=== PATIENT | female | born 1965 | race Caucasian/White ===

== ENCOUNTER 2018-10-25 16:51 | Observation (INO) | payer SELFPAY ==
[2018-10-25] VITALS (8 sets, daily range): BP systolic 150–208; BP diastolic 82–101; PULSE 58–85; RESP 16–18; TEMP 36.9–37.2; O2SAT 95–98; BMI 31.8; BMI 30.7
--- NOTE | 2018-10-25 17:09 | CT_ITS ---
STUDY: CTA CHEST REASON FOR EXAM: Female, 53 years old. Short of breath and chest pain RADIATION DOSAGE (If Supplied By Facility): CTDIvol = ( 12.47 ) mGy, DLP = ( 447.08 ) mGycm TECHNIQUE: The examination was performed with the intravenous administration of 100 IV Isovue 370. Post-processing of the angiographic images was performed, with multiplanar reformation and 3D reconstruction. Individualized dose optimization techniques were used for this CT. COMPARISON: October 18, 2015 FINDINGS: Normal enhancement of the main pulmonary artery and right and left pulmonary arteries. Normal enhancement of the bilateral peripheral pulmonary arteries. There is no demonstrated pulmonary embolism. Normal thoracic aorta and visualized great vessels. There is no demonstrated aortic dissection. Normal heart and pericardium. Normal mediastinum. Normal hilar regions. Normal visualized trachea and bronchi. The lungs are well expanded. There is mild atelectasis within the dependent portion of the lungs. No focal infiltration or pulmonary nodule Normal pleura. Normal chest wall structures. Normal osseous structures. Normal visualized upper abdomen. CT/CTA Chest W/WO Contrast IMPRESSION: Mild atelectasis within the dependent portion of the lungs.. No acute abnormalities. Specifically no evidence for focal infiltration, pulmonary embolus, aortic, aneurysm, periaortic leak or dissection Electronically Signed: Duran Booker MD at 18:54 EDT , Service support ,
--- NOTE | 2018-10-25 17:09 | EKG12_ITS ---
Test Reason : CP Blood Pressure : / mmHG Vent. Rate : 066 BPM Atrial Rate : 066 BPM P-R Int : 152 ms QRS Dur : 072 ms QT Int : 426 ms P-R-T Axes : 055 046 055 degrees QTc Int : 446 ms Normal sinus rhythm Normal ECG Confirmed by MEE CASTILLO, LANNY ([id number]), editor publications MARISELA PABON ([id number]) on 10/30/2018 12:27:10 PM Referred By: DC Confirmed By:LANNY CABAN MD
--- NOTE | 2018-10-25 17:15 | ED.DCSUM_ITS ---
- ER Visit Summary Date of Service: 10/25/18 Chief Complaint: Chest pain History of Present Illness: The patient is a 53 F with left-sided chest pain. The pain started in her left upper back yesterday and then radiated to her left chest. It feels like a sharp pain at times, worse with breathing. She has a cough. No sputum or hemoptysis. No fevers. No shortness of breath. No other associated symptoms. History of hypertension, SVT, heart ablation. Denies any history of DVT or PE. She takes aspirin but no other blood thinners. She takes clonidine as needed for high blood pressures. Physical Examination: Afebrile. Blood pressure 208/101. Otherwise vitals normal. Patient alert and oriented. No acute distress. Heart regular. Lungs clear. Abdomen soft and nontender. Extremities nontender with no edema. Good pulses. Normal skin color. Test Results: EKG showed sinus rhythm at a rate of 66. No sign of acute ischemia or infarction pattern. Laboratory studies and CTA pending. Emergency Department Course and Treatment: Patient placed on a monitor. Treated with morphine and clonidine while awaiting results. EKG, labs unremarkable. Patient complained of urinary symptoms. Urinalysis was negative. CTA showed mild atelectasis but no evidence of PE, pneumonia, or dissection. Patient has a heart score of 4. Her last stress test was years ago. She required a medical stress test. I contacted the hospitalist to admit for observation in the PCU. Treatment Plan: As above Disposition: As above Impression: 1. Chest pain This note was generated with [employer] dictation software. It may contain incorrect words, spelling, and punctuation that were not noted in review of the chart prior to signing ED Disposition - Plan for ED Patient: Referrals: [facility] ,Out of [Primary Care Provider] -
[2018-10-25 17:29] LABS: Absolute Neutrophil Count 2.9 X10^3/uL (2.0-7.7); Basophil# 0.03 X10^3/uL; Basophil% 0.4 % (0-1); Eosinophil# 0.14 X10^3/uL; Eosinophils% 2.1 % (0-5); Hematocrit 43.8 % (37-47); Hemoglobin 14.9 g/dL (12.0-15.0); Lymphocyte % 43.2 % (19-41); Mean Corpuscular Hgb 31.8 pg (27.0-32.0); Mean Corpuscular Volume 93.4 fL (81-99); Mean Platelet Vol. 10.9 fl (6.2-12.0); Monocyte# 0.76 X10^3/uL; Monocyte% 11.3 % (0-10); NRBC Flagged by Analyzer 0 % (0-5); Neutrophil # 2.86 X10^3/uL (2.7-7.7); Neutrophil % 42.7 % (47-70); Platelet Count 197 K/mm3 (150-450); RBC Distribution Width CV 12.2 % (11.6-14.6); RBC Distribution Width SD 41.9 fl (35.1-43.9); Red Blood Count 4.69 M/mm3 (4.2-5.4); White Blood Count 6.7 K/mm3 (4.4-11.0)
[2018-10-25] MEDS: cloNIDine HCl 0.1 MG Tablet PO (17:31)
[2018-10-25] MEDS: Morphine 4 MG/ML Syringe IV (17:31)
[2018-10-25 17:57] LABS: Anion Gap 4 (5-15); BUN 19 mg/dL (7-18); BUN/Creat Ratio 14.7 RATIO (10-20); Calcium,Total 9.1 mg/dL (8.5-10.1); Chloride 104 mmol/L (98-107); Creatinine, Serum 1.29 mg/dL (0.55-1.02); EST Glomerular Filtration Rate 46 mL/min (>60); Est Glom Filt Rate - Afr Amer 56 mL/min (>60); Estimated Creatinine Clearance 47.76 ml/min; Glucose 110 mg/dL (74-106); Potassium 3.9 mmol/L (3.5-5.1); Sodium Level 137 mmol/L (136-145)
[2018-10-25 19:26] LABS: Bacteria 0 SEEN /hpf (None Seen); Mucous, Urine 0 SEEN /hpf (<or=2+); Red Blood Cells-Urine 0 SEEN /hpf (0-5); White Blood Cells 0 SEEN /hpf (0-5)
[2018-10-25 19:41] LABS: Color, Urine Straw (Yellow); Glucose, Dipstick Normal (Normal); Ketone-Dipstick Negative (Negative); Leukocyte Esterase-Dipstick Negative /ul (Negative); Nitrite-Dipstick Negative (Negative); Occult Blood-Urine Negative /ul (Negative); Protein-Dipstick Negative (Negative); Urine Bilirubin Dipstick Negative (Negative); Urine Clarity Clear (Clear); Urine Urobilinogen Normal (Normal); Urine pH 6.5 (5.0 - 8.0)
[2018-10-25] MEDS: oxyCODONE 5 MG Tablet 10 MG PO (19:46)
[2018-10-25 19:52] LABS: Squamous Epithelial Cells - UA 0-5 SEEN /hpf (5-10)
--- NOTE | 2018-10-25 20:12 | HP.PCM_ITS ---
Problem List (1) Chest pain Status: Acute (2) Seasonal allergies Status: Chronic (3) Sinus congestion Status: Chronic History of Present Illness Date of Admission: 10/25/18 Chief Complaint: chest pain The patient is a 53 year old F with a significant history of congestive heart failure; hypertension; restless leg syndrome; anxiety disorder who presented to the emergency department with a 2-day history of chest pain. His symptoms actually started with pain in his left scapula close to the middle of his upper back. His pain is sharp like a knife and it increases with deep breathing. He denies any majority of factor. At home he did not have any nausea or vomiting. However was admitted to the sung the patient began to be nauseous and vomited profusely. She reports malaise. Patient had a stress test in 2015 that was unremarkable. 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 Patient lives at [place] and is currently visiting family in the [facility]. Past Medical History Past Medical History (Chronic Problems): Chronic Problems Sinus congestion (Chronic) Seasonal allergies (Chronic) SVT (supraventricular tachycardia) (Chronic) Allergies acyclovir Allergy (Verified 10/25/18 16:51) Unknown ibuprofen [From Motrin] Allergy (Verified 10/25/18 16:51) Swelling metoprolol Allergy (Verified 10/25/18 16:51) Unknown propranolol Allergy (Verified 10/25/18 16:51) Unknown Home Medications: Ambulatory Orders Medication Instructions Recorded Aspirin E.C. [Ecotrin] 81 mg PO DAILY@0800 10/11/15 DiphenhydrAMINE [Benadryl] 50 mg PO QHS 10/11/15 Ergocalciferol [Vitamin D] 50,000 unit PO MOWE 10/11/15 Furosemide [Lasix] 40 mg PO DAILY #14 tablet 10/11/15 Potassium Chloride [K-Dur] 20 meq PO DAILY 10/11/15 Triamcinolone Acetonide [Nasacort] 1 spray NASAL DAILY PRN 10/11/15 Albuterol Inhaler [Ventolin Hfa] 2 puff INHALATION Q4H PRN PRN #1 10/20/15 inhaler ALPRAZolam [Xanax] 0.5 mg PO TID PRN PRN 10/25/18 Atenolol [Tenormin (beta zulma)] 100 mg PO BID 10/25/18 Clonidine HCl [Catapres] 0.1 mg PO PRN PRN 10/25/18 Lisinopril 40 mg PO QHS 10/25/18 Montelukast [Singulair] 10 mg PO DAILY 10/25/18 Ropinirole HCl [Requip] 10 mg PO QHS 10/25/18 Surgical History: - - 2 c/s , ablatation, lumpectemy, cervical spinal surgery.ovarin cysts remove, abd laparoscopy. Lives: Roommate Smoking Status: Never smoker - *Family History Paternal History Items: Cancer - Colon cancer, - - father at early age. Maternal History Items: Cancer - Glioblastoma, Heart Disease, - - Thyroid disease Review of Systems Constitutional: Reports: Malaise. Denies: Chills, Fever, Weight Change HEENT: Denies: Head Aches, Sinus Congestion, Sinus Drainage Cardiovascular: Reports: Chest Pain. Denies: Palpitations Respiratory: Denies: Cough, Shortness of breath at rest, Sputum production Gastrointestinal: Reports: Nausea, Vomiting. Denies: Abdominal Pain Genitourinary: Denies: Dysuria Musculoskeletal: Reports: Shoulder Pain. Denies: Joint Pain, Joint Tenderness Skin: Denies: Rash, Wounds Neurological: Denies: Numbness, Tingling, Focal weakness Psychiatric: Denies: Anxiety, Depression, Homicidal Ideations, Suicidal Ideations Hematologic/ Lymphatic: Denies: Easy Bruising, Easy Bleeding VTE Information - Inpt Only VTE Present on Admission: No VTE Mechan Device Prophylaxis: None VTE Pharm Prophylaxis ordered?: Yes - Physical Exam General: Alert, Oriented x3, Cooperative HEENT: Atraumatic, PERRLA, EOMI, Normocephalic Neck: Supple, No JVD, Negative Carotid Bruits Lungs: Clear to auscultation, Normal air movement Cardiovascular: Regular rate, No murmurs Abdomen: Bowel Sounds Present, Soft, Non Tender Extremities: No edema, Capillary Refill Less than 3 Seconds Skin: No rashes, No breakdown Musculoskeletal: No Tenderness to Palpation of Joints or Extremities Neurological: Cranial nerves II-XII grossly intact Psych/Mental Status: Normal Affect, Appropriate Vital Signs Temp Pulse Resp BP Pulse Ox 98.9 F 60 16 151/82 H 98 10/25/18 16:51 10/25/18 19:23 10/25/18 19:23 10/25/18 19:23 10/25/18 19:23 Oxygen Delivery Method Room Air Weight: 89.4 kg Body Mass Index (BMI) 31.8 Laboratory Tests Past 24 Hrs 10/25/18 10/25/18 10/25/18 17:00 17:00 19:18 WBC 6.7 RBC 4.69 Hgb 14.9 Hct 43.8 MCV 93.4 MCH 31.8 MCHC 34.0 RDW Std Deviation 41.9 RDW Coeff of Shaina 12.2 Plt Count 197 MPV 10.9 Immature Gran % (Auto) 0.300 Neut % (Auto) 42.7 L Lymph % (Auto) 43.2 H [place] % (Auto) 11.3 H Eos % (Auto) 2.1 Baso % (Auto) 0.4 Absolute Neuts (auto) 2.9 Absolute Lymphs (auto) 2.90 Absolute Nucleated RBC 0.00 Nucleated RBC % 0 Sodium 137 Potassium 3.9 Chloride 104 Carbon Dioxide 29.0 Anion Gap 4 L BUN 19 H Creatinine 1.29 H Estim Creat Clear Calc 47.76 Est GFR (MDRD) Af Amer 56 L Est GFR (MDRD) Non-Af 46 L BUN/Creatinine Ratio 14.7 Glucose 110 H Calcium 9.1 Troponin I < 0.015 Urine Color Straw Urine Clarity Clear Urine pH 6.5 Ur Specific [place] 1.010 Urine Protein Negative Urine Glucose (UA) Normal Urine Ketones Negative Urine Occult Blood Negative Urine Nitrite Negative Urine Bilirubin Negative Urine Urobilinogen Normal Ur Leukocyte Esterase Negative Urine RBC 0 SEEN Urine WBC 0 SEEN Ur Squamous Epith Cells 0-5 SEEN Urine Bacteria 0 SEEN Urine Mucus 0 SEEN Assessment/Plan All Active Problems Chest pain (Acute) The patient is a 53 year old F with a significant history of congestive heart failure; hypertension; restless leg syndrome; anxiety disorder who presented to the emergency department with chest pain; left scapula pain and with nausea and profuse vomiting. Chest Pain Admit to a monitored bed on PCU CTPA was unremarkable except for mild atelectasis within the dependent portion of the lungs. CTPA was independently reviewed. I agree with images interpretation. EKG independently reviewed confirms sinus rhythm ASA 81 mg p.o. daily SL NTG 0.4 mg prn as needed for chest pain Morphine as needed for pain We will check lipid panel. Statin: Patient was given atorvastatin 80 mg x 1. Patient was noted to vomit. Unclear whether her vomiting is related to statin. Will discontinue statin at this time. Serial cardiac enzymes Stat EKG as needed for chest pain Initially a chemical stress test was ordered but with her nausea and copious vomiting would hold off stress test at this time. We will get an echocardiogram. If chest pain continues and nausea and vomiting is relieved with Zofran consider reordering stress test. Patient was noted to have pauses on the monitor while vomiting. This may be due to vagal stimulation. Probable acute gastroenteritis Zofran as needed. Zofran frequently changed from every 8 hours to every 6 hours. We will get comprehensive respiratory pathogen panel. Hypertension urgency Presentation blood pressure was 208/101. Patient takes clonidine as needed at home. At the Emergency department she was given clonidine as needed which helped control her blood pressure. Even with blood pressure controlled she continued to have chest pain. Atenolol continued Clonidine as needed continued Lisinopril continued Lasix continued. Trend blood pressure but his blood pressure medication. Congestive heart failure Lasix with potassium continued. If vomiting continues consider discontinuing Lasix to prevent dehydration. DVT prophylaxis Lovenox subcutaneous ordered Code Visit OBSV E&M: 10701 Initial observation care L3
[2018-10-25] MEDS: Atenolol 100 MG Tablet PO (20:40)
--- NOTE | 2018-10-25 20:53 | EKG12_ITS ---
Test Reason : RYTHM CHANGE Blood Pressure : / mmHG Vent. Rate : 069 BPM Atrial Rate : 069 BPM P-R Int : 186 ms QRS Dur : 076 ms QT Int : 448 ms P-R-T Axes : 042 033 038 degrees QTc Int : 480 ms Normal sinus rhythm Prolonged QT Abnormal ECG When compared with ECG of 26-OCT-2018 05:44, MANUAL COMPARISON REQUIRED, DATA IS UNCONFIRMED Confirmed by ABAD CASTILLO, VERONICA ([id number]), photograph editor MARISELA PABON ([id number]) on 10/27/2018 2:12:52 PM Referred By: KEN Confirmed By:LISA MELGOZA MD
[2018-10-25] MEDS: Ondansetron 4 MG/2 ML Vial IV (22:17)
[2018-10-25] MEDS: Atorvastatin Calcium 80 MG Tablet PO (22:17)
[2018-10-25] MEDS: ALPRAZolam 0.5 MG Tablet PO (22:17)
[2018-10-25] MEDS: Montelukast 10 MG Tablet PO (22:17)
[2018-10-25] MEDS: DiphenhydrAMINE 25 MG Capsule 50 MG PO (22:17)
[2018-10-25] MEDS: Lisinopril 40 MG Tablet PO (22:17)
[2018-10-25] MEDS: Pramipexole Di-HCl 1 MG Tablet 5 MG PO (23:22)
[2018-10-25] MEDS: Morphine 2 MG/ML Syringe IV (23:54)
[2018-10-25] MEDS: Acetaminophen 325 MG Tablet 650 MG PO (23:55)
[2018-10-26] VITALS (15 sets, daily range): BP systolic 101–147; BP diastolic 58–86; PULSE 37–94; RESP 16–20; TEMP 36.4–36.9; O2SAT 91–97
[2018-10-26] MEDS: Ondansetron 4 MG/2 ML Vial IV (04:55)
[2018-10-26 04:56] LABS: Cholesterol 262 mg/dL (200); High Density Lipoprotein 39 mg/dL; Triglycerides 346 mg/dL; Very Low Density Lipoprotein 69 mg/dL (5-40)
[2018-10-26] MEDS: 0.9% NaCl Peripheral Flush Adult/Peds IV ×4 (05:08→22:41)
--- NOTE | 2018-10-26 05:15 | ECHOD_ITS ---
Reason For Study: CHEST PAIN Procedure This was a 2D Doppler, Color Flow transthoracic echocardiogram. Exam performed portable in patient room. Left Ventricle Normal LV size. Concentric left ventricular hypertrophy. The estimated ejection fraction is 65 %. Diastolic function is indeterminate. No regional wall motion abnormalities noted. Right Ventricle Normal RV size. Normal systolic function. Atria Normal left atrium. Normal right atrium. No doppler evidence for ASD. Mitral Valve There is no mitral valve stenosis. No mitral valve insufficiency. Tricuspid Valve There is no tricuspid stenosis. Unable to estimate RV systolic pressure due to insufficient tricuspid regurgitant envelope. Trivial tricuspid valve insufficiency. Aortic Valve Trisinus/trileaflet aortic valve. There is no aortic stenosis. No aortic valve insufficiency. Pulmonic Valve There is no pulmonic valvular stenosis. No pulmonic valve insufficiency. Great Vessels Normal aortic root. Pericardium/Pleural No pericardial effusion. MMode/2D Measurements & Calculations LVIDd: 4.3 cm IVSd: 1.3 cm Ao root diam: 2.9 cm LVIDs: 2.8 cm LVPWd: 1.3 cm LA dimension: 3.6 cm RVDd: 2.8 cm FS: 33.6 % LAV(MOD-bp): 38.5 ml LA A4 area: 15.3 cm2 RA A4 area: 18.0 cm2 LAV(MOD-bp) Indexed: 19.7 ml/m2 LAV(MOD-sp2): 35.9 ml LAV(MOD-sp4): 35.0 ml Time Measurements MV dec time: 0.20 sec Doppler Measurements & Calculations MV E max ernesto: 86.3 cm/sec Lat Peak E' Ernesto: 5.6 cm/sec Med Peak E' Ernesto: 5.5 cm/sec MV A max ernesto: 66.3 cm/sec E/E' lat: 15.5 E/E' med: 15.7 MV E/A: 1.3 Ao V2 max: 123.6 cm/sec LV V1 max: 109.1 cm/sec Ao max P.1 mmHg LV V1 max P.8 mmHg Interpretation Summary Concentric left ventricular hypertrophy. The estimated ejection fraction is 65 %. Diastolic function is indeterminate. Ordering Physician: Junaid Palm Referring Physician: OTD Performed By: Fabiola Duenas RDCS, RVT
--- NOTE | 2018-10-26 05:55 | EKG12_ITS ---
Test Reason : CP ADMIT Blood Pressure : / mmHG Vent. Rate : 057 BPM Atrial Rate : 057 BPM P-R Int : 180 ms QRS Dur : 074 ms QT Int : 438 ms P-R-T Axes : 049 028 043 degrees QTc Int : 426 ms Sinus bradycardia Otherwise normal ECG When compared with ECG of 25-OCT-2018 16:55, MANUAL COMPARISON REQUIRED, DATA IS UNCONFIRMED Confirmed by ABAD CASTILLO, VERONICA ([id number]), supervising editor trailer MARISELA PABON ([id number]) on 10/27/2018 2:15:24 PM Referred By: DR HARRELL Confirmed By:LISA MELGOZA MD
[2018-10-26 06:59] LABS: Thyroid Stim Hormone (TSH) 2.99 uIU/mL (0.358-3.74)
--- NOTE | 2018-10-26 07:37 | EKG12_ITS ---
Test Reason : CP Blood Pressure : / mmHG Vent. Rate : 060 BPM Atrial Rate : 277 BPM P-R Int : 000 ms QRS Dur : 080 ms QT Int : 444 ms P-R-T Axes : 000 037 035 degrees QTc Int : 444 ms Atrial fibrillation Abnormal ECG When compared with ECG of 25-OCT-2018 21:24, MANUAL COMPARISON REQUIRED, DATA IS UNCONFIRMED Confirmed by ABAD CASTILLO, VERONICA ([id number]), film and video editor MARISELA PABON ([id number]) on 10/27/2018 2:13:18 PM Referred By: DR HARRELL Confirmed By:LISA MELGOZA MD
--- NOTE | 2018-10-26 07:54 | CON.PCM_ITS ---
Reason for Consult Date of Consultation: 10/26/18 Reason for Consultation: Bradycardia arrhythmia. History of Present Illness: The patient is a 53 year old F with a history of hypertension and previous supraventricular tachyarrhythmia. It appears from the history that she was ablated in the past and has had paroxysms of atrial fibrillation. She has been maintained on high-dose beta-zulma. She follows with a director building in [place] where she lives. She also says that it has been difficult to control her blood pressure. She came up with his way to visit her mother. She presented to the emergency room last night because she was having sharp left- sided scapular chest discomfort. It appeared to be worse when she took a deep breath. She is also had some nausea and vomiting. In the emergency room her blood pressure was over 200 she was given clonidine with improvement in her blood pressure. This morning she was noted to be retching and during her retching she became bradycardic and passed out briefly. This was unwitnessed. Telemetry monitoring however demonstrated high-grade AV block. She has had no previous dizziness diaphoresis near syncope or syncope. [] Past Medical History Allergies/Adverse Reactions: Allergies acyclovir Allergy (Verified 10/25/18 16:51) Unknown ibuprofen [From Motrin] Allergy (Verified 10/25/18 16:51) Swelling metoprolol Allergy (Verified 10/25/18 16:51) Unknown propranolol Allergy (Verified 10/25/18 16:51) Unknown Home Medications: Ambulatory Orders Medication Instructions Recorded Aspirin E.C. [Ecotrin] 81 mg PO DAILY@0800 10/11/15 DiphenhydrAMINE [Benadryl] 50 mg PO QHS 10/11/15 Ergocalciferol [Vitamin D] 50,000 unit PO MOWE 10/11/15 Furosemide [Lasix] 40 mg PO DAILY #14 tablet 10/11/15 Potassium Chloride [K-Dur] 20 meq PO DAILY 10/11/15 Triamcinolone Acetonide [Nasacort] 1 spray NASAL DAILY PRN 10/11/15 Albuterol Inhaler [Ventolin Hfa] 2 puff INHALATION Q4H PRN PRN #1 10/20/15 inhaler ALPRAZolam [Xanax] 0.5 mg PO TID PRN PRN 10/25/18 Atenolol [Tenormin (beta zulma)] 100 mg PO BID 10/25/18 Clonidine HCl [Catapres] 0.1 mg PO PRN PRN 10/25/18 Lisinopril 40 mg PO QHS 10/25/18 Montelukast [Singulair] 10 mg PO DAILY 10/25/18 Ropinirole HCl [Requip] 10 mg PO QHS 10/25/18 Past Medical History (Chronic Problems): Chronic Problems Sinus congestion (Chronic) Seasonal allergies (Chronic) SVT (supraventricular tachycardia) (Chronic) Surgical History: - - 2 c/s , ablatation, lumpectemy, cervical spinal surgery.ovarin cysts remove, abd laparoscopy. - *Family History Paternal History Items: Cancer - Colon cancer, - - father at early age. Maternal History Items: Cancer - Glioblastoma, Heart Disease, - - Thyroid disease Lives: Roommate Smoking Status: Never smoker Alcohol: None Drugs: None Review of Systems - Review of Systems General: Denies: Fever, Night Sweats, Fatigue HEENT: Denies: Vision Change Cardiovascular: Reports: Chest Discomfort, Chest Discomfort at Rest, Dizziness. Denies: Shortness of Breath, Orthopnea, PND, Peripheral Edema, Palpitations, Lightheadedness, Near Syncope, Syncope Respiratory: Reports: Pleurtic Chest Pain. Denies: Cough, Sputum Production, Hemoptysis Gastrointestinal: Reports: Dyspepsia, Nausea, Emesis. Denies: Hematemesis, Hematochezia, Melena Genitourinary: Denies: Dysuria, Hematuria Muscoloskeletal: Denies: Myalgias Skin: Denies: Rash Neurological: Denies: Dizziness Psychiatric: Denies: Anxiety Endocrine: Denies: Unexplained Weight Loss Hematologic/ Lymphatic: Denies: Anemia Subjectve: Young lady rather uncomfortable retching in bed Objective: Vital Signs Temp Pulse Resp BP Pulse Ox 98.4 F 62 20 H 118/86 H 97 10/26/18 05:15 10/26/18 07:02 10/26/18 05:15 10/26/18 05:15 10/26/18 05:15 Oxygen Delivery Method Room Air Weight: 190 lb 0.615 oz Body Mass Index (BMI) 30.7 Intake and Output for Last 24 Hours 07/16/19 07/17/19 07/18/19 23:59 23:59 23:59 Intake Total 496 / 496 Balance 496 / 496 General: Awake, Alert, Oriented x 3 HEENT: PERRL, EOMI, Sclera Non Icteric Neck: Supple, Good ROM, No Lymph Node Enlargement Lungs: Clear to auscultation Cardiovascular: Regular Rhythm, Normal S1, Normal S2, No Murmurs, No Rubs, No Gallops Vascular: No Carotid Bruits, Normal Femoral Pulses, Normal Radial Pulses, Normal Dorsalis Pedal Pulse, Normal Posterior Tibial Pulses Abdomen: Bowel Sounds Present, Soft, Non Tender, No HSM, No Organomegaly Extremities: No Cyanosis, No Clubbing, No edema Musculoskeletal: No Erythema Skin: No Rashes Lymphatic: No Lymph Node Enlargement Neurological: No Focal Motor or Sensory Deficit Psych/Mental Status: Appropriate 10/25/18 17:00: WBC 6.7, RBC 4.69, Hgb 14.9, Hct 43.8, MCV 93.4, MCH 31.8, MCHC 34.0, Plt Count 197, MPV 10.9, Immature Gran % (Auto) 0.300, Neut % (Auto) 42.7 L, Lymph % (Auto) 43.2 H, [place] % (Auto) 11.3 H, Eos % (Auto) 2.1, Baso % (Auto) 0.4, Absolute Neuts (auto) 2.9, Nucleated RBC % 0 10/25/18 17:00: Sodium 137, Potassium 3.9, Chloride 104, Carbon Dioxide 29.0, Anion Gap 4 L, BUN 19 H, Creatinine 1.29 H, Est GFR (MDRD) Af Amer 56 L, Est GFR (MDRD) Non-Af 46 L, BUN/Creatinine Ratio 14.7, Glucose 110 H, Calcium 9.1, Troponin I < 0.015 10/25/18 19:18: Urine Color Straw, Urine Clarity Clear, Urine pH 6.5, Ur Specific [place] 1.010, Urine Protein Negative, Urine Glucose (UA) Normal, Urine Ketones Negative, Urine Occult Blood Negative, Urine Nitrite Negative, Urine Bilirubin Negative, Urine Urobilinogen Normal, Ur Leukocyte Esterase Negative, Urine RBC 0 SEEN, Urine WBC 0 SEEN 10/25/18 21:25: Troponin I < 0.015 10/25/18 23:26: Troponin I < 0.015 10/26/18 03:20: Triglycerides 346 H, Cholesterol 262 H, LDL Cholesterol 154 H, VLDL Cholesterol 69 H, HDL Cholesterol 39 L 10/26/18 03:20: Troponin I < 0.015 10/26/18 03:20: Magnesium 2.0 Rhythm: Normal sinus rhythm. Other telemetry monitoring demonstrates high-grade AV block. EKG: Normal sinus rhythm with no acute changes. Follow-up EKG demonstrates atrial for ablation with a controlled ventricular response rate. Assessment/Plan 1. Paroxysmal high-grade AV block * The above is likely secondary to the increased vagal tone from her vomiting and retching as well as the high blood pressure. * Would like to treat the underlying cause of her nausea and vomiting. * This is exacerbated by her beta-zulma at a high dose. * I would recommend discontinuing the clonidine and adding a calcium channel zulma. * 2. Hypertension * Blood pressure appears to be under better control at this time. If her blood pressure starts going up I would recommend the addition of amlodipine 5 or 10 mg a day. * Continue atenolol * DisContinue Lasix * Suggest hydrochlorothiazide 25 mg a day * Echocardiogram to assess left ventricular function. 3. Left-sided chest pain * The above is most likely noncoronary and noncardiac in origin. * Would investigate and evaluate other etiologies. * Suggest obtain liver function tests and abdominal ultrasound as well as amylase and lipase. * * Thank you for allowing me to participate in the care of your patient. Please don't hesitate to call if any issues arise
[2018-10-26] MEDS: proMETHazine 25 MG/ML Syringe 6.25 MG IV ×3 (08:14→22:41)
[2018-10-26 08:26] LABS: AST(SGOT) 23 U/L (15-37); Alanine Aminotransfer ALT/SGPT 37 U/L (13-56); Alkaline Phosphatase 61 U/L (45-117); Amylase 35 U/L (25-115); Bilirubin, Direct 0.05 mg/dL (0.00-0.30); Globulin 3.2 g/dL (2.2-4.2); Lipase 102 U/L (73-393); Protein, Total 7.2 g/dL (6.4-8.2)
[2018-10-26] MEDS: Aspirin E.C. 81 MG Tablet PO (09:58)
[2018-10-26] MEDS: Acetaminophen 325 MG Tablet 650 MG PO ×2 (09:58→22:37)
[2018-10-26] MEDS: Atenolol 100 MG Tablet PO ×2 (09:58→21:55)
[2018-10-26] MEDS: Enoxaparin 40 MG/0.4 ML Syringe SC (09:59)
[2018-10-26] MEDS: Morphine 2 MG/ML Syringe IV ×2 (14:04→22:42)
--- NOTE | 2018-10-26 15:31 | PCM.PROGNOTE ---
Subjective: Patient seen and examined. Complains of continued sharp left-sided chest pain which radiates to her back. She reports this is worse with movement, deep breathing. Complains of intermittent heart fluttering. Denies other associated complaints. - Physical Exam General: Alert, Oriented x3, Cooperative HEENT: Atraumatic, PERRLA, EOMI, Normocephalic Neck: Supple, No JVD, Negative Carotid Bruits Lungs: Clear to auscultation, Normal air movement Cardiovascular: Regular rate, Regular Rhythm, Normal S1, Normal S2, No murmurs Abdomen: Bowel Sounds Present, Soft, Non Tender, Non-Distended Extremities: No clubbing, No cyanosis, No edema, Capillary Refill Less than 3 Seconds Skin: No rashes, No breakdown Musculoskeletal: No Tenderness to Palpation of Joints or Extremities Neurological: Cranial nerves II-XII grossly intact, Neuro grossly intact Psych/Mental Status: Flat Affect Vital Signs Temp Pulse Resp BP Pulse Ox 98.1 F 63 16 129/76 H 97 10/26/18 09:51 10/26/18 15:02 10/26/18 09:51 10/26/18 09:51 10/26/18 09:51 Oxygen Delivery Method Room Air Weight: 190 lb 0.615 oz Body Mass Index (BMI) 30.7 Intake and Output for Last 24 Hours 10/24/18 10/25/18 10/26/18 23:59 23:59 23:59 Intake Total 496 / 496 60 / 60 Output Total 350 / 350 Balance 496 / 496 -290 / -290 Microbiology Past 72 Hours 10/26/18 07:27 Respiratory Panel (PCR) - Final Mucosa - Nasopharyngeal Laboratory Tests Past 24 Hrs 10/25/18 10/25/18 10/25/18 17:00 17:00 19:18 WBC 6.7 RBC 4.69 Hgb 14.9 Hct 43.8 MCV 93.4 MCH 31.8 MCHC 34.0 RDW Std Deviation 41.9 RDW Coeff of Shaina 12.2 Plt Count 197 MPV 10.9 Immature Gran % (Auto) 0.300 Neut % (Auto) 42.7 L Lymph % (Auto) 43.2 H [place] % (Auto) 11.3 H Eos % (Auto) 2.1 Baso % (Auto) 0.4 Absolute Neuts (auto) 2.9 Absolute Lymphs (auto) 2.90 Absolute Nucleated RBC 0.00 Nucleated RBC % 0 Sodium 137 Potassium 3.9 Chloride 104 Carbon Dioxide 29.0 Anion Gap 4 L BUN 19 H Creatinine 1.29 H Estim Creat Clear Calc 47.76 Est GFR (MDRD) Af Amer 56 L Est GFR (MDRD) Non-Af 46 L BUN/Creatinine Ratio 14.7 Glucose 110 H Calcium 9.1 Magnesium Total Bilirubin Direct Bilirubin AST ALT Alkaline Phosphatase Troponin I < 0.015 Total Protein Albumin Globulin Triglycerides Cholesterol LDL Cholesterol VLDL Cholesterol HDL Cholesterol Amylase Lipase TSH Urine Color Straw Urine Clarity Clear Urine pH 6.5 Ur Specific [place] 1.010 Urine Protein Negative Urine Glucose (UA) Normal Urine Ketones Negative Urine Occult Blood Negative Urine Nitrite Negative Urine Bilirubin Negative Urine Urobilinogen Normal Ur Leukocyte Esterase Negative Urine RBC 0 SEEN Urine WBC 0 SEEN Ur Squamous Epith Cells 0-5 SEEN Urine Bacteria 0 SEEN Urine Mucus 0 SEEN 10/25/18 10/25/18 10/26/18 21:25 23:26 03:20 WBC RBC Hgb Hct MCV MCH MCHC RDW Std Deviation RDW Coeff of Shaina Plt Count MPV Immature Gran % (Auto) Neut % (Auto) Lymph % (Auto) [place] % (Auto) Eos % (Auto) Baso % (Auto) Absolute Neuts (auto) Absolute Lymphs (auto) Absolute Nucleated RBC Nucleated RBC % Sodium Potassium Chloride Carbon Dioxide Anion Gap BUN Creatinine Estim Creat Clear Calc Est GFR (MDRD) Af Amer Est GFR (MDRD) Non-Af BUN/Creatinine Ratio Glucose Calcium Magnesium Total Bilirubin Direct Bilirubin AST ALT Alkaline Phosphatase Troponin I < 0.015 < 0.015 Total Protein Albumin Globulin Triglycerides 346 H Cholesterol 262 H LDL Cholesterol 154 H VLDL Cholesterol 69 H HDL Cholesterol 39 L Amylase Lipase TSH Urine Color Urine Clarity Urine pH Ur Specific [place] Urine Protein Urine Glucose (UA) Urine Ketones Urine Occult Blood Urine Nitrite Urine Bilirubin Urine Urobilinogen Ur Leukocyte Esterase Urine RBC Urine WBC Ur Squamous Epith Cells Urine Bacteria Urine Mucus 10/26/18 10/26/18 10/26/18 03:20 03:20 03:20 WBC RBC Hgb Hct MCV MCH MCHC RDW Std Deviation RDW Coeff of Shaina Plt Count MPV Immature Gran % (Auto) Neut % (Auto) Lymph % (Auto) [place] % (Auto) Eos % (Auto) Baso % (Auto) Absolute Neuts (auto) Absolute Lymphs (auto) Absolute Nucleated RBC Nucleated RBC % Sodium Potassium Chloride Carbon Dioxide Anion Gap BUN Creatinine Estim Creat Clear Calc Est GFR (MDRD) Af Amer Est GFR (MDRD) Non-Af BUN/Creatinine Ratio Glucose Calcium Magnesium 2.0 Total Bilirubin 0.30 Direct Bilirubin 0.05 AST 23 ALT 37 Alkaline Phosphatase 61 Troponin I < 0.015 Total Protein 7.2 Albumin 4.0 Globulin 3.2 Triglycerides Cholesterol LDL Cholesterol VLDL Cholesterol HDL Cholesterol Amylase 35 Lipase 102 TSH 2.99 Urine Color Urine Clarity Urine pH Ur Specific [place] Urine Protein Urine Glucose (UA) Urine Ketones Urine Occult Blood Urine Nitrite Urine Bilirubin Urine Urobilinogen Ur Leukocyte Esterase Urine RBC Urine WBC Ur Squamous Epith Cells Urine Bacteria Urine Mucus Medical Necessity - Tobacco Use Smoking Status: Never smoker Assessment/Plan All Active Problems Chest pain (Acute) 1. Chest pain-EKG on admission without evidence of ischemia. Troponin negative. Echocardiogram with EF 65%, no regional wall motion abnormalities. 2. Paroxysmal high-grade AV block/new onset paroxysmal atrial fibrillation-cardiology following. Recommend discontinuing PRN clonidine. Continue atenolol regimen. Atrial fibrillation appears to have lasted a brief amount of time and was self-limiting. Monitor telemetry. Therapeutic Lovenox. 3. Hypertension-continue home lisinopril regimen. Discontinue home Lasix regimen. Add hydrochlorothiazide 25 mg daily if blood pressure remains above goal. Continue home atenolol regimen. 4. Nausea, vomiting with associated mild dehydration- IV fluids. Repeat BMP in a.m. PRN antiemetic regimen. Possible viral gastroenteritis. LFTs, lipase within normal limits. 5. Elevated lipid panel-initiate on atorvastatin 40 mg p.o. nightly. 6. Elevated glucose-checking globin A1c. 7. Anxiety-continue home PRN Xanax DVT prophylaxis-Lovenox subcu. This patient was seen by MARIA ALEJANDRA George under the supervision of Dr. Goldman.
[2018-10-26 16:22] LABS: Hemoglobin A1c 5.7 % (4.2-6.3)
[2018-10-26] MEDS: 0.9% Normal Saline 1,000 ML 100 ML IV (16:30)
[2018-10-26] MEDS: Pantoprazole Sodium 40 MG Tablet PO (16:52)
[2018-10-26] MEDS: Enoxaparin 80 MG/0.8 ML Syringe SC (16:59)
--- NOTE | 2018-10-26 18:47 | US_ITS ---
STUDY: ABDOMINAL ULTRASOUND - RIGHT UPPER QUADRANT REASON FOR VISIT: Female, 53 years old. Nausea and vomiting TECHNIQUE: Ultrasound evaluation of the right upper quadrant was performed with real-time and static mendoza-scale imaging. TECHNICAL QUALITY: Adequate. COMPARISON: None. FINDINGS: Liver: The liver measures 14.9 cm. There is normal echogenicity of the liver. The bile ducts are within normal limits. There is hepatic color flow. The direction of portal flow is hepatopetal. There is no demonstrated mass lesion. Gallbladder: Normal distended gallbladder. The gallbladder wall measures 2 mm. There is a negative sonographic Fuentes's sign. There is no pericholecystic fluid. There are no gallstones. Common Bile Duct (C.B.D.): The common bile duct measures 3 mm. Pancreas: Normal size of the head, body and tail of the pancreas. There is normal echogenicity of the pancreas. There is no demonstrated pancreatic mass or cyst. Right Kidney: Normal size of the right kidney. The right kidney measures 10.1 x 3.9 x 3.6 cm. Normal renal cortex. The right cortex measures 1 cm. There is no demonstrated renal mass or cyst. There is no right hydronephrosis. US/Liver IMPRESSION: Normal right upper quadrant ultrasound examination. Electronically Signed: Duran Booker MD at 19:42 EDT , Service support ,
[2018-10-26] MEDS: DiphenhydrAMINE 25 MG Capsule 50 MG PO (21:53)
[2018-10-26] MEDS: Atorvastatin Calcium 40 MG Tablet PO (21:54)
[2018-10-26] MEDS: Montelukast 10 MG Tablet PO (21:54)
[2018-10-26] MEDS: Lisinopril 40 MG Tablet PO (21:54)
[2018-10-26] MEDS: Pramipexole Di-HCl 1 MG Tablet 5 MG PO (21:54)
[2018-10-26] MEDS: ALPRAZolam 0.5 MG Tablet PO (22:42)
[2018-10-27] VITALS (17 sets, daily range): BP systolic 145–188; BP diastolic 77–95; PULSE 65–77; RESP 14–18; TEMP 36.6–37.6; O2SAT 95–99
[2018-10-27] MEDS: 0.9% Normal Saline 1,000 ML 100 ML IV (02:32)
[2018-10-27] MEDS: proMETHazine 25 MG/ML Syringe 6.25 MG IV ×2 (04:12→08:48)
[2018-10-27] MEDS: 0.9% NaCl Peripheral Flush Adult/Peds IV (04:12)
[2018-10-27] MEDS: Acetaminophen 325 MG Tablet 650 MG PO (06:24)
[2018-10-27] MEDS: Enoxaparin 80 MG/0.8 ML Syringe SC (06:24)
[2018-10-27 06:48] LABS: Anion Gap 1 (5-15); BUN 18 mg/dL (7-18); BUN/Creat Ratio 16.2 RATIO (10-20); Chloride 107 mmol/L (98-107); Creatinine, Serum 1.11 mg/dL (0.55-1.02); EST Glomerular Filtration Rate 55 mL/min (>60); Est Glom Filt Rate - Afr Amer 66 mL/min (>60); Glucose 112 mg/dL (74-106); Potassium 3.7 mmol/L (3.5-5.1); Sodium Level 139 mmol/L (136-145)
[2018-10-27] MEDS: Atenolol 100 MG Tablet PO (08:55)
[2018-10-27] MEDS: Aspirin E.C. 81 MG Tablet PO (08:55)
[2018-10-27 09:02] LABS: Internal QC Validated? YES +Cl - CLEAR BKGD; Pregnancy, Serum, hCG Quali. NEGATIVE Negative
[2018-10-27] MEDS: 0.9% Normal Saline 1,000 ML 15 ML IV (10:30)
--- NOTE | 2018-10-27 11:13 | PN.CARD_ITS ---
Subjectve: Patient seen and evaluated. Objective: Vital Signs Temp Pulse Resp BP Pulse Ox 97.9 F 70 16 187/86 H 99 10/27/18 09:02 10/27/18 09:02 10/27/18 09:02 10/27/18 09:02 10/27/18 09:02 Oxygen Delivery Method Room Air Weight: 190 lb 0.615 oz Body Mass Index (BMI) 30.7 Intake and Output for Last 24 Hours 10/25/18 10/26/18 10/27/18 23:59 23:59 23:59 Intake Total 496 / 496 1505 / 1505 626 / 626 Output Total 350 / 350 Balance 496 / 496 1155 / 1155 626 / 626 General: Awake, Alert, Oriented x 3 HEENT: PERRL, EOMI, Sclera Non Icteric Neck: Supple, Good ROM, No Lymph Node Enlargement Lungs: Clear to auscultation Cardiovascular: Regular Rhythm, Normal S1, Normal S2, No Murmurs, No Rubs, No Gallops Vascular: No Carotid Bruits, Normal Femoral Pulses, Normal Radial Pulses, Normal Dorsalis Pedal Pulse, Normal Posterior Tibial Pulses Abdomen: Bowel Sounds Present, Soft, Non Tender, No HSM, No Organomegaly Extremities: No Cyanosis, No Clubbing, No edema Neurological: No Focal Motor or Sensory Deficit 10/26/18 15:50: Hemoglobin A1c 5.7 10/27/18 06:10: Sodium 139, Potassium 3.7, Chloride 107, Carbon Dioxide 31.0, Anion Gap 1 L, BUN 18, Creatinine 1.11 H, Est GFR (MDRD) Af Amer 66, Est GFR (MDRD) Non-Af 55 L, BUN/Creatinine Ratio 16.2, Glucose 112 H, Calcium 9.0 Rhythm: EKG: ECHO: Stress Test: Cardiac Cath: PCI: CT Surgery: Holter monitor: EPS: PPM: CXR: Chest CT Scan: Medical Necessity - Tobacco Use Smoking Status: Never smoker Assessment/Plan 1. Paroxysmal high-grade AV block * The above is likely secondary to the increased vagal tone from her vomiting and retching as well as the high blood pressure. * Would like to treat the underlying cause of her nausea and vomiting. * This is exacerbated by her beta-zulma at a high dose. * I would recommend discontinuing the clonidine and adding a calcium channel zulma. * 2. Hypertension * Blood pressure appears to be under better control at this time. If her blood pressure starts going up I would recommend the addition of amlodipine 5 or 10 mg a day. * Continue atenolol * DisContinue Lasix * Suggest hydrochlorothiazide 25 mg a day * Echocardiogram to assess left ventricular function. This demonstrated preserved ejection fraction 3. Left-sided chest pain * The above is most likely noncoronary and noncardiac in origin. * She underwent cardiac catheterization today which demonstrates no obstructive coronary disease. This was actually at her insistence because she did not believe that she did not have any obstructive coronary disease. * She can be discharged for outpatient medical therapy. With her primary die cut operator. * Thank you for allowing me to participate in the care of your patient. Please don't hesitate to call if any issues arise
[2018-10-27] MEDS: 0.9% Normal Saline 1,000 ML 60 ML IV (11:31)
--- NOTE | 2018-10-27 11:56 | DCINST_ITS ---
You will use the following diet at home:: Calorie/Carbohydrate Controlled (specify 1200, 1400, etc), Cardiac Discharge Activity: Return to Normal Activity Call your doctor if you observe: Shortness of breath, Dizziness, Fainting spells, Chest pain Allergies/Adverse Reactions: Allergies acyclovir Allergy (Verified 10/25/18 16:51) Unknown ibuprofen [From Motrin] Allergy (Verified 10/25/18 16:51) Swelling metoprolol Allergy (Verified 10/25/18 16:51) Unknown propranolol Allergy (Verified 10/25/18 16:51) Unknown Medications to take at Discharge Aspirin E.C. [Ecotrin] 81 mg PO DAILY@0800 10/11/15 DiphenhydrAMINE [Benadryl] 50 mg PO QHS 10/11/15 Ergocalciferol [Vitamin D] 50,000 unit PO MOWE 10/11/15 Furosemide [Lasix] 40 mg PO DAILY #14 tablet 10/11/15 Potassium Chloride [K-Dur] 20 meq PO DAILY 10/11/15 Triamcinolone Acetonide [Nasacort] 1 spray NASAL DAILY PRN 10/11/15 Albuterol Inhaler [Ventolin Hfa] 2 puff INHALATION Q4H PRN PRN #1 inhaler 10/20/15 ALPRAZolam [Xanax] 0.5 mg PO TID PRN PRN 10/25/18 Atenolol [Tenormin (beta zulma)] 100 mg PO BID 10/25/18 Lisinopril 40 mg PO QHS 10/25/18 Montelukast [Singulair] 10 mg PO DAILY 10/25/18 Ropinirole HCl [Requip] 10 mg PO QHS 10/25/18 Amlodipine [Norvasc] 10 mg PO DAILY #30 tab 10/27/18 Atorvastatin Calcium [Lipitor] 40 mg PO QHS #40 tab 10/27/18 proMETHazine tablet [Phenergan tablet] 12.5 mg PO Q8H PRN PRN #20 tab 10/27/18 The following prescriptions were given: Atorvastatin Calcium [Lipitor] 40 mg PO QHS #40 tab Transmission Status: Pending to [facility] Amlodipine [Norvasc] 10 mg PO DAILY #30 tab Transmission Status: Pending to [facility] proMETHazine tablet [Phenergan tablet] 12.5 mg PO Q8H PRN PRN #20 tab PRN Reason: Nausea Transmission Status: Pending to [facility] Primary Care Physician: Sandhya Doctor,Out of [Primary Care Provider] - Please follow up with your Primary Care Physician in: 1 Week Test Results: Test results from this visit will be discussed in further detail at your follow- up appointment, if applicable. Please Follow Up With: Primary Regenerator Operator, [place] When: 1 Week
--- NOTE | 2018-10-27 12:02 | DS.PCM_ITS ---
Discharge Date and Diagnosis Date of Admission: 10/25/18 Date of Discharge: 10/27/18 - Primary Discharge Diagnosis 1. Noncardiac, musculoskeletal chest pain 2. Paroxysmal high-grade AV block 3. Hypertension, poorly controlled 4. Nausea, vomiting with associated mild dehydration 5. Hyperlipidemia 6. Anxiety - Secondary Discharge Diagnosis Chronic Problems Sinus congestion (Chronic) Seasonal allergies (Chronic) SVT (supraventricular tachycardia) (Chronic) Hospital Course and Treatment Imaging Results: Diagnostic Data Chest CTA 10/25/18 17:09 IMPRESSION: Mild atelectasis within the dependent portion of the lungs.. No acute abnormalities. Specifically no evidence for focal infiltration, pulmonary embolus, aortic, aneurysm, periaortic leak or dissection Electronically Signed: Duran Booker MD at 18:54 EDT , Service support , Liver Ultrasound 10/26/18 18:47 IMPRESSION: Normal right upper quadrant ultrasound examination. Electronically Signed: Duran Booker MD at 19:42 EDT , Service support , Dr. Plummer- Cardiology Operations: None Procedures: 2-D Echocardiogram, Cardiac catheterization Summary of Care Provided: The patient is a 53 year old F admitted 10/25/2017 due to chest pain. 1. Noncardiac, musculoskeletal chest pain-EKG without evidence of ischemia. Troponin negative. Echocardiogram with EF 65%, no regional wall motion abnormalities. Patient further underwent cardiac catheterization which demonstrated normal coronary arteries. Follow-up with primary java lead architect in 1 to 2 weeks. 2. Paroxysmal high-grade AV block-patient also had very brief episode of atrial fibrillation during admission which she has had in the past as well. As needed clonidine recommended to be discontinued at discharge. Continue home atenolol regimen. High-grade AV block suspected to be secondary to increased vagal tone from nausea, vomiting as well as high blood pressure. No further episodes during admission. Initiated on amlodipine 10 mg daily. Follow-up with primary java lead architect/superintendent system operation upon returning to primary residence in [place]. 3. Hypertension, poorly controlled-blood pressure initially greater than 200 on admission. Now improved. Continue home lisinopril, atenolol, Lasix regimen. Additionally started on amlodipine 10 mg daily. 4. Nausea, vomiting with associated mild dehydration-improved. No further emesis. Right upper quadrant ultrasound normal. 5. Hyperlipidemia-initiated on atorvastatin 40 mg p.o. nightly. 6. Anxiety-continue home PRN Xanax. General: Alert, Oriented x3, Cooperative HEENT: Atraumatic, PERRLA, EOMI, Normocephalic Neck: Supple, No JVD, Negative Carotid Bruits Lungs: Clear to auscultation, Normal air movement Cardiovascular: Regular rate, Regular Rhythm, Normal S1, Normal S2, No murmurs Abdomen: Bowel Sounds Present, Soft, Non Tender, Non-Distended Extremities: No clubbing, No cyanosis, No edema, Capillary Refill Less than 3 Seconds Skin: No rashes, No breakdown Musculoskeletal: No Tenderness to Palpation of Joints or Extremities Neurological: Cranial nerves II-XII grossly intact, Neuro grossly intact Psych/Mental Status: Flat Affect, anxious Patient seen and examined prior to discharge. Physical assessment as noted above. Patient is stable for discharge with follow up recommendations as noted above. This patient was seen by MARIA ALEJANDRA George under the supervision of Dr. Goldman. - Physical Exam Vital Signs Temp Pulse Resp BP Pulse Ox 97.9 F 65 14 145/85 H 97 10/27/18 09:02 10/27/18 12:00 10/27/18 12:00 10/27/18 12:00 10/27/18 12:00 Oxygen Delivery Method Room Air Weight: 190 lb 0.615 oz Body Mass Index (BMI) 30.7 Intake and Output for Last 24 Hours 10/25/18 10/26/18 10/27/18 23:59 23:59 23:59 Intake Total 496 / 496 1505 / 1505 626 / 626 Output Total 350 / 350 Balance 496 / 496 1155 / 1155 626 / 626 Microbiology Past 72 Hours 10/26/18 07:27 Respiratory Panel (PCR) - Final Mucosa - Nasopharyngeal Laboratory Tests Past 24 Hrs 10/25/18 10/26/18 10/27/18 17:00 15:50 06:10 Sodium 139 Potassium 3.7 Chloride 107 Carbon Dioxide 31.0 Anion Gap 1 L BUN 18 Creatinine 1.11 H Estim Creat Clear Calc 55.50 Est GFR (MDRD) Af Amer 66 Est GFR (MDRD) Non-Af 55 L BUN/Creatinine Ratio 16.2 Glucose 112 H Hemoglobin A1c 5.7 Calcium 9.0 Serum , Qual NEGATIVE Discharge Diet: Low fat/ Low Cholesterol Discharge Activity: Return to Normal Activity Call your doctor if you observe: Shortness of breath, Dizziness, Fainting spells, Chest pain Home Medications: Medications to take at Discharge Aspirin E.C. [Ecotrin] 81 mg PO DAILY@0800 10/11/15 DiphenhydrAMINE [Benadryl] 50 mg PO QHS 10/11/15 Ergocalciferol [Vitamin D] 50,000 unit PO MOWE 10/11/15 Furosemide [Lasix] 40 mg PO DAILY #14 tablet 10/11/15 Potassium Chloride [K-Dur] 20 meq PO DAILY 10/11/15 Triamcinolone Acetonide [Nasacort] 1 spray NASAL DAILY PRN 10/11/15 Albuterol Inhaler [Ventolin Hfa] 2 puff INHALATION Q4H PRN PRN #1 inhaler 10/20/15 ALPRAZolam [Xanax] 0.5 mg PO TID PRN PRN 10/25/18 Atenolol [Tenormin (beta zulma)] 100 mg PO BID 10/25/18 Lisinopril 40 mg PO QHS 10/25/18 Montelukast [Singulair] 10 mg PO DAILY 10/25/18 Ropinirole HCl [Requip] 10 mg PO QHS 10/25/18 Amlodipine [Norvasc] 10 mg PO DAILY #30 tab 10/27/18 Atorvastatin Calcium [Lipitor] 40 mg PO QHS #40 tab 10/27/18 proMETHazine tablet [Phenergan tablet] 12.5 mg PO Q8H PRN PRN #20 tab 10/27/18 Following Prescrptions Were Given to Patient: Atorvastatin Calcium [Lipitor] 40 mg PO QHS #40 tab Transmission Status: Pending to [facility] Amlodipine [Norvasc] 10 mg PO DAILY #30 tab Transmission Status: [facility] proMETHazine tablet [Phenergan tablet] 12.5 mg PO Q8H PRN PRN #20 tab PRN Reason: Nausea Transmission Status: Pending to [facility] Primary Care Physician: Sandhya Doctor,Out of [Primary Care Provider] - Please follow up with your Primary Care Physician in: 1 Week Please Follow Up With: Primary Life Specialist, [place] When: 1 Week Disposition: Home Minutes spent on discharge:: 35 Patient Condition:: Stable Medical Necessity - Tobacco Use Smoking Status: Never smoker Meaningful Use Info Meaningful Use Diagnoses (Choose all that apply): None applicable
--- NOTE | 2018-10-27 12:41 | CL.D_ITS ---
Patient Name: INO RODRIGUEZ Study Date: 10/27/2018 Performing: Case Plummer MD Ht: 66 inches 168 cm : 1965 Wt: 189.8 lbs 86 kg Age: 53 Gender: female BSA: 1.96 PROCEDURE(S) PERFORMED [id number]/COR/LV CLINICAL PROFILE AND INDICATIONS Indications: Suspected CAD Heart Failure: None Stress/Imaging Stress/Image Study Performed: No CAD Presentations: Symptom unlikely to be ischemic. CONCLUSIONS Normal coronary arteries Normal LV size, wall motion,and systolic function RECOMMENDATIONS Medical therapy DESCRIPTION OF PROCEDURE The patient arrived to the procedure lab. The risks and benefits of the procedure as well as a full d escription of our services here and current unavailability of surgical backup were fully explained to the patient and/or their significant other prior to the catheterization. The Timeout was completed, verifying the correct patient and procedure. The patient's procedural site was prepped and draped in the usual fashion. Local anesthetic was given subcutaneously to right radial region with Lidocaine 2% . Using a modified Seldinger technique, arterial access was obtained via the right radial artery, a 6 Fr sheath was inserted. Left Coronary Artery selective angiography was performed in multiple views u sing a 5 Fr. 4.0 [place] catheter. Right Coronary Artery selective angiography was then performed in mu ltiple views using a 5 Fr. 4.0 [place] catheter. Left Ventriculography was performed in DUMONT projection using a 5 Fr. Pigtail catheter. LV to AO pullback pressures were then recorded.The arterial sheath was pulled and a TR Band was applied for hemostasis. 14cc of air CORONARY ANGIOGRAPHY DOMINANCE: Left Dominant LEFT HEART ASSESSMENT Normal LV wall motion Normal Left Ventricular systolic function Normal Left Ventricular systolic function LEFT MAIN: Angiographically normal LEFT ANTERIOR DESCENDING ARTERY: Angiographically normal CIRCUMFLEX ARTERY: Angiographically normal RIGHT CORONARY ARTERY: Angiographically normal COMPLICATIONS No Complications PROCEDURE MEDICATIONS Versed 2 mg IV Fentanyl 50 mcg IV Oxygen: 2 L/min via nasal cannula Heparin diluted in 23cc Heparinized saline. Patient given 10cc IA of this solution. 10/27/2018 10:59: 21 SUMMARY OF HEMODYNAMIC DATA Time AIR REST ECG 10:45:58 AO 132/86 (108) SA 11:02:25 LV 148/11, 19 11:07:33 LV 148/11, 19 11:07:55 LV 147/4, 22 11:08:47 LVp 150/3, 20 11:08:50 AOp 147/78 (107) 11:08:55 Signed By Case Plummer MD On 10/27/2018 12:40:47 Case Plummer MD
[2018-10-27] MEDS: Pantoprazole Sodium 40 MG Tablet PO (13:57)
--- NOTE | 2018-10-27 14:32 | CASEMGMT ---
Dr. Goldman would like pt set up for OP therapy and she gave script to pt at this time. Carmen RODRIGUEZ CM
[2018-10-27] MEDS: Ondansetron 4 MG/2 ML Vial IV (15:14)
[2018-10-27] MEDS: hydrALAZINE 20 MG/ML Vial 10 MG IV (15:40)
--- NOTE | 2018-10-27 17:17 | NURSING ---
Patient came back from heart cath at 1130 today that was negative for any ischemia or issues per Dr. Plummer. Hospitalist was made aware. Right aware discussion with patient began about being discharged once post cath orders were completed. She right away began to express concerns about leaving and felt she was not medically safe to be discharged. Later Dr. Goldman went into patients room, sat down and had a long discussion about the plan of care and the plan to start new BP medication and be discharged later today with prescription for nausea medication to treat her intermittent nausea. As the day continued on the patient became more and more resistive to discharge with this RN. She then started c/o of nausea again and was given nausea medication by this RN. She fell asleep. within an hour later she was caught by staff sticking her finger in catrina mouth to attempt to make herself sick. When patient confronted by this RN she became very defensive and requested to be transferred to another hospital, to talk to the doctor and to have another nurse resume care of her. Dr. Goldman along with other hospitalist staff, nursing staff and nursing department chairperson came in to discuss plan of care with patient and with patient sister and to again explain to her that she is discharged from and hospital and is medically cleared and has no reason to stay. She became very manipulative and resistive to everything. She refused to accept any suggestions and plans offered by Dr. Goldman. Eventually she agree to leave on her own. Security and hospital resource officer were present and walked out with the patient.
--- NOTE | 2018-10-27 17:45 | NURSING ---
After Dr. Goldman spoke with patient at great length about the plan of care and events of the day, patient left the unit escorted by clinical manager multimedia, charge histotechnologist, and HRO.
== END 2018-10-27 11:12 | disposition home or self-care (01) ==
LOC: ED 19:05 → PCU 20:52
PROVIDERS: Internal Medicine Cardiovascular Disease; Nurse Practitioner Family; Admitting Provider Hospitalist; Emergency Provider Emergency Medicine; Visit Provider Family Medicine
DX: R07.89 Other chest pain (principal); R00.2 Palpitations; I48.91 Unspecified atrial fibrillation; R11.2 Nausea with vomiting, unspecified; I11.0 Hypertensive heart disease with heart failure; I50.9 Heart failure, unspecified; F41.9 Anxiety disorder, unspecified; G25.81 Restless legs syndrome; I16.0 Hypertensive urgency; R73.9 Hyperglycemia, unspecified; E86.0 Dehydration; E66.9 Obesity, unspecified; Z68.30 Body mass index [BMI] 30.0-30.9, adult; Z71.3 Dietary counseling and surveillance; E78.5 Hyperlipidemia, unspecified; Z79.899 Other long term (current) drug therapy; Z79.82 Long term (current) use of aspirin
CPT/HCPCS: 36415; 71275; 76705; 80048; 80061; 80076; 81001; 82150; 83036; 83690; 83735; 84443; 84484; 84703; 85025; 87633; 93005; 93306; 93458; 96361; 96372; 96374; 96375; 96376; 99152; 99153; 99218; 99285; J7030; J7040; Q9957; Q9967; A4216; C1769; C1894; G0378; J2405

== ENCOUNTER 2018-10-27 18:14 | Emergency (ER) | payer SELFPAY ==
[2018-10-25 21:03] VITALS: BMI 30.7
[2018-10-27 18:15] VITALS: BP 187/110; PULSE 87; RESP 18; TEMP 36.6; O2SAT 99; BMI 29.5
[2018-10-27 19:15] VITALS: BP 159/86; PULSE 75; RESP 23; O2SAT 93
--- NOTE | 2018-10-27 19:18 | ED.VIS.GEN ---
History of Present Illness Chief Complaint: Chest Pain Informant: Patient Onset: Today Context: - - These read narrative Timing: Continuous - Nausea and chest pain Quality: Pain and nausea Location: Chest Current Severity: - - Unable to determine Maximum Severity: - - Unable to determine Worsened by: Nothing per patient. Please read narrative Relieved by: Nothing per patient Associated Symptoms: Heart block Narrative: Patient is a middle-age woman who was admitted to the hospital on October 25. Her ER documentation and initial H&P and progress notes were read. Patient underwent cardiac catheterization. Patient informs me she did not believe she should be discharged because she had heart block and persistent chest pain. Review of discharge notes indicate patient was seen on camera inducing emesis and reason she was having persistent nausea and vomiting. And had a high AV block during emesis. It was recommended that she follow-up with her EP flight line service attendant. Patient is insisting that she receive IV medication for her blood pressure. She is having no symptoms. She denies headache, visual, ocular auditory symptoms. She does report left-sided chest pain that is worse with breathing and turning. Prior similar symptoms: Yes Recent Illness/Hospitalization: Yes - Past Medical History (1) Chest pain Status: Acute (2) SVT (supraventricular tachycardia) Status: Chronic Past Medical History - Allergies and Home Meds Allergies/Adverse Reactions: Allergies acyclovir Allergy (Verified 10/27/18 19:13) Unknown amlodipine Allergy (Verified 10/27/18 19:13) Other ibuprofen [From Motrin] Allergy (Verified 10/27/18 19:13) Swelling metoprolol Allergy (Verified 10/27/18 19:13) Unknown propranolol Allergy (Verified 10/27/18 19:13) Unknown Primary Care Physician: Sandhya Lara,Out of [Primary Care Provider] - Prior records reviewed: Yes Surgical History: - - 2 c/s , ablatation, lumpectemy, cervical spinal surgery.ovarin cysts remove, abd laparoscopy. Lives: Alone Smoking Status: Never smoker Drugs: None - Family History Paternal Family History: Reports: Cancer - Colon cancer, - - father at early age. Maternal Family History: Reports: Cancer - Glioblastoma, Heart Disease, - - Thyroid disease Review of Systems General: Denies: Chills, Fever, Sweats Eyes: Denies: Visual changes - bilaterally, Diplopia ENT: Denies: Rhinorrhea, Sore throat Cardiovascular: Reports: Chest pain, Palpitations, Heart racing Respiratory: Reports: Dyspnea Gastrointestinal: Reports: Nausea, Vomiting Genitourinary: Denies: Dysuria, Hematuria, Frequency Musculoskeletal: Denies: Back pain, Extremity Pain Skin: Denies: Rash, Wounds Neurological: Denies: Headache, Weakness, Parasthesia, Numbness Hematologic: Denies: Easy bruising, Easy bleeding Physical Exam Vital Signs/Narrative: Vital Signs Temp Pulse Resp BP Pulse Ox 10/27/18 19:07 75 23 H 138/94 H 93 10/27/18 18:15 98 F 87 18 187/110 H 99 Inital Vital Signs reviewed: Yes General: Well nourished, Well developed, No Acute Distress Head: Normocephalic, Atraumatic Eyes: Perrl, EOMI ENT: Moist mucous membranes, No rhinorrhea Neck: Supple, Nontender Cardiovascular: Regular rate, Regular rhythm, No murmurs Respiratory: No distress, CTA bilaterally, Chest nontender Abdomen: Soft, Nontender, Nondistended, Normal bowel sounds Back: Nontender, Normal Inspection Extremities: Nontender, No edema Skin: Normal color, No rash Neurological: Alert, Oriented x3, Cranial nerves II-XII grossly intact, Normal Strength, Normal Sensation Psychological: Normal affect, Normal Mood Diagnostic/Tx/Re-eval - Medical Decision Making Initial blood pressure is elevated. Patient was anxious and tearful and room and may contribute to her elevated blood pressure. Will reassess blood pressure every 15 minutes x 3. Patient informed me that she is taking Claritin as needed. She was informed that clonidine should be taken continuously and not as needed. Nurse informed me with patient not cooperating systolic was 159. Since she has no symptoms a blood pressure 159 does not require emergent intervention. Father and uncle are aware of circumstances led to her discharge prior to visiting the ER. Father states kick your ass out. And asked if he understands what was going on and his response was that he pointed to his head and stated it is all in her head . ED Disposition - Plan for ED Patient: Disposition: Home or Assisted Living Diagnosis: Hypertension, Self-induced emesis Instructions: HYPERTENSION, Established Referrals: Town Doctor,Out of [Primary Care Provider] - As Needed Additional Instructions: Agree with physician to discharge her from the hospital follow-up with your doctor. Your blood pressure does not mandate emergent intervention. Your creatinine today was lower than it was on date of admission.
[2018-10-27 19:30] VITALS: BP 175/96; PULSE 77; RESP 21; O2SAT 94
--- NOTE | 2018-10-27 20:01 | ED.RN ---
PT CALLED NURSE INTO THE ROOM. PT C/O NAUSEA AND HEADACHE. PT STATES THE NURSES ARE SUPPOSED TO BE MONITORING MY BLOOD PRESSURE. PT INFORMED WE ARE MONITORING HER BLOOD PRESSURE AND WE ARE TAKING IT EVERY 15 MINUTES. PT STATES WELL NORMALLY WHEN IT IS THIS HIGH I AM GIVEN MEDICATION. THIS NURSE ALONG WITH JORDAN RODRIGUEZ AND NICHOLAS ARANDA HAVE ATTEMPTED TO GET THE PT TO SIT BACK IN THE BED AND ATTEMPT TO RELAX SO THE BP IS REFLECTED THE SAME. PT BEGINS TO MOVE HER ARM AROUND EVERYTIME THE BP STARTS
[2018-10-27 20:45] VITALS: BP 148/76; PULSE 73; RESP 18; O2SAT 97
--- NOTE | 2018-10-27 20:59 | EKG12_ITS ---
Test Reason : CP Blood Pressure : / mmHG Vent. Rate : 078 BPM Atrial Rate : 078 BPM P-R Int : 170 ms QRS Dur : 076 ms QT Int : 376 ms P-R-T Axes : 050 035 031 degrees QTc Int : 428 ms Normal sinus rhythm Normal ECG Confirmed by MEE CASTILLO, LANNY ([id number]), editor managing director MARISELA PABON ([id number]) on 10/30/2018 1:02:44 PM Referred By: CRYSTAL Confirmed By:LANNY CABAN MD
== END 2018-10-27 20:45 | disposition home or self-care (01) ==
PROVIDERS: Emergency Provider Emergency Medicine
DX: I10 Essential (primary) hypertension (principal); I45.9 Conduction disorder, unspecified; I47.1 Supraventricular tachycardia; R11.2 Nausea with vomiting, unspecified; Z79.82 Long term (current) use of aspirin; Z79.899 Other long term (current) drug therapy; Z88.8 Allergy status to other drugs, medicaments and biological substances; Z88.6 Allergy status to analgesic agent
CPT/HCPCS: 93005; 99282

== ENCOUNTER 2020-08-28 03:47 | Emergency (ER) | payer MEDICAID, SELFPAY ==
[2020-08-28] VITALS (8 sets, daily range): BP systolic 115–158; BP diastolic 51–77; PULSE 81–102; RESP 16–20; TEMP 36.8–38.8; O2SAT 94–99; BMI 36.1
--- NOTE | 2020-08-28 04:22 | CT_ITS ---
STUDY: CT RIGHT LOWER EXTREMITY WITHOUT CONTRAST REASON FOR EXAM: Female, 55 years old patient with fever, pain and surgical drain removal from the right grin. Patient has known metastatic melanoma. RADIATION DOSAGE (If Supplied By Facility): CTDIvol = ( 29.86 ) mGy, DLP = ( 1718.16 ) mGycm TECHNIQUE: Transaxial CT imaging of the thigh was performed. Sagittal and coronal images were reconstructed. Individualized dose optimization techniques were used for this CT. COMPARISON: None. FINDINGS: Normal visualized femur. There is soft tissue edema involving the subcutaneous fat. There appears to be more severe edema laterally. There is right-sided inguinal lymphadenopathy within olga lidia mass measuring 7 x 2.6 x 10.9 cm. A drain is visible within the right inguinal area. Surgical clips are visible in the right inguinal area. Normal femoral head, neck, intertrochanteric region and visualized proximal femur. Normal acetabulum. Normal hip joint. Normal visualized superior and inferior pubic rami and ischial tuberosities. Normal urinary bladder. Normal visualized small intestine. Normal visualized colon. There is no pelvic fluid. There is no pelvic mass lesion or lymphadenopathy. Normal visualized pelvic arteries. Normal abdominal wall. CT/Extremity Lower WITH Contrast IMPRESSION: 1. Operative drain is noted within the right inguinal area next to apparently pathologic inguinal lymphadenopathy. There is no appreciable abscess. 2. Diffuse soft tissue edema involving the right thigh greatest laterally without definite drainable process. There is some fluidlike density lateral to the knee. Electronically Signed: Socorro Kenney MD at 6:23 EDT , Service support ,
--- NOTE | 2020-08-28 04:22 | RAD_ITS ---
STUDY: X-RAY CHEST REASON FOR EXAM: Female, 55 years old patient with fever. TECHNIQUE: Single AP portable view of the chest. COMPARISON: 10/18/2015. FINDINGS: The lungs are clear and expanded. There is no demonstrated pleural abnormality. There is borderline cardiomegaly. Normal mediastinum and moisés. Normal visualized pulmonary arteries. There is atherosclerotic tortuosity of the aortic arch and descending thoracic aorta. Normal visualized thoracic spine. Normal visualized ribs, clavicles, and shoulders. Patient has had previous cervical spine surgery. There is no demonstrated abnormality of the visualized soft tissue structures of the upper abdomen. RAD/Chest 1 View (Portable) IMPRESSION: No radiographic evidence of acute cardiopulmonary disease. Electronically Signed: Socorro Kenney MD at 4:57 EDT , Service support ,
--- NOTE | 2020-08-28 04:25 | EDS_ITS ---
HPI History of Present Illness Chief Complaint: Fever Informant: patient and EMS Onset/Context/Timing Onset: Today (JPTA) Context: - (awoke in middle of night w/ fever) Timing: Continuous Quality: 101.7 Current Severity: Moderate Maximum Severity: Moderate Associated Symptoms Associated Symptoms: HEBERT drain inadvertently partially removed Narrative Narrative: Patient was diagnosed with malignant melanoma, about 1 month ago she had surgery at [facility] after this diagnosis to remove nevus from her right calf as well as tumor that spread to her right groin lymph nodes. Since then, she has been on cephalexin, she had a urinary infection that was treated with Bactrim on top of that, and less than 1 week ago, wound care put her on doxycycline which she is currently taking along with the cephalexin. She states they were concerned about the appearance of the wounds in her right groin, which is why they put her on doxycycline. She awoke in the middle of the night tonight with a fever, and noticed that her HEBERT drain sutures are about 5 inches away from the skin where the used to be, suggesting they have been inadvertently removed. She has been having up to 70 cc of drainage per day in the HEBERT, she last saw with normal before she went to bed. Now will not hold a vacuum seal. [facility] Medical History Asthma Hypertension Metastatic melanoma SVT (supraventricular tachycardia) Home Medications furosemide 40 mg PO DAILY #14 tablet 10/11/15 [Rx Last Taken 10/25/18] potassium chloride [Klor-Con M20] 10 meq PO DAILY 10/11/15 [History Last Taken 10/25/18] albuterol sulfate [Ventolin HFA] 2 puff INHALATION Q4H PRN PRN #1 inhaler 10/20/15 [Rx Last Taken 10/24/18] alprazolam 0.5 mg PO TID PRN PRN 10/25/18 [History Last Taken 10/25/18] atenolol 100 mg PO BID 10/25/18 [History Last Taken 10/27/18] montelukast 10 mg PO DAILY 10/25/18 [History Last Taken 10/25/18] ropinirole 1 mg PO QHS 10/25/18 [History Last Taken 10/24/18 22:00] promethazine 12.5 mg PO Q8H PRN PRN #20 tab 10/27/18 [Rx Last Taken Unknown] [id number]-qvxewmgttcwih-nodrqyyt [Excedrin Migraine] 1 tab PO Q8H PRN PRN 08/28/20 [History Last Taken Unknown] cephalexin 500 mg PO 4X/DAY 08/28/20 [History Last Taken Unknown] cyclobenzaprine 10 mg PO BID PRN PRN 08/28/20 [History Last Taken Unknown] docusate sodium 100 mg PO BID PRN PRN 08/28/20 [History Last Taken Unknown] doxycycline monohydrate 100 mg PO BID 08/28/20 [History Last Taken Unknown] oxycodone 15 mg PO Q6H PRN 08/28/20 [History Last Taken Unknown] pantoprazole 40 mg PO DAILY 08/28/20 [History Last Taken Unknown] polyethylene glycol 3350 17 g PO DAILY 08/28/20 [History Last Taken Unknown] Allergy/AdvReac Type Severity Reaction Status Date / Time acyclovir Allergy Unknown Verified 10/27/18 19:13 amlodipine Allergy Other Verified 10/27/18 19:13 ibuprofen [From Motrin] Allergy Swelling Verified 10/27/18 19:13 metoprolol Allergy Unknown Verified 10/27/18 19:13 propranolol Allergy Unknown Verified 10/27/18 19:13 fluconazole AdvReac Rash Verified 08/28/20 03:54 meloxicam AdvReac Swelling Verified 08/28/20 03:54 nabumetone AdvReac Upset Verified 08/28/20 03:54 Stomach Surgical History (Updated 08/28/20 @ 04:06 by Gera Abrams) H/O cervical spine surgery History of left heart catheterization (10/27/18) Social History Smoking Status: Never smoker ROS ROS ED Constitutional Constitutional ED: Reports chills and fever(s) Eyes Eyes: Denies change in vision or diplopia ENT ENT ED: Denies rhinorrhea or sore throat Cardiovascular Cardiovascular: Denies chest pain or palpitations Respiratory/Chest Respiratory/Chest: Denies cough or dyspnea Gastrointestinal Gastrointestinal: Denies abdominal pain, diarrhea, nausea or vomiting Genitourinary Genitourinary ED: Denies dysuria or hematuria Musculoskeletal Musculoskeletal: Denies back pain or neck pain Integumentary Reports as per HPI and wounds; Denies abscess Neurologic Neurologic: Denies headache(s), paresthesias or weakness Psychiatric Psychiatric: Denies anxiety or suicidal thoughts EXAM Physical Exam Const Vital Signs: 08/28/20 03:50 08/28/20 04:07 08/28/20 04:48 Temperature 102 F H 100.7 F H Temperature Source Oral Oral Pulse Rate 102 H Respiratory Rate 20 H Respiratory Effort Normal Respiratory Pattern Normal Blood Pressure 158/51 H Blood Pressure Mean 86 Pulse Ox 94 Oxygen Delivery Method Room Air 08/28/20 04:51 08/28/20 04:54 08/28/20 05:58 Temperature 100.7 F H 100.7 F H 98.3 F Temperature Source Oral Oral Oral Pulse Rate 89 88 85 Respiratory Rate 17 16 16 Respiratory Effort Respiratory Pattern Blood Pressure 128/77 H 128/77 H 135/76 H Blood Pressure Mean 94 94 95 Pulse Ox 95 98 99 Oxygen Delivery Method Room Air Room Air Room Air 08/28/20 06:06 Temperature 98.3 F Temperature Source Oral Pulse Rate 85 Respiratory Rate 16 Respiratory Effort Respiratory Pattern Blood Pressure 123/71 H Blood Pressure Mean 88 Pulse Ox 98 Oxygen Delivery Method Room Air Positive well nourished and well developed General Appearance ED: well developed and NAD HEENT Reports moist mucous membranes normocephalic and atraumatic Eyes PERRL and EOMs intact bilaterally Neck full ROM and supple Resp normal respiratory effort and clear to auscultation bilaterally Cardio regular rate, regular rhythm and no murmurs Cardio Narrative: Mild tachycardia GI non-tender and non-distended Auscultation: normoactive bowel sounds Palpation: soft Back/Spine no CVA tenderness General Back: other FROM Extremity Extremity Narrative: Right calf wound with mild erythema surrounding the surg ical site, no dehiscence, no discharge or abscess. Mildly tender. Right groin has 2 superficially open areas, all of this is tender, there is no discharge, there is a large amount of blanching erythema throughout the proximal right thigh and groin, including around the HEBERT drain where there is no discharge, and there is a suctioning sound when trying to apply vacuum to the HEBERT bulb. Holes from the drain or not visible. Indeed the sutures are broken and around 5 inches away from the skin around the drain tubing. General Extremety ED: Negative for edema or pulses abnormal General Extremity: Negative for edema or pulses abnormal Neuro oriented x3, CN's II-XII intact bilaterally and no sensory deficits noted Sensorium / Orientation: awake and alert Motor Exam: strength 5/5 throughout MDM MDM MDM Narrative Medical decision making narrative: Patient took Tylenol just prior to coming here, with observation her temperature came down to 98.3 and her vital signs are normal with blood pressure 123/71. Septic work-up was ordered. Her lactic acid is well within normal limits at 1.7, she has no leukocytosis or leftward shift with a white blood count of 6.3, she has a slightly elevated creatinine at 1.24 compared with her last reading but it is not higher than she has been in the past month or 2. Chest x-ray shows no sign of infection, same with the urine. I sent cultures of her blood and the discharge from the HEBERT drain, as well as her urine as part of the septic work-up. Given the HEBERT drain it was partially removed, I performed a CT scan with IV contrast, the results are below, showing that the drain is in place in the postoperative wound and there is no abscess or other drainable collection. While I was awaiting an on-call physician to call back, and discussing options with the patient she was amenable to me sterilizing the tube with chlorhexidine and inserting it back into her thigh wound, anchoring it with sutures, and covering it which we did successfully, reapplying the vacuum for the HEBERT bulb successfully. She was given a dose of Zosyn 3.375 g IV. Given the blanching erythema and tenderness around the surgical sites, as well as the CT findings and the antibiotics the patient has been placed on, I suspect they were treating cellulitis of this area, and this is the only infection I see evidence of. I discussed with the plastics resident on-call, covering for Dr. Sterling, who is the patient's surgeon, and he agrees with discharging the patient home with close outpatient follow-up, preferably tomorrow. Patient was notified and advised to continue her antibiotics as prescribed. Lab Data Attestation: I reviewed the patient's lab results. Labs: Laboratory Results - last 24 hr 08/28/20 08/28/20 08/28/20 04:08 04:08 04:08 WBC 6.3 RBC 3.70 L Hgb 10.9 L Hct 33.5 L MCV 90.5 MCH 29.5 MCHC 32.5 RDW Std Deviation 40.3 RDW Coeff of Shaina 12.1 Plt Count 229 MPV 9.8 Immature Gran % (Auto) 0.500 Neut % (Auto) 60.0 Lymph % (Auto) 27.9 [place] % (Auto) 8.9 Eos % (Auto) 2.4 Baso % (Auto) 0.3 Absolute Neuts (auto) 3.8 Absolute Lymphs (auto) 1.76 Nucleated RBC % 0 PT 13.4 INR 1.1 APTT 31.6 Fibrinogen Sodium 139 Potassium 3.4 L Chloride 102 Carbon Dioxide 28.0 Anion Gap 9 BUN 21 H Creatinine 1.24 H Estim Creat Clear Calc 48.55 Est GFR (MDRD) Af Amer 58 L Est GFR (MDRD) Non-Af 48 L BUN/Creatinine Ratio 16.9 Glucose 162 H Lactic Acid Calcium 9.0 Total Bilirubin 0.40 AST 14 L ALT 24 Alkaline Phosphatase 87 Total Protein 7.2 Albumin 3.3 Globulin 3.9 Albumin/Globulin Ratio 0.8 L Urine Color Urine Clarity Urine pH Ur Specific Glady Urine Protein Urine Glucose (UA) Urine Ketones Urine Occult Blood Urine Nitrite Urine Bilirubin Urine Urobilinogen Ur Leukocyte Esterase Urine RBC Urine WBC Ur Squamous Epith Cells Urine Bacteria Urine Mucus 08/28/20 08/28/20 08/28/20 04:08 05:00 05:50 WBC RBC Hgb Hct MCV MCH MCHC RDW Std Deviation RDW Coeff of Shaina Plt Count MPV Immature Gran % (Auto) Neut % (Auto) Lymph % (Auto) [place] % (Auto) Eos % (Auto) Baso % (Auto) Absolute Neuts (auto) Absolute Lymphs (auto) Nucleated RBC % PT > 120.0 H INR > 19.5 H* APTT Fibrinogen 551 H Sodium Potassium Chloride Carbon Dioxide Anion Gap BUN Creatinine Estim Creat Clear Calc Est GFR (MDRD) Af Amer Est GFR (MDRD) Non-Af BUN/Creatinine Ratio Glucose Lactic Acid 1.7 Calcium Total Bilirubin AST ALT Alkaline Phosphatase Total Protein Albumin Globulin Albumin/Globulin Ratio Urine Color Yellow Urine Clarity Clear Urine pH 5.0 Ur Specific Glady 1.020 Urine Protein 15 H Urine Glucose (UA) Normal Urine Ketones Negative Urine Occult Blood 150 H Urine Nitrite Negative Urine Bilirubin Negative Urine Urobilinogen Normal Ur Leukocyte Esterase Negative Urine RBC 10-25 SEEN Urine WBC 0-5 SEEN Ur Squamous Epith Cells 0-5 SEEN Urine Bacteria 0 SEEN Urine Mucus 0 SEEN Radiography Diagnostic Testing: Radiology Impression Chest X-Ray 08/28/20 04:22 IMPRESSION: No radiographic evidence of acute cardiopulmonary disease. Electronically Signed: Socorro Kenney MD at 4:57 EDT , Service support , Lower Extremity CT 08/28/20 04:22 IMPRESSION: 1. Operative drain is noted within the right inguinal area next to apparently pathologic inguinal lymphadenopathy. There is no appreciable abscess. 2. Diffuse soft tissue edema involving the right thigh greatest laterally without definite drainable process. There is some fluidlike density lateral to the knee. Electronically Signed: Socorro Kenney MD at 6:23 EDT , Service support , Procedures Other Procedures Procedure(s): Reinsertion of portion of Kevin-Haynes drain that came out of patient's right thigh surgical wound --sterilized with chlorhexidine and reinserted gently with a twisting motion, approximately 5 cm of sterilized tubing was reinserted into the wound. 1 cc of plain 1% lidocaine was injected locally in the skin at the drain insertion site after prepping with chlorhexidine and draping in a sterile fashion. 2 anchoring 4-0 nylon sutures were placed, wrapping around the drain to secured at the skin. A strip of Vaseline gauze was then placed around the wound at the skin, and 3 pieces of drain gauze, followed by tape on top of it. A good vacuum was able to be obtained with the HEBERT bulb, with scant amount of drainage. Discharge Plan Triage Chief Complaint: Fever ED Provider: Drew Acuna Dx/Rx/DC Orders Clinical Impression: Fever, Metastatic melanoma, Cellulitis of drainage site, post-operative Instructions: ED Cellulitis Prescriptions: No Action potassium chloride [Klor-Con M20] 20 MEQ tablet 10 meq PO DAILY RF: 0 furosemide 40 MG tablet 40 mg PO DAILY Qty: 14 RF: 0 albuterol sulfate [Ventolin HFA] 1 INHALER inhaler 2 puff inhalation Q4H PRN PRN (Reason: Shortness Of Breath) Qty: 1 RF: 0 montelukast 10 MG tablet 10 mg PO DAILY RF: 0 alprazolam 0.5 MG tablet 0.5 mg PO TID PRN PRN (Reason: Anxiety) RF: 0 atenolol 50 MG tablet 100 mg PO BID RF: 0 ropinirole 5 MG tablet 1 mg PO QHS RF: 0 promethazine 25 MG tablet 12.5 mg PO Q8H PRN PRN (Reason: Nausea) Qty: 20 RF: 0 cyclobenzaprine 10 mg Tablet 10 mg PO BID PRN PRN (Reason: Muscle Spasm) RF: 0 polyethylene glycol 3350 17 gram Powder In Packet 17 g PO DAILY RF: 0 oxycodone 15 mg Tablet 15 mg PO Q6H PRN (Reason: Pain) RF: 0 doxycycline monohydrate 100 mg Capsule 100 mg PO BID RF: 0 pantoprazole 40 mg Tablet,Delayed Release (Dr/Ec) 40 mg PO DAILY RF: 0 docusate sodium 100 mg Capsule 100 mg PO BID PRN PRN (Reason: Constipation) RF: 0 cephalexin 500 mg Tablet 500 mg PO 4X/DAY RF: 0 Excedrin Migraine 250-250-65 mg Tablet 1 tab PO Q8H PRN PRN (Reason: Headache) RF: 0 Primary Care Provider: Care Physician,No Primary Referrals: Doctor,Surgeon, MD [STAFF PHYSICIAN] - (Call for a follow-up appointment with Dr. Sterling as soon as you are able, preferably tomorrow if they have it avail able) Activity Restrictions/Additional Instructions: Continue taking your antibiotics as prescribed. You received a dose of IV Zosyn while in the emergency department in addition to those. Disposition Disposition: Home, self care
[2020-08-28 04:31] LABS: Absolute Lymphocyte Count 1.76 X10^3/uL (0.83-4.51); Absolute Neutrophil Count 3.8 X10^3/uL (2.0-7.7); Basophil# 0.02 X10^3/uL; Basophil% 0.3 % (0-1); Eosinophil# 0.15 X10^3/uL; Eosinophils% 2.4 % (0-5); Hematocrit 33.5 % (37-47); Hemoglobin 10.9 g/dL (12.0-15.0); Lymphocyte # 1.76 X10^3/ul (0.83-4.51); Lymphocyte % 27.9 % (19-41); Mean Corp Hgb Conc 32.5 g/dL (32-36); Mean Corpuscular Hgb 29.5 pg (27.0-32.0); Mean Corpuscular Volume 90.5 fL (81-99); Mean Platelet Vol. 9.8 fl (6.2-12.0); Monocyte# 0.56 X10^3/uL; Monocyte% 8.9 % (0-10); NRBC Flagged by Analyzer 0 % (0-5); Neutrophil # 3.78 X10^3/uL (2.7-7.7); Platelet Count 229 K/mm3 (150-450); RBC Distribution Width CV 12.1 % (11.6-14.6); RBC Distribution Width SD 40.3 fl (35.1-43.9); White Blood Count 6.3 K/mm3 (4.4-11.0)
[2020-08-28 04:38] LABS: Partial Thromboplast Time 31.6 Seconds (24.1-36.2)
[2020-08-28 04:45] LABS: ALB/GLOB Ratio 0.8 RATIO (0.9-2.4); AST(SGOT) 14 U/L (15-37); Alanine Aminotransfer ALT/SGPT 24 U/L (13-56); Albumin, Serum 3.3 g/dL (3.2-5.0); Alkaline Phosphatase 87 U/L (45-117); Anion Gap 9 (5-15); BUN 21 mg/dL (7-18); BUN/Creat Ratio 16.9 RATIO (10-20); Chloride 102 mmol/L (98-107); Creatinine, Serum 1.24 mg/dL (0.55-1.02); EST Glomerular Filtration Rate 48 mL/min (>60); Est Glom Filt Rate - Afr Amer 58 mL/min (>60); Estimated Creatinine Clearance 48.55 ml/min; Globulin 3.9 g/dL (2.2-4.2); Glucose 162 mg/dL (74-106); Potassium 3.4 mmol/L (3.5-5.1); Protein, Total 7.2 g/dL (6.4-8.2); Sodium Level 139 mmol/L (136-145)
[2020-08-28 04:46] LABS: Lactic Acid 1.7 mmol/L (0.4-1.9)
[2020-08-28 05:14] LABS: Fibrinogen 551 mg/dl (203-444)
[2020-08-28] MEDS: 0.9% Normal Saline 1,000 ML 999 ML IV (05:15)
[2020-08-28 05:21] LABS: International Normalized Ratio > 19.5; Prothrombin Time (Protime)PT. > 120.0 SECONDS (11.7-14.9)
[2020-08-28 06:08] LABS: Bacteria 0 SEEN /hpf (None Seen); Color, Urine Yellow (Yellow); Glucose, Dipstick Normal (Normal); Ketone-Dipstick Negative (Negative); Leukocyte Esterase-Dipstick Negative /ul (Negative); Mucous, Urine 0 SEEN /hpf (<or=2+); Nitrite-Dipstick Negative (Negative); Occult Blood-Urine 150 /ul (Negative); Protein-Dipstick 15 mg/dl (Negative); Urine Bilirubin Dipstick Negative (Negative); Urine Clarity Clear (Clear); Urine Urobilinogen Normal (Normal)
[2020-08-28] MEDS: LORazepam 1 MG Tablet PO (06:14)
[2020-08-28] MEDS: oxyCODONE 5 MG Tablet PO (06:14)
[2020-08-28 06:24] LABS: Red Blood Cells-Urine 10-25 SEEN /hpf (0-5); Squamous Epithelial Cells - UA 0-5 SEEN /hpf (5-10); White Blood Cells 0-5 SEEN /hpf (0-5)
[2020-08-28 06:41] LABS: Prothrombin Time (Protime)PT. 13.4 SECONDS (11.7-14.9)
--- NOTE | 2020-08-28 06:41 | ED.RN ---
Per call from lab, the elevated PT/INR is erroneous as their analyzer is broken and they will set up new ones.
[2020-08-28 06:43] LABS: International Normalized Ratio 1.1
--- NOTE | 2020-08-28 07:02 | NURSING ---
[id number] faye perez, [facility], paged
--- NOTE | 2020-08-28 08:05 | NURSING ---
[id number] ZARCO
--- NOTE | 2020-08-28 08:05 | NURSING ---
[facility] FROM [facility] CALLED BACK
== END 2020-08-28 09:01 | disposition home or self-care (01) ==
PROVIDERS: Emergency Provider Emergency Medicine
DX: T81.49XA Infection following a procedure, other surgical site, initial encounter (principal); L03.115 Cellulitis of right lower limb; C43.71 Malignant melanoma of right lower limb, including hip; C77.4 Secondary and unspecified malignant neoplasm of inguinal and lower limb lymph nodes; R50.9 Fever, unspecified; I10 Essential (primary) hypertension; I47.1 Supraventricular tachycardia; J45.909 Unspecified asthma, uncomplicated; Z79.82 Long term (current) use of aspirin; Z79.1 Long term (current) use of non-steroidal anti-inflammatories (NSAID)
CPT/HCPCS: 71045; 73701; 80053; 81001; 83605; 85025; 85384; 85610; 85730; 87040; 87070; 87077; 87086; 87186; 87205; 87426; 96361; 96365; 99285; J7030; J7050; Q9967; A4216

== ENCOUNTER 2020-10-17 18:42 | Emergency (ER) | payer MEDICAID, SELFPAY ==
[2020-08-28 03:50] VITALS: BMI 36.1
[2020-10-17 18:43] VITALS: BP 142/79; PULSE 75; RESP 18; TEMP 36.6; O2SAT 95; BMI 32.3
[2020-10-17 19:34] VITALS: O2SAT 98
--- NOTE | 2020-10-17 19:55 | EKG12_ITS ---
Test Reason : DYSRHYTHMIA Blood Pressure : / mmHG Vent. Rate : 072 BPM Atrial Rate : 072 BPM P-R Int : 162 ms QRS Dur : 080 ms QT Int : 420 ms P-R-T Axes : 047 021 044 degrees QTc Int : 459 ms Normal sinus rhythm Normal ECG Confirmed by MEE CASTILLO, LANNY ([id number]), scientific publications editor RAMIREZ BECKMAN ([id number]) on 10/20/2020 1:17:40 PM Referred By: TIANA Confirmed By:LANNY CABAN MD
--- NOTE | 2020-10-17 20:09 | ED.VIS.DYS ---
HPI History of Present Illness Chief Complaint: Shortness of Breath Informant: patient Narrative Narrative: Patient is a 55-year-old female with a past medical history of metastatic melanoma. This was just diagnosed this past year. She has undergone 1 treatment of Codivo. She has had multiple surgeries to her right hip for mass resection. She states that over the past week she has developed shortness of breath, chest tightness and has felt wheezy. She does have breathing treatments at home but has not been using them as she does not feel this is allergy related. She denies any cough, cold, congestion. No fevers or chills. She has had pain in her bilateral lower extremities. This is achy to her. The right leg is swollen which is the leg she had the previous surgery on. She denies any her story of CAD, COPD or DVT/PE. She is on any blood thinning medications [facility] Medical History Asthma Hypertension Metastatic melanoma SVT (supraventricular tachycardia) Home Medications furosemide 40 mg PO DAILY #14 tablet 10/11/15 [Rx Last Taken 10/25/18] potassium chloride [Klor-Con M20] 10 meq PO DAILY 10/11/15 [History Last Taken 10/25/18] albuterol sulfate [Ventolin HFA] 2 puff INHALATION Q4H PRN PRN #1 inhaler 10/20/15 [Rx Last Taken 10/24/18] alprazolam 0.5 mg PO TID PRN PRN 10/25/18 [History Last Taken 10/25/18] atenolol 100 mg PO BID 10/25/18 [History Last Taken 10/27/18] montelukast 10 mg PO DAILY 10/25/18 [History Last Taken 10/25/18] ropinirole 1 mg PO QHS 10/25/18 [History Last Taken 10/24/18 22:00] promethazine 12.5 mg PO Q8H PRN PRN #20 tab 10/27/18 [Rx Last Taken Unknown] tqgvriz-aebpltzrwuurs-sobiehnz [Excedrin Migraine] 1 tab PO Q8H PRN PRN 08/28/20 [History Last Taken Unknown] cephalexin 500 mg PO 4X/DAY 08/28/20 [History Last Taken Unknown] cyclobenzaprine 10 mg PO BID PRN PRN 08/28/20 [History Last Taken Unknown] docusate sodium 100 mg PO BID PRN PRN 08/28/20 [History Last Taken Unknown] doxycycline monohydrate 100 mg PO BID 08/28/20 [History Last Taken Unknown] oxycodone 15 mg PO Q6H PRN 08/28/20 [History Last Taken Unknown] pantoprazole 40 mg PO DAILY 08/28/20 [History Last Taken Unknown] polyethylene glycol 3350 17 g PO DAILY 08/28/20 [History Last Taken Unknown] albuterol sulfate [Ventolin HFA] 1 - 2 puff INHALATION Q4H PRN PRN #8.5 g 10/17/20 [Rx Last Taken Unknown] Allergy/AdvReac Type Severity Reaction Status Date / Time acyclovir Allergy Unknown Verified 10/17/20 18:48 amlodipine Allergy Other Verified 10/17/20 18:48 ibuprofen [From Motrin] Allergy Swelling Verified 10/17/20 18:48 metoprolol Allergy Unknown Verified 10/17/20 18:48 propranolol Allergy Unknown Verified 10/17/20 18:48 fluconazole AdvReac Rash Verified 10/17/20 18:48 meloxicam AdvReac Swelling Verified 10/17/20 18:48 nabumetone AdvReac Upset Verified 10/17/20 18:48 Stomach Surgical History H/O cervical spine surgery History of left heart catheterization (10/27/18) Social History Smoking Status: Never smoker ROS ROS ED Constitutional Constitutional ED: Denies chills or fever(s) Eyes Eyes: Denies change in vision ENT ENT ED: Denies epistaxis or rhinorrhea Cardiovascular Cardiovascular: Reports chest pain; Denies palpitations Respiratory/Chest Respiratory/Chest: Reports dyspnea; Denies cough or dyspnea on exertion Gastrointestinal Gastrointestinal: Denies abdominal pain, diarrhea, nausea or vomiting Musculoskeletal Musculoskeletal: Denies back pain or neck pain Integumentary Denies rash Neurologic Neurologic: Denies dizziness, headache(s) or weakness EXAM Physical Exam Const Vital Signs: 10/17/20 18:43 10/17/20 19:34 10/17/20 20:23 Temperature 98 F 97.7 F L Temperature Source Temporal Temporal Pulse Rate 75 72 Respiratory Rate 18 16 Respiratory Effort Short of Breath Respiratory Pattern Tachypnea Blood Pressure 142/79 H 136/94 H Blood Pressure Mean 100 108 Pulse Ox 95 96 Oxygen Delivery Method Room Air Room Air Room Air Oxygen Flow Rate (L/min) 10/17/20 22:25 Temperature 97.1 F L Temperature Source Temporal Pulse Rate 73 Respiratory Rate 18 Respiratory Effort Respiratory Pattern Blood Pressure 130/84 H Blood Pressure Mean 99 Pulse Ox 99 Oxygen Delivery Method Nasal Cannula Oxygen Flow Rate (L/min) 2 Positive well nourished and well developed General Appearance ED: well developed and NAD HEENT Reports normocephalic, head/scalp atraumatic and moist mucous membranes Eyes PERRL and EOMs intact bilaterally Neck supple Chest Wall inspection of chest normal Resp normal respiratory effort and clear to auscultation bilaterally Auscultation: Negative for rales, rhonchi or wheezes Cardio regular rate, regular rhythm and no murmurs GI normal to inspection, nondistended, normoactive bowel sounds and non-tender Palpation: soft; Negative for guarding or rebound tenderness present Extremity normal to inspection Extremity Narrative: Right leg has trace edema. There is tenderness of the calf around the previous incision site. Neuro CN's II-XII intact bilaterally and no sensory deficits noted Sensorium / Orientation: alert Motor Exam: strength 5/5 throughout Psych mental status grossly normal Skin no rashes or lesions noted MDM MDM MDM Narrative Medical decision making narrative: Patient presents to the emergency department for chest pressure and shortness of breath. Upon arrival to the emerge department she is satting 95% on room air. She does have a history of metastatic melanoma. She has been very immobile. Will check basic lab work, EKG and CT scan of the chest. Only significant acute abnormality. She does not have a high white blood cell count. She is not significantly anemic. No significant acute electrolyte abnormality. Troponin within normal limits. BNP is normal. CT scan of the chest did not show any obvious evidence of pulmonary embolism or pulmonary abnormality. No aortic dissection. DVT study is negative. Recommend that she continue her breathing treatments whenever she has these wheezing episodes. She otherwise has been stable throughout ED stay. No desaturations. Low concern for ACS. Discharged home in stable condition. She is to follow-up with her PCP. She understands and is agreeable this plan. All questions were answered. Lab Data Labs: Laboratory Results - last 24 hr 10/17/20 10/17/20 10/17/20 20:10 20:10 20:10 WBC 5.0 RBC 4.60 Hgb 11.9 L Hct 37.5 MCV 81.5 MCH 25.9 L MCHC 31.7 L RDW Std Deviation 40.6 RDW Coeff of Shaina 13.7 Plt Count 214 MPV 10.1 Immature Gran % (Auto) 0.400 Neut % (Auto) 37.3 L Lymph % (Auto) 45.0 H [place] % (Auto) 13.1 H Eos % (Auto) 3.6 Baso % (Auto) 0.6 Absolute Neuts (auto) 1.9 L Absolute Lymphs (auto) 2.23 Nucleated RBC % 0 Sodium 136 Potassium 3.5 Chloride 100 Carbon Dioxide 28.0 Anion Gap 8 BUN 14 Creatinine 1.09 H Estim Creat Clear Calc 55.23 Est GFR (MDRD) Af Amer 67 Est GFR (MDRD) Non-Af 56 L BUN/Creatinine Ratio 12.8 Glucose 128 H Calcium 9.0 Troponin I High Sens 4.8 B-Natriuretic Peptide 28.8 Urine Color Urine Clarity Urine pH Ur Specific [place] Urine Protein Urine Glucose (UA) Urine Ketones Urine Occult Blood Urine Nitrite Urine Bilirubin Urine Urobilinogen Ur Leukocyte Esterase Urine RBC Urine WBC Ur Squamous Epith Cells Urine Bacteria Hyaline Casts Urine Mucus 10/17/20 22:08 WBC RBC Hgb Hct MCV MCH MCHC RDW Std Deviation RDW Coeff of Shaina Plt Count MPV Immature Gran % (Auto) Neut % (Auto) Lymph % (Auto) [place] % (Auto) Eos % (Auto) Baso % (Auto) Absolute Neuts (auto) Absolute Lymphs (auto) Nucleated RBC % Sodium Potassium Chloride Carbon Dioxide Anion Gap BUN Creatinine Estim Creat Clear Calc Est GFR (MDRD) Af Amer Est GFR (MDRD) Non-Af BUN/Creatinine Ratio Glucose Calcium Troponin I High Sens B-Natriuretic Peptide Urine Color Yellow Urine Clarity Sl. Cloudy Urine pH 6.0 Ur Specific [place] 1.015 Urine Protein Negative Urine Glucose (UA) Normal Urine Ketones Negative Urine Occult Blood Negative Urine Nitrite Negative Urine Bilirubin Negative Urine Urobilinogen Normal Ur Leukocyte Esterase Negative Urine RBC 0 SEEN Urine WBC 0 SEEN Ur Squamous Epith Cells 0-5 SEEN Urine Bacteria 0 SEEN Hyaline Casts 0-5 SEEN Urine Mucus 0 SEEN Radiography Diagnostic Testing: Radiology Impression Venous Duplex 10/17/20 20:10 IMPRESSION: No deep venous thrombosis of the visualized veins of the bilateral lower extremities. Limited study due to patient''s inability to tolerate for full compression of the right lower extremity. Electronically Signed: Elías Muniz DO at 22:35 EDT Tel [phone], Service support , Chest CTA 10/17/20 20:48 IMPRESSION: Normal CTA chest examination, without a demonstrated pulmonary embolism or arterial dissection. Electronically Signed: Elías Muniz at 22:08 EDT Tel [phone], Service support , EKG Initial EKG: Attestation: I personally reviewed and interpreted this EKG as follows: (Rate of 72 bpm normal sinus rhythm. Normal intervals. Normal axis. No significant ST elevations or depressions. No T wave abnormalities.) Discharge Plan Triage Chief Complaint: Shortness of Breath ED Provider: Junaid Navarro Dx/Rx/DC Orders Clinical Impression: Chest pain Instructions: ED Chest Pain, Noncardiac Prescriptions: New albuterol sulfate [Ventolin HFA] 90 mcg/actuation HFA aerosol inhaler 1 - 2 puff inhalation Q4H PRN PRN (Reason: Wheezing) Qty: 8.5 RF: 0 No Action potassium chloride [Klor-Con M20] 20 MEQ tablet 10 meq PO DAILY RF: 0 furosemide 40 MG tablet 40 mg PO DAILY Qty: 14 RF: 0 albuterol sulfate [Ventolin HFA] 1 INHALER inhaler 2 puff inhalation Q4H PRN PRN (Reason: Shortness Of Breath) Qty: 1 RF: 0 montelukast 10 MG tablet 10 mg PO DAILY RF: 0 alprazolam 0.5 MG tablet 0.5 mg PO TID PRN PRN (Reason: Anxiety) RF: 0 atenolol 50 MG tablet 100 mg PO BID RF: 0 ropinirole 5 MG tablet 1 mg PO QHS RF: 0 promethazine 25 MG tablet 12.5 mg PO Q8H PRN PRN (Reason: Nausea) Qty: 20 RF: 0 cyclobenzaprine 10 mg Tablet 10 mg PO BID PRN PRN (Reason: Muscle Spasm) RF: 0 polyethylene glycol 3350 17 gram Powder In Packet 17 g PO DAILY RF: 0 oxycodone 15 mg Tablet 15 mg PO Q6H PRN (Reason: Pain) RF: 0 doxycycline monohydrate 100 mg Capsule 100 mg PO BID RF: 0 pantoprazole 40 mg Tablet,Delayed Release (Dr/Ec) 40 mg PO DAILY RF: 0 docusate sodium 100 mg Capsule 100 mg PO BID PRN PRN (Reason: Constipation) RF: 0 cephalexin 500 mg Tablet 500 mg PO 4X/DAY RF: 0 Excedrin Migraine 250-250-65 mg Tablet 1 tab PO Q8H PRN PRN (Reason: Headache) RF: 0 Primary Care Provider: Care Physician,No Primary Referrals: Care Physician,No Primary [Primary Care Provider] - 2 Days Disposition Disposition: Home, Self Care Discharge Date/Time: 10/17/20 23:11
--- NOTE | 2020-10-17 20:10 | US_ITS ---
STUDY: VENOUS DOPPLER ULTRASOUND - BILATERAL LOWER EXTREMITIES REASON FOR EXAM: Female, 55 years old. BILATERAL SWELLING TECHNIQUE: Ultrasound evaluation of the deep vein system to include briones-scale imaging and compression was performed. Briones-scale imaging and Doppler sonographic evaluation, including duplex spectral analysis and qualitative color flow sonography, was performed. COMPARISON: None. FINDINGS: RIGHT LEG Common Femoral Vein: Normal compression, spontaneity and augmentation. Normal color Doppler. Common Femoral Vein/Greater Saphenous Junction: Normal compression. Femoral Proximal: Normal compression. Femoral Middle: Normal compression, spontaneity and augmentation. Normal color Doppler. Femoral Distal: Normal compression. Popliteal Vein: Normal compression, spontaneity and augmentation. Normal color Doppler. Posterior Tibial Vein: Normal compression. Peroneal Vein: Normal compression. LEFT LEG Common Femoral Vein: Normal compression, spontaneity and augmentation. Normal color Doppler. Common Femoral Vein/Greater Saphenous Junction: Normal compression. Femoral Proximal: Normal compression. Femoral Middle: Normal compression, spontaneity and augmentation. Normal color Doppler. Femoral Distal: Normal compression. Popliteal Vein: Normal compression, spontaneity and augmentation. Normal color Doppler. Posterior Tibial Vein: Normal compression. Peroneal Vein: Normal compression. US/Venous Duplex Imag/Chuckie Extrem IMPRESSION: No deep venous thrombosis of the visualized veins of the bilateral lower extremities. Limited study due to patient''s inability to tolerate for full compression of the right lower extremity. Electronically Signed: Elías Muniz DO at 22:35 EDT Tel [phone], Service support ,
[2020-10-17 20:22] LABS: Absolute Lymphocyte Count 2.23 X10^3/uL (0.83-4.51); Absolute Neutrophil Count 1.9 X10^3/uL (2.0-7.7); Basophil# 0.03 X10^3/uL; Basophil% 0.6 % (0-1); Eosinophil# 0.18 X10^3/uL; Eosinophils% 3.6 % (0-5); Hematocrit 37.5 % (37-47); Hemoglobin 11.9 g/dL (12.0-15.0); Lymphocyte # 2.23 X10^3/ul (0.83-4.51); Mean Corp Hgb Conc 31.7 g/dL (32-36); Mean Corpuscular Hgb 25.9 pg (27.0-32.0); Mean Corpuscular Volume 81.5 fL (81-99); Mean Platelet Vol. 10.1 fl (6.2-12.0); Monocyte# 0.65 X10^3/uL; Monocyte% 13.1 % (0-10); NRBC Flagged by Analyzer 0 % (0-5); Neutrophil # 1.85 X10^3/uL (2.7-7.7); Neutrophil % 37.3 % (47-70); Platelet Count 214 K/mm3 (150-450); RBC Distribution Width CV 13.7 % (11.6-14.6); RBC Distribution Width SD 40.6 fl (35.1-43.9)
[2020-10-17 20:23] VITALS: BP 136/94; PULSE 72; RESP 16; TEMP 36.5; O2SAT 96
[2020-10-17] MEDS: proMETHazine 25 MG Tablet 12.5 MG PO ×2 (20:35→22:21)
[2020-10-17] MEDS: Morphine 4 MG/ML Syringe IV (20:37)
[2020-10-17 20:39] LABS: Anion Gap 8 (5-15); BUN 14 mg/dL (7-18); BUN/Creat Ratio 12.8 RATIO (10-20); Chloride 100 mmol/L (98-107); Creatinine, Serum 1.09 mg/dL (0.55-1.02); EST Glomerular Filtration Rate 56 mL/min (>60); Est Glom Filt Rate - Afr Amer 67 mL/min (>60); Estimated Creatinine Clearance 55.23 ml/min; Glucose 128 mg/dL (74-106); Potassium 3.5 mmol/L (3.5-5.1); Sodium Level 136 mmol/L (136-145); Troponin-I HS 4.8 pg/mL (3.0-53.7)
[2020-10-17 20:41] LABS: BNP,B-Type NATRIURETIC PEPTIDE 28.8 pg/mL (0-100)
--- NOTE | 2020-10-17 20:48 | CT_ITS ---
STUDY: CTA CHEST REASON FOR EXAM: Female, 55 years old. Eval for PE, dyspnea, CP, hx CA RADIATION DOSAGE (If Supplied By Facility): CTDIvol = ( 13.28 ) mGy, DLP = ( 497.90 ) mGycm TECHNIQUE: The examination was performed with the intravenous administration of IV 100mL Isovue-370. Post-processing of the angiographic images was performed, with multiplanar reformation and 3D reconstruction. Individualized dose optimization techniques were used for this CT. COMPARISON: None. FINDINGS: Normal enhancement of the main pulmonary artery and right and left pulmonary arteries. Normal enhancement of the bilateral peripheral pulmonary arteries. There is no demonstrated pulmonary embolism. Normal thoracic aorta and visualized great vessels. There is no demonstrated aortic dissection. Normal heart and pericardium. Normal mediastinum. Normal hilar regions. Normal visualized trachea and bronchi. The lungs are well expanded. Normal pulmonary parenchyma. Normal pleura. Normal chest wall structures. Normal osseous structures. Normal visualized upper abdomen. CT/CTA Chest W/WO Contrast IMPRESSION: Normal CTA chest examination, without a demonstrated pulmonary embolism or arterial dissection. Electronically Signed: Elías Muniz DO at 22:08 EDT Tel [phone], Service support ,
[2020-10-17 22:25] VITALS: BP 130/84; PULSE 73; RESP 18; TEMP 36.2; O2SAT 99
[2020-10-17 22:42] LABS: Bacteria 0 SEEN /hpf (None Seen); Mucous, Urine 0 SEEN /hpf (<or=2+); Red Blood Cells-Urine 0 SEEN /hpf (0-5); White Blood Cells 0 SEEN /hpf (0-5)
[2020-10-17 22:43] LABS: Color, Urine Yellow (Yellow); Glucose, Dipstick Normal (Normal); Ketone-Dipstick Negative (Negative); Leukocyte Esterase-Dipstick Negative /ul (Negative); Nitrite-Dipstick Negative (Negative); Occult Blood-Urine Negative /ul (Negative); Protein-Dipstick Negative (Negative); Specific Gravity, Urine 1.015 (1.002-1.030); Urine Bilirubin Dipstick Negative (Negative); Urine Clarity Sl. Cloudy (Clear); Urine Urobilinogen Normal (Normal)
[2020-10-17 23:13] LABS: Hyaline Cast 0-5 SEEN /lpf (0-5); Squamous Epithelial Cells - UA 0-5 SEEN /hpf (5-10)
== END 2020-10-17 23:11 | disposition home or self-care (01) ==
PROVIDERS: Emergency Provider Emergency Medicine
DX: R07.9 Chest pain, unspecified (principal); M79.89 Other specified soft tissue disorders; R06.02 Shortness of breath; I47.1 Supraventricular tachycardia; I10 Essential (primary) hypertension; J45.909 Unspecified asthma, uncomplicated; Z79.82 Long term (current) use of aspirin; Z79.1 Long term (current) use of non-steroidal anti-inflammatories (NSAID); Z79.899 Other long term (current) drug therapy; Z85.820 Personal history of malignant melanoma of skin
CPT/HCPCS: 71275; 80048; 81001; 83880; 84484; 85025; 93005; 93970; 96374; 99285; Q9967; A4216

== ENCOUNTER 2021-07-08 21:29 | Inpatient (IN) | payer MEDICAID, SELFPAY ==
[2021-07-08] VITALS (7 sets, daily range): BP systolic 95–149; BP diastolic 57–81; PULSE 89–104; RESP 13–16; TEMP 37.1–39.2; O2SAT 86–98; BMI 33.0
--- NOTE | 2021-07-08 21:51 | EKG12_ITS ---
Test Reason : DYSRHYTHMIA Blood Pressure : / mmHG Vent. Rate : 103 BPM Atrial Rate : 103 BPM P-R Int : 150 ms QRS Dur : 070 ms QT Int : 346 ms P-R-T Axes : 035 011 049 degrees QTc Int : 453 ms Sinus tachycardia Otherwise normal ECG Confirmed by ABAD CASTILLO, VERONICA ([id number]), editorial specialist RAMIREZ BECKMAN ([id number]) on 07/10/2021 2:16:10 PM Referred By: ANA Confirmed By:LISA MELGOZA MD
--- NOTE | 2021-07-08 22:01 | CT_ITS ---
EXAM: CT ANGIOGRAPHY CHEST WITHOUT AND WITH INTRAVENOUS CONTRAST CLINICAL INDICATION: Toxic respiratory failure TECHNIQUE: Helically acquired angiography images were obtained of the chest without and with intravenous contrast. This CT exam was performed using one or more of the following dose reduction techniques: automated exposure control, adjustment of the mA and/or kV according to patient size, and/or use of iterative reconstruction technique. This report was created using [employer] report generation technology. MIP reconstructed images were created and reviewed. CONTRAST: IV 100mL Isovue-370 COMPARISON: 10/17/2020. FINDINGS: PULMONARY ARTERIES: Main pulmonary artery is dilated measuring 4.0 cm similar to the prior exam. No evidence of pulmonary embolism. AORTA: Unremarkable. Normal in caliber. No evidence of dissection. GREAT VESSELS OF AORTIC ARCH: Unremarkable. Normal in caliber. No evidence of dissection. LUNGS AND PLEURAL SPACES: Mild patchy groundglass opacities bilateral mid and lower lung zones right greater than left. No mass. No pleural effusion or thickening. No pneumothorax. HEART: Unremarkable. Heart size is normal. No pericardial effusion. No signs of right heart strain, ratio of right ventricle to left ventricle measures less than 1. MEDIASTINUM: Unremarkable. No mediastinal or hilar adenopathy. Esophagus is unremarkable. No hiatal hernia. THYROID: Unremarkable. No thyroid lesions. BONES/JOINTS: Unremarkable. No suspicious lytic or blastic abnormality. CT/CTA Chest W/WO Contrast IMPRESSION: 1. Mild patchy groundglass opacities bilateral mid and lower lung zones right greater than left. This may be due to edema, infection, or hemorrhage. 2. No PE identified. 3. Main pulmonary artery is dilated measuring 4.0 cm similar to the prior exam. This is similar to the prior exam and suggest the possibility of pulmonary hypertension. Electronically Signed: David Miller MD at 23:47 EDT ,
--- NOTE | 2021-07-08 22:01 | EDS_ITS ---
HPI History of Present Illness Chief Complaint: Confusion Narrative Narrative: 55-year-old female presenting with hypoxia, fever, tachycardia. She is from home. She appears confused and is a very poor informant. She keeps repeating herself. She was able to tell me that she has a history of metastatic melanoma and she sees Dr. Soares. She states recently treated for bronchitis/pneumonia with a Z-Kev. She states that he was aware he has been having fevers. She was checking her oxygen at home and it has been low. She does not have any chest pain. She denies abdominal pain. Patient reports that she had COVID 3 weeks ago. She never had to be hospitalized. She does not usually wear home oxygen. [facility] Medical History (Updated 07/08/21 @ 22:42 by Anamika Solano) Asthma Hypertension Metastatic melanoma Pneumonia SVT (supraventricular tachycardia) Home Medications potassium chloride [Klor-Con M20] 10 meq PO BID 10/11/15 [History Last Taken 0 10/25/18] albuterol sulfate [Ventolin HFA] 2 puff INHALATION Q4H PRN PRN #1 inhaler 10/20/15 [Rx Last Taken 10/24/18] alprazolam 0.5 mg PO TID PRN PRN 10/25/18 [History Last Taken 10/25/18] atenolol 50 mg PO BID 10/25/18 [History Last Taken 10/27/18] montelukast 10 mg PO DAILY 10/25/18 [History Last Taken 10/25/18] ropinirole 1 mg PO QHS 10/25/18 [History Last Taken 10/24/18 22:00] promethazine 12.5 mg PO Q8H PRN PRN #20 tab 10/27/18 [Rx Last Taken Unknown] ziuccvx-ilqkaeyxyvisb-gqnitrof [Excedrin Migraine] 1 tab PO Q8H PRN PRN 08/28/20 [History Last Taken Unknown] cyclobenzaprine 10 mg PO BID PRN PRN 08/28/20 [History Last Taken Unknown] docusate sodium 100 mg PO BID PRN PRN 08/28/20 [History Last Taken Unknown] pantoprazole 40 mg PO DAILY 08/28/20 [History Last Taken Unknown] ergocalciferol (vitamin D2) [Vitamin D2] 1,250 mcg PO BID 07/08/21 [History Last Taken Unknown] fluticasone propionate 1 spray INTRANASAL DAILY 07/08/21 [History Last Taken Unknown] furosemide 40 mg PO BID 07/08/21 [History Last Taken Unknown] oxycodone 20 mg PO Q6H PRN 07/08/21 [History Last Taken 07/08/21 18:30 20] polysaccharide iron complex [iFerex 150] 150 mg PO BID 07/08/21 [History Last Taken Unknown] pregabalin 75 mg PO TID 07/08/21 [History Last Taken Unknown] sennosides [Senna Lax] 8.6 mg PO DAILY 07/08/21 [History Last Taken Unknown] Allergy/AdvReac Type Severity Reaction Status Date / Time acyclovir Allergy Unknown Verified 07/08/21 21:45 amlodipine Allergy Other Verified 07/08/21 21:45 ibuprofen [From Motrin] Allergy Swelling Verified 07/08/21 21:45 metoprolol Allergy Unknown Verified 07/08/21 21:45 propranolol Allergy Unknown Verified 07/08/21 21:45 fluconazole AdvReac Rash Verified 07/08/21 21:45 meloxicam AdvReac Swelling Verified 07/08/21 21:45 nabumetone AdvReac Upset Verified 07/08/21 21:45 Stomach Surgical History H/O cervical spine surgery History of left heart catheterization (10/27/18) Social History Smoking Status: Never smoker ROS ROS ED Review of Systems ROS Unobtainable: due to mental status EXAM Physical Exam Const Vital Signs: 07/08/21 21:32 07/08/21 21:44 07/08/21 21:51 Temperature 102.6 F H Temperature Source Oral Pulse Rate 104 H 99 Respiratory Rate 16 16 Blood Pressure 138/81 H 149/80 H Blood Pressure Mean 100 103 Pulse Ox 86 95 95 Oxygen Delivery Method Room Air Nasal Cannula Nasal Cannula Oxygen Flow Rate (L/min) 4 4 07/08/21 23:14 07/08/21 23:15 07/08/21 23:16 Temperature 98.7 F 98.7 F 98.9 F Temperature Source Oral Oral Oral Pulse Rate 96 97 Respiratory Rate 14 13 Blood Pressure 107/57 L 120/60 Blood Pressure Mean 73 80 Pulse Ox 92 90 Oxygen Delivery Method Nasal Cannula Nasal Cannula Oxygen Flow Rate (L/min) 4 4 Positive obese General Appearance ED: NAD Nutritional Appearance: obese HEENT Reports moist mucous membranes atraumatic Eyes PERRL and EOMs intact bilaterally Resp normal respiratory effort Auscultation: rales diffuse Cardio regular rhythm Rate: tachycardic GI non-tender and non-distended Palpation: soft Neuro oriented x3 and CN's II-XII intact bilaterally Sensorium / Orientation: alert Psych Psych Narrative: Confused. Repeats herself. She is able to answer questions occasionally. Skin General Skin Exam: Negative for jaundice Lesions: no lesions Rashes: no rashes MDM MDM MDM Narrative Medical decision making narrative: Patient blood work ultimately shows a white blood cell count of 12.2, hemoglobin hematocrit are stable. Platelets are normal. Coagulation studies within normal limits. Creatinine 1.11 and at baseline. Electrolytes normal. LFTs within normal limits except for alkaline phosphatase. Lactic acid normal at 1.4. Urinalysis negative. Patient was pancultured. Vancomycin and Zosyn were given due to recent azithromycin failure. After speaking with her more it sounds as if her Covid was in the end of April early May and later she developed bronchitis/pneumonia where she was given a Z-Kev by her primary care physician. She reports she finished this 2 days ago. She reports new onset of fevers. States she does not require O2 normally she will need to be admitted to the hospital. She is going to try to find her testing date for Covid and her phone. I will talk to the hospitalist for admission. Impression: 1. Hypoxic respiratory failure 2. Fever 3. Leukocytosis 4. Failure of outpatient antibiotics Lab Data Attestation: I reviewed the patient's lab results. Labs: Laboratory Results - last 24 hr 07/08/21 07/08/21 07/08/21 22:07 22:07 22:07 WBC 12.2 H RBC 4.86 Hgb 13.1 Hct 40.2 MCV 82.7 MCH 27.0 MCHC 32.6 RDW Std Deviation 44.7 H RDW Coeff of Shaina 14.7 H Plt Count 206 MPV 10.1 Immature Gran % (Auto) 0.600 Neut % (Auto) 71.7 H Lymph % (Auto) 18.4 L [place] % (Auto) 7.4 Eos % (Auto) 1.6 Baso % (Auto) 0.3 Absolute Neuts (auto) 8.7 H Absolute Lymphs (auto) 2.24 Nucleated RBC % 0 PT 12.8 INR 1.0 APTT 31.5 Sodium 135 L Potassium 3.8 Chloride 95 L Carbon Dioxide 32.0 Anion Gap 8 BUN 15 Creatinine 1.11 H Estim Creat Clear Calc 54.24 Est GFR (MDRD) Af Amer 66 Est GFR (MDRD) Non-Af 54 L BUN/Creatinine Ratio 13.5 Glucose 188 H Lactic Acid Calcium 9.1 Total Bilirubin 0.60 AST 30 ALT 53 Alkaline Phosphatase 119 H Troponin I High Sens 8 Total Protein 8.1 Albumin 3.9 Globulin 4.2 Albumin/Globulin Ratio 0.9 Urine Color Urine Clarity Urine pH Ur Specific [place] Urine Protein Urine Glucose (UA) Urine Ketones Urine Occult Blood Urine Nitrite Urine Bilirubin Urine Urobilinogen Ur Leukocyte Esterase Urine RBC Urine WBC Ur Squamous Epith Cells Amorphous Sediment Urine Bacteria Urine Mucus 07/08/21 07/08/21 22:07 22:15 WBC RBC Hgb Hct MCV MCH MCHC RDW Std Deviation RDW Coeff of [place]aina Plt Count MPV Immature Gran % (Auto) Neut % (Auto) Lymph % (Auto) [place] % (Auto) Eos % (Auto) Baso % (Auto) Absolute Neuts (auto) Absolute Lymphs (auto) Nucleated RBC % PT INR APTT Sodium Potassium Chloride Carbon Dioxide Anion Gap BUN Creatinine Estim Creat Clear Calc Est GFR (MDRD) Af Amer Est GFR (MDRD) Non-Af BUN/Creatinine Ratio Glucose Lactic Acid 1.4 Calcium Total Bilirubin AST ALT Alkaline Phosphatase Troponin I High Sens Total Protein Albumin Globulin Albumin/Globulin Ratio Urine Color Yellow Urine Clarity Clear Urine pH 5.0 Ur Specific [place] 1.010 Urine Protein 100 H Urine Glucose (UA) Normal Urine Ketones Negative Urine Occult Blood Negative Urine Nitrite Negative Urine Bilirubin Negative Urine Urobilinogen Normal Ur Leukocyte Esterase Negative Urine RBC 0 SEEN Urine WBC 0-5 SEEN Ur Squamous Epith Cells 0-5 SEEN Amorphous Sediment 1+ Urine Bacteria 0 SEEN Urine Mucus 0 SEEN Radiography Diagnostic Testing: Clinical Impression(s) from Imaging Studies Chest CTA 07/08/21 22:01 IMPRESSION: 1. Mild patchy groundglass opacities bilateral mid and lower lung zones right greater than left. This may be due to edema, infection, or hemorrhage. 2. No PE identified. 3. Main pulmonary artery is dilated measuring 4.0 cm similar to the prior exam. This is similar to the prior exam and suggest the possibility of pulmonary hypertension. Electronically Signed: David Miller MD at 23:47 EDT , Discharge Plan Triage Chief Complaint: Confusion ED Provider: Ayush Leonardo Dx/Rx/DC Orders Prescriptions: No Action potassium chloride [Klor-Con M20] 20 MEQ tablet 10 meq PO BID RF: 0 albuterol sulfate [Ventolin HFA] 1 INHALER inhaler 2 puff inhalation Q4H PRN PRN (Reason: Shortness Of Breath) Qty: 1 RF: 0 montelukast 10 MG tablet 10 mg PO DAILY RF: 0 alprazolam 0.5 MG tablet 0.5 mg PO TID PRN PRN (Reason: Anxiety) RF: 0 atenolol 50 MG tablet 50 mg PO BID RF: 0 ropinirole 5 MG tablet 1 mg PO QHS RF: 0 promethazine 25 MG tablet 12.5 mg PO Q8H PRN PRN (Reason: Nausea) Qty: 20 RF: 0 cyclobenzaprine 10 mg Tablet 10 mg PO BID PRN PRN (Reason: Muscle Spasm) RF: 0 pantoprazole 40 mg Tablet,Delayed Release (Dr/Ec) 40 mg PO DAILY RF: 0 docusate sodium 100 mg Capsule 100 mg PO BID PRN PRN (Reason: Constipation) RF: 0 Excedrin Migraine 250-250-65 mg Tablet 1 tab PO Q8H PRN PRN (Reason: Headache) RF: 0 sennosides [Senna Lax] 8.6 mg Tablet 8.6 mg PO DAILY RF: 0 polysaccharide iron complex [iFerex 150] 150 mg iron Capsule 150 mg PO BID RF: 0 ergocalciferol (vitamin D2) [Vitamin D2] 1,250 mcg (50,000 unit) Capsule 1,250 mcg PO BID RF: 0 fluticasone propionate 50 mcg/actuation [place],Suspension 1 spray INTRANASAL DAILY RF: 0 pregabalin 75 mg Capsule 75 mg PO TID RF: 0 furosemide 40 MG tablet 40 mg PO BID RF: 0 oxycodone 20 mg Tablet 20 mg PO Q6H PRN (Reason: Pain) RF: 0 Primary Care Provider: Care Physician,No Primary
[2021-07-08 22:16] LABS: Absolute Lymphocyte Count 2.24 X10^3/uL (0.83-4.51); Absolute Neutrophil Count 8.7 X10^3/uL (2.0-7.7); Basophil# 0.04 X10^3/uL; Basophil% 0.3 % (0-1); Eosinophil# 0.19 X10^3/uL; Eosinophils% 1.6 % (0-5); Hematocrit 40.2 % (37-47); Hemoglobin 13.1 g/dL (12.0-15.0); Lymphocyte # 2.24 X10^3/ul (0.83-4.51); Lymphocyte % 18.4 % (19-41); Mean Corp Hgb Conc 32.6 g/dL (32-36); Mean Corpuscular Volume 82.7 fL (81-99); Mean Platelet Vol. 10.1 fl (6.2-12.0); Monocyte% 7.4 % (0-10); NRBC Flagged by Analyzer 0 % (0-5); Neutrophil # 8.71 X10^3/uL (2.7-7.7); Neutrophil % 71.7 % (47-70); Platelet Count 206 K/mm3 (150-450); RBC Distribution Width CV 14.7 % (11.6-14.6); RBC Distribution Width SD 44.7 fl (35.1-43.9); Red Blood Count 4.86 M/mm3 (4.2-5.4); White Blood Count 12.2 K/mm3 (4.4-11.0)
[2021-07-08] MEDS: 0.9% Normal Saline 1,000 ML 999 ML IV (22:23)
[2021-07-08 22:27] LABS: Prothrombin Time (Protime)PT. 12.8 SECONDS (11.7-14.9)
[2021-07-08 22:28] LABS: Partial Thromboplast Time 31.5 Seconds (24.1-36.2)
[2021-07-08] MEDS: Acetaminophen 500 MG Tablet 1000 MG PO (22:29)
[2021-07-08 22:31] LABS: Bacteria 0 SEEN /hpf (None Seen); Mucous, Urine 0 SEEN /hpf (<or=2+)
[2021-07-08 22:35] LABS: ALB/GLOB Ratio 0.9 RATIO (0.9-2.4); AST(SGOT) 30 U/L (15-37); Alanine Aminotransfer ALT/SGPT 53 U/L (13-56); Albumin, Serum 3.9 g/dL (3.2-5.0); Alkaline Phosphatase 119 U/L (45-117); Anion Gap 8 (5-15); BUN 15 mg/dL (7-18); BUN/Creat Ratio 13.5 RATIO (10-20); Calcium,Total 9.1 mg/dL (8.5-10.1); Chloride 95 mmol/L (98-107); Creatinine, Serum 1.11 mg/dL (0.55-1.02); EST Glomerular Filtration Rate 54 mL/min (>60); Est Glom Filt Rate - Afr Amer 66 mL/min (>60); Estimated Creatinine Clearance 54.24 ml/min; Globulin 4.2 g/dL (2.2-4.2); Glucose 188 mg/dL (74-106); Potassium 3.8 mmol/L (3.5-5.1); Protein, Total 8.1 g/dL (6.4-8.2); Sodium Level 135 mmol/L (136-145); Troponin-I HS 8 pg/mL (3.0-54.0)
[2021-07-08 22:35] LABS: Glucose, Dipstick Normal (Normal); Ketone-Dipstick Negative (Negative); Leukocyte Esterase-Dipstick Negative /ul (Negative); Nitrite-Dipstick Negative (Negative); Occult Blood-Urine Negative /ul (Negative); Protein-Dipstick 100 mg/dl (Negative); Urine Bilirubin Dipstick Negative (Negative); Urine Urobilinogen Normal (Normal)
[2021-07-08 22:37] LABS: Color, Urine Yellow (Yellow); Urine Clarity Clear (Clear)
[2021-07-08 22:39] LABS: Lactic Acid 1.4 mmol/L (0.4-1.9)
[2021-07-08 22:42] LABS: Squamous Epithelial Cells - UA 0-5 SEEN /hpf (5-10); White Blood Cells 0-5 SEEN /hpf (0-5)
[2021-07-08 22:43] LABS: Red Blood Cells-Urine 0 SEEN /hpf (0-5)
[2021-07-08 22:46] LABS: Amorphous Sediment 1+
[2021-07-09] VITALS (9 sets, daily range): BP systolic 100–131; BP diastolic 47–63; PULSE 72–89; RESP 14–22; TEMP 36.3–36.7; O2SAT 92–95; BMI 33.8
--- NOTE | 2021-07-09 00:22 | PCM.HP.STD ---
HPI - General General Date of Admission: 07/09/21 HPI Narrative INO RODRIGUEZ, is a 55 F with a significant history of metastatic melanoma who presents to the emergency department with a persistent fever on the same day of presentation. Associated with her symptoms is confusion at home. Reportedly she had a COVID-19 infection about 2 months ago. She has been on azithromycin, Augmentin/amoxicillin recently. She finished her last antibiotic 1 to 2 days ago prior to presentation. She reports joint pain. [facility] Medical History Asthma Hypertension Metastatic melanoma Pneumonia SVT (supraventricular tachycardia) Home Medications potassium chloride [Klor-Con M20] 10 meq PO BID 10/11/15 [History Last Taken 10/25/18] albuterol sulfate [Ventolin HFA] 2 puff INHALATION Q4H PRN PRN #1 inhaler 10/20/15 [Rx Last Taken 10/24/18] alprazolam 0.5 mg PO TID PRN PRN 10/25/18 [History Last Taken 10/25/18] atenolol 100 mg PO BID 10/25/18 [History Last Taken 10/27/18] montelukast 10 mg PO QHS 10/25/18 [History Last Taken 10/25/18] ropinirole 1 mg PO QHS 10/25/18 [History Last Taken 10/24/18 22:00] promethazine 12.5 mg PO Q8H PRN PRN #20 tab 10/27/18 [Rx Last Taken Unknown] azpzgxp-hhkggxzqqhyeh-nadndsvv [Excedrin Migraine] 1 tab PO Q8H PRN PRN 08/28/20 [History Last Taken Unknown] cyclobenzaprine 10 mg PO BID PRN PRN 08/28/20 [History Last Taken Unknown] ergocalciferol (vitamin D2) [Vitamin D2] 1,250 mcg PO QWEEK 07/08/21 [History Last Taken Unknown] fluticasone propionate 1 spray INTRANASAL BID 07/08/21 [History Last Taken Unknown] furosemide 40 mg PO BID 07/08/21 [History Last Taken Unknown] oxycodone 20 mg PO Q6H 07/08/21 [History Last Taken 07/08/21 18:30 20] polysaccharide iron complex [iFerex 150] 150 mg PO BID 07/08/21 [History Last Taken Unknown] pregabalin 75 mg PO TID 07/08/21 [History Last Taken Unknown] diphenhydramine HCl [Benadryl] 50 mg Q6H PRN PRN 07/09/21 [History Last Taken Unknown] omeprazole 20 mg PO BID PRN 07/09/21 [History Last Taken Unknown] polyethylene glycol 3350 [Miralax] 17 g DAILY PRN PRN 07/09/21 [History Last Taken Unknown] Allergy/AdvReac Type Severity Reaction Status Date / Time acyclovir Allergy Unknown Verified 07/08/21 21:45 amlodipine Allergy Other Verified 07/08/21 21:45 ibuprofen [From Motrin] Allergy Swelling Verified 07/08/21 21:45 metoprolol Allergy Unknown Verified 07/08/21 21:45 propranolol Allergy Unknown Verified 07/08/21 21:45 fluconazole AdvReac Rash Verified 07/08/21 21:45 meloxicam AdvReac Swelling Verified 07/08/21 21:45 nabumetone AdvReac Upset Verified 07/08/21 21:45 Stomach Family History Other Glioblastoma multiforme Surgical History H/O cervical spine surgery History of left heart catheterization (10/27/18) Social History Smoking Status: Never smoker ROS ROS Narrative Pertinent positives and pertinent negatives as noted in HPI. All other systems were reviewed and are negative. Vital Signs Vital Signs Vital Signs: 07/08/21 21:32 07/08/21 21:44 07/08/21 21:51 Temperature 102.6 F H Temperature Source Oral Pulse Rate 104 H 99 Respiratory Rate 16 16 Blood Pressure 138/81 H 149/80 H Blood Pressure Mean 100 103 Pulse Ox 86 95 95 Oxygen Delivery Method Room Air Nasal Cannula Nasal Cannula Oxygen Flow Rate (L/min) 4 4 07/08/21 23:14 07/08/21 23:15 07/08/21 23:16 Temperature 98.7 F 98.7 F 98.9 F Temperature Source Oral Oral Oral Pulse Rate 96 97 Respiratory Rate 14 13 Blood Pressure 107/57 L 120/60 Blood Pressure Mean 73 80 Pulse Ox 92 90 Oxygen Delivery Method Nasal Cannula Nasal Cannula Oxygen Flow Rate (L/min) 4 4 07/08/21 23:52 Temperature Temperature Source Pulse Rate 89 Respiratory Rate 13 Blood Pressure 95/81 H Blood Pressure Mean 85 Pulse Ox 98 Oxygen Delivery Method Nasal Cannula Oxygen Flow Rate (L/min) 4 Weight Weight: 92.986 kg Body Mass Index (BMI) 33.0 Physical Exam Narrative Physical exam: General: Well-nourished, well-developed. Head: Normocephalic, atraumatic, no tenderness Eyes: Vision is grossly intact. EOMI ENT, no trauma, moist mucous membranes, no rhinorrhea Neck: Nontender, full range of motion, no spinal tenderness, deformities, step-off CVS: Regular rate and rhythm. S1-S2 present. No murmur, gallop or rub. Respiratory : Scattered rales, chest wall nontender, no wheezing Abdomen: Soft, nontender, nondistended, normal bowel sounds, no masses : Deferred Back: Nontender, no CVA tenderness, no midline spinal tenderness, deformities, step-offs Extremities: Nontender full range of motion, no trauma Skin: Normal color, no trauma, abrasions Neuro: Alert, oriented X3. With some incoherent speech. Cranial nerves II through XII grossly intact. Psychiatry: Normal mood. Normal affect. Not depressed. Not anxious. Results Lab / Micro Data Result Diagrams: 07/08/21 22:07 07/08/21 22:07 Labs: Laboratory Results - last 24 hr 07/08/21 22:07: WBC 12.2 H, RBC 4.86, Hgb 13.1, Hct 40.2, MCV 82.7, MCH 27.0, MCHC 32.6, RDW Std Deviation 44.7 H, RDW Coeff of Shaina 14.7 H, Plt Count 206, MPV 10.1, Immature Gran % (Auto) 0.600, Neut % (Auto) 71.7 H, Lymph % (Auto) 18.4 L, [place] % (Auto) 7.4, Eos % (Auto) 1.6, Baso % (Auto) 0.3, Absolute Neuts (auto) 8.7 H, Absolute Lymphs (auto) 2.24, Nucleated RBC % 0 07/08/21 22:07: PT 12.8, INR 1.0, APTT 31.5 07/08/21 22:07: Sodium 135 L, Potassium 3.8, Chloride 95 L, Carbon Dioxide 32.0, Anion Gap 8, BUN 15, Creatinine 1.11 H, Estim Creat Clear Calc 54.24, Est GFR (MDRD) Af Amer 66, Est GFR (MDRD) Non-Af 54 L, BUN/Creatinine Ratio 13.5, Glucose 188 H, Calcium 9.1, Total Bilirubin 0.60, AST 30, ALT 53, Alkaline Phosphatase 119 H, Troponin I High Sens 8, Total Protein 8.1, Albumin 3.9, Globulin 4.2, Albumin/Globulin Ratio 0.9 07/08/21 22:07: Lactic Acid 1.4 07/08/21 22:15: Urine Color Yellow, Urine Clarity Clear, Urine pH 5.0, Ur Specific [place] 1.010, Urine Protein 100 H, Urine Glucose (UA) Normal, Urine Ketones Negative, Urine Occult Blood Negative, Urine Nitrite Negative, Urine Bilirubin Negative, Urine Urobilinogen Normal, Ur Leukocyte Esterase Negative, Urine RBC 0 SEEN, Urine WBC 0-5 SEEN, Ur Squamous Epith Cells 0-5 SEEN, Amorphous Sediment 1+, Urine Bacteria 0 SEEN, Urine Mucus 0 SEEN Radiology Impression Chest CTA 07/08/21 22:01 IMPRESSION: 1. Mild patchy groundglass opacities bilateral mid and lower lung zones right greater than left. This may be due to edema, infection, or hemorrhage. 2. No PE identified. 3. Main pulmonary artery is dilated measuring 4.0 cm similar to the prior exam. This is similar to the prior exam and suggest the possibility of pulmonary hypertension. Electronically Signed: David Miller MD at 23:47 EDT , Assessment & Plan Assessment/Plan (1) Pneumonia: QUALIFIERS: Laterality: bilateral Lung location: unspecified part of lung Pneumonia type: due to unspecified organism Qualified Code(s): J18.9 - Pneumonia, unspecified organism PLAN: Pneumonia Likely atypical. Chest CTA was visualized and interpreted. Chest CTA with mild bilateral scattered opacities. Chemistry showed Alkaline phosphatase of 119 CBC reviewed showed white count of 12.2 with neutrophilia and lymphopenia. Trend CBC Recently completed azithromycin and Augmentin/amoxicillin. Given vancomycin and Zosyn emergency department. Will check strep pneumonia antigen and Legionella urine antigen. Check mycoplasma antibody and rapid influenza screen. Will check procalcitonin. Will check MRSA nasal screen. Levaquin ordered. Acute encephalopathy Etiology likely from pneumonia on sedatives. Hold all sedating medications. Check TSH and ammonia level. Dry mucous membranes On home Lasix; Hold. Trend CMP Elevated Alkaline Phosphatase Alkaline phosphatase is mildly elevated at 117. Likely secondary to metastatic melanoma. Trend CMP. DVT prophylaxis: Subcutaneous Lovenox. Charges/Coding Visit Charges Inpatient E&M: 57605 Init Hosp L3
[2021-07-09] MEDS: 0.9% Normal Saline 1,000 ML 999 ML IV (00:23)
[2021-07-09 01:21] LABS: Allen Test Positive; Base Excess 3 mmol/L (-2 to +2); Blood Gas Specimen Type ART; O2 Delivery Device Cannula; PO2 104 mmHG (75-100); SITE L Radial; SO2 98 % (95-99); Total Carbon Dioxide 29 mmol/L; pCO2 47.1 mmHg (35-45); pH 7.38 (7.35-7.45)
[2021-07-09] MEDS: 0.9% Saline Lock 10 ML Syringe IV ×3 (02:48→11:21)
[2021-07-09 05:19] LABS: M R Staph aureus DNA By PCR Negative (Negative); Probe Check PASS; Specimen Processing Control PASS
[2021-07-09 07:14] LABS: Absolute Lymphocyte Count 2.32 X10^3/uL (0.83-4.51); Absolute Neutrophil Count 5.1 X10^3/uL (2.0-7.7); Basophil# 0.01 X10^3/uL; Basophil% 0.1 % (0-1); Eosinophil# 0.18 X10^3/uL; Eosinophils% 2.1 % (0-5); Hematocrit 34.1 % (37-47); Hemoglobin 10.7 g/dL (12.0-15.0); Lymphocyte # 2.32 X10^3/ul (0.83-4.51); Lymphocyte % 27.5 % (19-41); Mean Corp Hgb Conc 31.4 g/dL (32-36); Mean Corpuscular Hgb 26.9 pg (27.0-32.0); Mean Corpuscular Volume 85.7 fL (81-99); Mean Platelet Vol. 10.4 fl (6.2-12.0); Monocyte# 0.76 X10^3/uL; NRBC Flagged by Analyzer 0 % (0-5); Neutrophil # 5.13 X10^3/uL (2.7-7.7); Neutrophil % 60.8 % (47-70); Platelet Count 164 K/mm3 (150-450); RBC Distribution Width CV 15.1 % (11.6-14.6); RBC Distribution Width SD 47.5 fl (35.1-43.9); Red Blood Count 3.98 M/mm3 (4.2-5.4); White Blood Count 8.4 K/mm3 (4.4-11.0)
[2021-07-09 07:55] LABS: ALB/GLOB Ratio 0.9 RATIO (0.9-2.4); AST(SGOT) 22 U/L (15-37); Alanine Aminotransfer ALT/SGPT 42 U/L (13-56); Albumin, Serum 3.1 g/dL (3.2-5.0); Alkaline Phosphatase 99 U/L (45-117); Anion Gap 4 (5-15); BUN 13 mg/dL (7-18); BUN/Creat Ratio 15.3 RATIO (10-20); Calcium,Total 8.3 mg/dL (8.5-10.1); Chloride 101 mmol/L (98-107); Creatinine, Serum 0.85 mg/dL (0.55-1.02); EST Glomerular Filtration Rate 74 mL/min (>60); Est Glom Filt Rate - Afr Amer 89 mL/min (>60); Estimated Creatinine Clearance 70.83 ml/min; Globulin 3.6 g/dL (2.2-4.2); Glucose 165 mg/dL (74-106); Potassium 3.8 mmol/L (3.5-5.1); Protein, Total 6.7 g/dL (6.4-8.2); Sodium Level 137 mmol/L (136-145); Thyroid Stim Hormone (TSH) 1.62 uIU/mL (0.358-3.74)
[2021-07-09 08:42] LABS: Procalcitonin 0.45 ng/mL (0.00-0.09)
[2021-07-09] MEDS: Fluticasone 0.05% 1 SPRAY NASAL.SRY NASAL (09:28)
[2021-07-09] MEDS: oxyCODONE 5 MG Tablet 20 MG PO (09:29)
[2021-07-09] MEDS: Pregabalin 75 MG Capsule PO (09:30)
[2021-07-09] MEDS: Pantoprazole Sodium 40 MG Tablet PO (09:30)
[2021-07-09] MEDS: Senna Tablet 1 TABLET PO (09:31)
[2021-07-09] MEDS: Furosemide 40 MG Tablet PO (09:34)
[2021-07-09] MEDS: proMETHazine 25 MG Tablet 12.5 MG PO (09:34)
[2021-07-09] MEDS: levoFLOXacin IV 750 MG/150 ML BAG 100 MG IV (09:47)
[2021-07-09] MEDS: Albuterol 2.5 MG/3 ML VIAL.NEB. INHALATION (09:56)
[2021-07-09] MEDS: Atenolol 100 MG Tablet PO (10:11)
[2021-07-09] MEDS: Iron Polysaccharide Complex 150 MG CAPSULE PO (10:12)
[2021-07-09] MEDS: Potassium Chloride Oral Tablet 10 MEQ PO (10:13)
--- NOTE | 2021-07-09 11:44 | PCM.DC ---
Discharge Instructions Diet Discharge Diet: No restrictions Activity Discharge Activity: Return to Normal Activity Weight Bearing Status: Weight bearing as tolerated Dressing / Incision Call your doctor if you observe: Fever of 101 or Higher, Numbness or Tingling, Shortness of breath, Dizziness, Chest pain, Increased palpitations (irregular heartbeat) and Calf discomfort Follow Up Care Please Follow Up With: Primary care provider When: Within the next two weeks. Test Results: Test results from this visit will be discussed in further detail at your follow-up appointment, if applicable. Discharge Plan Admission Admit Date/Time: 07/09/21 00:07 Primary Reason for Your Visit: Fever with confusion Attending Provider: Yolis Terrell Primary Care Provider: Care Physician,No Primary Instructions Additional Instructions / Restrictions: * Use incentive spirometry once an hour, while awake. Discharge Orders/Prescriptions Prescriptions: New levofloxacin 750 mg tablet 750 mg PO DAILY Qty: 7 RF: 0 nystatin 100,000 unit/mL suspension 100,000 unit PO .QID Qty: 200 RF: 0 Continued potassium chloride [Klor-Con M20] 20 MEQ tablet 10 meq PO BID RF: 0 albuterol sulfate [Ventolin HFA] 1 INHALER inhaler 2 puff inhalation Q4H PRN PRN (Reason: Shortness Of Breath) Qty: 1 RF: 0 montelukast 10 MG tablet 10 mg PO QHS RF: 0 alprazolam 0.5 MG tablet 0.5 mg PO TID PRN PRN (Reason: Anxiety) RF: 0 atenolol 50 MG tablet 100 mg PO BID RF: 0 ropinirole 5 MG tablet 1 mg PO QHS RF: 0 promethazine 25 MG tablet 12.5 mg PO Q8H PRN PRN (Reason: Nausea) Qty: 20 RF: 0 cyclobenzaprine 10 mg Tablet 10 mg PO BID PRN PRN (Reason: Muscle Spasm) RF: 0 Excedrin Migraine 250-250-65 mg Tablet 1 tab PO Q8H PRN PRN (Reason: Headache) RF: 0 polysaccharide iron complex [iFerex 150] 150 mg iron Capsule 150 mg PO BID RF: 0 ergocalciferol (vitamin D2) [Vitamin D2] 1,250 mcg (50,000 unit) Capsule 1,250 mcg PO QWEEK RF: 0 fluticasone propionate 50 mcg/actuation [place],Suspension 1 spray INTRANASAL BID RF: 0 pregabalin 75 mg Capsule 75 mg PO TID RF: 0 furosemide 40 MG tablet 40 mg PO BID RF: 0 oxycodone 20 mg Tablet 20 mg PO Q6H RF: 0 omeprazole 20 mg Capsule,Delayed Release(Dr/Ec) 20 mg PO BID PRN (Reason: Acid Reflux) RF: 0 diphenhydramine HCl [Benadryl] 25 mg Capsule 50 mg Q6H PRN PRN (Reason: Allergic Symptoms) RF: 0 polyethylene glycol 3350 [Miralax] 17 gram Powder In Packet 17 g DAILY PRN PRN (Reason: Constipation) RF: 0 Referrals / Follow Up: Ryan Adams MD [NON-STAFF] - Within 2 Weeks Disposition Disposition (needs filled in before D/C Order can be placed): Home, Self Care
--- NOTE | 2021-07-09 11:45 | CASEMGMT ---
Per Mili RODRIGUEZ, pt does not qualify for home oxygen at this time. Carmen RODRIGUEZ CM
--- NOTE | 2021-07-09 12:04 | DS.PCM_ITS ---
Documented by User: Kristofer JOSEPH 07/09/21 12:14 Providers Date of Admission: 07/09/21 Date of Discharge: 07/09/21 Primary Care Physician: No Primary Care Phys Reason For Visit: ACUTE ENCEPHALOPATHY, PNEUMONIA Diagnosis Discharge Diagnosis (1) Pneumonia: Status: Acute Code(s): J18.9 - Pneumonia, unspecified organism Qualifiers: Laterality: bilateral Lung location: unspecified part of lung Pneumonia type: due to unspecified organism Qualified Code(s): J18.9 - Pneumonia, unspecified organism Medications at Discharge Home Medications potassium chloride [Klor-Con M20] 10 meq PO BID 10/11/15 albuterol sulfate [Ventolin HFA] 2 puff INHALATION Q4H PRN PRN #1 inhaler 10/20/15 alprazolam 0.5 mg PO TID PRN PRN 10/25/18 atenolol 100 mg PO BID 10/25/18 montelukast 10 mg PO QHS 10/25/18 ropinirole 1 mg PO QHS 10/25/18 promethazine 12.5 mg PO Q8H PRN PRN #20 tab 10/27/18 Excedrin Migraine 1 tab PO Q8H PRN PRN 08/28/20 cyclobenzaprine 10 mg PO BID PRN PRN 08/28/20 ergocalciferol (vitamin D2) [Vitamin D2] 1,250 mcg PO QWEEK 07/08/21 fluticasone propionate 1 spray INTRANASAL BID 07/08/21 furosemide 40 mg PO BID 07/08/21 oxycodone 20 mg PO Q6H 07/08/21 polysaccharide iron complex [iFerex 150] 150 mg PO BID 07/08/21 pregabalin 75 mg PO TID 07/08/21 diphenhydramine HCl [Benadryl] 50 mg Q6H PRN PRN 07/09/21 levofloxacin 750 mg PO DAILY #7 tab 07/09/21 nystatin 100,000 unit PO .QID #200 ml 07/09/21 omeprazole 20 mg PO BID PRN 07/09/21 polyethylene glycol 3350 [Miralax] 17 g DAILY PRN PRN 07/09/21 Hospital Course Summary of Care Provided Minutes Spent on Discharge: 20 Hospital Course: Patient is a 55-year-old female who was admitted to [facility] on the morning of 07/09/2021 for evaluation and management of fever, confusion and shortness of breath. CT-A of the chest revealed mild patchy groundglass opacities in both lungs, but greater on the right than left. Patient was initiated on empiric levofloxacin to treat suspected pneumonia. Patient encephalopathy as well as shortness of breath greatly improved from initiation of antibiotics, by the time of hospitalist evaluation on the morning of 07/09 patient was satting 95% on room air and was appropriately alert and oriented. Given patient's fast recovery, it was decided with patient that she can be discharged on oral antibiotics. Patient was also initiated on nystatin swish and swallow for possible thrush as patient had complaints of a sore throat and white flakes were visualized on the dorsal aspect of the tongue on evaluation. Patient is to follow-up with primary care provider within the next 2 weeks, all other home medications were continued. Physical Exam Narrative Patient is a 55-year-old female resting in bed, alert and orient x3. Patient shortness of breath has improved from admission and patient is currently satting well on room air. Patient is anxious about medical care and prognosis. Const alert, oriented x3 and no apparent distress HEENT normocephalic, head/scalp atraumatic and hearing grossly normal bilaterally HEENT Narrative: Erythema about the posterior aspect of the throat as well as white flaky material on the dorsal aspect of the tongue. Eyes PERRL, EOMs intact bilaterally and conjunctivae normal Neck no lymphadenopathy, supple and no JVD Resp normal respiratory effort, no retractions and no use of accessory muscles Resp Narrative: Currently satting 95% on room air. Cardio regular rate, regular rhythm and no JVD GI normal to inspection, nondistended, normoactive bowel sounds Extremity normal to inspection Skin no rashes or lesions noted Neuro CN's II-XII intact bilaterally Psych Mood & Affect: anxious Weight / BMI Weight Weight: 209 lb 14.081 oz Body Mass Index (BMI) 33.8 ABG / Lab / Microbiology Data Result Diagrams: 07/09/21 06:13 07/09/21 06:13 Laboratory: Laboratory Results - last 24 hr 07/08/21 22:07: WBC 12.2 H, RBC 4.86, Hgb 13.1, Hct 40.2, MCV 82.7, MCH 27.0, MCHC 32.6, RDW Std Deviation 44.7 H, RDW Coeff of Shaina 14.7 H, Plt Count 206, MPV 10.1, Immature Gran % (Auto) 0.600, Neut % (Auto) 71.7 H, Lymph % (Auto) 18.4 L , [place] % (Auto) 7.4, Eos % (Auto) 1.6, Baso % (Auto) 0.3, Absolute Neuts (auto) 8.7 H, Absolute Lymphs (auto) 2.24, Nucleated RBC % 0 07/08/21 22:07: PT 12.8, INR 1.0, APTT 31.5 07/08/21 22:07: Sodium 135 L, Potassium 3.8, Chloride 95 L, Carbon Dioxide 32.0, Anion Gap 8, BUN 15, Creatinine 1.11 H, Estim Creat Clear Calc 54.24, Est GFR (MDRD) Af Amer 66, Est GFR (MDRD) Non-Af 54 L, BUN/Creatinine Ratio 13.5, Glucose 188 H, Calcium 9.1, Total Bilirubin 0.60, AST 30, ALT 53, Alkaline Phosphatase 119 H, Troponin I High Sens 8, Total Protein 8.1, Albumin 3.9, Globulin 4.2, Albumin/Globulin Ratio 0.9 07/08/21 22:07: Lactic Acid 1.4 07/08/21 22:15: Urine Color Yellow, Urine Clarity Clear, Urine pH 5.0, Ur Specific H[place]y 1.010, Urine Protein 100 H, Urine Glucose (UA) Normal, Urine Ketones Negative, Urine Occult Blood Negative, Urine Nitrite Negative, Urine Bilirubin Negative, Urine Urobilinogen Normal, Ur Leukocyte Esterase Negative, Urine RBC 0 SEEN, Urine WBC 0-5 SEEN, Ur Squamous Epith Cells 0-5 SEEN, Amorphous Sediment 1+, Urine Bacteria 0 SEEN, Urine Mucus 0 SEEN 07/09/21 02:50: MRSA (PCR) Negative 07/09/21 06:10: Ammonia 30.0 07/09/21 06:13: WBC 8.4, RBC 3.98 L, Hgb 10.7 L, Hct 34.1 L, MCV 85.7, MCH 26.9 L, MCHC 31.4 L, RDW Std Deviation 47.5 H, RDW Coeff of Shaina 15.1 H, Plt Count 164, MPV 10.4, Immature Gran % (Auto) 0.500, Neut % (Auto) 60.8, Lymph % (Auto) 27.5, [place] % (Auto) 9.0, Eos % (Auto) 2.1, Baso % (Auto) 0.1, Absolute Neuts (auto) 5.1, Absolute Lymphs (auto) 2.32, Nucleated RBC % 0 07/09/21 06:13: Sodium 137, Potassium 3.8, Chloride 101, Carbon Dioxide 32.0, Anion Gap 4 L, BUN 13, Creatinine 0.85, Estim Creat Clear Calc 70.83, Est GFR (MDRD) Af Amer 89, Est GFR (MDRD) Non-Af 74, BUN/Creatinine Ratio 15.3, Glucose 165 H, Calcium 8.3 L, Total Bilirubin 0.50, AST 22, ALT 42, Alkaline Phosphatase 99, Total Protein 6.7, Albumin 3.1 L, Globulin 3.6, Albumin/Globulin Ratio 0.9, TSH 1.62 07/09/21 06:13: Procalcitonin 0.45 H Microbiology: Microbiology 07/09/21 02:50 Mucosa - Nasopharyngeal Influenza Types A,B Direct FA (ENOC) - Final 07/09/21 01:40 Urine, Random Legionella Antigen - Final 07/09/21 01:40 Urine, Random Streptococcus pneumoniae Antigen (M - Final ABG: ABG 07/09/21 01:13 Specimen Type ART Sample Site L Radial pH 7.38 Bicarbonate Actual 28.0 H Total CO2 29 Base Excess 3 H O2 Saturation 98 ABG pCO2 47.1 H ABG pO2 104 H Prashant Test Positive O2 Delivery Device Cannula Liter Flow 2.0 Radiography Diagnostic Testing: Radiology Impression Chest CTA 07/08/21 22:01 IMPRESSION: 1. Mild patchy groundglass opacities bilateral mid and lower lung zones right greater than left. This may be due to edema, infection, or hemorrhage. 2. No PE identified. 3. Main pulmonary artery is dilated measuring 4.0 cm similar to the prior exam. This is similar to the prior exam and suggest the possibility of pulmonary hypertension. Electronically Signed: David Miller MD at 23:47 EDT , D/C Instructions Discharge Diet: No restrictions Weight Bearing Status: Weight bearing as tolerated Call your doctor if you observe: Fever of 101 or Higher, Numbness or Tingling, Shortness of breath, Dizziness, Chest pain, Increased palpitations (irregular heartbeat) and Calf discomfort Please Follow Up With: Primary care provider When: Within the next two weeks. Meaningful Use Info Meaningful Use Diagnoses (Choose all that apply): None applicable Discharge Plan Admission Admit Date/Time: 07/09/21 00:07 Primary Reason for Your Visit: Fever with confusion Attending Provider: Yolis Terrell Primary Care Provider: Care Physician,No Primary Instructions Additional Instructions / Restrictions: * Use incentive spirometry once an hour, while awake. Patient Problems: Altered Health Status related to Hospitalization Patient Goals: *Optimal Level of Health *Keep Appointments *Medication Compliance *Remain Safe Discharge Orders/Prescriptions Prescriptions: New levofloxacin 750 mg tablet 750 mg PO DAILY Qty: 7 RF: 0 nystatin 100,000 unit/mL suspension 100,000 unit PO .QID Qty: 200 RF: 0 Continued potassium chloride [Klor-Con M20] 20 MEQ tablet 10 meq PO BID RF: 0 albuterol sulfate [Ventolin HFA] 1 INHALER inhaler 2 puff inhalation Q4H PRN PRN (Reason: Shortness Of Breath) Qty: 1 RF: 0 montelukast 10 MG tablet 10 mg PO QHS RF: 0 alprazolam 0.5 MG tablet 0.5 mg PO TID PRN PRN (Reason: Anxiety) RF: 0 atenolol 50 MG tablet 100 mg PO BID RF: 0 ropinirole 5 MG tablet 1 mg PO QHS RF: 0 promethazine 25 MG tablet 12.5 mg PO Q8H PRN PRN (Reason: Nausea) Qty: 20 RF: 0 cyclobenzaprine 10 mg Tablet 10 mg PO BID PRN PRN (Reason: Muscle Spasm) RF: 0 Excedrin Migraine 250-250-65 mg Tablet 1 tab PO Q8H PRN PRN (Reason: Headache) RF: 0 polysaccharide iron complex [iFerex 150] 150 mg iron Capsule 150 mg PO BID RF: 0 ergocalciferol (vitamin D2) [Vitamin D2] 1,250 mcg (50,000 unit) Capsule 1,250 mcg PO QWEEK RF: 0 fluticasone propionate 50 mcg/actuation [place]rum[place],Suspension 1 spray INTRANASAL BID RF: 0 pregabalin 75 mg Capsule 75 mg PO TID RF: 0 furosemide 40 MG tablet 40 mg PO BID RF: 0 oxycodone 20 mg Tablet 20 mg PO Q6H RF: 0 omeprazole 20 mg Capsule,Delayed Release(Dr/Ec) 20 mg PO BID PRN (Reason: Acid Reflux) RF: 0 diphenhydramine HCl [Benadryl] 25 mg Capsule 50 mg Q6H PRN PRN (Reason: Allergic Symptoms) RF: 0 polyethylene glycol 3350 [Miralax] 17 gram Powder In Packet 17 g DAILY PRN PRN (Reason: Constipation) RF: 0 Referrals / Follow Up: Ryan Adams MD [NON-STAFF] - Within 2 Weeks Disposition Disposition (needs filled in before D/C Order can be placed): Home, Self Care Documented by User: Dr. Yolis Terrell MD 07/10/21 12:04 Providers Date of Admission: 07/09/21 Reason For Visit: ACUTE ENCEPHALOPATHY, PNEUMONIA Medications at Discharge Home Medications potassium chloride [Klor-Con M20] 10 meq PO BID 10/11/15 albuterol sulfate [Ventolin HFA] 2 puff INHALATION Q4H PRN PRN #1 inhaler 10/20/15 alprazolam 0.5 mg PO TID PRN PRN 10/25/18 atenolol 100 mg PO BID 10/25/18 montelukast 10 mg PO QHS 10/25/18 ropinirole 1 mg PO QHS 10/25/18 promethazine 12.5 mg PO Q8H PRN PRN #20 tab 10/27/18 Excedrin Migraine 1 tab PO Q8H PRN PRN 08/28/20 cyclobenzaprine 10 mg PO BID PRN PRN 08/28/20 ergocalciferol (vitamin D2) [Vitamin D2] 1,250 mcg PO QWEEK 07/08/21 fluticasone propionate 1 spray INTRANASAL BID 07/08/21 furosemide 40 mg PO BID 07/08/21 oxycodone 20 mg PO Q6H 07/08/21 polysaccharide iron complex [iFerex 150] 150 mg PO BID 07/08/21 pregabalin 75 mg PO TID 07/08/21 diphenhydramine HCl [Benadryl] 50 mg Q6H PRN PRN 07/09/21 levofloxacin 750 mg PO DAILY #7 tab 07/09/21 nystatin 100,000 unit PO .QID #200 ml 07/09/21 omeprazole 20 mg PO BID PRN 07/09/21 polyethylene glycol 3350 [Miralax] 17 g DAILY PRN PRN 07/09/21 ABG / Lab / Microbiology Data Result Diagrams: 07/09/21 06:13 07/09/21 06:13 Discharge Plan Admission Admit Date/Time: 07/09/21 00:07 Primary Reason for Your Visit: Fever with confusion Attending Provider: Yolis Terrell Primary Care Provider: Care Physician,No Primary Instructions Additional Instructions / Restrictions: * Use incentive spirometry once an hour, while awake. Patient Problems: Altered Health Status related to Hospitalization Patient Goals: *Optimal Level of Health *Keep Appointments *Medication Compliance *Remain Safe Discharge Orders/Prescriptions Prescriptions: New levofloxacin 750 mg tablet 750 mg PO DAILY Qty: 7 RF: 0 nystatin 100,000 unit/mL suspension 100,000 unit PO .QID Qty: 200 RF: 0 Continued potassium chloride [Klor-Con M20] 20 MEQ tablet 10 meq PO BID RF: 0 albuterol sulfate [Ventolin HFA] 1 INHALER inhaler 2 puff inhalation Q4H PRN PRN (Reason: Shortness Of Breath) Qty: 1 RF: 0 montelukast 10 MG tablet 10 mg PO QHS RF: 0 alprazolam 0.5 MG tablet 0.5 mg PO TID PRN PRN (Reason: Anxiety) RF: 0 atenolol 50 MG tablet 100 mg PO BID RF: 0 ropinirole 5 MG tablet 1 mg PO QHS RF: 0 promethazine 25 MG tablet 12.5 mg PO Q8H PRN PRN (Reason: Nausea) Qty: 20 RF: 0 cyclobenzaprine 10 mg Tablet 10 mg PO BID PRN PRN (Reason: Muscle Spasm) RF: 0 Excedrin Migraine 250-250-65 mg Tablet 1 tab PO Q8H PRN PRN (Reason: Headache) RF: 0 polysaccharide iron complex [iFerex 150] 150 mg iron Capsule 150 mg PO BID RF: 0 ergocalciferol (vitamin D2) [Vitamin D2] 1,250 mcg (50,000 unit) Capsule 1,250 mcg PO QWEEK RF: 0 fluticasone propionate 50 mcg/actuation [place]rumrod,Suspension 1 spray INTRANASAL BID RF: 0 pregabalin 75 mg Capsule 75 mg PO TID RF: 0 furosemide 40 MG tablet 40 mg PO BID RF: 0 oxycodone 20 mg Tablet 20 mg PO Q6H RF: 0 omeprazole 20 mg Capsule,Delayed Release(Dr/Ec) 20 mg PO BID PRN (Reason: Acid Reflux) RF: 0 diphenhydramine HCl [Benadryl] 25 mg Capsule 50 mg Q6H PRN PRN (Reason: Allergic Symptoms) RF: 0 polyethylene glycol 3350 [Miralax] 17 gram Powder In Packet 17 g DAILY PRN PRN (Reason: Constipation) RF: 0 Referrals / Follow Up: Ryan Adams MD [NON-STAFF] - Within 2 Weeks Disposition Disposition (needs filled in before D/C Order can be placed): Home, Self Care Charges/Coding Addendum Addendum: This patient was seen in conjunction with JAKE Harper. I have independently interviewed and examined the patient and reviewed pertinent historical, laboratory, and other data. Please refer to JAKE Harper's note for his patient's presentation, findings, and recommendations. I have reviewed and his note and concur with his documentation 55-year-old female with past medical history of metastatic melanoma being followed up by palliative care, comes in with complaints of fever and confusion that happened on the day of admission. Patient had recently completed azithromycin and Augmentin for suspicion of antibiotics 2 days prior to admission. She was found to require oxygen. Patient had CT of the chest on admission that showed bilateral scattered opacities. She was started on IV vancomycin and Zosyn. This was later switched to IV Levaquin. Urine Legionella and will continue were negative. Patient was off oxygen the next morning. She was ambulated and did not require oxygen. Her home medications were resumed. Patient was discharged to follow-up with palliative care. She appeared to have improved much faster than anticipated. Physical Exam: Gen: Comfortable, off oxygen, not pale, not jaundiced CVS:HS I +II, regular, no murmurs RESP: Diminished at lung bases GI: BS present and normal, soft, nontender, no palpable organs EXT:No edema Visit Charges Inpatient E&M: 29450 Disch Hosp
--- NOTE | 2021-07-09 12:05 | CASEMGMT ---
MICHAEL GOODE Face to Face with patient for initial transition planning/care coordination assessment. RN CM introduced self and role at [facility]. Patient lying in bed, alert and oriented. Patient willing to participate in assessment and is able to answer all questions appropriately. Care providers, pharmacy, and demographics verified. Patient wishes to discharge home with resumption of HHC through [facility]. Patient states she has no further needs or concerns at this time. CM to follow for discharge planning needs that may arise. PCP: Beth Specialists: [facility] Preferred Pharmacy: [facility] Insurance: [employer] Prescription Benefit: yes Living Will/HPOA: none LNOK: daughter Living Arrangements: Patient lives alone in a 1st floor handicap accessible apartment with no steps to enter. Patient states she is independent at home. Transportation: self, daughter DME/HHC: Patient states she has shower chair, grab bars, rollator, wheelchair, and hospital bed at home. Patient states she has [facility] for senior care. Patient states she is active with [facility]. Disposition Plan: Patient to discharge home with resumption of HHC, family support, and follow-up plans in place. Florence DUONG, RN, CM
--- NOTE | 2021-07-09 12:17 | CASEMGMT ---
Per Kerrie RODRIGUEZ CM, pt is active with [facility]. KIM order placed and clinicals as well as d/c instructions and KIM order faxed to [place] at this time. Carmen RODRIGUEZ CM
--- NOTE | 2021-07-09 12:34 | NURSING ---
Reviewed charting with Katiana Ortiz RN
[2021-07-10 16:55] LABS: Mycoplasma Pneum AB IgG 392 U/mL (0-99); Mycoplasma pneum. AB IgM < 770 U/mL (0-769)
== END 2021-07-09 13:03 | disposition home or self-care (01) | DRG 139 ==
LOC: ED 22:06 → PCU 07-09 00:44
PROVIDERS: Admitting Provider Hospitalist; Emergency Provider Student in an Organized Health Care Education/Training Program; Visit Provider Internal Medicine
DX: J18.9 Pneumonia, unspecified organism (principal); J96.01 Acute respiratory failure with hypoxia; G92.8 Other toxic encephalopathy; B37.0 Candidal stomatitis; I10 Essential (primary) hypertension; J45.909 Unspecified asthma, uncomplicated; T42.75XA Adverse effect of unspecified antiepileptic and sedative-hypnotic drugs, initial encounter; Z79.899 Other long term (current) drug therapy; Z86.16 Personal history of COVID-19; Z85.820 Personal history of malignant melanoma of skin
CPT/HCPCS: 36415; 36600; 71275; 80053; 81001; 82140; 82803; 83605; 84145; 84443; 84484; 85025; 85610; 85730; 86738; 87040; 87086; 87449; 87641; 87804; 93005; 94640; 99285; J7030; J7040; Q9967; A4216

== ENCOUNTER 2021-08-03 15:30 | Emergency (ER) | payer MEDICAID, SELFPAY ==
[2021-08-03 15:31] VITALS: BP 137/75; PULSE 75; RESP 14; TEMP 36.1; O2SAT 95; BMI 33.2
--- NOTE | 2021-08-03 15:37 | ED.RN ---
pt gets chemo [id number] she is unsure when the last round was. schedule got thrown off d/t being sick.
--- NOTE | 2021-08-03 16:12 | EX.ED.DYSGE1 ---
HPI History of Present Illness Chief Complaint: General Illness Detail of Chief Complaint: Fever Informant: patient Onset/Context/Timing Onset: Days Context: Gradual Onset Timing: Intermittent Current Severity: Mild Maximum Severity: Mild Narrative Narrative: 60-year-old female history of metastatic melanoma prior SVT currently on chemotherapy which she gets every 28 days believes her last treatment was about 2 weeks ago with states sometimes she has difficulty remembering. Says on Tuesday she had a fever as high as 103.4. She denies any vomiting or diarrhea. No dysuria but trouble urinating. She also states she has had no appetite. Denies any cough or shortness of breath. Called her oncologist office who sent her into the emergency department. Prior similar symptoms: Yes Recent Illness/Hospitalization: Yes PFSH PFS Medical History Asthma Hypertension Metastatic melanoma Pneumonia SVT (supraventricular tachycardia) Home Medications potassium chloride [Klor-Con M20] 10 meq PO BID 10/11/15 [History Last Taken 10/25/18] albuterol sulfate [Ventolin HFA] 2 puff INHALATION Q4H PRN PRN #1 inhaler 10/20/15 [Rx Last Taken 10/24/18] alprazolam 0.5 mg PO TID PRN PRN 10/25/18 [History Last Taken 10/25/18] atenolol 100 mg PO BID 10/25/18 [History Last Taken 10/27/18] montelukast 10 mg PO QHS 10/25/18 [History Last Taken 10/25/18] ropinirole 1 mg PO QHS 10/25/18 [History Last Taken 10/24/18 22:00] promethazine 12.5 mg PO Q8H PRN PRN #20 tab 10/27/18 [Rx Last Taken Unknown] Excedrin Migraine 1 tab PO Q8H PRN PRN 08/28/20 [History Last Taken Unknown] ergocalciferol (vitamin D2) [Vitamin D2] 1,250 mcg PO QWEEK 07/08/21 [History Last Taken Unknown] fluticasone propionate 1 spray INTRANASAL BID 07/08/21 [History Last Taken Unknown] furosemide 40 mg PO BID 07/08/21 [History Last Taken Unknown] oxycodone 20 mg PO Q6H 07/08/21 [History Last Taken 07/08/21 18:30 20] polysaccharide iron complex [iFerex 150] 150 mg PO BID 07/08/21 [History Last Taken Unknown] pregabalin 75 mg PO TID 07/08/21 [History Last Taken Unknown] diphenhydramine HCl [Benadryl] 50 mg Q6H PRN PRN 07/09/21 [History Last Taken Unknown] omeprazole 20 mg PO BID PRN 07/09/21 [History Last Taken Unknown] polyethylene glycol 3350 [Miralax] 17 g DAILY PRN PRN 07/09/21 [History Last Taken Unknown] Allergy/AdvReac Type Severity Reaction Status Date / Time acyclovir Allergy Unknown Verified 08/03/21 15:35 amlodipine Allergy Other Verified 08/03/21 15:35 ibuprofen [From Motrin] Allergy Swelling Verified 08/03/21 15:35 metoprolol Allergy Unknown Verified 08/03/21 15:35 propranolol Allergy Unknown Verified 08/03/21 15:35 fluconazole AdvReac Rash Verified 08/03/21 15:35 meloxicam AdvReac Swelling Verified 08/03/21 15:35 nabumetone AdvReac Upset Verified 08/03/21 15:35 Stomach Family History Other Glioblastoma multiforme Surgical History H/O cervical spine surgery History of left heart catheterization (10/27/18) Social History Smoking Status: Never smoker ROS ROS ED ROS Narrative Fever. Weakness. Review of Systems ROS Unobtainable: Denies due to encephalopathy Constitutional Constitutional ED: Reports fever(s) Eyes Eyes: Denies change in vision ENT ENT ED: Reports ear pain and sore throat; Denies rhinorrhea Cardiovascular Cardiovascular: Denies chest pain Respiratory/Chest Respiratory/Chest: Denies cough, dyspnea or sputum Gastrointestinal Gastrointestinal: Reports abdominal pain; Denies diarrhea, nausea or vomiting Genitourinary Genitourinary ED: Denies dysuria, hematuria or urinary frequency Musculoskeletal Musculoskeletal: Denies myalgias Integumentary Denies rash Neurologic Neurologic: Denies headache(s) Psychiatric Psychiatric: Denies depression Endocrine Endocrinology: Denies polyuria Allergic/Immunologic Allergic/Immunologic ED: Denies urticaria EXAM Physical Exam Narrative Exam Narrative: But white female no acute distress. Vital signs stable afebrile. Pulse ox 95% on room air no hypoxia. H EENT exam unremarkable. Moist with membranes. Posterior pharynx normal. TMs normal bilaterally. Neck nontender. No lymphadenopathy. No meningismus. Lungs clear to auscultation bilaterally. Heart regular rhythm rate about 75 no murmur. Abdomen soft nondistended normal bowel sounds no peritoneal signs. Mild suprapubic and lower quadrant tenderness. Back nontender. Neurologically she is awake and alert with no focal motor deficits. Moving all 4 extremities. Nontender no edema. No rashes. Const Vital Signs: 08/03/21 15:31 08/03/21 16:35 08/03/21 19:20 Temperature 96.9 F L 98.4 F Temperature Source Temporal Oral Pulse Rate 75 70 Respiratory Rate 14 17 Respiratory Effort Normal Non-Labored Respiratory Pattern Normal Blood Pressure 137/75 H 104/58 L Blood Pressure Mean 95 73 Pulse Ox 95 Oxygen Delivery Method Room Air Room Air 08/03/21 19:46 08/03/21 21:00 Temperature 98.2 F 98.1 F Temperature Source Oral Oral Pulse Rate 71 78 Respiratory Rate 16 16 Respiratory Effort Respiratory Pattern Blood Pressure 112/67 107/57 L Blood Pressure Mean 82 73 Pulse Ox 95 97 Oxygen Delivery Method Room Air Room Air Positive well nourished, well developed and obese; Negative for cachectic, contractures or unkempt General Appearance ED: well developed and NAD; Negative for unkempt, cachectic, contractures, cyanotic or diaphoretic Nutritional Appearance: obese; Negative for cachectic HEENT Reports moist mucous membranes Negative for trauma or tenderness Eyes PERRL and EOMs intact bilaterally Neck no lymphadenopathy, supple and no JVD General: Negative for tenderness Chest Wall inspection of chest normal and palpation of chest normal Resp normal respiratory effort and clear to auscultation bilaterally Effort and Inspection: Negative for pain with movement Auscultation: Negative for rales, rhonchi or wheezes Cardio regular rate, regular rhythm, S1 normal heart sound, S2 normal heart sound and no murmurs GI normal to inspection, nondistended, normoactive bowel sounds, non-distended and no masses; Negative for non-tender Inspection: Negative for abdominal distention Auscultation: normoactive bowel sounds Palpation: soft and tender; Negative for guarding or rebound tenderness present Back/Spine no CVA tenderness General Back: Negative for CVA tenderness Cervical Spine: Negative for cervical spine tenderness Thoracic Spine / Upper Back: Negative for thoracic spinal tenderness or paraspinal muscle tenderness Extremity normal to inspection General Extremety ED: Negative for edema, tenderness or other findings General Extremity: Negative for edema or other findings Neuro oriented x3 and CN's II-XII intact bilaterally Sensorium / Orientation: alert; Negative for orientation impaired, lethargic or stuporous Motor Exam: strength 5/5 throughout Psych mental status grossly normal Appearance: Negative for unkempt Attitude: No agitated Mood & Affect: Negative for depressed, anxious or tearful Skin no rashes or lesions noted and no wounds General Skin Exam: Negative for jaundice MDM MDM MDM Narrative Medical decision making narrative: 56-year-old female with fever. Currently immunocompromised on chemotherapy for metastatic melanoma. Exam benign. Infectious work-up. Repeat exam patient is doing well at 10:30 PM. Repeat temperature is 98 degrees orally. I retook it myself. She clinically looks well. She and I went over all of her test. I spoke to Dr. Peterson Wong on-call for oncology. Currently were to let her be discharged home. She is not to be started on any antibiotics. She will follow-up with Dr. Soares. Lab Data Attestation: I reviewed the patient's lab results. Lab results narrative: CBC normal white count of 6. H&H 12 and 38. Platelet count 203. Electrolytes unremarkable. Normal gap. BUN 17 creatinine 1.29. Glucose 161. Lactic acid 2.3. Normal liver enzymes. Second lactic acid was down was 1.6. UA negative. Chest x-ray negative. Labs: Laboratory Results - last 24 hr 08/03/21 08/03/21 08/03/21 16:10 16:10 16:10 WBC 6.9 RBC 4.60 Hgb 12.1 Hct 38.7 MCV 84.1 MCH 26.3 L MCHC 31.3 L RDW Std Deviation 44.1 H RDW Coeff of Shaina 14.5 Plt Count 203 MPV 11.2 Immature Gran % (Auto) 0.300 Neut % (Auto) 51.3 Lymph % (Auto) 35.6 [place] % (Auto) 9.4 Eos % (Auto) 3.1 Baso % (Auto) 0.3 Absolute Neuts (auto) 3.5 Absolute Lymphs (auto) 2.45 Nucleated RBC % 0 Sodium 138 Potassium 3.6 Chloride 102 Carbon Dioxide 28.0 Anion Gap 8 BUN 17 Creatinine 1.29 H Estim Creat Clear Calc 46.13 Est GFR (MDRD) Af Amer 55 L Est GFR (MDRD) Non-Af 46 L BUN/Creatinine Ratio 13.2 Glucose 161 H Lactic Acid 2.3 H* Calcium 9.6 Total Bilirubin 0.30 AST 23 ALT 26 Alkaline Phosphatase 97 Total Protein 7.9 Albumin 3.7 Globulin 4.2 Albumin/Globulin Ratio 0.9 Urine Color Urine Clarity Urine pH Ur Specific [place] Urine Protein Urine Glucose (UA) Urine Ketones Urine Occult Blood Urine Nitrite Urine Bilirubin Urine Urobilinogen Ur Leukocyte Esterase Urine RBC Urine WBC Ur Squamous Epith Cells Urine Bacteria Urine Mucus 08/03/21 08/03/21 17:00 20:57 WBC RBC Hgb Hct MCV MCH MCHC RDW Std Deviation RDW Coeff of Shaina Plt Count MPV Immature Gran % (Auto) Neut % (Auto) Lymph % (Auto) [place] % (Auto) Eos % (Auto) Baso % (Auto) Absolute Neuts (auto) Absolute Lymphs (auto) Nucleated RBC % Sodium Potassium Chloride Carbon Dioxide Anion Gap BUN Creatinine Estim Creat Clear Calc Est GFR (MDRD) Af Amer Est GFR (MDRD) Non-Af BUN/Creatinine Ratio Glucose Lactic Acid 1.6 Calcium Total Bilirubin AST ALT Alkaline Phosphatase Total Protein Albumin Globulin Albumin/Globulin Ratio Urine Color Yellow Urine Clarity Clear Urine pH 5.0 Ur Specific [place] 1.020 Urine Protein Negative Urine Glucose (UA) Normal Urine Ketones Negative Urine Occult Blood Negative Urine Nitrite Negative Urine Bilirubin Negative Urine Urobilinogen Normal Ur Leukocyte Esterase Negative Urine RBC 0 SEEN Urine WBC 0 SEEN Ur Squamous Epith Cells 0 SEEN Urine Bacteria 0 SEEN Urine Mucus 0 SEEN Radiography Chest X-Ray - ED: 1 View, Read by ED Physician, Heart, Lungs, Mediastinum, Bony Structures, No Acute Disease and Chronic Changes Diagnostic Testing: Clinical Impression(s) from Imaging Studies Chest X-Ray 08/03/21 16:25 IMPRESSION: No radiographic evidence of acute cardiopulmonary disease. Electronically Signed: Eliceo Claudio MD at 16:42 EDT , Chest x-ray portable, single view, interpreted myself and radiologist shows no acute abnormality. Discharge Plan Triage Chief Complaint: General Illness ED Provider: Beto Sandoval Dx/Rx/DC Orders Clinical Impression: Fever, Metastatic melanoma Instructions: ED FUO Adult Prescriptions: No Action potassium chloride [Klor-Con M20] 20 MEQ tablet 10 meq PO BID RF: 0 albuterol sulfate [Ventolin HFA] 1 INHALER inhaler 2 puff inhalation Q4H PRN PRN (Reason: Shortness Of Breath) Qty: 1 RF: 0 montelukast 10 MG tablet 10 mg PO QHS RF: 0 alprazolam 0.5 MG tablet 0.5 mg PO TID PRN PRN (Reason: Anxiety) RF: 0 atenolol 50 MG tablet 100 mg PO BID RF: 0 ropinirole 5 MG tablet 1 mg PO QHS RF: 0 promethazine 25 MG tablet 12.5 mg PO Q8H PRN PRN (Reason: Nausea) Qty: 20 RF: 0 Excedrin Migraine 250-250-65 mg Tablet 1 tab PO Q8H PRN PRN (Reason: Headache) RF: 0 polysaccharide iron complex [iFerex 150] 150 mg iron Capsule 150 mg PO BID RF: 0 ergocalciferol (vitamin D2) [Vitamin D2] 1,250 mcg (50,000 unit) Capsule 1,250 mcg PO QWEEK RF: 0 fluticasone propionate 50 mcg/actuation [place],Suspension 1 spray INTRANASAL BID RF: 0 pregabalin 75 mg Capsule 75 mg PO TID RF: 0 furosemide 40 MG tablet 40 mg PO BID RF: 0 oxycodone 20 mg Tablet 20 mg PO Q6H RF: 0 omeprazole 20 mg Capsule,Delayed Release(Dr/Ec) 20 mg PO BID PRN (Reason: Acid Reflux) RF: 0 diphenhydramine HCl [Benadryl] 25 mg Capsule 50 mg Q6H PRN PRN (Reason: Allergic Symptoms) RF: 0 polyethylene glycol 3350 [Miralax] 17 gram Powder In Packet 17 g DAILY PRN PRN (Reason: Constipation) RF: 0 Primary Care Provider: Duran Campos Referrals: Duran Campos MD [Primary Care Provider] - Beatris Soares MD [STAFF PHYSICIAN] - As soon as possible Activity Restrictions/Additional Instructions: Your test tonight were unremarkable. There is no specific area of infection. I spoke to Dr. Crane on-call for oncology. Follow-up with their office. Return if feeling worse. Tylenol for any fever. Disposition Disposition: Home, Self Care
--- NOTE | 2021-08-03 16:25 | RAD_ITS ---
INDICATION: fever EXAMINATION/TECHNIQUE: X-RAY - portable upright AP chest x-ray COMPARISON: 08/28/2020 FINDINGS: LINES/DEVICES: None. LUNGS: No consolidation, edema or effusion. No pneumothorax. MEDIASTINUM AND CARDIOVASCULAR STRUCTURES: Cardiac silhouette not enlarged. Central airways and mediastinal contour are unremarkable. BONES AND SOFT TISSUES: No acute findings. RAD/Chest 1 View (Portable) IMPRESSION: No radiographic evidence of acute cardiopulmonary disease. Electronically Signed: Eliceo Claudio MD at 16:42 EDT ,
[2021-08-03 16:48] LABS: Absolute Lymphocyte Count 2.45 X10^3/uL (0.83-4.51); Absolute Neutrophil Count 3.5 X10^3/uL (2.0-7.7); Basophil# 0.02 X10^3/uL; Basophil% 0.3 % (0-1); Eosinophil# 0.21 X10^3/uL; Eosinophils% 3.1 % (0-5); Hematocrit 38.7 % (37-47); Hemoglobin 12.1 g/dL (12.0-15.0); Lymphocyte # 2.45 X10^3/ul (0.83-4.51); Lymphocyte % 35.6 % (19-41); Mean Corp Hgb Conc 31.3 g/dL (32-36); Mean Corpuscular Hgb 26.3 pg (27.0-32.0); Mean Corpuscular Volume 84.1 fL (81-99); Mean Platelet Vol. 11.2 fl (6.2-12.0); Monocyte# 0.65 X10^3/uL; Monocyte% 9.4 % (0-10); NRBC Flagged by Analyzer 0 % (0-5); Neutrophil # 3.53 X10^3/uL (2.7-7.7); Neutrophil % 51.3 % (47-70); Platelet Count 203 K/mm3 (150-450); RBC Distribution Width CV 14.5 % (11.6-14.6); RBC Distribution Width SD 44.1 fl (35.1-43.9); White Blood Count 6.9 K/mm3 (4.4-11.0)
[2021-08-03] MEDS: 0.9% Normal Saline 1,000 ML 1000 ML IV (16:50)
[2021-08-03 17:09] LABS: ALB/GLOB Ratio 0.9 RATIO (0.9-2.4); AST(SGOT) 23 U/L (15-37); Alanine Aminotransfer ALT/SGPT 26 U/L (13-56); Albumin, Serum 3.7 g/dL (3.2-5.0); Alkaline Phosphatase 97 U/L (45-117); Anion Gap 8 (5-15); BUN 17 mg/dL (7-18); BUN/Creat Ratio 13.2 RATIO (10-20); Calcium,Total 9.6 mg/dL (8.5-10.1); Chloride 102 mmol/L (98-107); Creatinine, Serum 1.29 mg/dL (0.55-1.02); EST Glomerular Filtration Rate 46 mL/min (>60); Est Glom Filt Rate - Afr Amer 55 mL/min (>60); Estimated Creatinine Clearance 46.13 ml/min; Globulin 4.2 g/dL (2.2-4.2); Glucose 161 mg/dL (74-106); Potassium 3.6 mmol/L (3.5-5.1); Protein, Total 7.9 g/dL (6.4-8.2); Sodium Level 138 mmol/L (136-145)
[2021-08-03 17:16] LABS: Bacteria 0 SEEN /hpf (None Seen); Mucous, Urine 0 SEEN /hpf (<or=2+); Red Blood Cells-Urine 0 SEEN /hpf (0-5); Squamous Epithelial Cells - UA 0 SEEN /hpf (5-10); White Blood Cells 0 SEEN /hpf (0-5)
[2021-08-03 17:23] LABS: Color, Urine Yellow (Yellow); Glucose, Dipstick Normal (Normal); Ketone-Dipstick Negative (Negative); Leukocyte Esterase-Dipstick Negative /ul (Negative); Nitrite-Dipstick Negative (Negative); Occult Blood-Urine Negative /ul (Negative); Protein-Dipstick Negative (Negative); Urine Bilirubin Dipstick Negative (Negative); Urine Clarity Clear (Clear); Urine Urobilinogen Normal (Normal)
[2021-08-03 17:29] LABS: Lactic Acid 2.3 mmol/L (0.4-1.9)
[2021-08-03 19:20] VITALS: BP 104/58; PULSE 70; RESP 17; TEMP 36.9
[2021-08-03 19:46] VITALS: BP 112/67; PULSE 71; RESP 16; TEMP 36.8; O2SAT 95
[2021-08-03 20:32] LABS: Reflex Lactate? Y
[2021-08-03 21:00] VITALS: BP 107/57; PULSE 78; RESP 16; TEMP 36.7; O2SAT 97
[2021-08-03 21:36] LABS: Lactic Acid 1.6 mmol/L (0.4-1.9)
[2021-08-03] MEDS: Phenazopyridine 95 MG Tablet PO (22:49)
[2021-08-03 22:50] VITALS: BP 96/67; PULSE 74; RESP 16; O2SAT 97
== END 2021-08-03 23:03 | disposition home or self-care (01) ==
PROVIDERS: Emergency Provider Emergency Medicine; PCP Family Medicine; Visit Provider Emergency Medicine
DX: R50.9 Fever, unspecified (principal); C43.9 Malignant melanoma of skin, unspecified; Z20.822 Contact with and (suspected) exposure to COVID-19; I10 Essential (primary) hypertension; J45.909 Unspecified asthma, uncomplicated; E66.9 Obesity, unspecified; Z79.899 Other long term (current) drug therapy
CPT/HCPCS: 51701; 71045; 80053; 81001; 83605; 85025; 87040; 87086; 87811; 99285; J7030; P9612; A4216

== ENCOUNTER 2021-10-16 16:40 | Observation (INO) | payer MEDICAID, SELFPAY ==
[2021-10-16] VITALS (8 sets, daily range): BP systolic 106–137; BP diastolic 67–85; PULSE 62–88; RESP 11–19; TEMP 36.4–36.8; O2SAT 86–97; BMI 32.3; BMI 34.2
--- NOTE | 2021-10-16 17:02 | CT_ITS ---
STUDY: CT BRAIN WITHOUT CONTRAST REASON FOR EXAM: Female, 56 years old. Mental status change TECHNIQUE: Transaxial CT imaging of the brain was performed without administration of intravenous contrast material. Individualized dose optimization techniques were used for this CT. COMPARISON: None FINDINGS: Normal calvarium. Normal soft tissues. Normal size ventricles and extra-axial spaces for the patient''s age. Normal white matter tracts of the cerebral hemispheres. Normal basal ganglia and thalami. Normal brainstem. Normal cerebellum. There is no intracranial hemorrhage. There are no findings of an acute ischemic infarction. Normal visualized paranasal sinuses. ASPECTS 10 CT/Brain/Head without Contrast IMPRESSION: There are no acute intracranial findings. Electronically Signed: Tom Solis MD at 17:46 EDT ,
--- NOTE | 2021-10-16 17:03 | EKG12_ITS ---
Test Reason : DIZZINES Blood Pressure : / mmHG Vent. Rate : 065 BPM Atrial Rate : 065 BPM P-R Int : 164 ms QRS Dur : 082 ms QT Int : 492 ms P-R-T Axes : 034 012 -20 degrees QTc Int : 511 ms Normal sinus rhythm T wave abnormality, consider anterior ischemia Prolonged QT Abnormal ECG Confirmed by MEE CASTILLO, LANNY ([id number]), dictionary editor RAMIREZ BECKMAN ([id number]) on 10/20/2021 8:56:13 AM Referred By: PETROS Confirmed By:LANNY CABAN MD
--- NOTE | 2021-10-16 17:05 | EX.ED.DYSGE1 ---
HPI History of Present Illness Chief Complaint: Dizziness Narrative Narrative: Patient presents with increased confusion, and reported syncopal episodes and drowsiness. Her symptoms began yesterday according to her sister. Patient relates history that she has metastatic melanoma. She is currently under palliative care. They started her on methadone yesterday. She took that in combination with Lyrica and oxycodone for her pain. She states that she was not feeling well and she was drowsy. She took the medication today and called [facility], who told her not to take anymore medication and to come to the ED for evaluation. Additionally, she relates history that she caught COVID and has bad lungs. She does not wear oxygen at home. Her sister states that she was very drowsy yesterday, to the point where patient was confused and she had to be startled to be awakened. She would close her eyes and drop her head and pass out. [facility] Medical History Asthma Hypertension Metastatic melanoma Pneumonia SVT (supraventricular tachycardia) Home Medications potassium chloride 20 mEq tablet,extended release(part/cryst) (Klor-Con M) 20 meq PO BID supplement 10/11/15 [History Last Taken 10/25/18] albuterol sulfate 90 mcg/actuation aerosol inhaler (Ventolin HFA) 2 puff inhalation Q4H PRN PRN Shortness Of Breath ##1 10/20/15 [Rx Last Taken 10/24/18] alprazolam 0.5 mg tablet 0.5 mg PO TID PRN PRN Anxiety 10/25/18 [History Last Taken 10/25/18] atenolol 50 mg tablet 100 mg PO BID bp 10/25/18 [History Last Taken 10/27/18] montelukast 10 mg tablet 10 mg PO QHS allergies 10/25/18 [History Last Taken 10/25/18] ropinirole 5 mg tablet 1 mg PO QHS restless legs 10/25/18 [History Last Taken 10/24/18 22:00] ergocalciferol (vitamin D2) 1,250 mcg (50,000 unit) capsule (Vitamin D2) 1,250 mcg PO QWEEK vitamin 07/08/21 [History Last Taken Unknown] fluticasone propionate 50 mcg/actuation nasal spray,suspension 1 spray intranasal BID allergies 07/08/21 [History Last Taken Unknown] furosemide 40 mg tablet 40 mg PO BID diuretic 07/08/21 [History Last Taken Unknown] oxycodone 20 mg tablet 20 mg PO Q6H pain 07/08/21 [History Last Taken 07/08/21 18:30 20] pregabalin 75 mg capsule 75 mg PO BID pain 07/08/21 [History Last Taken Unknown] diphenhydramine HCl 25 mg capsule (Benadryl) 50 mg Q6H PRN PRN Allergic Symptoms 07/09/21 [History Last Taken Unknown] omeprazole 20 mg capsule,delayed release 20 mg PO BID PRN Acid Reflux 07/09/21 [History Last Taken Unknown] polyethylene glycol 3350 17 gram oral powder packet (Miralax) 17 g PO DAILY PRN PRN Constipation 07/09/21 [History Last Taken Unknown] acetaminophen 500 mg tablet 1,000 mg PO TID PRN PRN Pain 10/16/21 [History Last Taken Unknown] cyclobenzaprine 10 mg tablet 10 mg PO BID PRN Muscle Spasm 10/16/21 [History Last Taken Unknown] doxycycline hyclate 100 mg tablet 100 mg PO BID 10/16/21 [History Last Taken Unknown] fluticasone 250 mcg-salmeterol 50 mcg/dose blistr powdr for inhalation (Advair Diskus) 1 inh inhalation BID 10/16/21 [History Last Taken Unknown] ipratropium 0.5 mg-albuterol 3 mg (2.5 mg base)/3 mL nebulization soln 3 ml inhalation Q6H PRN PRN Wheezing 10/16/21 [History Last Taken Unknown] methadone 5 mg tablet 1 tab PO BID 10/16/21 [History Last Taken Unknown] promethazine 25 mg tablet 25 mg PO Q6H PRN PRN Nausea 10/16/21 [History Last Taken Unknown] Allergy/AdvReac Type Severity Reaction Status Date / Time acyclovir Allergy Unknown Verified 10/16/21 17:04 amlodipine Allergy Other Verified 10/16/21 17:04 ibuprofen [From Motrin] Allergy Swelling Verified 10/16/21 17:04 metoprolol Allergy Unknown Verified 10/16/21 17:04 propranolol Allergy Unknown Verified 10/16/21 17:04 regadenoson Allergy Other Verified 10/16/21 18:27 fluconazole AdvReac Rash Verified 10/16/21 17:04 meloxicam AdvReac Swelling Verified 10/16/21 17:04 nabumetone AdvReac Upset Verified 10/16/21 17:04 Stomach Family History Other Glioblastoma multiforme Surgical History H/O cervical spine surgery History of left heart catheterization (10/27/18) Social History Smoking Status: Never smoker ROS ROS ED ROS Narrative Constitutional: No fever, no chills. HEENT: No sore throat. No neck pain. No loss of vision. No rhinorrhea. Cardiovascular: No chest pain. No palpitations. No pedal edema. Positive syncope. Respiratory: No cough, no shortness of breath. Abdominal: No abdominal pain. No nausea. No vomiting. Genitourinary: No dysuria. No hematuria. Musculoskeletal: No myalgias. No arthralgias. Neurologic: No headaches. No dizziness. No lightheadedness. Positive drowsiness. Reported confusion. Skin: No rash. No change in color. Psychiatric: No depression. No anxiety. . EXAM Physical Exam Narrative Exam Narrative: Afebrile. Vital signs noted. HEENT: Normocephalic. Atraumatic. PERRL, EOMI. Neck soft and supple. No point tenderness or step off. Cardiovascular: Regular rate and rhythm. No murmurs, rubs, or gallops appreciated. Respiratory: No tachypnea. Lungs clear to auscultation bilaterally. Gastrointestinal: Abdomen soft, nontender, with normoactive bowel sounds. No rebound or guarding. Neurological: Awake. Alert. Nonfocal, nonlateralizing. Slow speech pattern. Skin: No rash. Normal color. No pallor. Musculoskeletal: No pedal edema. Full range of motion extremities. Const Vital Signs: 10/16/21 16:41 10/16/21 16:55 10/16/21 17:18 Temperature 98.2 F Temperature Source Oral Pulse Rate 88 68 Respiratory Rate 18 Respiratory Effort Normal Non-Labored Blood Pressure 106/67 Blood Pressure Mean 80 Pulse Ox 86 96 Oxygen Delivery Method Room Air Nasal Cannula Oxygen Flow Rate (L/min) 4 10/16/21 18:36 10/16/21 20:06 10/16/21 20:35 Temperature Temperature Source Pulse Rate 62 70 66 Respiratory Rate 11 L 13 19 H Respiratory Effort Blood Pressure 135/75 H 137/72 H 118/78 Blood Pressure Mean 95 93 91 Pulse Ox 97 96 97 Oxygen Delivery Method Nasal Cannula Nasal Cannula Nasal Cannula Oxygen Flow Rate (L/min) 2 2 2 MDM MDM MDM Narrative Medical decision making narrative: Upon arrival to the ED, patient had low pulse ox in the 80s. She was placed on 4 L nasal cannula oxygen with resultant pulse ox in the 90s. Comprehensive work-up was pursued. Regarding her confusion to ensure that there is no metastasis to brain, CT of the head will be obtained. Given her hypoxia I will also obtain chest x-ray imaging. I will obtain baseline laboratories. I do feel that she might warrant consultation with palliative care medicine regarding medication adjustment. CBC shows normal white count of 6.5, hemoglobin stable at 10.8, hematocrit 35.7. Platelet count normal at 219. Electrolyte panel is grossly unremarkable except for creatinine of 1.57 with a BUN of 22. Glucose appropriately elevated at 128 with a normal anion gap of 6. Urinalysis shows no evidence of infection, with 0-5 WBCs. I do not feel antibiotics are indicated. CT of the brain shows no acute process. I interpreted her chest x-ray and do not see an infiltrate or pneumonia. Patient and her sister state that on her PET scan they thought they saw a pneumonia so she is being treated with antibiotics. She has had transient hypoxia here. She took off her oxygen and had a transient dip into the 80s, but then returned to above 92% on room air. At this point in time, I do feel that her multiple medications including methadone, oxycodone, and Lyrica may have played a part in her reported syncope, drowsiness, and confusion. She was administered fentanyl 50 mcg here for analgesia for her metastatic hip pain. Patient was discussed with the hospitalist, Dr. Palm for observation on [facility]. She is in stable condition. Lab Data Attestation: I reviewed the patient's lab results. Labs: Laboratory Results - last 24 hr 10/16/21 10/16/21 10/16/21 17:17 17:17 20:04 WBC 6.5 RBC 4.33 Hgb 10.8 L Hct 35.7 L MCV 82.4 MCH 24.9 L MCHC 30.3 L RDW Std Deviation 44.3 H RDW Coeff of Shaina 14.8 H Plt Count 219 MPV 10.1 Immature Gran % (Auto) 1.200 H Neut % (Auto) 56.5 Lymph % (Auto) 31.2 [place] % (Auto) 8.9 Eos % (Auto) 1.7 Baso % (Auto) 0.5 Absolute Neuts (auto) 3.7 Absolute Lymphs (auto) 2.04 Nucleated RBC % 0.3 Sodium 137 Potassium 3.5 Chloride 101 Carbon Dioxide 30.0 Anion Gap 6 BUN 22 H Creatinine 1.57 H Estim Creat Clear Calc 37.90 Est GFR (MDRD) Af Amer 44 L Est GFR (MDRD) Non-Af 36 L BUN/Creatinine Ratio 14.0 Glucose 128 H Calcium 9.3 Total Bilirubin 0.50 AST 45 H ALT 45 Alkaline Phosphatase 90 Total Protein 7.7 Albumin 3.9 Globulin 3.8 Albumin/Globulin Ratio 1.0 Urine Color Yellow Urine Clarity Sl. Cloudy Urine pH 5.0 Ur Specific [place] 1.020 Urine Protein 30 H Urine Glucose (UA) Normal Urine Ketones Negative Urine Occult Blood Negative Urine Nitrite Negative Urine Bilirubin Negative Urine Urobilinogen Normal Ur Leukocyte Esterase 25 H Urine RBC 0 SEEN Urine WBC 0-5 SEEN Ur Squamous Epith Cells 0-5 SEEN Urine Bacteria 0 SEEN Urine Mucus 0 SEEN ABG Data ABG results: ABG 10/16/21 17:55 Specimen Type ART Sample Site R Radial pH 7.36 Bicarbonate Actual 27.2 H Total CO2 29 Base Excess 2 O2 Saturation 99 ABG pCO2 47.9 H ABG pO2 124 H Prashant Test Positive O2 Delivery Device Cannula Liter Flow 3.0 Radiography Diagnostic Testing: Clinical Impression(s) from Imaging Studies Brain CT 10/16/21 17:02 IMPRESSION: There are no acute intracranial findings. Electronically Signed: Tom Solis MD at 17:46 EDT , Chest X-Ray 10/16/21 17:32 IMPRESSION: There are no acute findings. Electronically Signed: Tom Solis MD at 18:30 EDT , Discharge Plan Dx/Rx/DC Orders Clinical Impression: Change in mental status, Drowsiness, Confusion, Hypoxia, Metastatic melanoma Disposition Disposition: Acute Care Hospital [facility]
[2021-10-16] MEDS: 0.9% Normal Saline 1,000 ML 1000 ML IV (17:17)
[2021-10-16 17:25] LABS: Absolute Lymphocyte Count 2.04 X10^3/uL (0.83-4.51); Absolute Neutrophil Count 3.7 X10^3/uL (2.0-7.7); Basophil# 0.03 X10^3/uL; Basophil% 0.5 % (0-1); Eosinophil# 0.11 X10^3/uL; Eosinophils% 1.7 % (0-5); Hematocrit 35.7 % (37-47); Hemoglobin 10.8 g/dL (12.0-15.0); Lymphocyte # 2.04 X10^3/ul (0.83-4.51); Lymphocyte % 31.2 % (19-41); Mean Corp Hgb Conc 30.3 g/dL (32-36); Mean Corpuscular Hgb 24.9 pg (27.0-32.0); Mean Corpuscular Volume 82.4 fL (81-99); Mean Platelet Vol. 10.1 fl (6.2-12.0); Monocyte# 0.58 X10^3/uL; Monocyte% 8.9 % (0-10); NRBC Flagged by Analyzer 0.3 % (0-5); Neutrophil # 3.69 X10^3/uL (2.7-7.7); Neutrophil % 56.5 % (47-70); Platelet Count 219 K/mm3 (150-450); RBC Distribution Width CV 14.8 % (11.6-14.6); RBC Distribution Width SD 44.3 fl (35.1-43.9); Red Blood Count 4.33 M/mm3 (4.2-5.4); White Blood Count 6.5 K/mm3 (4.4-11.0)
--- NOTE | 2021-10-16 17:32 | RAD_ITS ---
STUDY: X-RAY CHEST REASON FOR EXAM: Female, 56 years old. shortness of breath TECHNIQUE: XR Chest 1 View COMPARISON: 08/03/2021 FINDINGS: There is no demonstrated pleural abnormality. Cervical spine fusion hardware noted. Normal size heart. Normal mediastinum and moisés. Normal visualized pulmonary arteries. There is atherosclerotic calcification of the aortic arch with tortuosity. There are diffuse degenerative changes of the visualized thoracic spine. There is degenerative osteoarthritis of the bilateral shoulders. There is no demonstrated abnormality of the visualized soft tissue structures of the upper abdomen. RAD/Chest 1 View (Portable) IMPRESSION: There are no acute findings. Electronically Signed: Tom Solis MD at 18:30 EDT ,
[2021-10-16 17:46] LABS: AST(SGOT) 45 U/L (15-37); Alanine Aminotransfer ALT/SGPT 45 U/L (13-56); Albumin, Serum 3.9 g/dL (3.2-5.0); Alkaline Phosphatase 90 U/L (45-117); Anion Gap 6 (5-15); BUN 22 mg/dL (7-18); Calcium,Total 9.3 mg/dL (8.5-10.1); Chloride 101 mmol/L (98-107); Creatinine, Serum 1.57 mg/dL (0.55-1.02); EST Glomerular Filtration Rate 36 mL/min (>60); Est Glom Filt Rate - Afr Amer 44 mL/min (>60); Globulin 3.8 g/dL (2.2-4.2); Glucose 128 mg/dL (74-106); Potassium 3.5 mmol/L (3.5-5.1); Protein, Total 7.7 g/dL (6.4-8.2); Sodium Level 137 mmol/L (136-145)
[2021-10-16 18:01] LABS: Allen Test Positive; Base Excess 2 mmol/L (-2 to +2); Bicarbonate 27.2 mmol/L (22-26); Blood Gas Specimen Type ART; O2 Delivery Device Cannula; PO2 124 mmHG (75-100); SITE R Radial; SO2 99 % (95-99); Total Carbon Dioxide 29 mmol/L; pCO2 47.9 mmHg (35-45); pH 7.36 (7.35-7.45)
[2021-10-16] MEDS: fentaNYL 100 MCG/2 ML Ampul 50 MCG IV ×2 (18:02→20:58)
[2021-10-16 20:12] LABS: Bacteria 0 SEEN /hpf (None Seen); Mucous, Urine 0 SEEN /hpf (<or=2+); Red Blood Cells-Urine 0 SEEN /hpf (0-5)
[2021-10-16 20:24] LABS: Color, Urine Yellow (Yellow); Glucose, Dipstick Normal (Normal); Ketone-Dipstick Negative (Negative); Leukocyte Esterase-Dipstick 25 /ul (Negative); Nitrite-Dipstick Negative (Negative); Occult Blood-Urine Negative /ul (Negative); Protein-Dipstick 30 mg/dl (Negative); Urine Bilirubin Dipstick Negative (Negative); Urine Clarity Sl. Cloudy (Clear); Urine Urobilinogen Normal (Normal)
[2021-10-16 21:08] LABS: Squamous Epithelial Cells - UA 0-5 SEEN /hpf (5-10); White Blood Cells 0-5 SEEN /hpf (0-5)
--- NOTE | 2021-10-16 21:13 | PCM.HP.STD ---
HPI - General General Date of Admission: 10/16/21 Date of Service: 10/16/21 Chief Complaint: Somnolence HPI Narrative INO RODRIGUEZ, is a 56 F with a significant history of metastatic melanoma who presents to the emergency department with progressively worsening somnolence. Her symptoms has persisted. Patient's sister who was at bedside reported that patient was too somnolent that she slumped over. Patient sees a palliative care and on the day of presentation patient had a follow-up checkup with palliative care. It was determined that patient should come to the hospital. Of note patient was started on methadone on October 02. Patient had some confusion. Also patient has been very weak in the past 2 days. Reportedly on presentation at emergency department patient was hypoxic and was placed on nasal cannula oxygen. Patient is being treated with doxycycline for pneumonia outpatient. [facility] Medical History Asthma Hypertension Metastatic melanoma Pneumonia SVT (supraventricular tachycardia) Home Medications potassium chloride 20 mEq tablet,extended release(part/cryst) (Klor-Con M) 20 meq PO BID supplement 10/11/15 [History Last Taken 10/25/18] albuterol sulfate 90 mcg/actuation aerosol inhaler (Ventolin HFA) 2 puff inhalation Q4H PRN PRN Shortness Of Breath ##1 10/20/15 [Rx Last Taken 10/24/18] alprazolam 0.5 mg tablet 0.5 mg PO TID PRN PRN Anxiety 10/25/18 [History Last Taken 10/25/18] atenolol 50 mg tablet 100 mg PO BID bp 10/25/18 [History Last Taken 10/27/18] montelukast 10 mg tablet 10 mg PO QHS allergies 10/25/18 [History Last Taken 10/25/18] ropinirole 5 mg tablet 1 mg PO QHS restless legs 10/25/18 [History Last Taken 10/24/18 22:00] ergocalciferol (vitamin D2) 1,250 mcg (50,000 unit) capsule (Vitamin D2) 1,250 mcg PO QWEEK vitamin 07/08/21 [History Last Taken Unknown] fluticasone propionate 50 mcg/actuation nasal spray,suspension 1 spray intranasal BID allergies 07/08/21 [History Last Taken Unknown] furosemide 40 mg tablet 40 mg PO BID diuretic 07/08/21 [History Last Taken Unknown] oxycodone 20 mg tablet 20 mg PO Q6H pain 07/08/21 [History Last Taken 07/08/21 18:30 20] pregabalin 75 mg capsule 75 mg PO BID pain 07/08/21 [History Last Taken Unknown] diphenhydramine HCl 25 mg capsule (Benadryl) 50 mg Q6H PRN PRN Allergic Symptoms 07/09/21 [History Last Taken Unknown] omeprazole 20 mg capsule,delayed release 20 mg PO BID PRN Acid Reflux 07/09/21 [History Last Taken Unknown] polyethylene glycol 3350 17 gram oral powder packet (Miralax) 17 g PO DAILY PRN PRN Constipation 07/09/21 [History Last Taken Unknown] acetaminophen 500 mg tablet 1,000 mg PO TID PRN PRN Pain 10/16/21 [History Last Taken Unknown] cyclobenzaprine 10 mg tablet 10 mg PO BID PRN Muscle Spasm 10/16/21 [History Last Taken Unknown] doxycycline hyclate 100 mg tablet 100 mg PO BID 10/16/21 [History Last Taken Unknown] fluticasone 250 mcg-salmeterol 50 mcg/dose blistr powdr for inhalation (Advair Diskus) 1 inh inhalation BID 10/16/21 [History Last Taken Unknown] ipratropium 0.5 mg-albuterol 3 mg (2.5 mg base)/3 mL nebulization soln 3 ml inhalation Q6H PRN PRN Wheezing 10/16/21 [History Last Taken Unknown] methadone 5 mg tablet 1 tab PO BID 10/16/21 [History Last Taken Unknown] promethazine 25 mg tablet 25 mg PO Q6H PRN PRN Nausea 10/16/21 [History Last Taken Unknown] Allergy/AdvReac Type Severity Reaction Status Date / Time acyclovir Allergy Unknown Verified 10/16/21 17:04 amlodipine Allergy Other Verified 10/16/21 17:04 ibuprofen [From Motrin] Allergy Swelling Verified 10/16/21 17:04 metoprolol Allergy Unknown Verified 10/16/21 17:04 propranolol Allergy Unknown Verified 10/16/21 17:04 regadenoson Allergy Other Verified 10/16/21 18:27 fluconazole AdvReac Rash Verified 10/16/21 17:04 meloxicam AdvReac Swelling Verified 10/16/21 17:04 nabumetone AdvReac Upset Verified 10/16/21 17:04 Stomach Family History Other Glioblastoma multiforme Surgical History H/O cervical spine surgery History of left heart catheterization (10/27/18) Social History Smoking Status: Never smoker ROS ROS Narrative Pertinent positives and pertinent negatives as noted in HPI. All other systems were reviewed and are negative. Vital Signs Vital Signs Vital Signs: 10/16/21 16:41 10/16/21 16:55 10/16/21 17:18 Temperature 98.2 F Temperature Source Oral Pulse Rate 88 68 Respiratory Rate 18 Respiratory Effort Normal Non-Labored Blood Pressure 106/67 Blood Pressure Mean 80 Pulse Ox 86 96 Oxygen Delivery Method Room Air Nasal Cannula Oxygen Flow Rate (L/min) 4 10/16/21 18:36 10/16/21 20:06 10/16/21 20:35 Temperature Temperature Source Pulse Rate 62 70 66 Respiratory Rate 11 L 13 19 H Respiratory Effort Blood Pressure 135/75 H 137/72 H 118/78 Blood Pressure Mean 95 93 91 Pulse Ox 97 96 97 Oxygen Delivery Method Nasal Cannula Nasal Cannula Nasal Cannula Oxygen Flow Rate (L/min) 2 2 2 Weight Weight: 90.718 kg Body Mass Index (BMI) 32.3 Physical Exam Narrative Physical exam: General: Well-nourished, well-developed. Head: Normocephalic, atraumatic, no tenderness Eyes: Vision is grossly intact. EOMI ENT, no trauma, moist mucous membranes, no rhinorrhea Neck: Nontender, full range of motion, no spinal tenderness, deformities, step-off CVS: Regular rate and rhythm. S1-S2 present. No murmur, gallop or rub. Respiratory : clear to auscultation bilaterally, chest wall nontender, no wheezing Abdomen: Soft, nontender, nondistended, normal bowel sounds, no masses : Deferred Back: Nontender, no CVA tenderness, no midline spinal tenderness, deformities, step-offs Extremities: Nontender full range of motion, no trauma Skin: Normal color, no trauma, abrasions Neuro: Lethargic, oriented, cranial nerves II through XII grossly intact. Psychiatry: Normal mood. Normal affect. Not depressed. Not anxious. Results Lab / Micro Data Result Diagrams: 10/16/21 17:17 10/16/21 17:17 Labs: Laboratory Results - last 24 hr 10/16/21 17:17: WBC 6.5, RBC 4.33, Hgb 10.8 L, Hct 35.7 L, MCV 82.4, MCH 24.9 L, MCHC 30.3 L, RDW Std Deviation 44.3 H, RDW Coeff of Shaina 14.8 H, Plt Count 219, MPV 10.1, Immature Gran % (Auto) 1.200 H, Neut % (Auto) 56.5, Lymph % (Auto) 31.2, [place] % (Auto) 8.9, Eos % (Auto) 1.7, Baso % (Auto) 0.5, Absolute Neuts (auto) 3.7, Absolute Lymphs (auto) 2.04, Nucleated RBC % 0.3 10/16/21 17:17: Sodium 137, Potassium 3.5, Chloride 101, Carbon Dioxide 30.0, Anion Gap 6, BUN 22 H, Creatinine 1.57 H, Estim Creat Clear Calc 37.90, Est GFR (MDRD) Af Amer 44 L, Est GFR (MDRD) Non-Af 36 L, BUN/Creatinine Ratio 14.0, Glucose 128 H, Calcium 9.3, Total Bilirubin 0.50, AST 45 H, ALT 45, Alkaline Phosphatase 90, Total Protein 7.7, Albumin 3.9, Globulin 3.8, Albumin/Globulin Ratio 1.0 10/16/21 20:04: Urine Color Yellow, Urine Clarity Sl. Cloudy, Urine pH 5.0, Ur Specific [place] 1.020, Urine Protein 30 H, Urine Glucose (UA) Normal, Urine Ketones Negative, Urine Occult Blood Negative, Urine Nitrite Negative, Urine Bilirubin Negative, Urine Urobilinogen Normal, Ur Leukocyte Esterase 25 H, Urine RBC 0 SEEN, Urine WBC 0-5 SEEN, Ur Squamous Epith Cells 0-5 SEEN, Urine Bacteria 0 SEEN, Urine Mucus 0 SEEN ABG Data ABG results: ABG 10/16/21 17:55 Specimen Type ART Sample Site R Radial pH 7.36 Bicarbonate Actual 27.2 H Total CO2 29 Base Excess 2 O2 Saturation 99 ABG pCO2 47.9 H ABG pO2 124 H Prashant Test Positive O2 Delivery Device Cannula Liter Flow 3.[address] 10/16/21 17:02 IMPRESSION: There are no acute intracranial findings. Electronically Signed: Tom Solis MD at 17:46 EDT , Chest X-Ray 10/16/21 17:32 IMPRESSION: There are no acute findings. Electronically Signed: Tom Solis MD at 18:30 EDT , Assessment & Plan Assessment/Plan (1) Toxic encephalopathy: (2) Hypoxia: (3) Weakness: (4) Pneumonia: QUALIFIERS: Laterality: bilateral Lung location: unspecified part of lung Pneumonia type: due to unspecified organism Qualified Code(s): J18.9 - Pneumonia, unspecified organism (5) AMARI (acute kidney injury): PLAN: Plan Acute toxic encephalopathy CBC reviewed showed normal white count but with bandemia of 1.2%. Trend CBC. Brain CT is unremarkable. Urinalysis is unremarkable. Hold home methadone. Decreased dose of home oxycodone. Continue home pregabalin at same dose. Observe at [facility]. Pneumonia with hypoxia Chest x-ray on presentation was visualized and independently interpreted. No acute cardiopulmonary process seen. I agree with radiologyist interpretation. Reportedly outpatient PET scan was concerning for pneumonia. Gram-positive, gram-negative or other. Continue home dicyclomine. Continue oxygen supplementation. Weakness PT and OT to evaluate and treat. Case management consult. AMARI: Mild. Creatinine presentation was 1.57. Creatinine baseline is around 1.1 to 1.2. BUN is 22. BUN over creatinine is 1.57. Hold home Lasix. Hypertension Blood pressure is stable on atenolol; continued. Trend blood pressure and adjust blood pressure medications. DVT Prophylaxis: SC Lovenox ordered. Charges/Coding Visit Charges OBSV E&M: 91443 Initial observation care L3
[2021-10-16] MEDS: Fluticasone 0.05% 1 SPRAY NASAL.SRY NASAL (23:37)
[2021-10-16] MEDS: Pramipexole Di-HCl 0.5 MG Tablet PO (23:38)
[2021-10-16] MEDS: Montelukast 10 MG Tablet PO (23:38)
[2021-10-16] MEDS: Doxycycline 100 MG CAPSULE PO (23:38)
[2021-10-16] MEDS: Potassium Chloride Oral Tablet 20 MEQ PO (23:38)
[2021-10-17] MEDS: oxyCODONE 5 MG Tablet 10 MG PO ×3 (00:01→11:20)
[2021-10-17] MEDS: Acetaminophen 500 MG Tablet 1000 MG PO (02:37)
[2021-10-17 02:42] VITALS: BP 122/78; PULSE 55; RESP 16; TEMP 36.6; O2SAT 94
[2021-10-17 06:41] LABS: Absolute Lymphocyte Count 1.77 X10^3/uL (0.83-4.51); Basophil# 0.02 X10^3/uL; Basophil% 0.4 % (0-1); Eosinophil# 0.12 X10^3/uL; Eosinophils% 2.3 % (0-5); Hematocrit 33.7 % (37-47); Hemoglobin 10.2 g/dL (12.0-15.0); Lymphocyte # 1.77 X10^3/ul (0.83-4.51); Lymphocyte % 33.5 % (19-41); Mean Corp Hgb Conc 30.3 g/dL (32-36); Mean Corpuscular Hgb 25.2 pg (27.0-32.0); Mean Corpuscular Volume 83.2 fL (81-99); Mean Platelet Vol. 10.1 fl (6.2-12.0); Monocyte# 0.37 X10^3/uL; NRBC Flagged by Analyzer 0.6 % (0-5); Neutrophil # 2.98 X10^3/uL (2.7-7.7); Neutrophil % 56.4 % (47-70); Platelet Count 167 K/mm3 (150-450); RBC Distribution Width SD 45.8 fl (35.1-43.9); Red Blood Count 4.05 M/mm3 (4.2-5.4); White Blood Count 5.3 K/mm3 (4.4-11.0)
[2021-10-17 07:07] LABS: Anion Gap 6 (5-15); BUN 15 mg/dL (7-18); BUN/Creat Ratio 14.3 RATIO (10-20); Calcium,Total 8.8 mg/dL (8.5-10.1); Chloride 105 mmol/L (98-107); Creatinine, Serum 1.05 mg/dL (0.55-1.02); EST Glomerular Filtration Rate 58 mL/min (>60); Est Glom Filt Rate - Afr Amer 70 mL/min (>60); Estimated Creatinine Clearance 56.67 ml/min; Glucose 185 mg/dL (74-106); Sodium Level 137 mmol/L (136-145)
[2021-10-17 07:12] VITALS: PULSE 58; RESP 14; O2SAT 92
[2021-10-17] MEDS: Ipratropium/Albuterol Sulfate 3 ML AMPUL.NEB INHALATION (07:12)
[2021-10-17] MEDS: Budesonide Respules 0.5 MG/2 ML AMPUL.NEB. INHALATION (07:14)
[2021-10-17 08:29] VITALS: BP 121/83; PULSE 66; RESP 16; TEMP 36.7; O2SAT 92
--- NOTE | 2021-10-17 10:00 | PCM.PN.HOSP ---
Objective Data Objective Data Vital Signs: Vital Signs Temp Pulse Resp BP Pulse Ox O2 Del Method O2 Flow Rate 98.0 F 66 16 121/83 H 92 Room Air 2 10/17/21 08:29 10/17/21 08:29 10/17/21 08:29 10/17/21 08:29 10/17/21 08:29 10/17/21 08:29 10/16/21 22:00 Oxygen Flow Rate (L/min) 2 Oxygen Delivery Method Room Air Weight: 96.8 kg Body Mass Index (BMI) 34.2 Intake & Output: Intake and Output for Last 24 Hours 10/15/21 10/16/21 10/17/21 23:59 23:59 23:59 Intake Total 1000 / 1000 Balance 1000 / 1000 Lab / Micro Data Result Diagrams: 10/17/21 06:35 10/17/21 06:35 Labs: Laboratory Results - last 24 hr 10/16/21 17:17: WBC 6.5, RBC 4.33, Hgb 10.8 L, Hct 35.7 L, MCV 82.4, MCH 24.9 L, MCHC 30.3 L, RDW Std Deviation 44.3 H, RDW Coeff of Shaina 14.8 H, Plt Count 219, MPV 10.1, Immature Gran % (Auto) 1.200 H, Neut % (Auto) 56.5, Lymph % (Auto) 31.2, [place] % (Auto) 8.9, Eos % (Auto) 1.7, Baso % (Auto) 0.5, Absolute Neuts (auto) 3.7, Absolute Lymphs (auto) 2.04, Nucleated RBC % 0.3 10/16/21 17:17: Sodium 137, Potassium 3.5, Chloride 101, Carbon Dioxide 30.0, Anion Gap 6, BUN 22 H, Creatinine 1.57 H, Estim Creat Clear Calc 37.90, Est GFR (MDRD) Af Amer 44 L, Est GFR (MDRD) Non-Af 36 L, BUN/Creatinine Ratio 14.0, Glucose 128 H, Calcium 9.3, Total Bilirubin 0.50, AST 45 H, ALT 45, Alkaline Phosphatase 90, Total Protein 7.7, Albumin 3.9, Globulin 3.8, Albumin/Globulin Ratio 1.0 10/16/21 20:04: Urine Color Yellow, Urine Clarity Sl. Cloudy, Urine pH 5.0, Ur Specific [place] 1.020, Urine Protein 30 H, Urine Glucose (UA) Normal, Urine Ketones Negative, Urine Occult Blood Negative, Urine Nitrite Negative, Urine Bilirubin Negative, Urine Urobilinogen Normal, Ur Leukocyte Esterase 25 H, Urine RBC 0 SEEN, Urine WBC 0-5 SEEN, Ur Squamous Epith Cells 0-5 SEEN, Urine Bacteria 0 SEEN, Urine Mucus 0 SEEN 10/17/21 06:35: WBC 5.3, RBC 4.05 L, Hgb 10.2 L, Hct 33.7 L, MCV 83.2, MCH 25.2 L, MCHC 30.3 L, RDW Std Deviation 45.8 H, RDW Coeff of Shaina 15.0 H, Plt Count 167, MPV 10.1, Immature Gran % (Auto) 0.400, Neut % (Auto) 56.4, Lymph % (Auto) 33.5, [place] % (Auto) 7.0, Eos % (Auto) 2.3, Baso % (Auto) 0.4, Absolute Neuts (auto) 3.0, Absolute Lymphs (auto) 1.77, Nucleated RBC % 0.6 10/17/21 06:35: Sodium 137, Potassium 4.0, Chloride 105, Carbon Dioxide 26.0, Anion Gap 6, BUN 15, Creatinine 1.05 H, Estim Creat Clear Calc 56.67, Est GFR (MDRD) Af Amer 70, Est GFR (MDRD) Non-Af 58 L, BUN/Creatinine Ratio 14.3, Glucose 185 H, Calcium 8.8 ABG Data ABG results: ABG 10/16/21 17:55 Specimen Type ART Sample Site R Radial pH 7.36 Bicarbonate Actual 27.2 H Total CO2 29 Base Excess 2 O2 Saturation 99 ABG pCO2 47.9 H ABG pO2 124 H Prashant Test Positive O2 Delivery Device Cannula Liter Flow 3.0 Radiography Diagnostic Testing: Radiology Impression Brain CT 10/16/21 17:02 IMPRESSION: There are no acute intracranial findings. Electronically Signed: Tom Solis MD at 17:46 EDT , Chest X-Ray 10/16/21 17:32 IMPRESSION: There are no acute findings. Electronically Signed: Tom Solis MD at 18:30 EDT ,
[2021-10-17] MEDS: Potassium Chloride Oral Tablet 20 MEQ PO (10:58)
[2021-10-17] MEDS: Ergocalciferol 1.25 MG (50, 000 UNIT) Capsule PO (10:59)
[2021-10-17] MEDS: Fluticasone 0.05% 1 SPRAY NASAL.SRY NASAL (10:59)
[2021-10-17] MEDS: Atenolol 100 MG Tablet PO (10:59)
[2021-10-17] MEDS: Pregabalin 75 MG Capsule PO (10:59)
[2021-10-17] MEDS: Doxycycline 100 MG CAPSULE PO (10:59)
[2021-10-17] MEDS: Enoxaparin 40 MG/0.4 ML Syringe SC (10:59)
[2021-10-17] MEDS: Pantoprazole Sodium 20 MG Tablet PO (11:33)
--- NOTE | 2021-10-17 12:10 | NURSING ---
RN into assess pt's pain level after scheduled Oxyir had been administered. Pt in bathroom with assistance of JOEY Zheng. Pt frustrated expressing several complaints, including her Lasix being held causing her ankles to swell, states, I have gone into respiratory arrest before when my Lasix was held!, pt states her pain is not controlled, and she would like to leave. RN acknowledges pt's frustrations, provides support, and tells pt that she will reach out to about resuming Lasix and further pain control. Pt becomes very anxious, states she is leaving no matter what, and she has a ride waiting for her. Encouraged pt to wait until the releases her, rather than sign out AMA. Pt agrees, but continues to get dressed and pack up belongings. RN makes call to Radha cis coordinator asking to contact Dr. Terrell as pt is wishing to be discharged. Radha makes RN aware of Dr. Terrell writing discharge order and working on discharge paperwork TERRI. Pt agrees to wait briefly for MD to finish discharge papers. RN offers to call Irasema pt's sister to provide update on pt's discharge, but pt refuses. Pt wishes that Irasema, be removed off of pt's contact list. Pt reports frustration with Irasema as she was the reason that I was admitted in the first place! Discharge instructions provided and pt transported to main entrance via wheelchair to meet friend who is waiting pt to be discharged.
--- NOTE | 2021-10-17 13:15 | DCINST_ITS ---
Discharge Instructions Diet Discharge Diet: No restrictions Activity Discharge Activity: Return to Normal Activity Follow Up Care Test Results: Test results from this visit will be discussed in further detail at your follow- up appointment, if applicable. Discharge Plan Admission Admit Date/Time: 10/16/21 21:32 Attending Provider: Yolis Terrell Primary Care Provider: Duran Campos Consulting Providers: Junaid Palm Discharge Orders/Prescriptions Prescriptions: Continued potassium chloride [Klor-Con M20] 20 MEQ tablet 20 meq PO BID albuterol sulfate [Ventolin HFA] 1 INHALER inhaler 2 puff inhalation Q4H PRN PRN (Reason: Shortness Of Breath) Qty: 1 0RF montelukast 10 MG tablet 10 mg PO QHS alprazolam 0.5 MG tablet 0.5 mg PO TID PRN PRN (Reason: Anxiety) Label Comments: TAKE 1 TABLET BY MOUTH UP TO 3 TIMES DAILY NEEDED atenolol 50 MG tablet 100 mg PO BID Label Comments: TAKE 2 TABLETS BY MOUTH TWICE A DAY ropinirole 5 MG tablet 1 mg PO QHS ergocalciferol (vitamin D2) [Vitamin D2] 1,250 mcg (50,000 unit) Capsule 1,250 mcg PO QWEEK Rx Instructions: Wed & Sat fluticasone propionate 50 mcg/actuation [place],Suspension 1 spray INTRANASAL BID pregabalin 75 mg Capsule 75 mg PO BID furosemide 40 MG tablet 40 mg PO BID oxycodone 20 mg Tablet 20 mg PO Q6H omeprazole 20 mg Capsule,Delayed Release(Dr/Ec) 20 mg PO BID PRN (Reason: Acid Reflux) diphenhydramine HCl [Benadryl] 25 mg Capsule 50 mg Q6H PRN PRN (Reason: Allergic Symptoms) polyethylene glycol 3350 [Miralax] 17 gram Powder In Packet 17 g PO DAILY PRN PRN (Reason: Constipation) cyclobenzaprine 10 mg Tablet 10 mg PO BID PRN (Reason: Muscle Spasm) fluticasone propion-salmeterol [Advair Diskus] 250-50 mcg/dose Blister With Device 1 inh INHALATION BID ipratropium-albuterol 0.5 mg-3 mg(2.5 mg base)/3 mL solution for nebulization 3 ml inhalation Q6H PRN PRN (Reason: Wheezing) acetaminophen 500 mg Tablet 1,000 mg PO TID PRN PRN (Reason: Pain) doxycycline hyclate 100 mg Tablet 100 mg PO BID promethazine 25 MG tablet 25 mg PO Q6H PRN PRN (Reason: Nausea) Discontinued methadone 5 mg tablet 1 tab PO BID Referrals / Follow Up: Duran Campos MD [Primary Care Provider] - Disposition Disposition (needs filled in before D/C Order can be placed): Home, Self Care
--- NOTE | 2021-10-17 13:18 | DS.PCM_ITS ---
Providers Date of Admission: 10/16/21 Date of Discharge: 10/17/21 Primary Care Physician: Dr. Duran Campos MD Reason For Visit: ACUTE TOXIXC ENCEPHALOPATHY Diagnosis Discharge Diagnosis (1) Toxic encephalopathy: Status: Acute Code(s): G92.9 - Unspecified toxic encephalopathy (2) Hypoxia: Status: Acute Code(s): R09.02 - Hypoxemia (3) Weakness: Status: Acute Code(s): R53.1 - Weakness (4) Pneumonia: Status: Acute Code(s): J18.9 - Pneumonia, unspecified organism Qualifiers: Laterality: bilateral Lung location: unspecified part of lung Pneumonia type: due to unspecified organism Qualified Code(s): J18.9 - Pneumonia, unspecified organism (5) AMARI (acute kidney injury): Status: Acute Code(s): N17.9 - Acute kidney failure, unspecified Medications at Discharge Home Medications potassium chloride 20 mEq tablet,extended release(part/cryst) (Klor-Con M) 20 meq PO BID supplement 10/11/15 albuterol sulfate 90 mcg/actuation aerosol inhaler (Ventolin HFA) 2 puff inhalation Q4H PRN PRN Shortness Of Breath ##1 10/20/15 alprazolam 0.5 mg tablet 0.5 mg PO TID PRN PRN Anxiety 10/25/18 atenolol 50 mg tablet 100 mg PO BID bp 10/25/18 montelukast 10 mg tablet 10 mg PO QHS allergies 10/25/18 ropinirole 5 mg tablet 1 mg PO QHS restless legs 10/25/18 ergocalciferol (vitamin D2) 1,250 mcg (50,000 unit) capsule (Vitamin D2) 1,250 mcg PO QWEEK vitamin 07/08/21 fluticasone propionate 50 mcg/actuation nasal spray,suspension 1 spray intranasal BID allergies 07/08/21 furosemide 40 mg tablet 40 mg PO BID diuretic 07/08/21 oxycodone 20 mg tablet 20 mg PO Q6H pain 07/08/21 pregabalin 75 mg capsule 75 mg PO BID pain 07/08/21 diphenhydramine HCl 25 mg capsule (Benadryl) 50 mg Q6H PRN PRN Allergic Symptoms 07/09/21 omeprazole 20 mg capsule,delayed release 20 mg PO BID PRN Acid Reflux 07/09/21 polyethylene glycol 3350 17 gram oral powder packet (Miralax) 17 g PO DAILY PRN PRN Constipation 07/09/21 acetaminophen 500 mg tablet 1,000 mg PO TID PRN PRN Pain 10/16/21 cyclobenzaprine 10 mg tablet 10 mg PO BID PRN Muscle Spasm 10/16/21 doxycycline hyclate 100 mg tablet 100 mg PO BID 10/16/21 fluticasone 250 mcg-salmeterol 50 mcg/dose blistr powdr for inhalation (Advair Diskus) 1 inh inhalation BID 10/16/21 ipratropium 0.5 mg-albuterol 3 mg (2.5 mg base)/3 mL nebulization soln 3 ml inhalation Q6H PRN PRN Wheezing 10/16/21 promethazine 25 mg tablet 25 mg PO Q6H PRN PRN Nausea 10/16/21 Hospital Course Operations None Procedures None Summary of Care Provided Minutes Spent on Discharge: 35 Hospital Course: 56-year-old female with past medical history of metastatic melanoma, who is followed by palliative care comes in with progressive lethargy. Patient reportedly was started on methadone and was continued on her oxycodone, alprazolam, gabapentin. Patient was found to be slightly hypoxic in the emerg ency room. She was recently put on doxycycline for pneumonia in the outpatient. Patient stated that she had these symptoms soon after being started on methadone. She was taken off methadone and put on a reduced dose of oxycodone. She was much awake and alert in a few hours. Patient was also off oxygen. She requested to be discharged. The patient was sent out to palliative care. At the time of being discharged, callback from palliative was pending. Patient was asked to stay off methadone and follow-up with palliative care. Physical Exam Narrative Physical exam: General: Alert, Oriented x3, Cooperative, obese HEENT: Atraumatic Oral: Moist Mucosa Neck: Supple Lungs: Clear to auscultation Cardiovascular: HS I+II, regular, no murmurs Abdomen: Bowel Sounds Present, Soft, Non Tender Extremities: Bilateral pedal edema +1 Skin: No rashes, No breakdown Neurological: Grossly intact Psych/Mental Status: Appropriate Weight / BMI Weight Weight: 96.8 kg Body Mass Index (BMI) 34.2 ABG / Lab / Microbiology Data Result Diagrams: 10/17/21 06:35 10/17/21 06:35 Laboratory: Laboratory Results - last 24 hr 10/16/21 17:17: WBC 6.5, RBC 4.33, Hgb 10.8 L, Hct 35.7 L, MCV 82.4, MCH 24.9 L, MCHC 30.3 L, RDW Std Deviation 44.3 H, RDW Coeff of Shaina 14.8 H, Plt Count 219, MPV 10.1, Immature Gran % (Auto) 1.200 H, Neut % (Auto) 56.5, Lymph % (Auto) 31.2, [place] % (Auto) 8.9, Eos % (Auto) 1.7, Baso % (Auto) 0.5, Absolute Neuts (auto) 3.7, Absolute Lymphs (auto) 2.04, Nucleated RBC % 0.3 10/16/21 17:17: Sodium 137, Potassium 3.5, Chloride 101, Carbon Dioxide 30.0, Anion Gap 6, BUN 22 H, Creatinine 1.57 H, Estim Creat Clear Calc 37.90, Est GFR (MDRD) Af Amer 44 L, Est GFR (MDRD) Non-Af 36 L, BUN/Creatinine Ratio 14.0, Glucose 128 H, Calcium 9.3, Total Bilirubin 0.50, AST 45 H, ALT 45, Alkaline Phosphatase 90, Total Protein 7.7, Albumin 3.9, Globulin 3.8, Albumin/Globulin Ratio 1.0 10/16/21 20:04: Urine Color Yellow, Urine Clarity Sl. Cloudy, Urine pH 5.0, Ur Specific [place] 1.020, Urine Protein 30 H, Urine Glucose (UA) Normal, Urine Ketones Negative, Urine Occult Blood Negative, Urine Nitrite Negative, Urine Bilirubin Negative, Urine Urobilinogen Normal, Ur Leukocyte Esterase 25 H, Urine RBC 0 SEEN, Urine WBC 0-5 SEEN, Ur Squamous Epith Cells 0-5 SEEN, Urine Bacteria 0 SEEN, Urine Mucus 0 SEEN 10/17/21 06:35: WBC 5.3, RBC 4.05 L, Hgb 10.2 L, Hct 33.7 L, MCV 83.2, MCH 25.2 L, MCHC 30.3 L, RDW Std Deviation 45.8 H, RDW Coeff of Shaina 15.0 H, Plt Count 167, MPV 10.1, Immature Gran % (Auto) 0.400, Neut % (Auto) 56.4, Lymph % (Auto) 33.5, [place] % (Auto) 7.0, Eos % (Auto) 2.3, Baso % (Auto) 0.4, Absolute Neuts (auto) 3.0, Absolute Lymphs (auto) 1.77, Nucleated RBC % 0.6 10/17/21 06:35: Sodium 137, Potassium 4.0, Chloride 105, Carbon Dioxide 26.0, Anion Gap 6, BUN 15, Creatinine 1.05 H, Estim Creat Clear Calc 56.67, Est GFR (MDRD) Af Amer 70, Est GFR (MDRD) Non-Af 58 L, BUN/Creatinine Ratio 14.3, Glucose 185 H, Calcium 8.8 ABG: ABG 10/16/21 17:55 Specimen Type ART Sample Site R Radial pH 7.36 Bicarbonate Actual 27.2 H Total CO2 29 Base Excess 2 O2 Saturation 99 ABG pCO2 47.9 H ABG pO2 124 H Prashant Test Positive O2 Delivery Device Cannula Liter Flow 3.0 Radiography Diagnostic Testing: Radiology Impression Brain CT 10/16/21 17:02 IMPRESSION: There are no acute intracranial findings. Electronically Signed: Tom Solis MD at 17:46 EDT , Chest X-Ray 10/16/21 17:32 IMPRESSION: There are no acute findings. Electronically Signed: Tom Solis MD at 18:30 EDT , D/C Instructions Discharge Diet: No restrictions Meaningful Use Info Meaningful Use Diagnoses (Choose all that apply): None applicable Discharge Plan Admission Admit Date/Time: 10/16/21 21:32 Attending Provider: Yolis Terrell Primary Care Provider: Duran Campos Consulting Providers: Junaid Palm Discharge Orders/Prescriptions Prescriptions: Continued potassium chloride [Klor-Con M20] 20 MEQ tablet 20 meq PO BID albuterol sulfate [Ventolin HFA] 1 INHALER inhaler 2 puff inhalation Q4H PRN PRN (Reason: Shortness Of Breath) Qty: 1 0RF montelukast 10 MG tablet 10 mg PO QHS alprazolam 0.5 MG tablet 0.5 mg PO TID PRN PRN (Reason: Anxiety) Label Comments: TAKE 1 TABLET BY MOUTH UP TO 3 TIMES DAILY NEEDED atenolol 50 MG tablet 100 mg PO BID Label Comments: TAKE 2 TABLETS BY MOUTH TWICE A DAY ropinirole 5 MG tablet 1 mg PO QHS ergocalciferol (vitamin D2) [Vitamin D2] 1,250 mcg (50,000 unit) Capsule 1,250 mcg PO QWEEK Rx Instructions: Wed & Sat fluticasone propionate 50 mcg/actuation [place],Suspension 1 spray INTRANASAL BID pregabalin 75 mg Capsule 75 mg PO BID furosemide 40 MG tablet 40 mg PO BID oxycodone 20 mg Tablet 20 mg PO Q6H omeprazole 20 mg Capsule,Delayed Release(Dr/Ec) 20 mg PO BID PRN (Reason: Acid Reflux) diphenhydramine HCl [Benadryl] 25 mg Capsule 50 mg Q6H PRN PRN (Reason: Allergic Symptoms) polyethylene glycol 3350 [Miralax] 17 gram Powder In Packet 17 g PO DAILY PRN PRN (Reason: Constipation) cyclobenzaprine 10 mg Tablet 10 mg PO BID PRN (Reason: Muscle Spasm) fluticasone propion-salmeterol [Advair Diskus] 250-50 mcg/dose Blister With Device 1 inh INHALATION BID ipratropium-albuterol 0.5 mg-3 mg(2.5 mg base)/3 mL solution for nebulization 3 ml inhalation Q6H PRN PRN (Reason: Wheezing) acetaminophen 500 mg Tablet 1,000 mg PO TID PRN PRN (Reason: Pain) doxycycline hyclate 100 mg Tablet 100 mg PO BID promethazine 25 MG tablet 25 mg PO Q6H PRN PRN (Reason: Nausea) Discontinued methadone 5 mg tablet 1 tab PO BID Referrals / Follow Up: Duran Campos MD [Primary Care Provider] - Disposition Disposition (needs filled in before D/C Order can be placed): Home, Self Care Charges/Coding Visit Charges OBSV E&M: 35799 Observation care discharge
[2021-10-17 13:19] VITALS: BP 190/100; PULSE 69; RESP 18; TEMP 36.6; O2SAT 93
[2021-10-17 13:28] VITALS: BP 171/85
== END 2021-10-17 13:35 | disposition home or self-care (01) ==
LOC: ED 21:40 → MS3 10-17 00:59
PROVIDERS: Admitting Provider Hospitalist; Emergency Provider Emergency Medicine; PCP Family Medicine; Visit Provider Internal Medicine
DX: G92.9 Unspecified toxic encephalopathy (principal); C79.9 Secondary malignant neoplasm of unspecified site; N17.9 Acute kidney failure, unspecified; I47.1 Supraventricular tachycardia; C43.9 Malignant melanoma of skin, unspecified; J18.9 Pneumonia, unspecified organism; R55 Syncope and collapse; R53.1 Weakness; M25.559 Pain in unspecified hip; I10 Essential (primary) hypertension; R09.02 Hypoxemia; Z86.16 Personal history of COVID-19; J45.909 Unspecified asthma, uncomplicated; Z79.899 Other long term (current) drug therapy; Z79.51 Long term (current) use of inhaled steroids
CPT/HCPCS: 36415; 36600; 70450; 71045; 80048; 80053; 81001; 82803; 85025; 93005; 94640; 96372; 96374; 96375; 99218; 99285; J7030; A4216; G0378

== ENCOUNTER → 2021-10-29 | Outpatient (CLI) | payer MEDICAID, SELFPAY | END | disposition home or self-care (01) | PROVIDERS: PCP Family Medicine; Referring Provider Family Medicine Hospice and Palliative Medicine; Visit Provider Family Medicine Hospice and Palliative Medicine | DX: R41.0 Disorientation, unspecified (principal); Z79.891 Long term (current) use of opiate analgesic ==

== ENCOUNTER 2021-11-09 14:23 | Observation (INO) | payer MEDICAID, SELFPAY ==
[2021-11-09] VITALS (8 sets, daily range): BP systolic 123–155; BP diastolic 75–106; PULSE 68–89; RESP 14–22; TEMP 36.6–36.8; O2SAT 92–99; BMI 33.2; BMI 33.3
--- NOTE | 2021-11-09 14:47 | EKG12_ITS ---
Test Reason : sob Blood Pressure : / mmHG Vent. Rate : 082 BPM Atrial Rate : 082 BPM P-R Int : 158 ms QRS Dur : 074 ms QT Int : 400 ms P-R-T Axes : 051 027 061 degrees QTc Int : 467 ms Normal sinus rhythm Normal ECG Confirmed by MEE CASTILLO, LANNY ([id number]), commissioning editor RAMIREZ BECKMAN ([id number]) on 11/10/2021 1:13:01 PM Referred By: Eddie Confirmed By:LANNY CABAN MD
--- NOTE | 2021-11-09 14:48 | ED.VIS.DYS ---
HPI History of Present Illness Chief Complaint: Shortness of Breath Narrative Narrative: 56-year-old female presenting with dyspnea. She states she has a history of metastatic melanoma and she is currently not on chemotherapy and states she is in remission. She states for the last 7 days or so she has been short of breath. She notes that when she wakes up from sleep she is gasping for air. She called her daughter over to help her as she is noting that her oxygen levels have been dipping into the 70s during sleep. She states her daughter has been watching her as she is sleeping. She noted oxygen saturations in the 70s as well. She states that they are not able to get her O2 sats into the 80s. Patient states that she has a new pulse oximeter and thinks it is working. The patient states that for an extended period of time she develops a pneumonia periodically. After she takes antibiotics she gets well and then developed pneumonia again. She states she is currently coughing and is bringing up green sputum. She has not had a fever. No known sick contacts. 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 Patient does admit to some chest tightness across her chest and states it radiates to her back. She is not described as pressure. Worse with ambulation. [facility] Medical History (Updated 11/09/21 @ 18:[address] Francois Mcelroy, ) Anxiety Asthma Hypertension Metastatic melanoma Pneumonia SVT (supraventricular tachycardia) Home Medications potassium chloride 20 mEq tablet,extended release(part/cryst) (Klor-Con M) 40 meq PO BID supplement 10/11/15 [History Last Taken 11/09/21] albuterol sulfate 90 mcg/actuation aerosol inhaler (Ventolin HFA) 2 puff inhalation Q4H PRN PRN Shortness Of Breath ##1 10/20/15 [Rx Last Taken 11/09/21] alprazolam 0.5 mg tablet 0.5 mg PO TID PRN PRN Anxiety 10/25/18 [History Last Taken 11/09/21] montelukast 10 mg tablet 10 mg PO QHS allergies 10/25/18 [History Last Taken 11/08/21] ergocalciferol (vitamin D2) 1,250 mcg (50,000 unit) capsule (Vitamin D2) 1,250 mcg PO QWEEK vitamin 07/08/21 [History Last Taken 11/07/21] fluticasone propionate 50 mcg/actuation nasal spray,suspension 1 spray intranasal BID allergies 07/08/21 [History Last Taken 11/09/21] furosemide 40 mg tablet 40 mg PO BID diuretic 07/08/21 [History Last Taken 11/09/21] oxycodone 20 mg tablet 20 mg PO Q6H pain 07/08/21 [History Last Taken 11/09/21] diphenhydramine HCl 25 mg capsule (Benadryl) 50 mg BID 07/09/21 [History Last Taken 11/09/21] omeprazole 20 mg capsule,delayed release 20 mg PO BID GERD 07/09/21 [History Last Taken 11/09/21] polyethylene glycol 3350 17 gram oral powder packet (Miralax) 17 g PO DAILY PRN PRN Constipation 07/09/21 [History Last Taken Unknown] acetaminophen 500 mg tablet 1,000 mg PO Q4H PRN Pain 10/16/21 [History Last Taken 11/09/21] fluticasone 250 mcg-salmeterol 50 mcg/dose blistr powdr for inhalation (Advair Diskus) 1 inh inhalation BID 10/16/21 [History Last Taken 11/09/21] ipratropium 0.5 mg-albuterol 3 mg (2.5 mg base)/3 mL nebulization soln 3 ml inhalation Q6H PRN PRN Wheezing 10/16/21 [History Last Taken 11/09/21] promethazine 25 mg tablet 25 mg PO Q4H PRN Nausea 10/16/21 [History Last Taken 11/09/21] menndpr-botvitdpgpcic-astwjgaj 250 mg-250 mg-65 mg tablet (Migraine Relief) 2 tab PO BID PRN Headache 11/09/21 [History Last Taken Unknown] atenolol 100 mg tablet 100 mg PO BID HEART 11/09/21 [History Last Taken 11/09/21] pregabalin 75 mg capsule 75 mg PO Q6H PAIN 11/09/21 [History Last Taken 11/09/21] ropinirole 1 mg tablet 1 mg PO QHS RLS 11/09/21 [History Last Taken 11/08/21] Allergy/AdvReac Type Severity Reaction Status Date / Time acyclovir Allergy Unknown Verified 11/09/21 14:26 amlodipine Allergy Other Verified 11/09/21 14:26 ibuprofen [From Motrin] Allergy Swelling Verified 11/09/21 14:26 metoprolol Allergy Unknown Verified 11/09/21 14:26 propranolol Allergy Unknown Verified 11/09/21 14:26 regadenoson Allergy Other Verified 11/09/21 14:26 fluconazole AdvReac Rash Verified 11/09/21 14:26 meloxicam AdvReac Swelling Verified 11/09/21 14:26 nabumetone AdvReac Upset Verified 11/09/21 14:26 Stomach Family History Other Glioblastoma multiforme Surgical History H/O cervical spine surgery History of left heart catheterization (10/27/18) Social History Smoking Status: Never smoker ROS ROS ED ROS Narrative Generalized weakness Constitutional Constitutional ED: Denies chills or weight loss Eyes Eyes: Denies change in vision or diplopia ENT ENT ED: Denies rhinorrhea or sore throat Cardiovascular Cardiovascular: Reports chest pain and orthopnea Respiratory/Chest Respiratory/Chest: Reports cough, dyspnea, dyspnea on exertion and orthopnea Gastrointestinal Gastrointestinal: Denies abdominal pain or constipation Genitourinary Genitourinary ED: Denies dysuria Musculoskeletal Musculoskeletal: Denies arthralgias or back pain Integumentary Denies Abrasions Neurologic Neurologic: Denies headache(s) or paresthesias Psychiatric Psychiatric: Reports anxiety EXAM Physical Exam Const Vital Signs: 11/09/21 14:24 11/09/21 14:59 11/09/21 15:03 Temperature 97.8 F Temperature Source Temporal Pulse Rate 79 89 Respiratory Rate 18 22 H Respiratory Effort Normal Respiratory Depth Normal Respiratory Pattern Normal Blood Pressure 155/81 H 123/106 H Blood Pressure Mean 105 111 Pulse Ox 96 93 Oxygen Delivery Method Room Air Room Air Room Air 11/09/21 15:16 Temperature Temperature Source Pulse Rate Respiratory Rate Respiratory Effort Respiratory Depth Respiratory Pattern Blood Pressure Blood Pressure Mean Pulse Ox Oxygen Delivery Method Room Air Positive well nourished General Appearance ED: NAD; Negative for pallor HEENT Reports moist mucous membranes atraumatic Eyes PERRL and EOMs intact bilaterally Resp normal respiratory effort Auscultation: rales right base Cardio regular rate and regular rhythm GI non-tender Auscultation: normoactive bowel sounds Neuro oriented x3, CN's II-XII intact bilaterally and no sensory deficits noted Sensorium / Orientation: alert Speech: speech normal Motor Exam: strength 5/5 throughout Psych mental status grossly normal Skin no wounds and skin turgor normal General Skin Exam: Negative for jaundice or pallor MDM MDM MDM Narrative Medical decision making narrative: Patient presenting with hypoxic episodes at home. She is also complaining some chest tightness. She does have a history of metastatic melanoma which she states is in remission. She is not currently on chemotherapy. She also complains of recurrent pneumonia. She is coughing up green sputum she states. Because of the chest pain I did obtain EKG and on my interpretation this is a normal sinus rhythm with a ventricular of 82 beats minute without sign of ischemic change or dysrhythmia. Chest x-ray does show a left lower lobe infiltrate versus atelectasis on my interpretation and the radiologist agree. I suspect this is likely not infectious based on the patient's normal white blood cell count. It does not look significantly changed from previous chest x-ray. She is not had a fever. I did obtain a high-sensitivity troponin which was 7. Hemoglobin medic are stable. Renal function and electrolytes unremarkable. D-dimer was elevated at 0.94. Patient had CT of the chest which does not identify any PEs. There is no dissection. It is noted to have left lower lobe pneumonia. Patient ambulated in pulse ox dropped to 86% on room air. Given this she will need to be admitted. Discussed with the hospitalist who does not want to treat with antibiotics currently. Hospitalist not believe this is pneumonia. Patient transferred in stable condition. Impression: 1. Dyspnea 2. Cough 3. Chest pain 4. Abnormal chest x-ray finding 5. Hypoxic respiratory failure Lab Data Attestation: I reviewed the patient's lab results. Labs: Laboratory Results - last 24 hr 11/09/21 11/09/21 11/09/21 15:12 15:12 15:12 WBC 9.6 RBC 4.92 Hgb 12.4 Hct 39.1 MCV 79.5 L MCH 25.2 L MCHC 31.7 L RDW Std Deviation 44.6 H RDW Coeff of Shaina 15.8 H Plt Count 211 MPV 9.9 Immature Gran % (Auto) 0.500 Neut % (Auto) 54.0 Lymph % (Auto) 35.5 [place] % (Auto) 7.5 Eos % (Auto) 2.2 Baso % (Auto) 0.3 Absolute Neuts (auto) 5.2 Absolute Lymphs (auto) 3.41 Nucleated RBC % 0 D-Dimer Quant (PE/DVT) 0.94 H* Sodium 136 Potassium 3.8 Chloride 104 Carbon Dioxide 25.0 Anion Gap 7 BUN 12 Creatinine 1.15 H Estim Creat Clear Calc 51.74 Est GFR (MDRD) Af Amer 63 Est GFR (MDRD) Non-Af 52 L BUN/Creatinine Ratio 10.4 Glucose 206 H Calcium 9.5 Troponin I High Sens 7 B-Natriuretic Peptide 11/09/21 11/09/21 15:12 17:45 WBC RBC Hgb Hct MCV MCH MCHC RDW Std Deviation RDW Coeff of Shaina Plt Count MPV Immature Gran % (Auto) Neut % (Auto) Lymph % (Auto) [place] % (Auto) Eos % (Auto) Baso % (Auto) Absolute Neuts (auto) Absolute Lymphs (auto) Nucleated RBC % D-Dimer Quant (PE/DVT) Sodium Potassium Chloride Carbon Dioxide Anion Gap BUN Creatinine Estim Creat Clear Calc Est GFR (MDRD) Af Amer Est GFR (MDRD) Non-Af BUN/Creatinine Ratio Glucose Calcium Troponin I High Sens 5 B-Natriuretic Peptide 75.7 Radiography Diagnostic Testing: Clinical Impression(s) from Imaging Studies Chest X-Ray 11/09/21 15:15 IMPRESSION: Left lower lobe pneumonia/atelectasis. Electronically Signed: Mike Soares MD at 15:47 EDT , Chest CTA 11/09/21 15:48 IMPRESSION: 1. Left lower lobe pneumonia. 2. No evidence of acute pulmonary embolism. 3. Question pulmonary arterial hypertension. Electronically Signed: Mike Soares MD at 16:40 EDT , Discharge Plan Disposition Disposition: Acute Care Hospital [facility] Discharge Date/Time: 11/09/21 18:42
--- NOTE | 2021-11-09 15:15 | RAD_ITS ---
EXAM: XR CHEST, 1 VIEW CLINICAL INDICATION: chest pain TECHNIQUE: Frontal view of the chest. This report was created using [employer] report generation technology. COMPARISON: XR Chest dated 10/16/2021 FINDINGS: LUNGS AND PLEURAL SPACES: Left retrocardiac airspace opacification which may represent pneumonia or atelectasis. No pneumothorax. No effusion. HEART: Normal heart size. MEDIASTINUM: Central airways and mediastinal contour are unremarkable. BONES/JOINTS: Normal. SOFT TISSUES: Normal. RAD/Chest 1 View (Portable) IMPRESSION: Left lower lobe pneumonia/atelectasis. Electronically Signed: Mike Soares MD at 15:47 EDT ,
[2021-11-09 15:33] LABS: Absolute Lymphocyte Count 3.41 X10^3/uL (0.83-4.51); Absolute Neutrophil Count 5.2 X10^3/uL (2.0-7.7); Basophil# 0.03 X10^3/uL; Basophil% 0.3 % (0-1); Eosinophil# 0.21 X10^3/uL; Eosinophils% 2.2 % (0-5); Hematocrit 39.1 % (37-47); Hemoglobin 12.4 g/dL (12.0-15.0); Lymphocyte # 3.41 X10^3/ul (0.83-4.51); Lymphocyte % 35.5 % (19-41); Mean Corp Hgb Conc 31.7 g/dL (32-36); Mean Corpuscular Hgb 25.2 pg (27.0-32.0); Mean Corpuscular Volume 79.5 fL (81-99); Mean Platelet Vol. 9.9 fl (6.2-12.0); Monocyte# 0.72 X10^3/uL; Monocyte% 7.5 % (0-10); NRBC Flagged by Analyzer 0 % (0-5); Neutrophil # 5.19 X10^3/uL (2.7-7.7); Platelet Count 211 K/mm3 (150-450); RBC Distribution Width CV 15.8 % (11.6-14.6); RBC Distribution Width SD 44.6 fl (35.1-43.9); Red Blood Count 4.92 M/mm3 (4.2-5.4); White Blood Count 9.6 K/mm3 (4.4-11.0)
[2021-11-09 15:42] LABS: Anion Gap 7 (5-15); BUN 12 mg/dL (7-18); BUN/Creat Ratio 10.4 RATIO (10-20); Calcium,Total 9.5 mg/dL (8.5-10.1); Chloride 104 mmol/L (98-107); Creatinine, Serum 1.15 mg/dL (0.55-1.02); EST Glomerular Filtration Rate 52 mL/min (>60); Est Glom Filt Rate - Afr Amer 63 mL/min (>60); Estimated Creatinine Clearance 51.74 ml/min; Glucose 206 mg/dL (74-106); Potassium 3.8 mmol/L (3.5-5.1); Sodium Level 136 mmol/L (136-145); Troponin-I HS (w/2H Reflex) 7 pg/mL (3.0-54.0)
[2021-11-09 15:47] LABS: D-Dimer Quantitative (DVT/PE) 0.94 FEU/ug/m (0.27-0.49)
--- NOTE | 2021-11-09 15:48 | CT_ITS ---
EXAM: CT ANGIOGRAPHY CHEST WITHOUT AND WITH INTRAVENOUS CONTRAST CLINICAL INDICATION: chest pain TECHNIQUE: Helically acquired angiography images were obtained of the chest without and with intravenous contrast. This CT exam was performed using one or more of the following dose reduction techniques: automated exposure control, adjustment of the mA and/or kV according to patient size, and/or use of iterative reconstruction technique. This report was created using [employer] report generation technology. MIP reconstructed images were created and reviewed. CONTRAST: IV 100mL [id number] COMPARISON: CTA Chest dated 06/11/2021 FINDINGS: PULMONARY ARTERIES: Main pulmonary artery again noted to be dilated measuring 4.4 cm in maximum diameter raising possibility of pulmonary arterial hypertension. No evidence of pulmonary embolism. AORTA: Normal. Normal in caliber. No evidence of dissection. GREAT VESSELS OF AORTIC ARCH: Normal. Normal in caliber. No evidence of dissection. LUNGS AND PLEURAL SPACES: Patchy airspace opacification within the left lower lobe suggestive of pneumonia. No mass. No pleural effusion or thickening. HEART: Normal. Heart size is normal. No pericardial effusion. No signs of right heart strain, ratio of right ventricle to left ventricle measures less than 1. MEDIASTINUM: Normal. No mediastinal or hilar adenopathy. Esophagus is unremarkable. No hiatal hernia. THYROID: Normal. No thyroid lesions. BONES/JOINTS: Normal. No suspicious lytic or blastic abnormality. CT/CTA Chest W/WO Contrast IMPRESSION: 1. Left lower lobe pneumonia. 2. No evidence of acute pulmonary embolism. 3. Question pulmonary arterial hypertension. Electronically Signed: Mike Soares MD at 16:40 EDT ,
[2021-11-09 15:57] LABS: BNP,B-Type NATRIURETIC PEPTIDE 75.7 pg/mL (0-100)
[2021-11-09 17:19] LABS: Reflex Troponin-HS? (from REC) Y
--- NOTE | 2021-11-09 18:07 | PCM.HP.STD ---
HPI - General General Date of Admission: 11/09/21 Date of Service: 11/09/21 Chief Complaint: shortness of breath HPI Narrative INO RODRIGUEZ, is a 56 F who presents with shortness of breath. Patient has been treated off and on for left lower lobe infiltrate. Patient has just been more dyspneic and short of breath. Patient is having low oxygen when she sleeps and at rest but her oxygen goes up when she talks. Presents to the emergency room and was told that her pulse ox was reading in the 70s but there is no actual documentation of any of that and it was reading in the 90s when I arrived. Patient underwent CT angiogram of chest that showed a left lower lobe infiltrate. Hospital service was contacted for admission for the alleged hypoxia. [facility] Medical History (Updated 11/09/21 @ 18:[address] Francois Mcelroy, ) Anxiety Asthma Hypertension Metastatic melanoma Pneumonia SVT (supraventricular tachycardia) Home Medications potassium chloride 20 mEq tablet,extended release(part/cryst) (Klor-Con M) 20 meq PO BID supplement 10/11/15 [History Last Taken 10/25/18] albuterol sulfate 90 mcg/actuation aerosol inhaler (Ventolin HFA) 2 puff inhalation Q4H PRN PRN Shortness Of Breath ##1 10/20/15 [Rx Last Taken 10/24/18] alprazolam 0.5 mg tablet 0.5 mg PO TID PRN PRN Anxiety 10/25/18 [History Last Taken 10/25/18] atenolol 50 mg tablet 100 mg PO BID bp 10/25/18 [History Last Taken 10/27/18] montelukast 10 mg tablet 10 mg PO QHS allergies 10/25/18 [History Last Taken 10/25/18] ropinirole 5 mg tablet 1 mg PO QHS restless legs 10/25/18 [History Last Taken 10/24/18 22:00] ergocalciferol (vitamin D2) 1,250 mcg (50,000 unit) capsule (Vitamin D2) 1,250 mcg PO QWEEK vitamin 07/08/21 [History Last Taken Unknown] fluticasone propionate 50 mcg/actuation nasal spray,suspension 1 spray intranasal BID allergies 07/08/21 [History Last Taken Unknown] furosemide 40 mg tablet 40 mg PO BID diuretic 07/08/21 [History Last Taken Unknown] oxycodone 20 mg tablet 20 mg PO Q6H pain 07/08/21 [History Last Taken 07/08/21 18:30 20] pregabalin 75 mg capsule 75 mg PO BID pain 07/08/21 [History Last Taken Unknown] diphenhydramine HCl 25 mg capsule (Benadryl) 50 mg Q6H PRN PRN Allergic Symptoms 07/09/21 [History Last Taken Unknown] omeprazole 20 mg capsule,delayed release 20 mg PO BID PRN Acid Reflux 07/09/21 [History Last Taken Unknown] polyethylene glycol 3350 17 gram oral powder packet (Miralax) 17 g PO DAILY PRN PRN Constipation 07/09/21 [History Last Taken Unknown] acetaminophen 500 mg tablet 1,000 mg PO TID PRN PRN Pain 10/16/21 [History Last Taken Unknown] cyclobenzaprine 10 mg tablet 10 mg PO BID PRN Muscle Spasm 10/16/21 [History Last Taken Unknown] doxycycline hyclate 100 mg tablet 100 mg PO BID 10/16/21 [History Last Taken Unknown] fluticasone 250 mcg-salmeterol 50 mcg/dose blistr powdr for inhalation (Advair Diskus) 1 inh inhalation BID 10/16/21 [History Last Taken Unknown] ipratropium 0.5 mg-albuterol 3 mg (2.5 mg base)/3 mL nebulization soln 3 ml inhalation Q6H PRN PRN Wheezing 10/16/21 [History Last Taken Unknown] promethazine 25 mg tablet 25 mg PO Q6H PRN PRN Nausea 10/16/21 [History Last Taken Unknown] Allergy/AdvReac Type Severity Reaction Status Date / Time acyclovir Allergy Unknown Verified 11/09/21 14:26 amlodipine Allergy Other Verified 11/09/21 14:26 ibuprofen [From Motrin] Allergy Swelling Verified 11/09/21 14:26 metoprolol Allergy Unknown Verified 11/09/21 14:26 propranolol Allergy Unknown Verified 11/09/21 14:26 regadenoson Allergy Other Verified 11/09/21 14:26 fluconazole AdvReac Rash Verified 11/09/21 14:26 meloxicam AdvReac Swelling Verified 11/09/21 14:26 nabumetone AdvReac Upset Verified 11/09/21 14:26 Stomach Family History Other Glioblastoma multiforme Surgical History H/O cervical spine surgery History of left heart catheterization (10/27/18) Social History Smoking Status: Never smoker ROS ROS Narrative Anxiety. Coughing up green phlegm. Gets a swollen gland under her right mandible and fullness of her right ear. Does get lower extremity edema. Denies any recent weight change. All review of systems were negative except as mentioned above in the history of present illness and the other review of systems. Vital Signs Vital Signs Vital Signs: 11/09/21 14:24 11/09/21 14:59 11/09/21 15:03 Temperature 36.6 C Temperature Source Temporal Pulse Rate 79 89 Respiratory Rate 18 22 H Respiratory Effort Normal Respiratory Depth Normal Respiratory Pattern Normal Blood Pressure 155/81 H 123/106 H Blood Pressure Mean 105 111 Pulse Ox 96 93 Oxygen Delivery Method Room Air Room Air Room Air 11/09/21 15:16 Temperature Temperature Source Pulse Rate Respiratory Rate Respiratory Effort Respiratory Depth Respiratory Pattern Blood Pressure Blood Pressure Mean Pulse Ox Oxygen Delivery Method Room Air Weight Weight: 93.44 kg Body Mass Index (BMI) 33.2 Physical Exam Const alert and no apparent distress HEENT HEENT Narrative: Right tympanic membrane clear without effusion nor erythema. Resp normal respiratory effort, no retractions and no use of accessory muscles Resp Narrative: Crackles in the left lower lobe Cardio regular rate, regular rhythm, S1 normal heart sound and S2 normal heart sound GI normal to inspection, nondistended, normoactive bowel sounds, soft to palpation, non-tender and non-distended Extremity normal to inspection Neuro oriented x3 Results Lab / Micro Data Attestation: I reviewed the patient's lab results. Result Diagrams: 11/09/21 15:12 11/09/21 15:12 Labs: Laboratory Results - last 24 hr 11/09/21 15:12: WBC 9.6, RBC 4.92, Hgb 12.4, Hct 39.1, MCV 79.5 L, MCH 25.2 L, MCHC 31.7 L, RDW Std Deviation 44.6 H, RDW Coeff of Shaina 15.8 H, Plt Count 211, MPV 9.9, Immature Gran % (Auto) 0.500, Neut % (Auto) 54.0, Lymph % (Auto) 35.5, [place] % (Auto) 7.5, Eos % (Auto) 2.2, Baso % (Auto) 0.3, Absolute Neuts (auto) 5.2, Absolute Lymphs (auto) 3.41, Nucleated RBC % 0 11/09/21 15:12: D-Dimer Quant (PE/DVT) 0.94 H* 11/09/21 15:12: Sodium 136, Potassium 3.8, Chloride 104, Carbon Dioxide 25.0, Anion Gap 7, BUN 12, Creatinine 1.15 H, Estim Creat Clear Calc 51.74, Est GFR (MDRD) Af Amer 63, Est GFR (MDRD) Non-Af 52 L, BUN/Creatinine Ratio 10.4, Glucose 206 H, Calcium 9.5, Troponin I High Sens 7 11/09/21 15:12: B-Natriuretic Peptide 75.7 Micro: Microbiology 11/09/21 15:45 Nasal Secretion SARS-CoV-2 Antigen (Rapid) - Final EKG Initial EKG: Attestation: I personally reviewed and interpreted this EKG as follows: Prior EKG tracings: available for review EKG Rhythm Intrepretation: Sinus Rhythm Radiology Impression Chest X-Ray 11/09/21 15:15 IMPRESSION: Left lower lobe pneumonia/atelectasis. Electronically Signed: Mike Soares MD at 15:47 EDT , Chest CTA 11/09/21 15:48 IMPRESSION: 1. Left lower lobe pneumonia. 2. No evidence of acute pulmonary embolism. 3. Question pulmonary arterial hypertension. Electronically Signed: Mike Soares MD at 16:40 EDT , Assessment & Plan Assessment/Plan (1) Dyspnea: PLAN: Chronic CT angiogram the chest was negative for PE but did show left lower lobe infiltrates. Has been present before. In the absence of a fever or white count might hold off on any antibiotics and I advised the emergency room physician to discontinue the antibiotics. Patient will be observed. Patient does have a virtual visit with a regional operations director for evaluation for sleep study. CAT scan did not question about pulmonary artery hypertension. Patient does drop her oxygen when she sleeps no that is concerning the patient may have underlying obstructive sleep apnea. Plan is to monitor her oxygen continuously to see if she would qualify for that overnight as well as an amatory pulse ox the following day. No antibiotics at this time. (2) Anxiety: PLAN: Complicates care. Patient kept repeating event that happened in [facility] where she had respiratory arrest but could not specify what occurred. She was attributing this to being off of her furosemide. Whether or not that is accurate I am not sure. and states that she was not cared for well last time that her oxygen was not assessed even though it appears that she was in here for issues in regards to polypharmacy. I did talk to her that we will continue with her home medications but if she has issues associate with his medications they may need to be held. She became upset with that but I told her that standard of care. Kept on revisiting respiratory failures and I told her and her friend at bedside that we are here to try to care for her that she is not being cast away. The friend wanted reassurance [facility] I told her friend that I cannot guarantee that whatsoever. I tried to reassure the patient and then became very direct that we are trying to care for her the best we can and we will monitor her and if anything changes we will certainly address it at that point time. She seemed to more comfortable although not completely anxiety free at that point time. Patient may continue with her home medications as she normally takes she has a unique schedule of medications. I told her that if she is not getting medications that she takes at home that she can let us know and that we can make changes. PLAN: Plan VTE prophylaxis: Not indicated as patient is observation status. If someone is able to bring her home medications from home then those could be continued while she is in the hospital. CODE STATUS: Addressed with the patient. Patient wished to be DNR Comfort Care arrest no intubation. Greater than 75 minutes of which greater than 50% of time was counseling the patient and her friend at bedside about hypoxia, anxiety. Charges/Coding Visit Charges OBSV E&M: 55678 Subsequent observation care L3
[2021-11-09 18:13] LABS: Troponin-I HS 5 pg/mL (3.0-54.0)
[2021-11-09] MEDS: Albuterol 2.5 MG/3 ML VIAL.NEB. INHALATION (20:00)
[2021-11-09] MEDS: Budesonide Respules 0.5 MG/2 ML AMPUL.NEB. INHALATION (20:00)
[2021-11-09] MEDS: Atenolol 100 MG Tablet PO (20:45)
[2021-11-09] MEDS: Fluticasone 0.05% 1 SPRAY NASAL.SRY NASAL (20:45)
[2021-11-09] MEDS: Pramipexole Di-HCl 0.5 MG Tablet PO (20:45)
[2021-11-09] MEDS: Pregabalin 75 MG Capsule PO (20:45)
[2021-11-09] MEDS: Potassium Chloride Oral Tablet 20 MEQ PO (20:46)
[2021-11-09] MEDS: Pantoprazole Sodium 20 MG Tablet PO (20:46)
[2021-11-09] MEDS: proMETHazine 25 MG Tablet PO (20:46)
[2021-11-09] MEDS: Montelukast 10 MG Tablet PO (20:46)
--- NOTE | 2021-11-09 20:53 | NURSING ---
Pt sitting up in bed, 97% on room air, respirations even and nonlabored, listing off all her home meds that she needs right now. Pt says she needs her 20mg oxycodone Q6H or she will need to leave. Message sent to Dr. Delvalle. Order had already been placed by admitting physician, being verified by pharmacy. Pt notified.
[2021-11-09] MEDS: oxyCODONE 5 MG Tablet 20 MG PO (21:07)
[2021-11-09] MEDS: DiphenhydrAMINE 25 MG Capsule 50 MG PO (21:07)
[2021-11-09] MEDS: ALPRAZolam 0.5 MG Tablet PO (21:08)
[2021-11-09] MEDS: Acetaminophen 500 MG Tablet 1000 MG PO (21:15)
[2021-11-10] VITALS (9 sets, daily range): BP systolic 120–155; BP diastolic 68–78; PULSE 68–90; RESP 16–21; TEMP 36.8–37; O2SAT 93–97
[2021-11-10] MEDS: oxyCODONE 5 MG Tablet 20 MG PO ×2 (06:42→12:07)
[2021-11-10] MEDS: Acetaminophen 500 MG Tablet 1000 MG PO ×2 (06:46→14:16)
[2021-11-10] MEDS: proMETHazine 25 MG Tablet PO ×2 (06:46→12:07)
[2021-11-10] MEDS: Budesonide Respules 0.5 MG/2 ML AMPUL.NEB. INHALATION (06:57)
[2021-11-10] MEDS: Albuterol 2.5 MG/3 ML VIAL.NEB. INHALATION ×2 (06:57→13:18)
--- NOTE | 2021-11-10 06:59 | EKG12_ITS ---
Test Reason : CHEST PAIN Blood Pressure : / mmHG Vent. Rate : 070 BPM Atrial Rate : 070 BPM P-R Int : 164 ms QRS Dur : 078 ms QT Int : 444 ms P-R-T Axes : 048 022 053 degrees QTc Int : 479 ms Normal sinus rhythm Normal ECG When compared with ECG of 09-NOV-2021 15:02, No significant change was found Confirmed by MEE CASTILLO, LANNY ([id number]), features editor RAMIREZ BECKMAN ([id number]) on 11/12/2021 2:08:16 PM Referred By: JUAN Confirmed By:LANNY CABAN MD
--- NOTE | 2021-11-10 06:59 | NURSING ---
Pt woke up complaining of severe chest pain and headache. Vital signs obtained, WNL. EKG obtained, showed NSR. PRN oxycodone, tylenol, and promethezine given. Respiratory at bedside giving breathing treatment.
--- NOTE | 2021-11-10 08:16 | NURSING ---
into patients room as alarming 87% spo2. noted on camera pt with eyes closed resting quietly. knocked on door pt opened eyes. spo2 noted to increase to 94-95% with extensive conversations and sentences. no distress noted. pt asking about changing when lyrica due, informed would discuss with Primary RN. Emilie RN aware of above.
[2021-11-10] MEDS: Pregabalin 75 MG Capsule PO ×2 (09:12→14:17)
[2021-11-10] MEDS: Furosemide 40 MG Tablet PO (09:13)
[2021-11-10] MEDS: Fluticasone 0.05% 1 SPRAY NASAL.SRY NASAL (09:14)
[2021-11-10] MEDS: Atenolol 100 MG Tablet PO (09:14)
[2021-11-10] MEDS: Potassium Chloride Oral Tablet 20 MEQ PO (09:14)
--- NOTE | 2021-11-10 11:55 | CASEMGMT ---
Addendum entered by Radha Glover 11/10/21 13:50: RN CM in to pt room to make aware that an overnight oximetry study was ordered for patient. Pt is agreeable to [employer]. She is aware that they will be in contact with her for the study. She states she is having chest constriction, updated nurse. Faxed order to [employer] at this time. Original Note: Noted pt did not qualify for home oxygen.
[2021-11-10] MEDS: Pantoprazole Sodium 20 MG Tablet PO (12:08)
--- NOTE | 2021-11-10 13:33 | DS.PCM_ITS ---
Providers Date of Admission: 11/09/21 Primary Care Physician: Dr. Duran Campos MD Reason For Visit: DYSPNEA Diagnosis Discharge Diagnosis (1) Dyspnea: Status: Acute Code(s): R06.00 - Dyspnea, unspecified Plan: Chronic CT angiogram the chest was negative for PE but did show left lower lobe infiltrates. Has been present before. In the absence of a fever or white count might hold off on any antibiotics and I advised the emergency room physician to discontinue the antibiotics. Patient will be observed. Patient does have a virtual visit with a mattress inspector for evaluation for sleep study. CAT scan did not question about pulmonary artery hypertension. Patient does drop her oxygen when she sleeps no that is concerning the patient may have underlying obstructive sleep apnea. Plan is to monitor her oxygen continuously to see if she would qualify for that overnight as well as an amatory pulse ox the following day. No antibiotics at this time. Oxygen was observed overnight and patient got as low as 89%. Patient amatory pulse ox that was unremarkable as well. There is no need for oxygen at this time and patient will not go home with oxygen and she is aware of this. Patient does require reassurance but does seem comforted by this. (2) Anxiety: Status: Acute Code(s): F41.9 - Anxiety disorder, unspecified Plan: Complicates care. Patient kept repeating event that happened in [facility] where she had respiratory arrest but could not specify what occurred. She was attributing this to being off of her furosemide. Whether or not that is accurate I am not sure. and states that she was not cared for well last time that her oxygen was not assessed even though it appears that she was in here for issues in regards to polypharmacy. I did talk to her that we will continue with her home medications but if she has issues associate with his medications they may need to be held. She became upset with that but I told her that standard of care. Kept on revisiting respiratory failures and I told her and her friend at bedside that we are here to try to care for her that she is not being cast away. The friend wanted reassurance that the patient is not in a car in the [place] I told her friend that I cannot guarantee that whatsoever. I tried to reassure the patient and then became very direct that we are trying to care for her the best we can and we will monitor her and if anything changes we will certainly address it at that point time. She seemed to more comfortable although not completely anxiety free at that point time. Patient may continue with her home medications as she normally takes she has a unique schedule of medications. I told her that if she is not getting medications that she takes at home that she can let us know and that we can make changes. (3) Chest pain: Status: Acute Code(s): R07.9 - Chest pain, unspecified Plan: Patient was complaining of chest pain that feels like her heart is being squeezed. That is worse when he takes in deep breaths. Reviewing patient did have a cardiac catheterization from October 2018 that showed normal vessels. Given atypical presentation and prior history of normal heart catheterization no additional work-up is necessary. Plan VTE prophylaxis: Not indicated as patient is observation status. If someone is able to bring her home medications from home then those could be continued while she is in the hospital. CODE STATUS: Addressed with the patient. Patient wished to be DNR Comfort Care arrest no intubation. Medications at Discharge Home Medications potassium chloride 20 mEq tablet,extended release(part/cryst) (Klor-Con M) 40 meq PO BID supplement 10/11/15 albuterol sulfate 90 mcg/actuation aerosol inhaler (Ventolin HFA) 2 puff inhalation Q4H PRN PRN Shortness Of Breath ##1 10/20/15 alprazolam 0.5 mg tablet 0.5 mg PO TID PRN PRN Anxiety 10/25/18 montelukast 10 mg tablet 10 mg PO QHS allergies 10/25/18 ergocalciferol (vitamin D2) 1,250 mcg (50,000 unit) capsule (Vitamin D2) 1,250 mcg PO QWEEK vitamin 07/08/21 fluticasone propionate 50 mcg/actuation nasal spray,suspension 1 spray intranasal BID allergies 07/08/21 furosemide 40 mg tablet 40 mg PO BID diuretic 07/08/21 oxycodone 20 mg tablet 20 mg PO Q6H PRN Pain 07/08/21 diphenhydramine HCl 25 mg capsule (Benadryl) 50 mg BID 07/09/21 omeprazole 20 mg capsule,delayed release 20 mg PO BID GERD 07/09/21 polyethylene glycol 3350 17 gram oral powder packet (Miralax) 17 g PO DAILY PRN PRN Constipation 07/09/21 acetaminophen 500 mg tablet 1,000 mg PO Q4H PRN Pain 10/16/21 fluticasone 250 mcg-salmeterol 50 mcg/dose blistr powdr for inhalation (Advair Diskus) 1 inh inhalation BID 10/16/21 ipratropium 0.5 mg-albuterol 3 mg (2.5 mg base)/3 mL nebulization soln 3 ml inhalation Q6H PRN PRN Wheezing 10/16/21 promethazine 25 mg tablet 25 mg PO Q4H PRN Nausea 10/16/21 gctygrj-oxiblczsovrhn-ttzwozcc 250 mg-250 mg-65 mg tablet (Migraine Relief) 2 tab PO BID PRN Headache 11/09/21 atenolol 100 mg tablet 100 mg PO BID HEART 11/09/21 pregabalin 75 mg capsule 75 mg PO Q6H PAIN 11/09/21 ropinirole 1 mg tablet 1 mg PO QHS RLS 11/09/21 Physical Exam Const alert and no apparent distress Cardio regular rate, regular rhythm, S1 normal heart sound and S2 normal heart sound GI normal to inspection, nondistended, normoactive bowel sounds, soft to palpation and non-tender Weight / BMI Weight Weight: 93.531 kg Body Mass Index (BMI) 33.3 ABG / Lab / Microbiology Data Result Diagrams: 11/09/21 15:12 11/09/21 15:12 Laboratory: Laboratory Results - last 24 hr 11/09/21 15:12: WBC 9.6, RBC 4.92, Hgb 12.4, Hct 39.1, MCV 79.5 L, MCH 25.2 L, MCHC 31.7 L, RDW Std Deviation 44.6 H, RDW Coeff of Shaina 15.8 H, Plt Count 211, MPV 9.9, Immature Gran % (Auto) 0.500, Neut % (Auto) 54.0, Lymph % (Auto) 35.5, [place] % (Auto) 7.5, Eos % (Auto) 2.2, Baso % (Auto) 0.3, Absolute Neuts (auto) 5.2, Absolute Lymphs (auto) 3.41, Nucleated RBC % 0 11/09/21 15:12: D-Dimer Quant (PE/DVT) 0.94 H* 11/09/21 15:12: Sodium 136, Potassium 3.8, Chloride 104, Carbon Dioxide 25.0, Anion Gap 7, BUN 12, Creatinine 1.15 H, Estim Creat Clear Calc 51.74, Est GFR (MDRD) Af Amer 63, Est GFR (MDRD) Non-Af 52 L, BUN/Creatinine Ratio 10.4, Glucose 206 H, Calcium 9.5, Troponin I High Sens 7 11/09/21 15:12: B-Natriuretic Peptide 75.7 11/09/21 17:45: Troponin I High Sens 5 Microbiology: Microbiology 11/09/21 15:45 Nasal Secretion SARS-CoV-2 Antigen (Rapid) - Final Radiography Diagnostic Testing: Radiology Impression Chest X-Ray 11/09/21 15:15 IMPRESSION: Left lower lobe pneumonia/atelectasis. Electronically Signed: Mike Soares MD at 15:47 EDT , Chest CTA 11/09/21 15:48 IMPRESSION: 1. Left lower lobe pneumonia. 2. No evidence of acute pulmonary embolism. 3. Question pulmonary arterial hypertension. Electronically Signed: Mike Soares MD at 16:40 EDT , D/C Instructions Discharge Diet: No restrictions Call your doctor if you observe: Fever of 101 or Higher and Shortness of breath Meaningful Use Info Meaningful Use Diagnoses (Choose all that apply): None applicable Discharge Plan Admission Admit Date/Time: 11/09/21 18:03 Primary Reason for Your Visit: shortness of breath Attending Provider: Francois Mcelroy Primary Care Provider: Duran Campos Discharge Orders/Prescriptions Prescriptions: Continued potassium chloride [Klor-Con M20] 20 MEQ tablet 40 meq PO BID albuterol sulfate [Ventolin HFA] 1 INHALER inhaler 2 puff inhalation Q4H PRN PRN (Reason: Shortness Of Breath) Qty: 1 0RF montelukast 10 MG tablet 10 mg PO QHS alprazolam 0.5 MG tablet 0.5 mg PO TID PRN PRN (Reason: Anxiety) Label Comments: TAKE 1 TABLET BY MOUTH UP TO 3 TIMES DAILY NEEDED ergocalciferol (vitamin D2) [Vitamin D2] 1,250 mcg (50,000 unit) Capsule 1,250 mcg PO QWEEK Rx Instructions: Wed & Sat fluticasone propionate 50 mcg/actuation [place],Suspension 1 spray INTRANASAL BID furosemide 40 MG tablet 40 mg PO BID oxycodone 20 mg Tablet 20 mg PO Q6H PRN (Reason: Pain) omeprazole 20 mg Capsule,Delayed Release(Dr/Ec) 20 mg PO BID diphenhydramine HCl [Benadryl] 25 mg Capsule 50 mg BID polyethylene glycol 3350 [Miralax] 17 gram Powder In Packet 17 g PO DAILY PRN PRN (Reason: Constipation) fluticasone propion-salmeterol [Advair Diskus] 250-50 mcg/dose Blister With Device 1 inh INHALATION BID ipratropium-albuterol 0.5 mg-3 mg(2.5 mg base)/3 mL solution for nebulization 3 ml inhalation Q6H PRN PRN (Reason: Wheezing) acetaminophen 500 mg Tablet 1,000 mg PO Q4H PRN (Reason: Pain) promethazine 25 MG tablet 25 mg PO Q4H PRN (Reason: Nausea) atenolol 100 mg tablet 100 mg PO BID Label Comments: TAKE 1 TABLET BY MOUTH TWICE DAILY pregabalin 75 mg capsule 75 mg PO Q6H Label Comments: TAKE 1 CAPSULE BY MOUTH IN THE MORNING, 1 IN THE AFTERNOON, AND 100 MG IN THE EVENING (PATIENT SHOULD HAVE 100 MG AT HOME) ropinirole 1 mg tablet 1 mg PO QHS Label Comments: TAKE 1 TABLET BY MOUTH ONCE DAILY AT BEDTIME Migraine Relief 250-250-65 mg tablet 2 tab PO BID PRN (Reason: Headache) Label Comments: TAKE 2 TABLETS BY MOUTH EVERY 12 HOURS NEEDED DO NOT USE MORE THAN 2 DAYS PER WEEK Referrals / Follow Up: Duran Campos MD [Primary Care Provider] - Within 2 Weeks Disposition Disposition (needs filled in before D/C Order can be placed): Home, Self Care Charges/Coding Visit Charges OBSV E&M: 44107 Observation care discharge
[2021-11-10] MEDS: ALPRAZolam 0.5 MG Tablet PO (14:17)
== END 2021-11-10 16:15 | disposition home or self-care (01) ==
LOC: ED 14:53 → MS3 18:10
PROVIDERS: Emergency Provider Student in an Organized Health Care Education/Training Program; PCP Family Medicine
DX: R06.00 Dyspnea, unspecified (principal); I47.1 Supraventricular tachycardia; R07.9 Chest pain, unspecified; F41.9 Anxiety disorder, unspecified; I10 Essential (primary) hypertension; Z79.899 Other long term (current) drug therapy; Z79.82 Long term (current) use of aspirin; Z85.820 Personal history of malignant melanoma of skin; J45.909 Unspecified asthma, uncomplicated
CPT/HCPCS: 71045; 71275; 80048; 83880; 84484; 85025; 85379; 87811; 93005; 94640; 94762; 96365; 96366; 96367; 99218; 99285; J7030; J7040; Q9967; A4216; G0378

== ENCOUNTER 2022-08-20 17:48 | Emergency (ER) | payer MEDICAID, SELFPAY ==
[2022-08-20 17:50] VITALS: BP 139/74; PULSE 67; RESP 16; TEMP 36.8; O2SAT 100
[2022-08-20 17:57] VITALS: BMI 34.8
--- NOTE | 2022-08-20 18:08 | EX.ED.DYSGE1 ---
HPI History of Present Illness Chief Complaint: Abd Pain [facility] Medical History (Updated 08/20/22 @ 20:[address] Vance Saxena, DO) Anxiety Asthma Chest pain Dyspnea Hypertension Metastatic melanoma Metastatic melanoma Pneumonia Seasonal allergies SVT (supraventricular tachycardia) Home Medications potassium chloride 20 mEq tablet,extended release(part/cryst) (Klor-Con M) 40 meq PO BID supplement 10/11/15 [History Last Taken 11/09/21] albuterol sulfate 90 mcg/actuation aerosol inhaler (Ventolin HFA) 2 puff inhalation Q4H PRN PRN Shortness Of Breath ##1 10/20/15 [Rx Last Taken 11/09/21] alprazolam 0.5 mg tablet 0.5 mg PO TID PRN PRN Anxiety 10/25/18 [History Last Taken 11/09/21] montelukast 10 mg tablet 10 mg PO QHS allergies 10/25/18 [History Last Taken 11/08/21] ergocalciferol (vitamin D2) 1,250 mcg (50,000 unit) capsule (Vitamin D2) 1,250 mcg PO QWEEK vitamin 07/08/21 [History Last Taken 11/07/21] fluticasone propionate 50 mcg/actuation nasal spray,suspension 1 spray intranasal BID allergies 07/08/21 [History Last Taken 11/09/21] furosemide 40 mg tablet 40 mg PO BID diuretic 07/08/21 [History Last Taken 11/09/21] oxycodone 20 mg tablet 10 mg PO Q6H PRN Pain 07/08/21 [History Last Taken 11/09/21] diphenhydramine HCl 25 mg capsule (Benadryl) 50 mg BID 07/09/21 [History Last Taken 11/09/21] omeprazole 20 mg capsule,delayed release 20 mg PO BID GERD 07/09/21 [History Last Taken 11/09/21] polyethylene glycol 3350 17 gram oral powder packet (Miralax) 17 g PO DAILY PRN PRN Constipation 07/09/21 [History Last Taken Unknown] acetaminophen 500 mg tablet 1,000 mg PO Q4H PRN Pain 10/16/21 [History Last Taken 11/09/21] fluticasone 250 mcg-salmeterol 50 mcg/dose blistr powdr for inhalation (Advair Diskus) 1 inh inhalation BID 10/16/21 [History Last Taken 11/09/21] ipratropium 0.5 mg-albuterol 3 mg (2.5 mg base)/3 mL nebulization soln 3 ml inhalation Q6H PRN PRN Wheezing 10/16/21 [History Last Taken 11/09/21] promethazine 25 mg tablet 25 mg PO Q4H PRN Nausea 10/16/21 [History Last Taken 11/09/21] tnjitqd-xhrlmafujjbup-zydcyojr 250 mg-250 mg-65 mg tablet (Migraine Relief) 2 tab PO BID PRN Headache 11/09/21 [History Last Taken Unknown] atenolol 100 mg tablet 100 mg PO BID HEART 11/09/21 [History Last Taken 11/09/21] pregabalin 75 mg capsule 75 mg PO Q6H PAIN 11/09/21 [History Last Taken 11/09/21] ropinirole 1 mg tablet 1 mg PO QHS RLS 11/09/21 [History Last Taken 11/08/21] sulfamethoxazole 800 mg-trimethoprim 160 mg tablet (Bactrim DS) 1 tab PO BID 7 days #14 tabs 08/20/22 [Rx Last Taken Unknown] Allergy/AdvReac Type Severity Reaction Status Date / Time acyclovir Allergy Unknown Verified 08/20/22 17:52 amlodipine Allergy Other Verified 08/20/22 17:52 ibuprofen [From Motrin] Allergy Swelling Verified 08/20/22 17:52 metoprolol Allergy Unknown Verified 08/20/22 17:52 propranolol Allergy Unknown Verified 08/20/22 17:52 regadenoson Allergy Other Verified 08/20/22 17:52 fluconazole AdvReac Rash Verified 08/20/22 17:52 meloxicam AdvReac Swelling Verified 08/20/22 17:52 nabumetone AdvReac Upset Verified 08/20/22 17:52 Stomach Family History Other Glioblastoma multiforme Surgical History H/O cervical spine surgery History of left heart catheterization (10/27/18) Social History Smoking Status: Never smoker EXAM Physical Exam Const Vital Signs: 08/20/22 17:50 Temperature 98.2 F Temperature Source Temporal Pulse Rate 67 Respiratory Rate 16 Blood Pressure 139/74 H Blood Pressure Mean 95 Pulse Ox 100 Oxygen Delivery Method Room Air [facility] Narrative Medical decision making narrative: HISTORY OF PRESENT ILLNESS: 57-year-old female here for hematuria. Notes right flank pain, right-sided abdominal pain. The patient further states she has had right flank pain for last week and a half. Rating to the groin. Think she may have passed kidney stones and has had waxing and waning hematuria. She denies any fever. She does note dysuria increased frequency and urgency. She notes lower abdominal pain as well. She denies any vomiting. Does note nausea. Denies any fever. Last bowel movement was yesterday. She denies any melena hematochezia. She is on a blood thinner. She does note diffuse weakness and shortness of breath but denies chest pain. The patient denies recent surgery in the last 4 weeks or immobilization in the last 3 days, denies previous diagnosis of DVT or PE, hemoptysis, unilateral leg swelling or malignancy with treatment the last 6 months. No estrogen use noted. REVIEW OF SYSTEMS: Pertinent positives: Flank pain, hematuria Pertinent negatives: Syncope, fever, PHYSICAL EXAM: Nursing triage notes reviewed, Vital signs reviewed Constitutional: please see [facility] HENT: MMM Eyes: Pupils equal round and reactive to light, Extraocular muscles intact Neck: No stridor, no JVD, full neck ROM Lungs: Clear to auscultation, No wheezing or rales. No increased work of breathing, no conversational dyspnea, no accessory muscle use, no nasal flaring. No respiratory distress noted Heart: Regular rate and rhythm, No murmurs, No rubs and No gallops, 2+ distal pulses (radial, femoral, posterior tibial) in all extremities Abdomen: Soft, there is no tenderness, rigidity, rebound or guarding, no obvious peritoneal signs, no palpable pulsatile abdominal masses, no auscultated abdominal bruit : Right CVA tenderness Extremities: No edema Neuro: No focal neurological deficits, cranial nerves II through XII intact, 5/5 strength in all extremities. Intact sensation to light touch in all extremities, 2+ reflexes bilateral patella tendons. Normal gait. No ataxia. Skin: No rash or lesions noted MEDICAL DECISION MAKING: Chief Complaint: Flank pain External records reviewed: Negative cardiac catheterization 2019 [facility] Narrative: Patient was hemodynamically stable, afebrile, nontoxic-appearing. She did have right CVA tenderness. Abdominal exam was benign and not consistent with acute surgical process. I considered the following differential diagnosis: Nephrolithiasis, pyelonephritis, UTI, AAA I obtained a broad lab and imaging work-up to further elucidate the etiology the patient's complaints. I treated the patient symptomatically with IV Toradol, fluids, Phenergan. Labs with evidence of UTI and hematuria with flank pain this likely represents pyelonephritis. CT scan showed no evidence of nephrolithiasis. In terms of patient's diffuse weakness and shortness of breath there is no sign of pneumonia, myocardial schema, arrhythmia, anemia. She had a low risk Wells score and as such I am not concerned about pulmonary embolism. I gave the patient Bactrim for home-going and encouraged her to continue take her home narcotic pain medicine. Encouraged her to follow with her primary care physician at the next available appointment. Strict return precautions were discussed. Patient agreed with the plan. Factors affecting care: History of SVT, anxiety, asthma, hypertension, metastatic melanoma Social determinants of health: Never smoker History obtained from others: None Shared decision making: I will have a discussion with the patient and or visitors regarding risk/benefits of further testing or admission. They will be made aware of of the risk/benefits inherent in this decision they will be given the opportunity to voice understanding. Consults: None Lab Data Attestation: I reviewed the patient's lab results. Lab results narrative: EKG with normal sinus rhythm, prolonged QT, normal axis, no STEMI CBC without leukocytosis, severe anemia, no thrombocytopenia. BMP with no significant electrolyte abnormalities, no anion gap to suggest endorgan hypoperfusion, baseline CKD, Troponin is negative, no evidence of myocardial ischemia Lipase mildly elevated suggestive of pancreatic inflammation however this does not qualify for acute pancreatitis UA with evidence of infection Labs: Laboratory Results - last 24 hr 08/20/22 08/20/22 08/20/22 18:53 18:57 18:57 WBC 7.1 RBC 5.82 H Hgb 11.1 L Hct 42.2 MCV 72.5 L MCH 19.1 L MCHC 26.3 L RDW Std Deviation 51.3 H RDW Coeff of Shaina 21.3 H Plt Count 265 MPV 10.9 Immature Gran % (Auto) 0.300 Neut % (Auto) 47.9 Lymph % (Auto) 38.0 Emery % (Auto) 11.5 H Eos % (Auto) 1.7 Baso % (Auto) 0.6 Absolute Neuts (auto) 3.4 Absolute Lymphs (auto) 2.70 Nucleated RBC % 0.3 Differential Comment SCANNED Polychromasia RARE Hypochromasia 3+ Anisocytosis 2+ Target Cells RARE Sodium 139 Potassium 3.5 Chloride 100 Carbon Dioxide 32.0 Anion Gap 7 BUN 13 Creatinine 1.34 H Estim Creat Clear Calc 43.88 Est GFR (MDRD) Af Amer 53 L Est GFR (MDRD) Non-Af 44 L BUN/Creatinine Ratio 9.7 L Glucose 133 H Calcium 9.4 Troponin I High Sens 10 Lipase 79 H Urine Color Yellow Urine Clarity Clear Urine pH 7.0 Ur Specific [place] 1.010 Urine Protein Negative Urine Glucose (UA) Normal Urine Ketones Negative Urine Occult Blood 10 H Urine Nitrite Negative Urine Bilirubin Negative Urine Urobilinogen Normal Ur Leukocyte Esterase 500 H Urine RBC 0 SEEN Urine WBC 10-25 SEEN Ur Squamous Epith Cells 0-5 SEEN Urine Bacteria RARE Urine Mucus 0 SEEN Radiography Chest X-Ray - ED: Read by ED Physician Diagnostic Testing: Clinical Impression(s) from Imaging Studies Chest X-Ray 08/20/22 19:10 IMPRESSION: Borderline cardiac shadow. Electronically Signed: Elías Muniz DO at 19:33 EDT , Abdomen/Pelvis CT 08/20/22 19:32 IMPRESSION: Nonobstructive right renal stone. Electronically Signed: Elías Muniz DO at 19:53 EDT , I have personally reviewed the patient's chest x-ray. Chest x-ray is unremarkable for pulmonary edema, pneumothorax, pneumonia or focal cardiopulmonary abnormality. Discharge Plan Triage Chief Complaint: Abd Pain ED Provider: Vance Saxena Dx/Rx/DC Orders Clinical Impression: Pyelonephritis Instructions: ED Pyelonephritis, Female (Adult) Prescriptions: New sulfamethoxazole-trimethoprim [Bactrim DS] 800-160 mg tablet 1 tab PO BID 7 Days Qty: 14 0RF No Action potassium chloride [Klor-Con M20] 20 MEQ tablet 40 meq PO BID albuterol sulfate [Ventolin HFA] 1 INHALER inhaler 2 puff inhalation Q4H PRN PRN (Reason: Shortness Of Breath) Qty: 1 0RF montelukast 10 MG tablet 10 mg PO QHS alprazolam 0.5 MG tablet 0.5 mg PO TID PRN PRN (Reason: Anxiety) Label Comments: TAKE 1 TABLET BY MOUTH UP TO 3 TIMES DAILY NEEDED ergocalciferol (vitamin D2) [Vitamin D2] 1,250 mcg (50,000 unit) Capsule 1,250 mcg PO QWEEK Rx Instructions: Wed & Sat fluticasone propionate 50 mcg/actuation [place],Suspension 1 spray INTRANASAL BID furosemide 40 MG tablet 40 mg PO BID oxycodone 20 mg Tablet 10 mg PO Q6H PRN (Reason: Pain) omeprazole 20 mg Capsule,Delayed Release(Dr/Ec) 20 mg PO BID diphenhydramine HCl [Benadryl] 25 mg Capsule 50 mg BID polyethylene glycol 3350 [Miralax] 17 gram Powder In Packet 17 g PO DAILY PRN PRN (Reason: Constipation) fluticasone propion-salmeterol [Advair Diskus] 250-50 mcg/dose Blister With Device 1 inh INHALATION BID ipratropium-albuterol 0.5 mg-3 mg(2.5 mg base)/3 mL solution for nebulization 3 ml inhalation Q6H PRN PRN (Reason: Wheezing) acetaminophen 500 mg Tablet 1,000 mg PO Q4H PRN (Reason: Pain) promethazine 25 MG tablet 25 mg PO Q4H PRN (Reason: Nausea) atenolol 100 mg tablet 100 mg PO BID Label Comments: TAKE 1 TABLET BY MOUTH TWICE DAILY pregabalin 75 mg capsule 75 mg PO Q6H Label Comments: TAKE 1 CAPSULE BY MOUTH IN THE MORNING, 1 IN THE AFTERNOON, AND 100 MG IN THE EVENING (PATIENT SHOULD HAVE 100 MG AT HOME) ropinirole 1 mg tablet 1 mg PO QHS Label Comments: TAKE 1 TABLET BY MOUTH ONCE DAILY AT BEDTIME Migraine Relief 250-250-65 mg tablet 2 tab PO BID PRN (Reason: Headache) Label Comments: TAKE 2 TABLETS BY MOUTH EVERY 12 HOURS NEEDED DO NOT USE MORE THAN 2 DAYS PER WEEK Primary Care Provider: Duran Campos Referrals: Duran Campos MD [Primary Care Provider] - Activity Restrictions/Additional Instructions: Thank you for trusting us with your care today! Please take Tylenol (2 pills, 650 mg), ibuprofen (2 pills, 400 mg) every 6 hours as needed for pain and fever control. Please take antibiotics until course complete Please return to the emergency department if your symptoms change or worsen. Specifically if develop nausea, vomiting unable to take antibiotics by mouth. If you lose consciousness. Please follow with your primary care physician for further outpatient evaluation and management. Disposition Disposition: Home, Self Care
--- NOTE | 2022-08-20 18:59 | EKG12_ITS ---
Test Reason : DYSRHYTHMIA Blood Pressure : / mmHG Vent. Rate : 063 BPM Atrial Rate : 063 BPM P-R Int : 166 ms QRS Dur : 090 ms QT Int : 472 ms P-R-T Axes : 046 085 029 degrees QTc Int : 483 ms Normal sinus rhythm Nonspecific ST and T wave abnormality Prolonged QT Abnormal ECG Confirmed by MEE CASTILLO, LANNY ([id number]), publishing editor RAMIREZ BECKMAN ([id number]) on 08/23/2022 11:35:36 AM Referred By: JAMARCUS Confirmed By:LANNY CABAN MD
[2022-08-20 19:06] LABS: Mucous, Urine 0 SEEN /hpf (<or=2+); Red Blood Cells-Urine 0 SEEN /hpf (0-5)
[2022-08-20 19:09] LABS: Color, Urine Yellow (Yellow); Glucose, Dipstick Normal (Normal); Ketone-Dipstick Negative (Negative); Leukocyte Esterase-Dipstick 500 /ul (Negative); Nitrite-Dipstick Negative (Negative); Occult Blood-Urine 10 /ul (Negative); Protein-Dipstick Negative (Negative); Urine Bilirubin Dipstick Negative (Negative); Urine Clarity Clear (Clear); Urine Urobilinogen Normal (Normal)
[2022-08-20] MEDS: 0.9% Normal Saline 1,000 ML 1000 ML IV (19:10)
--- NOTE | 2022-08-20 19:10 | RAD_ITS ---
INDICATION: Weakness, shortness of EXAMINATION/TECHNIQUE: X-RAY - XR Chest 1 View COMPARISON: FINDINGS: LINES/DEVICES: None. LUNGS: No consolidation, edema or effusion. No pneumothorax. MEDIASTINUM AND CARDIOVASCULAR STRUCTURES: Cardiac silhouette is borderline in size. Central airways and mediastinal contour are unremarkable. BONES AND SOFT TISSUES: Lower cervical surgical fusion.. RAD/Chest 1 View (Portable) IMPRESSION: Borderline cardiac shadow. Electronically Signed: Elías Muniz DO at 19:33 EDT ,
[2022-08-20 19:11] LABS: Absolute Neutrophil Count 3.4 X10^3/uL (2.0-7.7); Basophil# 0.04 X10^3/uL; Basophil% 0.6 % (0-1); Eosinophil# 0.12 X10^3/uL; Eosinophils% 1.7 % (0-5); Hematocrit 42.2 % (37-47); Hemoglobin 11.1 g/dL (12.0-15.0); Mean Corp Hgb Conc 26.3 g/dL (32-36); Mean Corpuscular Hgb 19.1 pg (27.0-32.0); Mean Corpuscular Volume 72.5 fL (81-99); Mean Platelet Vol. 10.9 fl (6.2-12.0); Monocyte# 0.82 X10^3/uL; Monocyte% 11.5 % (0-10); NRBC Flagged by Analyzer 0.3 % (0-5); Neutrophil # 3.41 X10^3/uL (2.7-7.7); Neutrophil % 47.9 % (47-70); POSITIVE MORPHOLOGY YES; Platelet Count 265 K/mm3 (150-450); RBC Distribution Width CV 21.3 % (11.6-14.6); RBC Distribution Width SD 51.3 fl (35.1-43.9); Red Blood Count 5.82 M/mm3 (4.2-5.4); White Blood Count 7.1 K/mm3 (4.4-11.0)
[2022-08-20 19:12] LABS: Differential Indicated SCAN CRITERIA MET
[2022-08-20 19:16] LABS: Bacteria RARE /hpf (None Seen); Squamous Epithelial Cells - UA 0-5 SEEN /hpf (5-10); White Blood Cells 10-25 SEEN /hpf (0-5)
[2022-08-20 19:26] LABS: Anion Gap 7 (5-15); BUN 13 mg/dL (7-18); BUN/Creat Ratio 9.7 RATIO (10-20); Calcium,Total 9.4 mg/dL (8.5-10.1); Chloride 100 mmol/L (98-107); Creatinine, Serum 1.34 mg/dL (0.55-1.02); EST Glomerular Filtration Rate 44 mL/min (>60); Est Glom Filt Rate - Afr Amer 53 mL/min (>60); Estimated Creatinine Clearance 43.88 ml/min; Glucose 133 mg/dL (74-106); Lipase 79 U/L (13-75); Potassium 3.5 mmol/L (3.5-5.1); Sodium Level 139 mmol/L (136-145); Troponin-I HS 10 pg/mL (3.0-54.0)
[2022-08-20 19:30] LABS: Anisocytosis 2+; Differential Comment SCANNED; Polychromasia RARE
[2022-08-20 19:31] LABS: Hypochromasia 3+; Target Cells RARE
--- NOTE | 2022-08-20 19:32 | CT_ITS ---
STUDY: CT ABDOMEN AND PELVIS WITHOUT CONTRAST REASON FOR EXAM: Female, 57 years old. Right flank pain rule out nephrolithiasis RADIATION DOSAGE (If Supplied By Facility): CTDIvol = ( 20.35 ) mGy, DLP = ( 1108.15 ) mGycm TECHNIQUE: Transaxial images were obtained from the dome of the diaphragm to the symphysis pubis without oral contrast, and without intravenous contrast. Sagittal and coronal images were reconstructed. Individualized dose optimization techniques were used for this CT. COMPARISON: None. FINDINGS: The visualized lung bases are unremarkable. The visualized portions of the heart are within normal limits. Normal liver. Normal gallbladder and extrahepatic biliary system. Normal spleen. Normal pancreas. Normal bilateral adrenal glands. 4 mm stone in the right kidney. Normal left kidney. Normal visualized stomach. Normal small intestine. Normal colon. The appendix is visualized and appears normal. Normal abdominal aorta. Normal inferior vena cava. Normal retroperitoneum. Normal urinary bladder. Normal abdominal wall. Normal osseous structures. CT/Abdomen/Pelvis without Cont IMPRESSION: Nonobstructive right renal stone. Electronically Signed: Elías Muniz DO at 19:53 EDT Reading Location ID and State: [facility] / [place] Tel [phone], Service support ,
[2022-08-20] MEDS: proMETHazine 25 MG/ML Syringe IM (19:43)
[2022-08-20 20:15] VITALS: O2SAT 94
[2022-08-20] MEDS: Ketorolac 15 MG/ML Vial IV (20:42)
[2022-08-20] MEDS: Smz/Tmp Ds Tablet 1 TABLET PO (20:43)
== END 2022-08-20 20:53 | disposition home or self-care (01) ==
PROVIDERS: Emergency Provider Emergency Medicine; PCP Family Medicine; Visit Provider Emergency Medicine
DX: N12 Tubulo-interstitial nephritis, not specified as acute or chronic (principal); I10 Essential (primary) hypertension; R31.9 Hematuria, unspecified; F41.9 Anxiety disorder, unspecified; R53.1 Weakness; J45.909 Unspecified asthma, uncomplicated
CPT/HCPCS: J2405; 71045; 74176; 80048; 81001; 83690; 84484; 85025; 93005; 96361; 96372; 96374; 99283; J7030; A4216

== ENCOUNTER 2022-09-01 12:44 | Inpatient (IN) | payer MEDICAID, SELFPAY ==
[2022-09-01] VITALS (15 sets, daily range): BP systolic 137–170; BP diastolic 77–93; PULSE 59–77; RESP 16–21; TEMP 36.1–36.7; O2SAT 87–97; BMI 33.0; BMI 31.4
--- NOTE | 2022-09-01 13:37 | EDS_ITS ---
HPI History of Present Illness Chief Complaint: Shortness of Breath Informant: patient Onset/Context/Timing Onset: Days Context: gradual Timing: Continuous Quality: Positive for Dyspnea on exertion Worsened by: Exertion Relieved by: Rest Associated Symptoms cough, rhinorrhea, ear pain, fever, sore throat, yellow sputum and green sputum Narrative Narrative: Patient presents with shortness of breath that has been getting worse over the past few days. Patient states it is gradually getting worse. Patient states her breathing is worse with any exertion. Patient states it gets better with rest. Patient states she is coughing up some yellow and green sputum. Patient also admits to some rhinorrhea and sore throat. Patient also admits to some bilateral ear pain but worse on the right. Patient states she had a fever up to 101.4 at home. Patient states she has been taking Tylenol for this which has been helping. Patient admits to some lower substernal and right parasternal pain in her chest. Patient states she normally wears oxygen at nighttime at home. Patient states that over the past few days she has been wearing this during the day as well. PE Risk Factors: Positive for Cancer; Negative for OCP + Smoking + > 35, Prior DVT or PE, Recent immobilization or Recent surgery [facility] Medical History Anxiety Asthma Chest pain Dyspnea Hypertension Metastatic melanoma Metastatic melanoma Pneumonia Seasonal allergies SVT (supraventricular tachycardia) Home Medications potassium chloride 20 mEq tablet,extended release(part/cryst) (Klor-Con M) 40 meq PO BID supplement 10/11/15 [History Last Taken 11/09/21] albuterol sulfate 90 mcg/actuation aerosol inhaler (Ventolin HFA) 2 puff inhalation Q4H PRN PRN Shortness Of Breath ##1 10/20/15 [Rx Last Taken 11/09/21] alprazolam 0.5 mg tablet 0.5 mg PO TID PRN PRN Anxiety 10/25/18 [History Last Taken 11/09/21] montelukast 10 mg tablet 10 mg PO QHS allergies 10/25/18 [History Last Taken 11/08/21] ergocalciferol (vitamin D2) 1,250 mcg (50,000 unit) capsule (Vitamin D2) 1,250 mcg PO QWEEK vitamin 07/08/21 [History Last Taken 11/07/21] fluticasone propionate 50 mcg/actuation nasal spray,suspension 1 spray intranasal BID allergies 07/08/21 [History Last Taken 11/09/21] furosemide 40 mg tablet 40 mg PO BID diuretic 07/08/21 [History Last Taken 11/09/21] oxycodone 20 mg tablet 10 mg PO Q6H PRN Pain 07/08/21 [History Last Taken 11/09/21] diphenhydramine HCl 25 mg capsule (Benadryl) 50 mg BID 07/09/21 [History Last Taken 11/09/21] omeprazole 20 mg capsule,delayed release 20 mg PO BID GERD 07/09/21 [History Last Taken 11/09/21] polyethylene glycol 3350 17 gram oral powder packet (Miralax) 17 g PO DAILY PRN PRN Constipation 07/09/21 [History Last Taken Unknown] acetaminophen 500 mg tablet 1,000 mg PO Q4H PRN Pain 10/16/21 [History Last Taken 11/09/21] fluticasone 250 mcg-salmeterol 50 mcg/dose blistr powdr for inhalation (Advair Diskus) 1 inh inhalation BID 10/16/21 [History Last Taken 11/09/21] ipratropium 0.5 mg-albuterol 3 mg (2.5 mg base)/3 mL nebulization soln 3 ml inhalation Q6H PRN PRN Wheezing 10/16/21 [History Last Taken 11/09/21] promethazine 25 mg tablet 25 mg PO Q4H PRN Nausea 10/16/21 [History Last Taken 11/09/21] vswmipa-dxvhseyzdvtug-hblyfspn 250 mg-250 mg-65 mg tablet (Migraine Relief) 2 tab PO BID PRN Headache 11/09/21 [History Last Taken Unknown] atenolol 100 mg tablet 100 mg PO BID HEART 11/09/21 [History Last Taken 11/09/21] pregabalin 75 mg capsule 75 mg PO Q6H PAIN 11/09/21 [History Last Taken 11/09/21] ropinirole 1 mg tablet 1 mg PO QHS RLS 11/09/21 [History Last Taken 11/08/21] sulfamethoxazole 800 mg-trimethoprim 160 mg tablet (Bactrim DS) 1 tab PO BID 7 days #14 tabs 08/20/22 [Rx Last Taken Unknown] Allergy/AdvReac Type Severity Reaction Status Date / Time acyclovir Allergy Unknown Verified 09/01/22 12:46 amlodipine Allergy Other Verified 09/01/22 12:46 ibuprofen [From Motrin] Allergy Swelling Verified 09/01/22 12:46 metoprolol Allergy Unknown Verified 09/01/22 12:46 propranolol Allergy Unknown Verified 09/01/22 12:46 regadenoson Allergy Other Verified 09/01/22 12:46 fluconazole AdvReac Rash Verified 09/01/22 12:46 meloxicam AdvReac Swelling Verified 09/01/22 12:46 nabumetone AdvReac Upset Verified 09/01/22 12:46 Stomach Family History Other Glioblastoma multiforme Surgical History H/O cervical spine surgery History of left heart catheterization (10/27/18) Social History Smoking Status: Never smoker ROS ROS ED Constitutional Constitutional ED: Reports fever(s); Denies chills Eyes Eyes: Denies blurry vision or change in vision ENT ENT ED: Reports ear pain, rhinorrhea and sore throat Cardiovascular Cardiovascular: Reports chest pain; Denies palpitations Respiratory/Chest Respiratory/Chest: Reports cough and dyspnea Gastrointestinal Gastrointestinal: Denies nausea or vomiting Genitourinary Genitourinary ED: Denies dysuria or hematuria Musculoskeletal Musculoskeletal: Denies back pain or neck pain Integumentary Denies abscess or rash Neurologic Neurologic: Reports headache(s) and weakness Allergic/Immunologic Allergic/Immunologic ED: Denies mouth swelling or urticaria EXAM Physical Exam Const Vital Signs: 09/01/22 12:44 09/01/22 13:11 09/01/22 13:44 Temperature 98.1 F 98.1 F Temperature Source Temporal Oral Pulse Rate 66 68 Respiratory Rate 16 18 Respiratory Effort Normal Respiratory Depth Normal Respiratory Pattern Normal Blood Pressure 141/91 H 137/77 H Blood Pressure Mean 107 97 Pulse Ox 96 93 Oxygen Delivery Method Room Air Room Air Oxygen Flow Rate (L/min) 09/01/22 13:45 09/01/22 13:48 09/01/22 15:10 Temperature 97 F L Temperature Source Temporal Pulse Rate 68 63 Respiratory Rate 20 H 21 H Respiratory Effort Respiratory Depth Respiratory Pattern Tachypnea Blood Pressure 152/93 H Blood Pressure Mean 112 Pulse Ox 95 94 Oxygen Delivery Method Nasal Cannula Oxygen Flow Rate (L/min) 2 09/01/22 15:10 09/01/22 16:12 09/01/22 17:00 Temperature 97 F L 97.4 F L Temperature Source Temporal Temporal Pulse Rate 59 L 77 Respiratory Rate 16 18 17 Respiratory Effort Respiratory Depth Respiratory Pattern Blood Pressure 152/93 H 154/89 H Blood Pressure Mean 112 110 Pulse Ox 95 87 Oxygen Delivery Method Nasal Cannula Nasal Cannula Oxygen Flow Rate (L/min) 2 2 09/01/22 17:00 Temperature Temperature Source Pulse Rate 77 Respiratory Rate 17 Respiratory Effort Respiratory Depth Respiratory Pattern Blood Pressure 154/89 H Blood Pressure Mean 110 Pulse Ox 88 Oxygen Delivery Method Nasal Cannula Oxygen Flow Rate (L/min) 2 Positive well nourished and well developed General Appearance ED: well developed HEENT Reports moist mucous membranes Neck supple and no JVD Resp normal respiratory effort Auscultation: rhonchi and wheezes Cardio regular rate, regular rhythm and no murmurs GI normal to inspection, nondistended, normoactive bowel sounds and non-tender Palpation: soft Extremity normal to inspection General Extremety ED: Negative for edema or tenderness General Extremity: Negative for edema Neuro oriented x3, CN's II-XII intact bilaterally and no sensory deficits noted Sensorium / Orientation: alert Motor Exam: strength 5/5 throughout Psych mental status grossly normal Skin no rashes or lesions noted MDM MDM MDM Narrative Medical decision making narrative: Differential diagnosis includes pneumonia, congestive heart failure, pneumothorax, COVID infection, influenza infection, and viral upper respiratory infection. Chest x-ray will be obtained to assess for pneumonia and pneumothorax. CBC will be obtained to assess for leukocytosis and anemia. Basic metabolic profile will be obtained to assess for electrolyte abnormality and renal function. Urinalysis will be obtained to assess for urinary tract infection. Lab Data Attestation: I reviewed the patient's lab results. Lab results narrative: CBC was reviewed and was within normal limits. Basic metabolic profile was reviewed and was essentially within normal limits. Urinalysis was reviewed. There is no evidence of urinary tract infection or hematuria.COVID-19 rapid antigen was reviewed and was negative. Influenza A and influenza B rapid antigens were reviewed and were negative. Labs: Laboratory Results - last 24 hr 09/01/22 09/01/22 09/01/22 13:42 13:42 13:50 WBC 6.1 RBC 6.49 H Hgb 12.5 Hct 46.6 MCV 71.8 L MCH 19.3 L MCHC 26.8 L RDW Std Deviation 56.6 H RDW Coeff of Shaina 23.3 H Plt Count 292 MPV 9.6 Immature Gran % (Auto) 0.300 Neut % (Auto) 49.4 Lymph % (Auto) 40.0 [place] % (Auto) 6.9 Eos % (Auto) 2.6 Baso % (Auto) 0.8 Absolute Neuts (auto) 3.0 Absolute Lymphs (auto) 2.43 Nucleated RBC % 0 Anisocytosis 1+ Sodium 138 Potassium 4.4 Chloride 103 Carbon Dioxide 26.0 Anion Gap 9 BUN 9 Creatinine 1.18 H Estim Creat Clear Calc 49.84 Est GFR (MDRD) Af Amer 61 Est GFR (MDRD) Non-Af 50 L BUN/Creatinine Ratio 7.6 L Glucose 139 H Calcium 9.4 Urine Color Yellow Urine Clarity Clear Urine pH 7.0 Ur Specific [place] 1.005 Urine Protein 15 H Urine Glucose (UA) Normal Urine Ketones Negative Urine Occult Blood Negative Urine Nitrite Negative Urine Bilirubin Negative Urine Urobilinogen Normal Ur Leukocyte Esterase 25 H Urine RBC 0 SEEN Urine WBC 0 SEEN Ur Squamous Epith Cells 0 SEEN Urine Bacteria 0 SEEN Urine Mucus 0 SEEN Radiography Diagnostic Testing: Clinical Impression(s) from Imaging Studies Chest X-Ray 09/01/22 14:11 IMPRESSION: Question pulmonary arterial hypertension. Electronically Signed: Tom Solis MD at 14:50 EDT , Chest CTA 09/01/22 16:18 IMPRESSION: (NOT LISTED IN ORDER OF SIGNIFICANCE) No demonstrated pulmonary embolism or arterial dissection. CT evidence for pulmonary hypertension. Mild pneumonia. Electronically Signed: Tom Solis MD at 17:28 EDT , Portable 1 view chest x-ray was obtained. On my independent interpretation, lung pena are clear. There is normal cardiac silhouette. Bony thorax is normal. There is no acute process noted. Radiologist also interpreted the x- ray and also noted questionable pulmonary arterial hypertension. Because of the patient's hypoxia and persistent dyspnea, CTA of the chest was obtained. There is no evidence of pulmonary embolism. There is evidence of pulmonary hypertension. There is mild pneumonia. This was interpreted by the radiologist and was also independently reviewed by myself. Treatment and Re-Evaluation :: Patient was given a DuoNeb aerosol here. Patient was still wheezing on reevaluation. Patient was given a repeat albuterol aerosol. Patient was advised of her findings. Patient ambulated on a pulse oximeter here in the [facility] department and dropped to 85%. Because of this, case was discussed with the hospitalist. He will admit the patient for observation. Because of the CT report showing mild pneumonia, the patient was covered with Levaquin. Patient understands and is agreeable with the plan. All questions were answered. Discharge Plan Triage Chief Complaint: Shortness of Breath ED Provider: Francois Phan Dx/Rx/DC Orders Clinical Impression: Hypoxia, Asthma, Pulmonary hypertension, Pneumonia Prescriptions: No Action potassium chloride [Klor-Con M20] 20 MEQ tablet 40 meq PO BID albuterol sulfate [Ventolin HFA] 1 INHALER inhaler 2 puff inhalation Q4H PRN PRN (Reason: Shortness Of Breath) Qty: 1 0RF montelukast 10 MG tablet 10 mg PO QHS alprazolam 0.5 MG tablet 0.5 mg PO TID PRN PRN (Reason: Anxiety) Label Comments: TAKE 1 TABLET BY MOUTH UP TO 3 TIMES DAILY NEEDED ergocalciferol (vitamin D2) [Vitamin D2] 1,250 mcg (50,000 unit) Capsule 1,250 mcg PO QWEEK Rx Instructions: Wed & Sat fluticasone propionate 50 mcg/actuation [place],Suspension 1 spray INTRANASAL BID furosemide 40 MG tablet 40 mg PO BID oxycodone 20 mg Tablet 10 mg PO Q6H PRN (Reason: Pain) omeprazole 20 mg Capsule,Delayed Release(Dr/Ec) 20 mg PO BID diphenhydramine HCl [Benadryl] 25 mg Capsule 50 mg BID polyethylene glycol 3350 [Miralax] 17 gram Powder In Packet 17 g PO DAILY PRN PRN (Reason: Constipation) fluticasone propion-salmeterol [Advair Diskus] 250-50 mcg/dose Blister With Device 1 inh INHALATION BID ipratropium-albuterol 0.5 mg-3 mg(2.5 mg base)/3 mL solution for nebulization 3 ml inhalation Q6H PRN PRN (Reason: Wheezing) acetaminophen 500 mg Tablet 1,000 mg PO Q4H PRN (Reason: Pain) promethazine 25 MG tablet 25 mg PO Q4H PRN (Reason: Nausea) atenolol 100 mg tablet 100 mg PO BID Label Comments: TAKE 1 TABLET BY MOUTH TWICE DAILY pregabalin 75 mg capsule 75 mg PO Q6H Label Comments: TAKE 1 CAPSULE BY MOUTH IN THE MORNING, 1 IN THE AFTERNOON, AND 100 MG IN THE EVENING (PATIENT SHOULD HAVE 100 MG AT HOME) ropinirole 1 mg tablet 1 mg PO QHS Label Comments: TAKE 1 TABLET BY MOUTH ONCE DAILY AT BEDTIME Migraine Relief 250-250-65 mg tablet 2 tab PO BID PRN (Reason: Headache) Label Comments: TAKE 2 TABLETS BY MOUTH EVERY 12 HOURS NEEDED DO NOT USE MORE THAN 2 DAYS PER WEEK sulfamethoxazole-trimethoprim [Bactrim DS] 800-160 mg tablet 1 tab PO BID 7 Days Qty: 14 0RF Primary Care Provider: Duran Campos Referrals: Duran Campos MD [Primary Care Provider] - Disposition Disposition: Acute Care Hospital [facility]
[2022-09-01] MEDS: Ipratropium/Albuterol Sulfate 3 ML AMPUL.NEB INHALATION ×2 (13:47→20:34)
[2022-09-01] MEDS: 0.9% Normal Saline 1,000 ML 1000 ML IV (13:48)
[2022-09-01 13:53] LABS: Bacteria 0 SEEN /hpf (None Seen); Mucous, Urine 0 SEEN /hpf (<or=2+); Red Blood Cells-Urine 0 SEEN /hpf (0-5); Squamous Epithelial Cells - UA 0 SEEN /hpf (5-10); White Blood Cells 0 SEEN /hpf (0-5)
[2022-09-01 14:02] LABS: Color, Urine Yellow (Yellow); Glucose, Dipstick Normal (Normal); Ketone-Dipstick Negative (Negative); Leukocyte Esterase-Dipstick 25 /ul (Negative); Nitrite-Dipstick Negative (Negative); Occult Blood-Urine Negative /ul (Negative); Protein-Dipstick 15 mg/dl (Negative); Specific Gravity, Urine 1.005 (1.002-1.030); Urine Bilirubin Dipstick Negative (Negative); Urine Clarity Clear (Clear); Urine Urobilinogen Normal (Normal)
[2022-09-01 14:04] LABS: Absolute Lymphocyte Count 2.43 X10^3/uL (0.83-4.51); Basophil# 0.05 X10^3/uL; Basophil% 0.8 % (0-1); Eosinophil# 0.16 X10^3/uL; Eosinophils% 2.6 % (0-5); Hematocrit 46.6 % (37-47); Hemoglobin 12.5 g/dL (12.0-15.0); Lymphocyte # 2.43 X10^3/ul (0.83-4.51); Mean Corp Hgb Conc 26.8 g/dL (32-36); Mean Corpuscular Hgb 19.3 pg (27.0-32.0); Mean Corpuscular Volume 71.8 fL (81-99); Mean Platelet Vol. 9.6 fl (6.2-12.0); Monocyte# 0.42 X10^3/uL; Monocyte% 6.9 % (0-10); NRBC Flagged by Analyzer 0 % (0-5); Neutrophil % 49.4 % (47-70); POSITIVE MORPHOLOGY YES; Platelet Count 292 K/mm3 (150-450); RBC Distribution Width CV 23.3 % (11.6-14.6); RBC Distribution Width SD 56.6 fl (35.1-43.9); Red Blood Count 6.49 M/mm3 (4.2-5.4); White Blood Count 6.1 K/mm3 (4.4-11.0)
[2022-09-01 14:06] LABS: Differential Indicated SCAN CRITERIA MET
--- NOTE | 2022-09-01 14:11 | RAD_ITS ---
EXAM: XR CHEST, 1 VIEW CLINICAL INDICATION: Dyspnea TECHNIQUE: Frontal view of the chest. COMPARISON: 08.20.22 FINDINGS: LUNGS AND PLEURAL SPACES: There is enlargement of the left hilum suggesting enlargement of the pulmonary artery. No pneumothorax. No effusion. HEART: Unremarkable. Cardiac silhouette not enlarged. MEDIASTINUM: Central airways and mediastinal contour are unremarkable. BONES/JOINTS: Cervical spine fusion hardware noted. SOFT TISSUES: Unremarkable. RAD/Chest 1 View (Portable) IMPRESSION: Question pulmonary arterial hypertension. Electronically Signed: Tom Solis MD at 14:50 EDT ,
[2022-09-01 14:12] LABS: Anion Gap 9 (5-15); BUN 9 mg/dL (7-18); BUN/Creat Ratio 7.6 RATIO (10-20); Calcium,Total 9.4 mg/dL (8.5-10.1); Chloride 103 mmol/L (98-107); Creatinine, Serum 1.18 mg/dL (0.55-1.02); EST Glomerular Filtration Rate 50 mL/min (>60); Est Glom Filt Rate - Afr Amer 61 mL/min (>60); Estimated Creatinine Clearance 49.84 ml/min; Glucose 139 mg/dL (74-106); Potassium 4.4 mmol/L (3.5-5.1); Sodium Level 138 mmol/L (136-145)
[2022-09-01 14:31] LABS: Anisocytosis 1+
--- NOTE | 2022-09-01 16:18 | CT_ITS ---
STUDY: CTA CHEST REASON FOR EXAM: Female, 57 years old. CHEST PAIN PE SOB TECHNIQUE: The examination was performed with the intravenous administration of 100 cc of IV Isovue 370 contrast material. Post-processing of the angiographic images was performed, with axial imaging and 3D reconstruction. MIPS images were obtained. Individualized dose optimization techniques were used for this CT. COMPARISON: 11.09.21. FINDINGS: Normal enhancement of the main pulmonary artery and right and left pulmonary arteries. Normal enhancement of the bilateral peripheral pulmonary arteries. There is no demonstrated pulmonary embolism. There is prominence of the main pulmonary arteries measuring 45mm without peripheral pulmonary vascular congestion, suggesting pulmonary hypertension. Normal thoracic aorta and visualized great vessels. There is no demonstrated aortic dissection. There is minimal stable LAD calcifications of the coronary artery. Normal mediastinum. Normal hilar regions. Normal visualized trachea and bronchi. Mild scattered bilateral groundglass infiltrates in both lung pena. Normal pleura. Normal chest wall structures. There are degenerative changes of thoracic spine. Normal visualized upper abdomen. CT/CTA Chest W/WO Contrast IMPRESSION: (NOT LISTED IN ORDER OF SIGNIFICANCE) No demonstrated pulmonary embolism or arterial dissection. CT evidence for pulmonary hypertension. Mild pneumonia. Electronically Signed: Tom Solis MD at 17:28 EDT ,
[2022-09-01] MEDS: Morphine 4 MG/ML Syringe IV (16:41)
[2022-09-01] MEDS: Albuterol 2.5 MG/3 ML VIAL.NEB. INHALATION (16:42)
--- NOTE | 2022-09-01 17:47 | NURSING ---
PCU OBS ALLISON DYSPNEA
[2022-09-01] MEDS: levoFLOXacin IV 750 MG/150 ML BAG 100 MG IV (17:58)
--- NOTE | 2022-09-01 18:30 | ED.RN ---
PT REPORTS SHE HAS SOME OF HER MEDICATIONS WITH HER AND REPORTS SHE WILL TAKE THEM IF NEEDED. ADVISED SHE CANNOT TAKE HOME MEDICATIONS WITHOUT CONSULTING HOSPITAL STAFF. INFORMED PCU STAFF OF SAME.
--- NOTE | 2022-09-01 19:44 | PCM.HP.STD ---
HPI - General General Date of Admission: 09/01/22 Date of Service: 09/01/22 Chief Complaint: Shortness of breath worsening for past 1 week. HPI Narrative INO RODRIGUEZ, is a 57 F with history of asthma on home oxygen, could not tell how much oxygen came to ED for progressive worsening of shortness of breath for 1 week. She also complained of chest heaviness/tightness for 1 week mainly anterior right-sided and midsternal without radiation. She also states she feels wheezing, sore throat and coughing up greenish-yellow sputum for last 3 days. She has also rhinorrhea. Her temperature at home was 101.4 Fahrenheit. She states he has COVID about 2 years ago and had respiratory arrest including clinic and intubation. At that time she was told that if she gets intubation it will be hard/difficult extubation. Most of my interview, she tries to distract from the question and answers tangentially. She complains of more pain over her right thigh. She had melanoma resection and complain of neuropathy. She is also on a heavy dose of pain medications, oxycodone 10 mg every 6 hourly as needed, Tylenol 1000 g every 6 hourly as needed, Benadryl 50 mg twice daily, migraine pill, pregabalin, Phenergan 25 mg every 4 hourly as needed and ropinirole. In ED, chest x-ray and CT chest was done finding discussed in assessment plan. Twelve-lead EKG ordered, not done in ED. [facility] Medical History Anxiety Asthma Chest pain Dyspnea Hypertension Melanoma in situ of right lower extremity Metastatic melanoma Metastatic melanoma Pneumonia Seasonal allergies SVT (supraventricular tachycardia) Home Medications potassium chloride 20 mEq tablet,extended release(part/cryst) (Klor-Con M) 40 meq PO BID supplement 10/11/15 [History Last Taken 11/09/21] albuterol sulfate 90 mcg/actuation aerosol inhaler (Ventolin HFA) 2 puff inhalation Q4H PRN PRN Shortness Of Breath ##1 10/20/15 [Rx Last Taken 11/09/21] alprazolam 0.5 mg tablet 0.5 mg PO TID PRN PRN Anxiety 10/25/18 [History Last Taken 11/09/21] montelukast 10 mg tablet 10 mg PO QHS allergies 10/25/18 [History Last Taken 11/08/21] ergocalciferol (vitamin D2) 1,250 mcg (50,000 unit) capsule (Vitamin D2) See Rx Instructions .Route .COMPLEX vitamin 07/08/21 [History Last Taken 11/07/21] fluticasone propionate 50 mcg/actuation nasal spray,suspension 1 spray intranasal BID allergies 07/08/21 [History Last Taken 11/09/21] furosemide 40 mg tablet 40 mg PO BID diuretic 07/08/21 [History Last Taken 11/09/21] oxycodone 20 mg tablet 10 mg PO Q6H PRN Pain 07/08/21 [History Last Taken 11/09/21] diphenhydramine HCl 25 mg capsule (Benadryl) 50 mg BID allergies 07/09/21 [History Last Taken 11/09/21] omeprazole 20 mg capsule,delayed release 20 mg PO BID GERD 07/09/21 [History Last Taken 11/09/21] polyethylene glycol 3350 17 gram oral powder packet (Miralax) 17 g PO DAILY PRN PRN Constipation 07/09/21 [History Last Taken Unknown] acetaminophen 500 mg tablet 1,000 mg PO Q4H PRN Pain 10/16/21 [History Last Taken 11/09/21] fluticasone 250 mcg-salmeterol 50 mcg/dose blistr powdr for inhalation (Advair Diskus) 1 inh inhalation DAILY 10/16/21 [History Last Taken 11/09/21] ipratropium 0.5 mg-albuterol 3 mg (2.5 mg base)/3 mL nebulization soln 3 ml inhalation Q6H PRN PRN Wheezing 10/16/21 [History Last Taken 11/09/21] promethazine 25 mg tablet 25 mg PO Q4H PRN Nausea 10/16/21 [History Last Taken 11/09/21] vauryqr-ccjccdppstzqw-lcohhdny 250 mg-250 mg-65 mg tablet (Migraine Relief) 2 tab PO BID PRN Headache 11/09/21 [History Last Taken Unknown] atenolol 100 mg tablet 100 mg PO BID HEART 11/09/21 [History Last Taken 11/09/21] pregabalin 75 mg capsule 75 mg PO Q6H PAIN 11/09/21 [History Last Taken 11/09/21] ropinirole 1 mg tablet 1 mg PO QHS RLS 11/09/21 [History Last Taken 11/08/21] albuterol sulfate 2.5 mg/3 mL (0.083 %) solution for nebulization 2.5 mg inhalation Q4H PRN Shortness Of Breath 09/01/22 [History Last Taken Unknown] Allergy/AdvReac Type Severity Reaction Status Date / Time acyclovir Allergy Unknown Verified 09/01/22 12:46 amlodipine Allergy Other Verified 09/01/22 12:46 ibuprofen [From Motrin] Allergy Swelling Verified 09/01/22 12:46 metoprolol Allergy Unknown Verified 09/01/22 12:46 propranolol Allergy Unknown Verified 09/01/22 12:46 regadenoson Allergy Other Verified 09/01/22 12:46 fluconazole AdvReac Rash Verified 09/01/22 12:46 meloxicam AdvReac Swelling Verified 09/01/22 12:46 nabumetone AdvReac Upset Verified 09/01/22 12:46 Stomach Family History Other Glioblastoma multiforme Surgical History H/O cervical spine surgery History of left heart catheterization (10/27/18) Social History Smoking Status: Never smoker ROS ROS Narrative 14 system ROS difficult as she gets distracted from the question and talks about something else, very tangential history. Constitutional: Reports fatigue and weakness and chronic pain and allergy/itching. Fever HEENT: Reports systems reviewed and no addt'l complaints, except as documented Respiratory/Chest: As described in HPI. Has not scheduled for sleep study not done yet. CVS: Chest heaviness as described in HPI Gastrointestinal: Had nonspecific gastric upset and nausea. Denies coffee ground emesis, hematemesis or vomiting Genitourinary: Denies burning urination or new urinary tract symptoms Musculoskeletal: Denies chronic joint pain and on multiple pain medications as described in HPI Neurologic: Denies seizure-like symptoms. Chronic neuropathic symptoms numbness and tingling. skin: Had melanoma resection in the past Endocrinology: Reports systems reviewed and no addt'l complaints, except as documented Hematologic/Lymphatic: Reports systems reviewed and no addt'l complaints, except as documented Rest 14 ROS are negative except as mentioned in HPI Vital Signs Vital Signs Vital Signs: 09/01/22 12:44 09/01/22 13:11 09/01/22 13:44 Temperature 98.1 F 98.1 F Temperature Source Temporal Oral Pulse Rate 66 68 Respiratory Rate 16 18 Respiratory Effort Normal Respiratory Depth Normal Respiratory Pattern Normal Blood Pressure 141/91 H 137/77 H Blood Pressure Mean 107 97 Blood Pressure Source Blood Pressure Position Blood Pressure Location Pulse Ox 96 93 Oxygen Delivery Method Room Air Room Air Oxygen Flow Rate (L/min) 09/01/22 13:45 09/01/22 13:48 09/01/22 15:10 Temperature 97 F L Temperature Source Temporal Pulse Rate 68 63 Respiratory Rate 20 H 21 H Respiratory Effort Respiratory Depth Respiratory Pattern Tachypnea Blood Pressure 152/93 H Blood Pressure Mean 112 Blood Pressure Source Blood Pressure Position Blood Pressure Location Pulse Ox 95 94 Oxygen Delivery Method Nasal Cannula Oxygen Flow Rate (L/min) 2 09/01/22 15:10 09/01/22 16:12 09/01/22 17:00 Temperature 97 F L 97.4 F L Temperature Source Temporal Temporal Pulse Rate 59 L 77 Respiratory Rate 16 18 17 Respiratory Effort Respiratory Depth Respiratory Pattern Blood Pressure 152/93 H 154/89 H Blood Pressure Mean 112 110 Blood Pressure Source Blood Pressure Position Blood Pressure Location Pulse Ox 95 87 Oxygen Delivery Method Nasal Cannula Nasal Cannula Oxygen Flow Rate (L/min) 2 2 09/01/22 17:00 09/01/22 17:45 09/01/22 18:34 Temperature 97 F L 97 F L Temperature Source Temporal Temporal Pulse Rate 77 77 77 Respiratory Rate 17 16 16 Respiratory Effort Respiratory Depth Respiratory Pattern Blood Pressure 154/89 H 154/89 H 154/89 H Blood Pressure Mean 110 110 110 Blood Pressure Source Blood Pressure Position Blood Pressure Location Pulse Ox 88 94 94 Oxygen Delivery Method Nasal Cannula Nasal Cannula Nasal Cannula Oxygen Flow Rate (L/min) 2 3 3 09/01/22 18:00 09/01/22 19:02 Temperature 97 F L 97.3 F L Temperature Source Temporal Oral Pulse Rate 77 66 Respiratory Rate 16 18 Respiratory Effort Respiratory Depth Respiratory Pattern Blood Pressure 154/89 H 170/88 H Blood Pressure Mean 110 115 Blood Pressure Source Monitor Blood Pressure Position Sitting Blood Pressure Location Left Arm Pulse Ox 94 97 Oxygen Delivery Method Nasal Cannula Nasal Cannula Oxygen Flow Rate (L/min) 3 3 Weight Weight: 194 lb 14.4 oz Body Mass Index (BMI) 31.4 Physical Exam Narrative General: Alert, Oriented x3, Cooperative HEENT: Atraumatic, PERRLA, EOMI, Normocephalic Oral: Oral mucosa dry. No Gingival or Mucosal Lesions/ Ulcerations Neck: Supple, No JVD, Negative Carotid Bruits Lungs: Air entry diminished in bilateral lung bases. Bilateral expiratory wheezing. Cardiovascular: Regular rate, Regular Rhythm, Normal S1, Normal S2, No murmurs Abdomen: Bowel Sounds Present, Soft, Non Tender, Non-Distended : No renal angle tenderness. No suprapubic tenderness. Extremities: No edema, Capillary Refill Less than 3 Seconds Skin: No rashes, No breakdown. Had melanoma resection. Musculoskeletal: No Tenderness to Palpation of Joints or Extremities. Chronic pain. ROM restricted. Neurological: Cranial nerves II-XII grossly intact, DTR 2+/4, chronic neuropathic symptoms and paresthesia Psych/Mental Status: Anxious looking. Pain dependence. Talks about her pain medications. Results Lab / Micro Data Result Diagrams: 09/01/22 13:42 09/01/22 13:42 Labs: Laboratory Results - last 24 hr 09/01/22 13:42: WBC 6.1, RBC 6.49 H, Hgb 12.5, Hct 46.6, MCV 71.8 L, MCH 19.3 L, MCHC 26.8 L, RDW Std Deviation 56.6 H, RDW Coeff of Shaina 23.3 H, Plt Count 292, MPV 9.6, Immature Gran % (Auto) 0.300, Neut % (Auto) 49.4, Lymph % (Auto) 40.0, [place] % (Auto) 6.9, Eos % (Auto) 2.6, Baso % (Auto) 0.8, Absolute Neuts (auto) 3.0, Absolute Lymphs (auto) 2.43, Nucleated RBC % 0, Anisocytosis 1+ 09/01/22 13:42: Sodium 138, Potassium 4.4, Chloride 103, Carbon Dioxide 26.0, Anion Gap 9, BUN 9, Creatinine 1.18 H, Estim Creat Clear Calc 49.84, Est GFR (MDRD) Af Amer 61, Est GFR (MDRD) Non-Af 50 L, BUN/Creatinine Ratio 7.6 L, Glucose 139 H, Calcium 9.4 09/01/22 13:50: Urine Color Yellow, Urine Clarity Clear, Urine pH 7.0, Ur Specific [place] 1.005, Urine Protein 15 H, Urine Glucose (UA) Normal, Urine Ketones Negative, Urine Occult Blood Negative, Urine Nitrite Negative, Urine Bilirubin Negative, Urine Urobilinogen Normal, Ur Leukocyte Esterase 25 H, Urine RBC 0 SEEN, Urine WBC 0 SEEN, Ur Squamous Epith Cells 0 SEEN, Urine Bacteria 0 SEEN, Urine Mucus 0 SEEN Micro: Microbiology 09/01/22 13:45 Nasal Secretion SARS-CoV-2 & FLU Antigen (Rapid) - Final Radiology Impression Chest X-Ray 09/01/22 14:11 IMPRESSION: Question pulmonary arterial hypertension. Electronically Signed: Tom Solis MD at 14:50 EDT , Chest CTA 09/01/22 16:18 IMPRESSION: (NOT LISTED IN ORDER OF SIGNIFICANCE) No demonstrated pulmonary embolism or arterial dissection. CT evidence for pulmonary hypertension. Mild pneumonia. Electronically Signed: Tom Solis MD at 17:28 EDT , Assessment & Plan Assessment/Plan (1) Asthma exacerbation: (2) Pulmonary hypertension: PLAN: Plan This is a 57-year-old female being admitted for evaluation of shortness of breath and chest heaviness for about 1 week. 1. Acute dyspnea, most likely due to asthma exacerbation probably from viral bronchitis/interstitial or viral pneumonia: Patient is admitted in PCU. Chest x-ray and CTA chest individually reviewed and shows mild scattered bilateral groundglass infiltrates in both lung pena. CTA did not show pulmonary embolism or arterial dissection but pulmonary arterial hypertension. I do not see alveolar opacity or consolidation. Might have interstitial/viral pneumonia. COVID-19 PCR ordered. Pneumonia work-up ordered. Patient is given Levaquin in ED and started on ceftriaxone and Zithromax from tomorrow AM. DuoNeb every 6 hourly, IV Solu-Medrol, Mucinex, incentive spirometry and chest physiotherapy. 2D echo is ordered for pulmonary hypertension and shortness of breath. During previous admission November 2021 she was admitted for dyspnea and no exact cause was found and patient was discharged off antibiotic. 2. Chest heaviness: Twelve-lead EKG ordered. We will do 2 serial troponin to rule out ACS. Description of chest pain is atypical probably from asthma exacerbation/pulmonary in origin. 3. Possible sleep apnea and pulmonary hypertension: Patient is scheduled for outpatient polysomnography. CPAP ordered nightly daily. Last echo in October 2018 reported EF 65%, normal RV size and systolic function. No RWMA. Trivial TR. No major valvular abnormality. 3. History of melanoma resection, chronic musculoskeletal/neuropathic pain, chronic pain disorder/pain dependence, anxiety and depression: Most of the time of interview she talks about her pain and resumption of home medications. 4. Nonspecific gastric symptoms: Patient on Phenergan 25 mg every 4 hourly as needed she states it takes for nausea but has no vomiting and nonspecific gastric upset. PPI ordered. 5. History of COVID and respiratory arrest in [facility] in the past. Living will/advanced directive/end of life care: Patient does not have living will or advanced directive. She states he is in the process of preparation of living will. She does not want intubation ventilator but want CPR. When I asked her if she does not want CPR to be better DNR CC with no intubation but she is not clear and she wants CPR and therefore until she makes decision we will keep full code. For now until she makes a decision, we will keep artificial life support including intubation, tube feed, ventilator and/chest compression, central venous catheter, vasopressor and DC shock if needed Total time spent in [id number] encounter in discussion of advanced directive 17 minutes. Microbiology Past 72 Hours 09/01/22 13:45 Nasal Secretion SARS-CoV-2 & FLU Antigen (Rapid) - Final Laboratory Results 09/01/22 13:42: WBC 6.1, RBC 6.49 H, Hgb 12.5, Hct 46.6, MCV 71.8 L, MCH 19.3 L, MCHC 26.8 L, RDW Std Deviation 56.6 H, RDW Coeff of Shaina 23.3 H, Plt Count 292, MPV 9.6, Immature Gran % (Auto) 0.300, Neut % (Auto) 49.4, Lymph % (Auto) 40.0, [place] % (Auto) 6.9, Eos % (Auto) 2.6, Baso % (Auto) 0.8, Absolute Neuts (auto) 3.0, Absolute Lymphs (auto) 2.43, Nucleated RBC % 0, Anisocytosis 1+ 09/01/22 13:42: Sodium 138, Potassium 4.4, Chloride 103, Carbon Dioxide 26.0, Anion Gap 9, BUN 9, Creatinine 1.18 H, Estim Creat Clear Calc 49.84, Est GFR (MDRD) Af Amer 61, Est GFR (MDRD) Non-Af 50 L, BUN/Creatinine Ratio 7.6 L, Glucose 139 H, Calcium 9.4 09/01/22 13:50: Urine Color Yellow, Urine Clarity Clear, Urine pH 7.0, Ur Specific [place] 1.005, Urine Protein 15 H, Urine Glucose (UA) Normal, Urine Ketones Negative, Urine Occult Blood Negative, Urine Nitrite Negative, Urine Bilirubin Negative, Urine Urobilinogen Normal, Ur Leukocyte Esterase 25 H, Urine RBC 0 SEEN, Urine WBC 0 SEEN, Ur Squamous Epith Cells 0 SEEN, Urine Bacteria 0 SEEN, Urine Mucus 0 SEEN Clinical Impression(s) from Imaging Studies Chest X-Ray 09/01/22 14:11 IMPRESSION: Question pulmonary arterial hypertension. Chest CTA 09/01/22 16:18 IMPRESSION: (NOT LISTED IN ORDER OF SIGNIFICANCE) No demonstrated pulmonary embolism or arterial dissection. CT evidence for pulmonary hypertension. Mild pneumonia. Charges/Coding Visit Charges Inpatient E&M: 12880 Init Hosp L3 Procedures Hospitalists Procedures: 71416 Advncd Care Plan 30 Min
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
[2022-09-01] MEDS: 0.9% Normal Saline 1,000 ML 75 ML IV (20:10)
--- NOTE | 2022-09-01 20:19 | EKG12_ITS ---
Test Reason : CHEST PRESSURE Blood Pressure : / mmHG Vent. Rate : 064 BPM Atrial Rate : 064 BPM P-R Int : 170 ms QRS Dur : 084 ms QT Int : 464 ms P-R-T Axes : 055 052 031 degrees QTc Int : 478 ms Normal sinus rhythm Nonspecific ST and T wave abnormality Prolonged QT Abnormal ECG When compared with ECG of 20-AUG-2022 19:18, No significant change was found Confirmed by MEE CASTILLO, LANNY ([id number]), film and video editor RAMIREZ BECKMAN ([id number]) on 09/03/2022 9:28:57 AM Referred By: ALLISON Confirmed By:LANNY CABAN MD
[2022-09-01] MEDS: proMETHazine 25 MG Tablet PO (20:34)
[2022-09-01] MEDS: Budesonide Respules 0.5 MG/2 ML AMPUL.NEB. INHALATION (20:34)
[2022-09-01] MEDS: Pantoprazole Sodium 20 MG Tablet PO (20:34)
[2022-09-01] MEDS: Potassium Chloride Oral Tablet 20 MEQ 40 MEQ PO (20:34)
[2022-09-01] MEDS: Heparin Injection (Vial) 5,000 UNIT/ML VIAL 5000 UNIT SC (20:35)
[2022-09-01] MEDS: Montelukast 10 MG Tablet PO (20:35)
[2022-09-01] MEDS: oxyCODONE 5 MG Tablet 10 MG PO (20:35)
[2022-09-01] MEDS: Furosemide 40 MG Tablet PO (20:35)
--- NOTE | 2022-09-01 20:56 | ECHOD_ITS ---
Reason For Study: SOB Procedure This was a 2D Doppler, Color Flow transthoracic echocardiogram. The study was technically difficult. Exam performed portable in patient room. Left Ventricle Normal LV size. Mild concentric left ventricular hypertrophy. Left ventricular systolic function is normal. The estimated ejection fraction is 60 %. Stage 2 diastolic dysfunction. No regional wall motion abnormalities noted. Right Ventricle Moderately dilated right ventricle. Mild to moderate global right ventricular systolic dysfunction. Atria Normal left atrium. Normal right atrium. Mitral Valve Normal mitral valve. Tricuspid Valve Normal tricuspid valve. Moderately severe (3+) tricuspid valve insufficiency. Pulmonary artery systolic pressure is 107 mmHg. Severe pulmonary hypertension. Aortic Valve Trisinus/trileaflet aortic valve. Pulmonic Valve Normal pulmonic valve. Great Vessels Normal aortic root. Mild pulmonary artery dilation. Normal inferior vena cava. Pericardium/Pleural No pericardial effusion. MMode/2D Measurements & Calculations LVIDd: 4.6 cm IVSd: 1.3 cm Ao root diam: 3.2 cm LVIDs: 3.2 cm LVPWd: 1.3 cm RVDd: 3.8 cm FS: 30.9 % LAV(MOD-bp): 40.6 ml RVOT diam: 3.1 cm LA A4 area: 15.8 cm2 LAV(MOD-bp) Indexed: 20.5 ml/m2 LAV(MOD-sp2): 41.0 ml LAV(MOD-sp4): 34.4 ml LA dimension(2D): 3.5 cm RA A4 area: 16.1 cm2 Time Measurements MV dec time: 0.20 sec Doppler Measurements & Calculations MV E max ernesto: 77.0 cm/sec Lat Peak E' Ernesto: 9.4 cm/sec Med Peak E' Ernesto: 5.4 cm/sec MV A max ernesto: 62.5 cm/sec E/E' lat: 8.2 E/E' med: 14.2 MV E/A: 1.2 MV V2 max: 84.8 cm/sec MV P1/2t max ernesto: 88.4 cm/sec Ao V2 max: 144.0 cm/sec MV max P.9 mmHg MV P1/2t: 64.4 msec Ao max P.3 mmHg MV V2 mean: 46.4 cm/sec MV dec slope: 401.7 cm/sec2 Ao V2 mean: 99.4 cm/sec MV mean P.0 mmHg Ao mean P.6 mmHg MV V2 VTI: 20.8 cm MVA(P1/2t): 3.4 cm2 Ao V2 VTI: 33.1 cm AV (velocity ratio): 0.76 LV V1 max: 115.9 cm/sec PA V2 max: 92.4 cm/sec TR max ernesto: 492.4 cm/sec LV V1 max P.4 mmHg TR max P.0 mmHg LV V1 mean P.9 mmHg LV V1 mean: 80.1 cm/sec LV V1 VTI: 25.1 cm ECHO/Echo Complete Interpretation Summary Normal LV size. Left ventricular systolic function is normal. The estimated ejection fraction is 60 %. Mild concentric left ventricular hypertrophy. Stage 2 diastolic dysfunction. Severe pulmonary hypertension. Pulmonary artery systolic pressure is 107 mmHg. Ordering Physician: Pola Mason Referring Physician: Duran Campos Performed By: Fabiola Duenas, BONY, RVT
[2022-09-01] MEDS: Fluticasone 0.05% 1 SPRAY NASAL.SRY NASAL (21:01)
[2022-09-01] MEDS: ALPRAZolam 0.25 MG Tablet PO (21:01)
[2022-09-01] MEDS: guaiFENesin 1,200 MG Tablet 1200 MG PO (21:04)
[2022-09-01] MEDS: Atenolol 100 MG Tablet PO (21:04)
[2022-09-01] MEDS: Pramipexole Di-HCl 0.5 MG Tablet PO (21:04)
[2022-09-01] MEDS: Acetaminophen 500 MG Tablet 1000 MG PO (21:10)
[2022-09-01 21:32] LABS: Troponin-I HS 9 pg/mL (3.0-54.0)
[2022-09-01] MEDS: Pregabalin 75 MG Capsule PO (21:54)
[2022-09-01 23:26] LABS: Troponin-I HS 9 pg/mL (3.0-54.0)
[2022-09-02] VITALS (9 sets, daily range): BP systolic 144–170; BP diastolic 82–93; PULSE 66–90; RESP 16–20; TEMP 36.3–37.1; O2SAT 92–97; BMI 31.6
[2022-09-02] MEDS: oxyCODONE 5 MG Tablet 10 MG PO ×3 (05:19→18:50)
[2022-09-02] MEDS: Heparin Injection (Vial) 5,000 UNIT/ML VIAL 5000 UNIT SC ×3 (05:19→23:00)
[2022-09-02] MEDS: proMETHazine 25 MG Tablet PO ×4 (05:19→23:04)
[2022-09-02] MEDS: Acetaminophen 500 MG Tablet 1000 MG PO ×3 (05:20→23:02)
[2022-09-02] MEDS: Pregabalin 75 MG Capsule PO ×4 (05:20→23:05)
[2022-09-02] MEDS: ALPRAZolam 0.25 MG Tablet PO ×3 (05:20→18:49)
[2022-09-02 06:25] LABS: Anion Gap 6 (5-15); BUN 8 mg/dL (7-18); BUN/Creat Ratio 7.6 RATIO (10-20); Calcium,Total 8.8 mg/dL (8.5-10.1); Chloride 104 mmol/L (98-107); Creatinine, Serum 1.05 mg/dL (0.55-1.02); EST Glomerular Filtration Rate 58 mL/min (>60); Est Glom Filt Rate - Afr Amer 70 mL/min (>60); Estimated Creatinine Clearance 56.01 ml/min; Glucose 129 mg/dL (74-106); Potassium 4.7 mmol/L (3.5-5.1); Sodium Level 139 mmol/L (136-145); Thyroid Stim Hormone (TSH) 1.95 uIU/mL (0.358-3.74)
[2022-09-02] MEDS: Ipratropium/Albuterol Sulfate 3 ML AMPUL.NEB INHALATION ×3 (07:13→19:27)
[2022-09-02] MEDS: Budesonide Respules 0.5 MG/2 ML AMPUL.NEB. INHALATION (07:13)
[2022-09-02] MEDS: Fluticasone 0.05% 1 SPRAY NASAL.SRY NASAL ×2 (09:29→23:00)
[2022-09-02] MEDS: Potassium Chloride Oral Tablet 20 MEQ 40 MEQ PO (09:29)
[2022-09-02] MEDS: Furosemide 40 MG Tablet PO ×2 (09:29→16:35)
[2022-09-02] MEDS: Pantoprazole Sodium 20 MG Tablet PO ×2 (09:29→23:00)
[2022-09-02] MEDS: Atenolol 100 MG Tablet PO ×2 (09:29→23:00)
[2022-09-02] MEDS: guaiFENesin 1,200 MG Tablet 1200 MG PO ×2 (09:29→23:00)
[2022-09-02] MEDS: 0.9% Saline Lock 10 ML Syringe IV ×3 (09:30→23:01)
--- NOTE | 2022-09-02 09:59 | CASEMGMT ---
Sw met with patient at bedside. Introduced self and explained sw role during patient admission. Sw completed SDOH assessment and discussed concerns that patient has at this time. Patient states that she has trouble standing for long periods of time and asked if there are community resources available that would be able to assist her with minimal trestle mechanic on a weekly/ biweekly basis. Sw agreed to look into this to see if there are any local resources to assist with this request. Sw agreed to follow up with patient later in day. Bhavesh Sheehan, DIGITAL COLOR PRESS OPERATOR, MANUFACTURING DESIGN ENGINEER
--- NOTE | 2022-09-02 11:00 | PN.HOSP_ITS ---
Reason for Visit Reason for Visit: Diagnoses Pulmonary hypertension, unspecified (09/01/22) Unspecified asthma with (acute) exacerbation (09/01/22) Subjective Subjective Patient was seen and examined today, patient relayed several of her medical h istory to me over lengthy conversation today, patient does have chronic pain syndrome from removal of carcinoma from her groin area, she is active with palliative care but was told by palliative care that since her life expectancy is over 18 months they would not continue to see her. She had a appointment with pain management today which she had to cancel because she was in the hospital. She came to the hospital yesterday with complaints of shortness of breath, she was placed into observation status on PCU with a diagnosis of hypoxia and pneumonia, she was maintained on IV antibiotics and she will get an echocardiogram performed today. I talked to radiology personally today about her chest CTA which was performed yesterday and showed evidence of possible pneumonia. I was told that they could not definitely rule out pneumonia that the changes in her lung pena could be due to atelectasis. Patient complains of increased anxiety today, she requested her Xanax be increased and I told her that I would decrease the frequency for her to every 6 hours. I talked with pulmonary medicine today and they will see the patient in consultation. Patient is to get an echocardiogram today, I started her on IV corticosteroids and she will remain on aerosol treatments. I asked nursing to check on a respiratory panel that was pending on the patient and has not resulted yet. Objective Data Objective Data Vital Signs: Vital Signs Temp Pulse Resp BP Pulse Ox O2 Del Method O2 Flow Rate 98.7 F 66 20 H 151/88 H 93 Nasal Cannula 2 09/02/22 05:26 09/02/22 07:15 09/02/22 07:15 09/02/22 05:26 09/02/22 07:40 09/02/22 07:40 09/02/22 07:40 Oxygen Flow Rate (L/min) 2 Oxygen Delivery Method Nasal Cannula Weight: 88.9 kg Body Mass Index (BMI) 31.6 Intake & Output: Intake and Output for Last 24 Hours 08/31/22 09/01/22 09/02/22 23:59 23:59 23:59 Intake Total 1150 / 1350 800 / 800 Output Total 500 / 500 Balance 1150 / 1350 300 / 300 Lab / Micro Data Result Diagrams: 09/01/22 13:42 09/02/22 04:55 Labs: Laboratory Results - last 24 hr 09/01/22 13:42: WBC 6.1, RBC 6.49 H, Hgb 12.5, Hct 46.6, MCV 71.8 L, MCH 19.3 L, MCHC 26.8 L, RDW Std Deviation 56.6 H, RDW Coeff of Shaina 23.3 H, Plt Count 292, MPV 9.6, Immature Gran % (Auto) 0.300, Neut % (Auto) 49.4, Lymph % (Auto) 40.0, Yancey % (Auto) 6.9, Eos % (Auto) 2.6, Baso % (Auto) 0.8, Absolute Neuts (auto) 3.0, Absolute Lymphs (auto) 2.43, Nucleated RBC % 0, Anisocytosis 1+ 09/01/22 13:42: Sodium 138, Potassium 4.4, Chloride 103, Carbon Dioxide 26.0, Anion Gap 9, BUN 9, Creatinine 1.18 H, Estim Creat Clear Calc 49.84, Est GFR (MDRD) Af Amer 61, Est GFR (MDRD) Non-Af 50 L, BUN/Creatinine Ratio 7.6 L, Glucose 139 H, Calcium 9.4 09/01/22 13:50: Urine Color Yellow, Urine Clarity Clear, Urine pH 7.0, Ur Specific [place] 1.005, Urine Protein 15 H, Urine Glucose (UA) Normal, Urine Ketones Negative, Urine Occult Blood Negative, Urine Nitrite Negative, Urine Bilirubin Negative, Urine Urobilinogen Normal, Ur Leukocyte Esterase 25 H, Urine RBC 0 SEEN, Urine WBC 0 SEEN, Ur Squamous Epith Cells 0 SEEN, Urine Bacteria 0 SEEN, Urine Mucus 0 SEEN 09/01/22 20:45: COVID-19 (ALIN) Not Detected 09/01/22 21:10: Troponin I High Sens 9 09/01/22 23:00: Troponin I High Sens 9 09/02/22 04:55: Sodium 139, Potassium 4.7, Chloride 104, Carbon Dioxide 29.0, Anion Gap 6, BUN 8, Creatinine 1.05 H, Estim Creat Clear Calc 56.01, Est GFR (MDRD) Af Amer 70, Est GFR (MDRD) Non-Af 58 L, BUN/Creatinine Ratio 7.6 L, Glucose 129 H, Calcium 8.8, TSH 1.95 Micro: Microbiology 09/01/22 13:45 Nasal Secretion SARS-CoV-2 & FLU Antigen (Rapid) - Final Radiography Diagnostic Testing: Radiology Impression Chest X-Ray 09/01/22 14:11 IMPRESSION: Question pulmonary arterial hypertension. Electronically Signed: Tom Solis MD at 14:50 EDT , Chest CTA 09/01/22 16:18 IMPRESSION: (NOT LISTED IN ORDER OF SIGNIFICANCE) No demonstrated pulmonary embolism or arterial dissection. CT evidence for pulmonary hypertension. Mild pneumonia. Electronically Signed: Tom Solis MD at 17:28 EDT , Physical Exam Const alert, oriented x3, no apparent distress, average body habitus and healthy appearing General Appearance: cooperative, well kempt and well developed Orientation / Consciousness: awake, oriented to person, oriented to place and oriented to time HEENT normocephalic, head/scalp atraumatic and moist oral mucous membranes Eyes PERRL, EOMs intact bilaterally and conjunctivae normal Neck supple, no JVD, thyroid normal and no carotid bruits General: trachea midline Resp normal respiratory effort, no retractions and no use of accessory muscles Auscultation: wheezes expiratory wheezes and throughout; Negative for rales or rhonchi Cardio regular rate, regular rhythm, S1 normal heart sound, S2 normal heart sound, no murmurs, no rub and no gallops GI normal to inspection, nondistended, normoactive bowel sounds, soft to palpation, non-tender and non-distended Extremity no clubbing, cyanosis or edema Skin no rashes or lesions noted General Skin Exam: no breakdown Neuro oriented x3, CN's II-XII intact bilaterally, moves all extremities, no focal motor deficits and no sensory deficits noted Sensorium / Orientation: awake, alert, oriented to person, oriented to place and oriented to time Speech: speech normal Psych affect normal Assessment & Plan Assessment/Plan (1) Pneumonia: PLAN: Plan 1. Bilateral pneumonia-possibly viral in nature, possible atypical pneumonia- continue present antibiotic treatment, pulmonary medicine will see the patient, respiratory panel is pending at this time #2 hypoxia secondary to #1-pulse ox will be monitored #3 chronic pain syndrome from previous surgery for melanoma-patient is not going to be seen by palliative care because her life expectancy is 18 months or greater, they recommended she follow-up with pain management to receive prescriptions for pain medications. Patient is making arrangements to see pain management as an outpatient #4 possible pulmonary hypertension-echocardiogram will be performed today #5 chronic anxiety disorder-patient's Xanax was adjusted, I did not increase her dose Total clinical time spent by myself addressing the patient's medical issues, reviewing all of her data, and collaborating with patient's care team: 35 minutes Charges/Coding Visit Charges Inpatient E&M: 00439 Subs Hosp L2
--- NOTE | 2022-09-02 13:18 | CASEMGMT ---
Sw met with patient briefly at bedside to provide her with information on Passport and Waiver. Patient may not medically qualify for these resources at this time, patient encouraged to call number provided to answer any additional questions patient may have. Patient expressed understanding. Bhavesh Sheehan, RIP SAW OPERATOR, LEARNING DEVELOPMENT SPECIALIST
[2022-09-02] MEDS: Methylprednisolone Sod Succ 40 MG/ML VIAL 20 MG IV ×2 (14:30→23:00)
[2022-09-02] MEDS: Menthol/Lanolin/Calamine/Znox 113 GM Tube 1 APPLIC TOPICAL ×2 (14:44→23:00)
--- NOTE | 2022-09-02 16:36 | PCM.HOSP.N ---
Hospitalist Note Patient's respiratory panel resulted positive for human metapneumovirus today, I have decided not to have pulmonary medicine see the patient. I also talked with Dr. Wong's office, patient had seen Dr. Soares in the past, as of March 2022, she has no recurrence of her melanoma. Patient did have melanoma removed from her groin areas with resulting nerve pain to the area, she had been seeing a pain management physician (Dr. Pugh) Dr. Wong's office told me that Dr. Pugh told the patient today by phone that he was not willing to write for any pain medication for the patient and that he would advise her to seek another pain management doctor and gave her some suggestions by phone. Patient stated that she had an appointment today with him but she had to cancel it because she was in the hospital. Patient did not discuss her conversation with Dr. Pugh with me today. I talked to Dr. Campos today (her PCP) it appears a palliative care gave the patient a prescription for 56 oxycodone 5 mg tablets on 08/21/2022 and another prescription for Xanax 0.5 mg #14 on 08/20/2022. Dr. Campos says that it was his impression that the patient is being weaned down on her medications-palliative care once the patient to see pain management.
[2022-09-02] MEDS: Ketorolac 15 MG/ML Vial IV ×2 (16:57→23:04)
[2022-09-02] MEDS: DiphenhydrAMINE 25 MG Capsule PO ×2 (16:57→23:04)
[2022-09-02] MEDS: Montelukast 10 MG Tablet PO (23:00)
[2022-09-02] MEDS: Pramipexole Di-HCl 0.5 MG Tablet PO (23:00)
[2022-09-03] VITALS (11 sets, daily range): BP systolic 142–163; BP diastolic 75–83; PULSE 80–90; RESP 16–20; TEMP 36.6–37; O2SAT 87–97; BMI 31.7
[2022-09-03] MEDS: oxyCODONE 5 MG Tablet 10 MG PO ×5 (01:07→23:17)
[2022-09-03] MEDS: ALPRAZolam 0.25 MG Tablet PO ×3 (01:07→20:41)
[2022-09-03] MEDS: Menthol/Lanolin/Calamine/Znox 113 GM Tube 1 APPLIC TOPICAL ×3 (06:05→20:50)
[2022-09-03] MEDS: proMETHazine 25 MG Tablet PO ×4 (06:05→23:17)
[2022-09-03] MEDS: Methylprednisolone Sod Succ 40 MG/ML VIAL 20 MG IV ×2 (06:06→15:19)
[2022-09-03] MEDS: Heparin Injection (Vial) 5,000 UNIT/ML VIAL 5000 UNIT SC ×3 (06:06→20:39)
[2022-09-03] MEDS: Furosemide 40 MG Tablet PO ×2 (06:06→17:15)
[2022-09-03] MEDS: Pregabalin 75 MG Capsule PO ×4 (06:06→23:16)
[2022-09-03] MEDS: Ipratropium/Albuterol Sulfate 3 ML AMPUL.NEB INHALATION ×3 (07:05→20:58)
[2022-09-03] MEDS: Acetaminophen 500 MG Tablet 1000 MG PO ×2 (08:38→18:19)
[2022-09-03] MEDS: 0.9% Saline Lock 10 ML Syringe IV ×3 (08:41→20:43)
[2022-09-03] MEDS: Pantoprazole Sodium 20 MG Tablet PO ×2 (10:45→20:40)
[2022-09-03] MEDS: guaiFENesin 1,200 MG Tablet 1200 MG PO ×2 (10:46→20:41)
[2022-09-03] MEDS: Lisinopril 40 MG Tablet PO (10:46)
[2022-09-03] MEDS: Atenolol 100 MG Tablet PO ×2 (10:46→20:41)
[2022-09-03] MEDS: Morphine 4 MG/ML Syringe IV ×2 (10:52→20:42)
[2022-09-03] MEDS: Fluticasone 0.05% 1 SPRAY NASAL.SRY NASAL ×2 (10:52→20:38)
[2022-09-03] MEDS: DiphenhydrAMINE 25 MG Capsule PO ×2 (10:52→23:17)
--- NOTE | 2022-09-03 11:30 | CASEMGMT ---
RN?CM?CUSHION STUFFER?CM?to room to meet with patient for initial transition planning/care coordination?assessment.?RN?CM?introduced self and role at [facility].? Pt voices understanding and consents to?assessment?at this time.? Pt resting in bed in no distress at this time.? Pt is A/O at this time and answers all questions appropriately.?? Care providers, pharmacy, and demographics verified/updated at this time. PCP: Dr Campos Specialists: Dr Wong-Oncologist, Dr Mora-pulmonology. Pt has been to see Dr Mclain for pain mgnt, but no longer sees him. She has also seen Dr Pugh for pain mgnt once. She also has Dr Berman (pain mgnt) info. Palliative-Pt was active w/[facility], but states she is not happy with them stating, They're done with me. Pt states wants to find someone else to manage her pain medications. Pt provided w/list of other Palliative Care options. [facility]acy: [facility] Insurance: [employer] Prescription Benefit: yes Living Will/HPOA: none. Pt states she would like to complete these, but does not feel well currently and wants to wait until later to complete. She states she will let someone know when she is ready to do them. She was made aware SW may not be available over the w/e to assist w/these, and if they are unable to do these while an IN-pt, that she can schedule w/SW as an OP for AD completion. She voices understanding. LNOK: daughter, Dash Living Arrangements: Patient lives alone in a 1st floor handicap accessible apartment with no steps to enter. Patient states she is independent at home w/ADL's. She states she is unable to stand for very long periods of time. Bhavesh KNAPP, has provided pt w/Waiver and Passport info. She states she can order groceries on-line, if needed. Transportation: pt states she drives sometimes if she feels okay, otherwise friends can assist DME: Patient states she has shower chair, grab bars, rollator, wheelchair, hospital bed,lymphedema leg compression machine, pulse ox, and O2 thru [employer] @ [facility] at home. Pt states is interested in getting a lift chair. MICHAEL GOODE encouraged her to contact [facility] to inquire if she can have a CM assigned to her and for assistance w/getting a lift chair. HHC/SNF: Hx [facility] and has been to a SNF in the past, but does not remember name of facility. Pt had [facility] in the past and is interested in this program again. Florence FIBERGLASS BOAT MAKER CM, made aware. Pt wishes to return home and states has no further concerns with going home at time of discharge.? CM?to follow for home oxygen needs and any further discharge planning/needs.? Pt voices no further concerns/needs at this time.? Advised pt to ask for?CM?if any further questions/concerns/needs arise.? Voices understanding. PLAN:??Home w/[facility] Follow for increase in oxygen needs @ d/c. Deepika RUELASN?RN?CM
--- NOTE | 2022-09-03 12:09 | CASEMGMT ---
Social Work As per initial welding inspector, pt does not have LW/POA. SATHYA Aguilar
--- NOTE | 2022-09-03 12:44 | PN.HOSP_ITS ---
Reason for Visit Reason for Visit: Diagnoses Pulmonary hypertension, unspecified (09/01/22) Pneumonia, unspecified organism (09/01/22) Unspecified asthma with (acute) exacerbation (09/01/22) Subjective Subjective Seen and examined today, she remains on 2 L of oxygen at this time, she is complaining of left upper chest pain which takes a deep breath or coughs, I think this pleuritic pain, I have agreed to give her IV morphine if needed for severe pain. She also wanted her Lyrica and her Jamarcus IR to be concurrently given which I have no problem with. Objective Data Objective Data Vital Signs: Vital Signs Temp Pulse Resp BP Pulse Ox O2 Del Method O2 Flow Rate 98.5 F 80 16 151/76 H 93 Nasal Cannula 4 09/03/22 11:05 09/03/22 12:21 09/03/22 12:21 09/03/22 11:05 09/03/22 11:05 09/03/22 11:05 09/03/22 11:05 Oxygen Flow Rate (L/min) 4 Oxygen Delivery Method Nasal Cannula Weight: 89.2 kg Body Mass Index (BMI) 31.7 Intake & Output: Intake and Output for Last 24 Hours 09/01/22 09/02/22 09/03/22 23:59 23:59 23:59 Intake Total 1150 / 1350 2182.5 / 2422.5 530 / 530 Output Total 500 / 500 Balance 1150 / 1350 1682.5 / 1922.5 530 / 530 Lab / Micro Data Result Diagrams: 09/01/22 13:42 09/02/22 04:55 Micro: Microbiology 09/02/22 16:30 Sputum, Expectorated/Coughed Gram Stain - Preliminary 09/02/22 16:30 Urine, Clean Catch Legionella Antigen - Final 09/02/22 16:30 Urine, Clean Catch Streptococcus pneumoniae Antigen (M - Final 09/01/22 20:45 Mucosa - Nose Respiratory Panel (PCR) - Final Human [place] 09/01/22 13:45 Nasal Secretion SARS-CoV-2 & FLU Antigen (Rapid) - Final Physical Exam Narrative alert, oriented x3, no apparent distress, average body habitus and healthy appearing General Appearance: cooperative, well kempt and well developed Orientation / Consciousness: awake, oriented to person, oriented to place and oriented to time HEENT normocephalic, head/scalp atraumatic and moist oral mucous membranes Eyes PERRL, EOMs intact bilaterally and conjunctivae normal Neck supple, no JVD, thyroid normal and no carotid bruits General: trachea midline Resp normal respiratory effort, no retractions and no use of accessory muscles Auscultation: wheezes expiratory wheezes and throughout; Negative for rales or rhonchi Cardio regular rate, regular rhythm, S1 normal heart sound, S2 normal heart sound, no murmurs, no rub and no gallops GI normal to inspection, nondistended, normoactive bowel sounds, soft to palpation, non-tender and non-distended Extremity no clubbing, cyanosis or edema Skin no rashes or lesions noted General Skin Exam: no breakdown Neuro oriented x3, CN's II-XII intact bilaterally, moves all extremities, no focal motor deficits and no sensory deficits noted Sensorium / Orientation: awake, alert, oriented to person, oriented to place and oriented to time Speech: speech normal Psych affect normal Assessment & Plan Assessment/Plan (1) Pneumonia: PLAN: Plan 1. Human metapneumovirus pneumonia-patient will remain on IV corticosteroids, I have elected to stop her antibiotics at this time, continue aerosol treatments #2 hypoxia secondary to #1, continue aerosol treatments, Monitor pulse ox #3 severe pulmonary hypertension-patient's echocardiogram yesterday showed severe pulmonary hypertension, EF is normal, patient will need to follow-up with a physician regarding the pulmonary hypertension. #4 chronic pain syndrome due to previous inguinal resection for melanoma-patient will need to follow-up with pain management, she does not currently have a pain management doctor. #5 chronic anxiety-patient is on Xanax #6 essential hypertension-patient will remain on her present medications #7 pleuritic chest pain-I ordered Toradol for the patient yesterday, she may also have IV morphine as needed for severe chest pain Total clinical time spent by myself addressing the patient's medical problems, reviewing all of her data, and collaborating with patient's care team: 35 minutes Charges/Coding Visit Charges Inpatient E&M: 34614 Subs Hosp L2
--- NOTE | 2022-09-03 13:37 | NURSING ---
0814-Pt refused po k-dur stating my potassium level is fine, I don't need it. Extensive education provided to pt on potassium and PRN pain medications ie: medication, dose, when due. Pt verbalized understanding.
[2022-09-03] MEDS: Montelukast 10 MG Tablet PO (20:41)
[2022-09-03] MEDS: Pramipexole Di-HCl 0.5 MG Tablet PO (20:41)
--- NOTE | 2022-09-03 20:52 | NURSING ---
pt requested to get her evening meds early to be able to rest for the rest of the night.
[2022-09-04] MEDS: proMETHazine 25 MG Tablet PO ×2 (03:37→10:00)
[2022-09-04] MEDS: Acetaminophen 500 MG Tablet 1000 MG PO ×2 (03:37→12:05)
[2022-09-04 03:41] VITALS: BP 156/90; PULSE 75; RESP 19; TEMP 36.7; O2SAT 94
[2022-09-04] MEDS: Morphine 4 MG/ML Syringe IV (03:50)
[2022-09-04] MEDS: 0.9% Saline Lock 10 ML Syringe IV ×2 (03:51→05:27)
[2022-09-04 05:12] VITALS: BP 147/76; PULSE 78
[2022-09-04] MEDS: Menthol/Lanolin/Calamine/Znox 113 GM Tube 1 APPLIC TOPICAL (05:14)
[2022-09-04] MEDS: oxyCODONE 5 MG Tablet 10 MG PO ×2 (05:15→11:58)
[2022-09-04] MEDS: Pregabalin 75 MG Capsule PO ×2 (05:16→11:58)
[2022-09-04] MEDS: Furosemide 40 MG Tablet 60 MG PO (05:16)
[2022-09-04] MEDS: Heparin Injection (Vial) 5,000 UNIT/ML VIAL 5000 UNIT SC (05:19)
[2022-09-04] MEDS: ALPRAZolam 0.25 MG Tablet PO ×2 (05:19→11:58)
[2022-09-04 05:38] VITALS: BMI 31.8
[2022-09-04 07:20] VITALS: PULSE 105; RESP 20; O2SAT 95
[2022-09-04] MEDS: Ipratropium/Albuterol Sulfate 3 ML AMPUL.NEB INHALATION (07:25)
[2022-09-04 08:56] VITALS: BP 151/80; PULSE 89; RESP 18; TEMP 37.1; O2SAT 92
[2022-09-04 09:37] VITALS: O2SAT 86; O2SAT 88; O2SAT 92
--- NOTE | 2022-09-04 09:46 | DCINST_ITS ---
Discharge Instructions Diet Discharge Diet: No restrictions Activity Discharge Activity: Return to Normal Activity Weight Bearing Status: Full weight bearing Follow Up Care Test Results: Test results from this visit will be discussed in further detail at your follow- up appointment, if applicable. Discharge Plan Admission Admit Date/Time: 09/01/22 17:33 Primary Reason for Your Visit: viral pneumonia Attending Provider: Papito Lang Primary Care Provider: Duran Campos Consulting Providers: Pola Mason Instructions Additional Instructions / Restrictions: remain on oxygen at 2 liters/min Recommend you follow-up with a pain management doctor soon as possible Discharge Orders/Prescriptions Prescriptions: New furosemide 40 mg Tablet 60 mg PO 0600,1600 Qty: 120 0RF oxycodone 5 mg Tablet 10 mg PO Q6H PRN (Reason: Chest Pain) 5 Days Qty: 40 0RF celecoxib [Celebrex] 200 mg capsule 200 mg PO DAILY Qty: 30 0RF prednisone 20 mg tablet 20 mg PO DAILY Qty: 10 0RF furosemide [Lasix] 40 mg tablet 60 mg PO BID Qty: 120 0RF potassium chloride 20 mEq tablet extended release 20 meq PO BID Qty: 60 0RF Continued potassium chloride [Klor-Con M20] 20 MEQ tablet 40 meq PO BID albuterol sulfate [Ventolin HFA] 1 INHALER inhaler 2 puff inhalation Q4H PRN PRN (Reason: Shortness Of Breath) Qty: 1 0RF montelukast 10 MG tablet 10 mg PO QHS alprazolam 0.5 MG tablet 0.5 mg PO TID PRN PRN (Reason: Anxiety) Label Comments: TAKE 1 TABLET BY MOUTH UP TO 3 TIMES DAILY NEEDED ergocalciferol (vitamin D2) [Vitamin D2] 1,250 mcg (50,000 unit) Capsule See Rx Instructions .ROUTE .COMPLEX Rx Instructions: orally ;1,250 mcg orally ;Wed & Sat fluticasone propionate 50 mcg/actuation [place],Suspension 1 spray INTRANASAL BID furosemide 40 MG tablet 40 mg PO BID oxycodone 20 mg Tablet 10 mg PO Q6H PRN (Reason: Pain) omeprazole 20 mg Capsule,Delayed Release(Dr/Ec) 20 mg PO BID diphenhydramine HCl [Benadryl] 25 mg Capsule 50 mg BID polyethylene glycol 3350 [Miralax] 17 gram Powder In Packet 17 g PO DAILY PRN PRN (Reason: Constipation) fluticasone propion-salmeterol [Advair Diskus] 250-50 mcg/dose Blister With Device 1 inh INHALATION DAILY ipratropium-albuterol 0.5 mg-3 mg(2.5 mg base)/3 mL solution for nebulization 3 ml inhalation Q6H PRN PRN (Reason: Wheezing) acetaminophen 500 mg Tablet 1,000 mg PO Q4H PRN (Reason: Pain) promethazine 25 MG tablet 25 mg PO Q4H PRN (Reason: Nausea) atenolol 100 mg tablet 100 mg PO BID Label Comments: TAKE 1 TABLET BY MOUTH TWICE DAILY pregabalin 75 mg capsule 75 mg PO Q6H Label Comments: TAKE 1 CAPSULE BY MOUTH IN THE MORNING, 1 IN THE AFTERNOON, AND 100 MG IN THE EVENING (PATIENT SHOULD HAVE 100 MG AT HOME) ropinirole 1 mg tablet 1 mg PO QHS Label Comments: TAKE 1 TABLET BY MOUTH ONCE DAILY AT BEDTIME Migraine Relief 250-250-65 mg tablet 2 tab PO BID PRN (Reason: Headache) Label Comments: TAKE 2 TABLETS BY MOUTH EVERY 12 HOURS NEEDED DO NOT USE MORE THAN 2 DAYS PER WEEK albuterol sulfate 2.5 mg /3 mL (0.083 %) Solution For Nebulization 2.5 mg INHALATION Q4H PRN (Reason: Shortness Of Breath) lisinopril 40 mg tablet 40 mg PO DAILY Label Comments: TAKE 1 TABLET BY MOUTH ONCE DAILY Referrals / Follow Up: Druan Campos MD [Primary Care Provider] - In 1 Week Hal hCen MD [Med Staff - Active Staff] - Within 2 Weeks (For pulmonary hypertension) Disposition Disposition (needs filled in before D/C Order can be placed): Home, Self Care
[2022-09-04] MEDS: Pantoprazole Sodium 20 MG Tablet PO (09:53)
[2022-09-04] MEDS: guaiFENesin 1,200 MG Tablet 1200 MG PO (09:53)
[2022-09-04] MEDS: Lisinopril 40 MG Tablet PO (09:53)
[2022-09-04] MEDS: Atenolol 100 MG Tablet PO (09:53)
[2022-09-04 10:14] VITALS: BP 168/92; PULSE 83; RESP 22; TEMP 36.7; O2SAT 91
--- NOTE | 2022-09-04 10:18 | DS.PCM_ITS ---
Providers Date of Admission: 09/01/22 Date of Discharge: 09/04/22 Primary Care Physician: Dr. Duran Campos MD Reason For Visit: DYSPNEA Diagnosis Discharge Diagnosis (1) Pneumonia: Status: Acute Code(s): J18.9 - Pneumonia, unspecified organism Plan 1. Human metapneumovirus pneumonia-patient will remain on IV corticosteroids, I have elected to stop her antibiotics at this time, continue aerosol treatments #2 hypoxia secondary to #1, continue aerosol treatments, Monitor pulse ox #3 severe pulmonary hypertension-patient's echocardiogram yesterday showed severe pulmonary hypertension, EF is normal, patient will need to follow-up with a physician regarding the pulmonary hypertension. #4 chronic pain syndrome due to previous inguinal resection for melanoma-patient will need to follow-up with pain management, she does not currently have a pain management doctor. #5 chronic anxiety-patient is on Xanax #6 essential hypertension-patient will remain on her present medications #7 pleuritic chest pain-I ordered Toradol for the patient yesterday, she may also have IV morphine as needed for severe chest pain Total clinical time spent by myself addressing the patient's medical problems, reviewing all of her data, and collaborating with patient's care team: 35 minutes Medications at Discharge Home Medications potassium chloride 20 mEq tablet,extended release(part/cryst) (Klor-Con M) 40 meq PO BID supplement 10/11/15 albuterol sulfate 90 mcg/actuation aerosol inhaler (Ventolin HFA) 2 puff inhalation Q4H PRN PRN Shortness Of Breath ##1 10/20/15 alprazolam 0.5 mg tablet 0.5 mg PO TID PRN PRN Anxiety 10/25/18 montelukast 10 mg tablet 10 mg PO QHS allergies 10/25/18 ergocalciferol (vitamin D2) 1,250 mcg (50,000 unit) capsule (Vitamin D2) See Rx Instructions .Route .COMPLEX vitamin 07/08/21 fluticasone propionate 50 mcg/actuation nasal spray,suspension 1 spray intranasal BID allergies 07/08/21 oxycodone 20 mg tablet 10 mg PO Q6H PRN Pain 07/08/21 diphenhydramine HCl 25 mg capsule (Benadryl) 50 mg BID allergies 07/09/21 omeprazole 20 mg capsule,delayed release 20 mg PO BID GERD 07/09/21 polyethylene glycol 3350 17 gram oral powder packet (Miralax) 17 g PO DAILY PRN PRN Constipation 07/09/21 acetaminophen 500 mg tablet 1,000 mg PO Q4H PRN Pain 10/16/21 fluticasone 250 mcg-salmeterol 50 mcg/dose blistr powdr for inhalation (Advair Diskus) 1 inh inhalation DAILY 10/16/21 ipratropium 0.5 mg-albuterol 3 mg (2.5 mg base)/3 mL nebulization soln 3 ml inhalation Q6H PRN PRN Wheezing 10/16/21 promethazine 25 mg tablet 25 mg PO Q4H PRN Nausea 10/16/21 bvtikqh-oxahglsvhxuiv-gcxnabup 250 mg-250 mg-65 mg tablet (Migraine Relief) 2 tab PO BID PRN Headache 11/09/21 atenolol 100 mg tablet 100 mg PO BID HEART 11/09/21 pregabalin 75 mg capsule 75 mg PO Q6H PAIN 11/09/21 ropinirole 1 mg tablet 1 mg PO QHS RLS 11/09/21 albuterol sulfate 2.5 mg/3 mL (0.083 %) solution for nebulization 2.5 mg inhalation Q4H PRN Shortness Of Breath 09/01/22 lisinopril 40 mg tablet 40 mg PO DAILY HYPERTENSION 09/02/22 celecoxib 200 mg capsule (Celebrex) 200 mg PO DAILY #30 caps 09/04/22 furosemide 40 mg tablet 60 mg PO 0600,1600 #120 tabs 09/04/22 furosemide 40 mg tablet (Lasix) 60 mg PO BID #120 tabs 09/04/22 oxycodone 5 mg tablet 10 mg PO Q6H PRN Chest Pain 5 days #40 tabs 09/04/22 potassium chloride 20 mEq tablet,extended release 20 meq PO BID #60 tabs 09/04/22 prednisone 20 mg tablet 20 mg PO DAILY #10 tabs 09/04/22 Hospital Course Operations None Procedures None Summary of Care Provided Minutes Spent on Discharge: 32 Hospital Course: This 57-year-old white female was seen in the emergency room at [facility] with a chief complaint of progressive shortness of breath x1 week, she also complained of chest heaviness for 1 week, and she complained of feeling wheezy and had coughed up greenish-yellow sputum for the past 3 days. Patient was active with palliative care and palliative care is weaning her pain meds due to the fact that they are going to disenroll her from palliative care because she does not have a chronic life-threatening illness. She had been on oxycodone and Xanax and was on a tapering dose when she came into the hospital this time. Chest x-ray and CT of the chest was performed, it revealed CT evidence for pulmonary hypertension with mild pneumonia. Patient required supplemental oxygen, troponin was unremarkable, EKG did not show evidence of acute injury pattern. Patient's white blood cell count was normal, chemistry was unremarkable except for a creatinine of 1.18. Patient was admitted to PCU, she had a respiratory panel drawn which was positive for human metapneumovirus, she received aerosol treatments and IV corticosteroids. Patient's pain was controlled with administration of narcotics. Enzymes did not turn positive. I was able to contact her PCP (Dr. Campos) concerning her care including her chronic pain syndrome. On 09/04/2022, patient was seen and examined: On examination she appeared in good health and spirits, she does not appear to be in any distress. Vital signs as documented. Skin warm and dry and without overt rashes. Neck without JVD, thyroid appears normal, trachea is midline, neck is supple. Lungs-scattered expiratory wheezes were noted bilaterally which were mild. Heart exam notable for regular rhythm, normal sounds and absence of murmurs, rubs or gallops. Abdomen unremarkable and without evidence of organomegaly, masses, or abdominal aortic enlargement, bowel sounds are present in all 4 quadrants, no abdominal tenderness was noted. Extremities nonedematous, no cyanosis was noted, no clubbing was noted. Neuro: Cranial nerves II through XII are grossly intact, no focal motor deficits were noted, sensation to light touch and pinprick is in tact, motor exam 5/5 throughout. Psych: Patient is alert and oriented x3, she does not appear anxious or depressed, she does not appear agitated. Patient was discharged home in stable condition on 09/04/2022, I made the decision to provide her with some oxycodone to enable her to have time to make an appointment with pain management for follow-up and I discussed this with her pharmacy by phone. Patient understands that she must be careful on the amount of pain medicine she takes to make it last as long as possible. Patient was discharged home on 2 L of oxygen via nasal cannula at rest and 4 L of nasal cannula oxygen on ambulation, she was expected to wear the oxygen in and out of her home during activities of daily living. Weight / BMI Weight Weight: 89.5 kg Body Mass Index (BMI) 31.8 ABG / Lab / Microbiology Data Result Diagrams: 09/01/22 13:42 09/02/22 04:55 Microbiology: Microbiology 09/02/22 16:30 Sputum, Expectorated/Coughed Gram Stain - Final 09/02/22 16:30 Sputum, Expectorated/Coughed Respiratory Culture - Preliminary Presumptive C albicans 09/02/22 16:30 Urine, Clean Catch Legionella Antigen - Final 09/02/22 16:30 Urine, Clean Catch Streptococcus pneumoniae Antigen (M - Final 09/01/22 20:45 Mucosa - Nose Respiratory Panel (PCR) - Final Human [place] 09/01/22 13:45 Nasal Secretion SARS-CoV-2 & FLU Antigen (Rapid) - Final D/C Instructions Discharge Diet: No restrictions Weight Bearing Status: Full weight bearing Meaningful Use Info Meaningful Use Diagnoses (Choose all that apply): None applicable Discharge Plan Admission Admit Date/Time: 09/01/22 17:33 Primary Reason for Your Visit: viral pneumonia Attending Provider: Papito Lang Primary Care Provider: Duran Campos Consulting Providers: Pola Mason Instructions Additional Instructions / Restrictions: remain on oxygen at 2 liters/min Recommend you follow-up with a pain management doctor soon as possible Discharge Orders/Prescriptions Prescriptions: New furosemide 40 mg Tablet 60 mg PO 0600,1600 Qty: 120 0RF oxycodone 5 mg Tablet 10 mg PO Q6H PRN (Reason: Chest Pain) 5 Days Qty: 40 0RF celecoxib [Celebrex] 200 mg capsule 200 mg PO DAILY Qty: 30 0RF prednisone 20 mg tablet 20 mg PO DAILY Qty: 10 0RF furosemide [Lasix] 40 mg tablet 60 mg PO BID Qty: 120 0RF potassium chloride 20 mEq tablet extended release 20 meq PO BID Qty: 60 0RF Continued potassium chloride [Klor-Con M20] 20 MEQ tablet 40 meq PO BID albuterol sulfate [Ventolin HFA] 1 INHALER inhaler 2 puff inhalation Q4H PRN PRN (Reason: Shortness Of Breath) Qty: 1 0RF montelukast 10 MG tablet 10 mg PO QHS alprazolam 0.5 MG tablet 0.5 mg PO TID PRN PRN (Reason: Anxiety) Label Comments: TAKE 1 TABLET BY MOUTH UP TO 3 TIMES DAILY NEEDED ergocalciferol (vitamin D2) [Vitamin D2] 1,250 mcg (50,000 unit) Capsule See Rx Instructions .ROUTE .COMPLEX Rx Instructions: orally ;1,250 mcg orally ;Wed & Sat fluticasone propionate 50 mcg/actuation [place],Suspension 1 spray INTRANASAL BID oxycodone 20 mg Tablet 10 mg PO Q6H PRN (Reason: Pain) omeprazole 20 mg Capsule,Delayed Release(Dr/Ec) 20 mg PO BID diphenhydramine HCl [Benadryl] 25 mg Capsule 50 mg BID polyethylene glycol 3350 [Miralax] 17 gram Powder In Packet 17 g PO DAILY PRN PRN (Reason: Constipation) fluticasone propion-salmeterol [Advair Diskus] 250-50 mcg/dose Blister With Device 1 inh INHALATION DAILY ipratropium-albuterol 0.5 mg-3 mg(2.5 mg base)/3 mL solution for nebulization 3 ml inhalation Q6H PRN PRN (Reason: Wheezing) acetaminophen 500 mg Tablet 1,000 mg PO Q4H PRN (Reason: Pain) promethazine 25 MG tablet 25 mg PO Q4H PRN (Reason: Nausea) atenolol 100 mg tablet 100 mg PO BID Label Comments: TAKE 1 TABLET BY MOUTH TWICE DAILY pregabalin 75 mg capsule 75 mg PO Q6H Label Comments: TAKE 1 CAPSULE BY MOUTH IN THE MORNING, 1 IN THE AFTERNOON, AND 100 MG IN THE EVENING (PATIENT SHOULD HAVE 100 MG AT HOME) ropinirole 1 mg tablet 1 mg PO QHS Label Comments: TAKE 1 TABLET BY MOUTH ONCE DAILY AT BEDTIME Migraine Relief 250-250-65 mg tablet 2 tab PO BID PRN (Reason: Headache) Label Comments: TAKE 2 TABLETS BY MOUTH EVERY 12 HOURS NEEDED DO NOT USE MORE THAN 2 DAYS PER WEEK albuterol sulfate 2.5 mg /3 mL (0.083 %) Solution For Nebulization 2.5 mg INHALATION Q4H PRN (Reason: Shortness Of Breath) lisinopril 40 mg tablet 40 mg PO DAILY Label Comments: TAKE 1 TABLET BY MOUTH ONCE DAILY Discontinued furosemide 40 MG tablet 40 mg PO BID Referrals / Follow Up: Duran Campos MD [Primary Care Provider] - In 1 Week Hal Chen MD [Med Staff - Active Staff] - Within 2 Weeks (For pulmonary hypertension) Disposition Disposition (needs filled in before D/C Order can be placed): Home, Self Care Charges/Coding Visit Charges Inpatient E&M: 00515 Disch Hosp >30min
== END 2022-09-04 13:28 | disposition home or self-care (01) | DRG 139 ==
LOC: ED 17:44 → PCU 09-02 06:53
PROVIDERS: Admitting Provider Internal Medicine; Emergency Provider Emergency Medicine; PCP Family Medicine; Visit Provider Internal Medicine
DX: J12.3 Human metapneumovirus pneumonia (principal); I27.21 Secondary pulmonary arterial hypertension; Z99.81 Dependence on supplemental oxygen; J45.901 Unspecified asthma with (acute) exacerbation; I10 Essential (primary) hypertension; F41.9 Anxiety disorder, unspecified; R09.02 Hypoxemia; R07.89 Other chest pain; G89.4 Chronic pain syndrome; Z79.51 Long term (current) use of inhaled steroids; Z79.891 Long term (current) use of opiate analgesic; Z79.899 Other long term (current) drug therapy; Z87.09 Personal history of other diseases of the respiratory system; Z85.820 Personal history of malignant melanoma of skin; Z86.16 Personal history of COVID-19
CPT/HCPCS: 36415; 71045; 71275; 80048; 81001; 84443; 84484; 85025; 87070; 87205; 87428; 87449; 87633; 87635; 93005; 93306; 94640; 94668; 97802; 99285; J7030; Q9967; A4216; J0696; U0005

== ENCOUNTER 2023-02-17 19:22 | Emergency (ER) | payer MEDICARE, MEDICAID, SELFPAY ==
[2023-02-17 19:22] VITALS: BP 134/68; PULSE 67; RESP 24; TEMP 36.2; O2SAT 95; BMI 36.1
[2023-02-17 20:18] VITALS: BP 139/79; PULSE 68; RESP 20; O2SAT 97
--- NOTE | 2023-02-17 20:33 | EKG12_ITS ---
Test Reason : SOB Blood Pressure : / mmHG Vent. Rate : 063 BPM Atrial Rate : 063 BPM P-R Int : 170 ms QRS Dur : 076 ms QT Int : 462 ms P-R-T Axes : 043 103 045 degrees QTc Int : 472 ms Normal sinus rhythm Rightward axis Nonspecific T wave abnormality Prolonged QT Abnormal ECG Confirmed by ABAD CASTILLO, VERONICA ([id number]), television news video editor DIOGENES AVERY ([id number]) on 02/21/2023 8:17:12 AM Referred By: Confirmed By:LISA MELGOZA MD
--- NOTE | 2023-02-17 20:36 | ED.VIS.DYS ---
HPI History of Present Illness Chief Complaint: Shortness of Breath Informant: patient Narrative Narrative: Patient is a 57-year-old female with significant medical history including severe pulmonary hypertension, heart failure, CKD 3 4 L of oxygen requirement at baseline and metastatic melanoma presenting out to our ER via EMS/police. Apparently police were called to her house for welfare check because she was supposed to be directed but [facility] did not show up. She states her doctor is Dr. Morales. She is insistent that she disease get [facility] bed waiting for her. She does tell me that over the past week or so she has had a 15 pound weight gain. She has been much more weak over the past few days and even with her walker cannot take more than a couple steps before she feels short of breath. She notes she has had chest pain yesterday and today which she has had in the past. She states when she does exert herself her vision gets blurry. Denies any fever. Denies any injury. I spoke with the transfer line to try to clarify/verify the patient's story. Apparently patient refused to let the visiting nurse into her house yesterday. Because of this her doctor recommend she go to the nearest hospital be evaluated. When the patient did not show up and they could not get a hold of her please were sent to her house for a welfare check. Recommend she come to [facility]. Transfer line will call pulmonology for further clarification [facility] Medical History Anxiety Asthma Asthma exacerbation Chest pain Dyspnea Hypertension Melanoma in situ of right lower extremity Metastatic melanoma Metastatic melanoma Pneumonia Pneumonia Seasonal allergies SVT (supraventricular tachycardia) Home Medications potassium chloride 20 mEq tablet,extended release(part/cryst) (Klor-Con M) 40 meq PO BID supplement 10/11/15 [History Last Taken 11/09/21] albuterol sulfate 90 mcg/actuation aerosol inhaler (Ventolin HFA) 2 puff inhalation Q4H PRN PRN Shortness Of Breath ##1 10/20/15 [Rx Last Taken 11/09/21] alprazolam 0.5 mg tablet 0.5 mg PO TID PRN PRN Anxiety 10/25/18 [History Last Taken 11/09/21] montelukast 10 mg tablet 10 mg PO QHS allergies 10/25/18 [History Last Taken 11/08/21] ergocalciferol (vitamin D2) 1,250 mcg (50,000 unit) capsule (Vitamin D2) See Rx Instructions .Route .COMPLEX vitamin 07/08/21 [History Last Taken 11/07/21] fluticasone propionate 50 mcg/actuation nasal spray,suspension 1 spray intranasal BID allergies 07/08/21 [History Last Taken 11/09/21] oxycodone 20 mg tablet 10 mg PO Q6H PRN Pain 07/08/21 [History Last Taken 11/09/21] diphenhydramine HCl 25 mg capsule (Benadryl) 50 mg BID allergies 07/09/21 [History Last Taken 11/09/21] omeprazole 20 mg capsule,delayed release 20 mg PO BID GERD 07/09/21 [History Last Taken 11/09/21] polyethylene glycol 3350 17 gram oral powder packet (Miralax) 17 g PO DAILY PRN PRN Constipation 07/09/21 [History Last Taken Unknown] acetaminophen 500 mg tablet 1,000 mg PO Q4H PRN Pain 10/16/21 [History Last Taken 11/09/21] fluticasone 250 mcg-salmeterol 50 mcg/dose blistr powdr for inhalation (Advair Diskus) 1 inh inhalation DAILY 10/16/21 [History Last Taken 11/09/21] ipratropium 0.5 mg-albuterol 3 mg (2.5 mg base)/3 mL nebulization soln 3 ml inhalation Q6H PRN PRN Wheezing 10/16/21 [History Last Taken 11/09/21] promethazine 25 mg tablet 25 mg PO Q4H PRN Nausea 10/16/21 [History Last Taken 11/09/21] mprcosi-fxuylrhroxzos-lcyrraqj 250 mg-250 mg-65 mg tablet (Migraine Relief) 2 tab PO BID PRN Headache 11/09/21 [History Last Taken Unknown] atenolol 100 mg tablet 100 mg PO BID HEART 11/09/21 [History Last Taken 11/09/21] pregabalin 75 mg capsule 75 mg PO Q6H PAIN 11/09/21 [History Last Taken 11/09/21] ropinirole 1 mg tablet 1 mg PO QHS RLS 11/09/21 [History Last Taken 11/08/21] albuterol sulfate 2.5 mg/3 mL (0.083 %) solution for nebulization 2.5 mg inhalation Q4H PRN Shortness Of Breath 09/01/22 [History Last Taken Unknown] lisinopril 40 mg tablet 40 mg PO DAILY HYPERTENSION 09/02/22 [History Last Taken Unknown] celecoxib 200 mg capsule (Celebrex) 200 mg PO DAILY #30 caps 09/04/22 [Rx Last Taken Unknown] furosemide 40 mg tablet 60 mg (1.5 x 40 mg) PO 0600,1600 #120 tabs 09/04/22 [Rx Last Taken Unknown] furosemide 40 mg tablet (Lasix) 60 mg (1.5 x 40 mg) PO BID #120 tabs 09/04/22 [Rx Last Taken Unknown] oxycodone 5 mg tablet 10 mg (2 x 5 mg) PO Q6H PRN Chest Pain 5 days #40 tabs 09/04/22 [Rx Last Taken Unknown] potassium chloride 20 mEq tablet,extended release 20 meq PO BID #60 tabs 09/04/22 [Rx Last Taken Unknown] prednisone 20 mg tablet 20 mg PO DAILY #10 tabs 09/04/22 [Rx Last Taken Unknown] Allergy/AdvReac Type Severity Reaction Status Date / Time acyclovir Allergy Unknown Verified 09/01/22 12:46 amlodipine Allergy Other Verified 09/01/22 12:46 ibuprofen [From Motrin] Allergy Swelling Verified 09/01/22 12:46 metoprolol Allergy Unknown Verified 09/01/22 12:46 propranolol Allergy Unknown Verified 09/01/22 12:46 regadenoson Allergy Other Verified 09/01/22 12:46 fluconazole AdvReac Rash Verified 09/01/22 12:46 meloxicam AdvReac Swelling Verified 09/01/22 12:46 nabumetone AdvReac Upset Verified 09/01/22 12:46 Stomach Family History Other Glioblastoma multiforme Surgical History H/O cervical spine surgery History of left heart catheterization (10/27/18) Social History Smoking Status: Never smoker ROS ROS ED Constitutional Constitutional ED: Denies chills or fever(s) Eyes Eyes: Reports blurry vision ENT ENT ED: Denies sore throat Cardiovascular Cardiovascular: Reports chest pain; Denies palpitations Respiratory/Chest Respiratory/Chest: Reports dyspnea and dyspnea on exertion; Denies cough or sputum Gastrointestinal Gastrointestinal: Denies abdominal pain Musculoskeletal Musculoskeletal: Denies arthralgias or myalgias Integumentary Denies rash Neurologic Neurologic: Reports weakness Psychiatric Psychiatric: Reports anxiety EXAM Physical Exam Const Vital Signs: 02/17/23 19:22 02/17/23 20:18 02/17/23 20:19 Temperature 97.2 F L Temperature Source Temporal Pulse Rate 67 68 Respiratory Rate 24 H 20 H Respiratory Effort Short of Breath Blood Pressure 134/68 H 139/79 H Blood Pressure Mean 90 99 Pulse Ox 95 97 Oxygen Delivery Method Nasal Cannula Room Air Oxygen Flow Rate (L/min) 5 02/17/23 22:53 Temperature 98.5 F Temperature Source Pulse Rate 62 Respiratory Rate 20 H Respiratory Effort Blood Pressure 119/76 Blood Pressure Mean 90 Pulse Ox 97 Oxygen Delivery Method Oxygen Flow Rate (L/min) Positive well nourished, well developed and obese; Negative for unkempt General Appearance ED: well developed; Negative for unkempt Nutritional Appearance: obese HEENT Reports moist mucous membranes atraumatic Eyes PERRL and EOMs intact bilaterally Neck supple and no JVD Chest Wall Chest Narrative: Chest wall tenderness or crepitus Resp clear to auscultation bilaterally Resp Narrative: No crackles or rhonchi appreciated. Patient has significant conversational dyspnea and only can speak in 2-3 word sentences Cardio regular rate, regular rhythm and no murmurs GI non-tender and non-distended Extremity Extremity Narrative: 2+ pitting edema pretibial General Extremety ED: Yes edema General Extremity: edema Neuro oriented x3 Sensorium / Orientation: alert Motor Exam: general weakness Psych mental status grossly normal Appearance: Negative for unkempt Mood & Affect: anxious Skin no wounds and skin turgor normal MDM MDM MDM Narrative Medical decision making narrative: Patient is evaluated in the ER for weakness, weight gain and she states she was told she has been directly admitted to [facility]. Patient does have conversational dyspnea however she does not have any O2 requirement increases and does not appear to be any acute distress. She has been anxious in the emergency room. I spoke with the transfer line who was able to verify that patient was supposed to be admitted yesterday at [facility]. Transfer line reached out to pulmonology who is agreeable with her transfer pending any instability that would limit transfer. I feel that patient is medically stable for transfer. Case is discussed with sound physician ([facility]) Dr. Ascencio, to the patient. Patient's work-up is remarkable for mild microcytic anemia, CKD and elevated BNP consistent with her known severe pulmonary hypertension/heart failure. History of a single be reviewed by myself shows some mild pulmonary vascular congestion but does not appear acutely different from prior chest x-ray. Patient discharged to complain of a migraine and is given a dose of Fioricet for her migraine in the ER. She is also given a dose of Xanax which she takes at baseline. Patient is transferred to [facility]. She is agreeable with this plan of care. Lab Data Attestation: I reviewed the patient's lab results. Labs: Laboratory Results - last 24 hr 02/17/23 20:50 WBC 7.5 RBC 5.29 Hgb 10.0 L Hct 37.2 MCV 70.3 L MCH 18.9 L MCHC 26.9 L RDW Std Deviation 50.5 H RDW Coeff of Shaina 20.9 H Plt Count 143 L MPV 9.9 Immature Gran % (Auto) 0.500 Neut % (Auto) 58.2 Lymph % (Auto) 27.4 [place] % (Auto) 11.7 H Eos % (Auto) 1.9 Baso % (Auto) 0.3 Absolute Neuts (auto) 4.3 Absolute Lymphs (auto) 2.04 Nucleated RBC % 0.7 Platelet Estimate SLT DEC RBC Morphology N CHROM Hypochromasia 1+ Anisocytosis 1+ Microcytosis 1+ Sodium 136 Potassium 3.9 Chloride 102 Carbon Dioxide 28.0 Anion Gap 6 BUN 23 H Creatinine 1.07 H Estim Creat Clear Calc 54.96 Est GFR (MDRD) Af Amer 68 Est GFR (MDRD) Non-Af 56 L BUN/Creatinine Ratio 21.5 H Glucose 164 H Calcium 8.9 Total Bilirubin 0.50 AST 26 ALT 23 Alkaline Phosphatase 127 H Troponin I High Sens 10 B-Natriuretic Peptide 674.6 H Total Protein 7.3 Albumin 3.6 Globulin 3.7 Albumin/Globulin Ratio 1.0 ABG Data ABG results: ABG 02/17/23 20:57 Specimen Type DUSTIN Sample Site Not entered O2 % 4.5 VBG pH 7.42 VBG pO2 46 H VBG HCO3 26 VBG Total CO2 27 VBG O2 Sat (Calc) 82 H VBG Base Excess 2 POC Mix VBG pCO2 Pt Tmp 40.1 L O2 Delivery Device Cannula Radiography Chest X-Ray - ED: 1 View, Read by ED Physician, Chronic Changes and CHF Rhythm Strip Rhythm Strip: Sinus Rhythm Rate: 63 Ectopy: None EKG Initial EKG: Attestation: I personally reviewed and interpreted this EKG as follows: Interpretation: Sinus Rhythm Comments: Normal sinus rhythm at a rate of 63 bpm Rightward axis Nonspecific T wave changes No significant change compared to prior EKG on 09/01/2022 Management Discussion w/another healthcare provider: Hospitalist Discharge Plan Triage Chief Complaint: Shortness of Breath ED Provider: Lisa Torres Dx/Rx/DC Orders Clinical Impression: Pulmonary hypertension, Microcytic anemia, Chest pain Prescriptions: No Action potassium chloride [Klor-Con M20] 20 MEQ tablet 40 meq PO BID albuterol sulfate [Ventolin HFA] 1 INHALER inhaler 2 puff inhalation Q4H PRN PRN (Reason: Shortness Of Breath) Qty: 1 0RF montelukast 10 MG tablet 10 mg PO QHS alprazolam 0.5 MG tablet 0.5 mg PO TID PRN PRN (Reason: Anxiety) Patient Comments: TAKE 1 TABLET BY MOUTH UP TO 3 TIMES DAILY NEEDED ergocalciferol (vitamin D2) [Vitamin D2] 1,250 mcg (50,000 unit) Capsule See Rx Instructions .ROUTE .COMPLEX Rx Instructions: orally ;1,250 mcg orally ;Wed & Sat fluticasone propionate 50 mcg/actuation [place],Suspension 1 spray INTRANASAL BID oxycodone 20 mg Tablet 10 mg PO Q6H PRN (Reason: Pain) omeprazole 20 mg Capsule,Delayed Release(Dr/Ec) 20 mg PO BID diphenhydramine HCl [Benadryl] 25 mg Capsule 50 mg BID polyethylene glycol 3350 [Miralax] 17 gram Powder In Packet 17 g PO DAILY PRN PRN (Reason: Constipation) fluticasone propion-salmeterol [Advair Diskus] 250-50 mcg/dose Blister With Device 1 inh INHALATION DAILY ipratropium-albuterol 0.5 mg-3 mg(2.5 mg base)/3 mL solution for nebulization 3 ml inhalation Q6H PRN PRN (Reason: Wheezing) acetaminophen 500 mg Tablet 1,000 mg PO Q4H PRN (Reason: Pain) promethazine 25 MG tablet 25 mg PO Q4H PRN (Reason: Nausea) atenolol 100 mg tablet 100 mg PO BID Patient Comments: TAKE 1 TABLET BY MOUTH TWICE DAILY pregabalin 75 mg capsule 75 mg PO Q6H Patient Comments: TAKE 1 CAPSULE BY MOUTH IN THE MORNING, 1 IN THE AFTERNOON, AND 100 MG IN THE EVENING (PATIENT SHOULD HAVE 100 MG AT HOME) ropinirole 1 mg tablet 1 mg PO QHS Patient Comments: TAKE 1 TABLET BY MOUTH ONCE DAILY AT BEDTIME Migraine Relief 250-250-65 mg tablet 2 tab PO BID PRN (Reason: Headache) Patient Comments: TAKE 2 TABLETS BY MOUTH EVERY 12 HOURS NEEDED DO NOT USE MORE THAN 2 DAYS PER WEEK albuterol sulfate 2.5 mg /3 mL (0.083 %) Solution For Nebulization 2.5 mg INHALATION Q4H PRN (Reason: Shortness Of Breath) lisinopril 40 mg tablet 40 mg PO DAILY Patient Comments: TAKE 1 TABLET BY MOUTH ONCE DAILY furosemide 40 mg Tablet 60 mg PO 0600,1600 Qty: 120 0RF oxycodone 5 mg Tablet 10 mg PO Q6H PRN (Reason: Chest Pain) 5 Days Qty: 40 0RF celecoxib [Celebrex] 200 mg capsule 200 mg PO DAILY Qty: 30 0RF prednisone 20 mg tablet 20 mg PO DAILY Qty: 10 0RF furosemide [Lasix] 40 mg tablet 60 mg PO BID Qty: 120 0RF potassium chloride 20 mEq tablet extended release 20 meq PO BID Qty: 60 0RF Primary Care Provider: Duran Campos Referrals: Duran Campos MD [Primary Care Provider] - Disposition Disposition: Acute Care Hospital Discharge Location: [facility]
[2023-02-17 20:54] LABS: Absolute Lymphocyte Count 2.04 X10^3/uL (0.83-4.51); Absolute Neutrophil Count 4.3 X10^3/uL (2.0-7.7); Basophil# 0.02 X10^3/uL; Basophil% 0.3 % (0-1); Eosinophil# 0.14 X10^3/uL; Eosinophils% 1.9 % (0-5); Hematocrit 37.2 % (37-47); Lymphocyte # 2.04 X10^3/ul (0.83-4.51); Lymphocyte % 27.4 % (19-41); Mean Corp Hgb Conc 26.9 g/dL (32-36); Mean Corpuscular Hgb 18.9 pg (27.0-32.0); Mean Corpuscular Volume 70.3 fL (81-99); Mean Platelet Vol. 9.9 fl (6.2-12.0); Monocyte# 0.87 X10^3/uL; Monocyte% 11.7 % (0-10); NRBC Flagged by Analyzer 0.7 % (0-5); Neutrophil # 4.34 X10^3/uL (2.7-7.7); Neutrophil % 58.2 % (47-70); POSITIVE MORPHOLOGY YES; Platelet Count 143 K/mm3 (150-450); RBC Distribution Width CV 20.9 % (11.6-14.6); RBC Distribution Width SD 50.5 fl (35.1-43.9); Red Blood Count 5.29 M/mm3 (4.2-5.4); White Blood Count 7.5 K/mm3 (4.4-11.0)
[2023-02-17 21:01] LABS: Blood Gas Specimen Type VEN; FI02 4.5; O2 Delivery Device Cannula; SITE Not entered; VBG BASE EXCESS 2 mmol/L (-1.0-3.5); VBG Bicarbonate 26 mmol/L (22-26); VBG PO2 46 mmHg (25-40); VBG SO2 82 % (50-70); VBG TCO2 27 mmol/L (23-33); VBG pCO2 40.1 mmHg (41-51); VBG pH 7.42 (7.32-7.42)
--- NOTE | 2023-02-17 21:10 | RAD_ITS ---
INDICATION: sob EXAMINATION/TECHNIQUE: X-RAY - XR Chest 1 View COMPARISON: September 01, 2022 FINDINGS: LINES/DEVICES: None. LUNGS: No consolidation, edema or effusion. No pneumothorax. MEDIASTINUM AND CARDIOVASCULAR STRUCTURES: Cardiac silhouette not enlarged. Central airways and mediastinal contour are unremarkable. BONES AND SOFT TISSUES: Unremarkable. RAD/Chest 1 View (Portable) IMPRESSION: No radiographic evidence of acute cardiopulmonary disease. Electronically Signed: Elías Muniz DO at 21:35 EST ,
[2023-02-17 21:13] LABS: AST(SGOT) 26 U/L (15-37); Alanine Aminotransfer ALT/SGPT 23 U/L (13-56); Albumin, Serum 3.6 g/dL (3.2-5.0); Alkaline Phosphatase 127 U/L (45-117); Anion Gap 6 (5-15); BUN 23 mg/dL (7-18); BUN/Creat Ratio 21.5 RATIO (10-20); Calcium,Total 8.9 mg/dL (8.5-10.1); Chloride 102 mmol/L (98-107); Creatinine, Serum 1.07 mg/dL (0.55-1.02); EST Glomerular Filtration Rate 56 mL/min (>60); Est Glom Filt Rate - Afr Amer 68 mL/min (>60); Estimated Creatinine Clearance 54.96 ml/min; Globulin 3.7 g/dL (2.2-4.2); Glucose 164 mg/dL (74-106); Potassium 3.9 mmol/L (3.5-5.1); Protein, Total 7.3 g/dL (6.4-8.2); Sodium Level 136 mmol/L (136-145); Troponin-I HS 10 pg/mL (3.0-54.0)
[2023-02-17 21:20] LABS: Differential Indicated SCAN CRITERIA MET
[2023-02-17 21:21] LABS: Anisocytosis 1+; Microcytosis 1+; Platelet Estimate SLT DEC (ADEQ); Red Cell Morphology N CHROM NORMAL (NORM C&C)
[2023-02-17 21:22] LABS: Hypochromasia 1+
[2023-02-17 21:38] LABS: BNP,B-Type NATRIURETIC PEPTIDE 674.6 pg/mL (0-100)
[2023-02-17 22:53] VITALS: BP 119/76; PULSE 62; RESP 20; TEMP 36.9; O2SAT 97
[2023-02-17] MEDS: Acetaminophen/Butalbital/Caffe 1 Tablet 2 TABLET PO (22:55)
[2023-02-17] MEDS: ALPRAZolam 0.5 MG Tablet PO (22:55)
[2023-02-17 23:20] VITALS: O2SAT 95
== END 2023-02-18 01:25 | disposition short-term general hospital (02) ==
PROVIDERS: Emergency Provider Emergency Medicine; PCP Family Medicine; Visit Provider Emergency Medicine
DX: I27.20 Pulmonary hypertension, unspecified (principal); I13.0 Hypertensive heart and chronic kidney disease with heart failure and stage 1 through stage 4 chronic kidney disease, or unspecified chronic kidney disease; I50.9 Heart failure, unspecified; C43.9 Malignant melanoma of skin, unspecified; D50.9 Iron deficiency anemia, unspecified; R07.9 Chest pain, unspecified; G43.909 Migraine, unspecified, not intractable, without status migrainosus; Z99.81 Dependence on supplemental oxygen
CPT/HCPCS: 71045; 80053; 82803; 83880; 84484; 85025; 93005; 99285; A4216